=== PATIENT | female | born 1935 | race Caucasian/White ===

== ENCOUNTER 2016-10-28 18:34 | Inpatient (IN) ==
[2016-10-28] MEDS ORDERED: LACTATED RINGERS 1,000 ML IV ONE (19:13)
--- NOTE | 2016-10-28 19:13 | Emergency Department Note ---
General Adult HPI - General Chief complaint: Weakness Stated complaint: High blood sugar Time Seen by Provider: 10/28/16 19:11 Source: patient, family Mode of arrival: wheelchair Limitations: no limitations - History of Present Illness HPI Narrative: 81-year-old female patient of Dr. Tanner is coming in from the office with a history of insulin-dependent diabetes mellitus is living at home with elderly presenting with an unstageable decubitus coccygeal ulcer as well as 1 week history of altered mental status, dehydration as well as sugars in the 300 range and hyponatremia in clinic. Upon evaluation she was alert and oriented to person and place. She described buttock pain rated 7 out of 10 worsened with any type of movement. She has fecal incontinence which makes the ulcer more difficult. She endorses subjective fevers, chills as well as sweats. Remaining HPI secondary to current mental state, although patient is easily redirectable. - Related Data Home Medications Medication Instructions Recorded Confirmed Acetaminophen [Tylenol Arthritis] 650 mg PO ONCE 10/28/16 10/28/16 Clopidogrel Bisulfate [Plavix] 75 mg PO ONCE 10/28/16 10/28/16 Detrol 4 mg PO ONCE 10/28/16 10/28/16 Enalapril Maleate [Vasotec] 20 mg PO DAILY 10/28/16 10/28/16 Insulin Glargine, Human [Lantus] 25 unit SQ HS 10/28/16 10/28/16 Levothyroxine [Synthroid] 125 mcg PO DAILY 10/28/16 10/28/16 Metoprolol Tartrate [Lopressor] 25 mg PO BID 10/28/16 10/28/16 Omeprazole [PriLOSEC] 20 mg PO ONCE 10/28/16 10/28/16 Sertraline [Zoloft] 50 mg PO DAILY 10/28/16 10/28/16 Simvastatin [Zocor] 40 mg PO HS 10/28/16 10/28/16 metFORMIN [Glucophage] 500 mg PO BID 10/28/16 10/28/16 Allergies Allergy/AdvReac Type Severity Reaction Status Date / Time Tetanus Vaccines and Toxoid Allergy Unknown Unknown Verified 10/28/16 18:38 Review of Systems Limitations: ROS unobtainable due to patients medical condition Past Medical History - Past Medical History Source: nursing notes reviewed Medical history: Reports: CVA, DVT ( colon cancer, hard of hearing), diabetes, other Surgical history ED: Reports: cholecystectomy, hip replacement, other (carpal tunnel) - Social History Alcohol use: Reports: None Drug use: Reports: none Physical Exam - General Limitations: no limitations General appearance: alert, in distress, other (thin) - Head Head exam: atraumatic, normocephalic - Eye Eye exam: Present: normal appearance, PERRL, EOMI - ENT ENT exam: mucous membranes dry, TM's normal bilaterally - Neck Neck exam: Present: normal inspection, full ROM - Chest Chest inspection: Present: normal inspection, symmetric chest wall rise - Respiratory Respiratory exam: Present: normal lung sounds bilaterally. Absent: respiratory distress, wheezes - Cardiovascular Cardiovascular exam: Present: normal rhythm, tachycardia - Abdominal Exam Abdominal exam: Present: soft, distention, normal bowel sounds. Absent: tenderness, guarding, rebound - Rectal Exam Rectal exam: Present: other (unstageable decubitus coccygeal ulcer with surrounding erythema) - Extremities Exam Extremities exam: Present: normal inspection, full ROM. Absent: tenderness - Back Exam Back exam: Absent: tenderness - Neurological Exam Neurological exam: Present: alert - Expanded Neurological Exam Patient oriented to: Present: person, place. Absent: time Speech: Present: fluid speech Coma Scale Eye Opening: Spontaneous Coma Scale Motor Response: Obeys Commands Coma Scale Verbal Response: Confused Coma Scale Total: 14 - Psychiatric Psychiatric exam: Present: normal affect, normal mood, other (confused at times but redirectable) - Skin Skin exam: Present: dry Course Vital Signs Temperature 97.4 F L 10/28/16 18:35 Pulse Rate 98 H 10/28/16 18:35 Respiratory Rate 20 10/28/16 18:35 Blood Pressure 159/64 10/28/16 18:35 Pulse Oximetry (%) 97 10/28/16 18:35 Temperature 98.1 F 10/28/16 23:01 Pulse Rate 104 H 10/28/16 23:01 Respiratory Rate 16 10/28/16 23:01 Blood Pressure 174/80 10/28/16 23:01 Pulse Oximetry (%) 99 10/28/16 23:01 Medical Decision Making - [facility] Narrative Medical decision making narrative: 81 year old female presenting with altered mental status, found to have ERIC with BUN 26 and Cr 1.3, with unstageable coccygeal decubitus ulcer, as well as hyponatremia at 130, hyperglycemia with blood glucose 450, with AG 18, glucosuria and dehydration. She was given 1L LR bolus, given 10 units regular insulin. She was admitted for hypovolemic hyponatremia with ERIC, acute encephalopathy, unstageable coccygeal ulcer as well as hyperglycemia with elevated anion gap at 18. - Lab Data Result diagrams: 10/28/16 18:50 10/28/16 18:50 Lab Results 10/28/16 10/28/16 10/28/16 Range/Units 18:50 18:50 18:50 WBC 8.9 (4.5-11.0) K/mcL RBC 3.94 L (4.00-5.20) M/mcL Hgb 10.7 L (12.0-15.0) g/dL Hct 33.3 L (36.0-48.0) % MCV 84.6 (80.0-100.0) fL MCH 27.2 (26.0-34.0) pg MCHC 32.1 (31.0-36.0) g/dL RDW 15.0 H (11.5-14.5) % Plt Count 491 H (140-440) K/mcL MPV 8.4 (7.4-10.4) fL Total Counted 100 Seg Neutrophils % 84 H (38-78) % Band Neutrophils % Not Reportable Lymphocytes % 11 L (15-49) % Monocytes % (Manual) 4 (1-9) % Eosinophils % (Manual) 1 (0-7) % Platelet Estimate Increased (NORMAL) RBC Morphology Normal (NORMAL) VBG Lactic Acid 1.0 (0.5-2.2) mmol/L Sodium 130 L (133-145) mmol/L Potassium 5.0 (3.3-5.1) mmol/L Chloride 93 L (96-108) mmol/L Carbon Dioxide 19 L (22-30) mmol/L Anion Gap 18.0 H (8-16) BUN 26 H (8-23) mg/dl Creatinine 1.3 H (0.6-1.1) mg/dl GFR Calculation 39 Glucose 450 H (70-105) mg/dL Calcium 9.2 (8.6-10.4) mg/dl Total Bilirubin < 0.2 (0.0-1.0) mg/dL AST 28 (0-37) U/l ALT 23 (0-40) U/l Alkaline Phosphatase 139 H (39-117) U/L Total Protein 7.4 (5.9-8.4) gm/dL Albumin 3.3 (3.2-5.2) gm/dL Globulin 4.1 H (2.2-3.7) gm/dL Albumin/Globulin Ratio 0.8 L (1.0-2.3) Disposition Clinical Impression: Dehydration, Hyperglycemia Disposition: Xfer As Outpt/Obs ([facility]) Condition: Fair
[2016-10-28 19:36] LABS: Mean Cell Volume 84.6 fL (80.0-100.0); Mean Corpuscular HGB Conc 32.1 g/dL (31.0-36.0); Mean Corpuscular Hemoglobin 27.2 pg (26.0-34.0); Platelet Count 491 K/mcL (140-440); RBC 3.94 M/mcL (4.00-5.20)
[2016-10-28 19:57] LABS: ALT/SGPT 23 U/l (0-40); Albumin 3.3 gm/dL (3.2-5.2); Albumin/Globulin Ratio 0.8 (1.0-2.3); Alkaline Phosphatase 139 U/L (39-117); Blood Urea Nitrogen 26 mg/dl (8-23)
[2016-10-28 20:17] LABS: Eosinophils % (Manual) 1 % (0-7); Lymphocytes % 11 % (15-49); Monocytes % (Manual) 4 % (1-9); Platelet Estimate INCREASED (NORMAL); RBC Morphology NORMAL (NORMAL); Segmented Neutrophils % 84 % (38-78)
[2016-10-28] MEDS ORDERED: INSULIN REGULAR, HUMAN 1 UNIT/0.01 ML UNIT IV ONE (20:51)
--- NOTE | 2016-10-28 21:50 | Internal Med History&Physical ---
Medical - H&P: HPI Patient information: Note initiated : 10/28/16 at 9:46 pm Service Date, if different from initiated Date: [] Patient: Génesis Medina 81 y/o F admitted on for High blood sugar. Chief Complaint: [] History of present illness: Ms. Medina is a 81 year old female was brought to the emergency room this evening by her family. She has a history of type 2 diabetes depression, colorectal cancer. She apparently underwent rectal radiation therapy, which subsequently caused fecal incontinence. Over the last month or so she has developed a sacral decubitus ulcer, which probably has been getting contaminated by stool. Her family reports that over the last week she has had depressed mental status, and has not been eating and drinking well. Her blood sugars at home are running around 300. She does have chronic pain in her neck and low back, and now has pain in the coccygeal area as well. ER evaluation showed multiple electrolyte abnormalities, glucose of 450, as well as dehydration and elevated anion gap. Urinalysis was also abnormal. These abnormalities in addition to likely infected decubitus ulcer, and altered mental status, indicated she should be admitted to observe more closely and continue the workup and treatment here. Unfortunately, her family had already gone home by the time he got into her room. The patient herself is rather disoriented and forgetful. She could not really say where she was for sure, or how she got here. She does report the fecal incontinence, and that she has a sore near her rectum. She says she does not believe she's had recent fever or chills, headaches or dizziness, new eye or ear symptoms, sore throat or cough. She does not believe that she has had recent chest pain or palpitations, or shortness of breath, abdominal pain nausea or vomiting She says she has had loose bowels ever since her colon cancer treatment, as well as incontinence of stool. She only occasionally has reflux symptoms. She denies dysuria. it would appear that her history is not 100% reliable. past medical history: chronic neck pain Low back pain History of stroke History of DVT History of colon cancer, status post rectal radiation. hearing loss Type 2 diabetes T12 compression fx Past surgical history: Cholecystectomy, hip replacement, carpal tunnel repair Medications: Robaxin 750 mg 4 times a day when necessary (Bactrim DStwice a day, prescribed on October 08) metformin 500 mg twice a day Zocor 40 mg daily at bedtime Zoloft 50 mg daily Omeprazole 20 mg daily Metoprolol 25 mg twice a day Levothyroxine 125 mg daily Lantus 25 units daily at bedtime Enalapril 20 mg daily Detrol 4 mg daily Plavix 75 mg daily Tylenol arthritis 650 mgdaily Allergies:td vaccine Family history: Mother lived to be 94. Father in an accident. Social history: Patient is a former smoker. She does not use drugs or alcohol. She lives with her . Medical - H&P: Meds Home Medications Medication Instructions Recorded Confirmed Type Acetaminophen [Tylenol Arthritis] 650 mg PO ONCE 10/28/16 10/28/16 History Clopidogrel Bisulfate [Plavix] 75 mg PO ONCE 10/28/16 10/28/16 History Detrol 4 mg PO ONCE 10/28/16 10/28/16 History Enalapril Maleate [Vasotec] 20 mg PO DAILY 10/28/16 10/28/16 History Insulin Glargine, Human [Lantus] 25 unit SQ HS 10/28/16 10/28/16 History Levothyroxine [Synthroid] 125 mcg PO DAILY 10/28/16 10/28/16 History Metoprolol Tartrate [Lopressor] 25 mg PO BID 10/28/16 10/28/16 History Omeprazole [PriLOSEC] 20 mg PO ONCE 10/28/16 10/28/16 History Sertraline [Zoloft] 50 mg PO DAILY 10/28/16 10/28/16 History Simvastatin [Zocor] 40 mg PO HS 10/28/16 10/28/16 History metFORMIN [Glucophage] 500 mg PO BID 10/28/16 10/28/16 History Allergies Allergy/AdvReac Type Severity Reaction Status Date / Time Tetanus Vaccines and Toxoid Allergy Unknown Unknown Verified 10/28/16 18:38 Medical - H&P: Exam - Constitutional Vitals: Temp Pulse Resp BP Pulse Ox 97.4 F L 101 H 20 163/60 97 10/28/16 18:35 10/28/16 21:00 10/28/16 18:35 10/28/16 21:00 10/28/16 21:00 Exam: on exam, the patient isquite confused at times although at other times her answers appear appropriate. She is otherwise not in any acute distress. Head: Normocephalic, atraumatic. Eyes: PERRLA, EOMI, anicteric. Ears: TMs and canals are clear. Pharynx:Mucosa is quite dry. She does have upper and lower plates in place. Neck: Appears fairly supple, without obvious lymphadenopathy, JVD, thyromegaly, bruits. Cardiac exam: Shows regular rate and rhythm, without obvious murmurs, rubs, gallops. Lungs: Are clear to auscultation, without rales, rhonchi, wheezes. Abdomen: Is soft . There is no guarding or rebound, but she does seem to indicate there is some tenderness generally in the lower abdomen. bowel sounds are active. Extremities: Show no cyanosis, clubbing, edema. Neurologic exam:The patient is forgetful and disoriented. She is a little bit tearful at times, but otherwise cooperative and able to follow commands. Motor exam is grossly nonfocal. Skin exam: There is a large ulcer noted over the sacrum. There is smaller skin lesions noted under both breasts and her pannus, consistent with more of a candidal type infection. Medical - H&P: Reslt - Labs CBC & Chem 7: 10/28/16 18:50 10/28/16 18:50 Labs: Short CBC 10/28/16 Range/Units 18:50 WBC 8.9 (4.5-11.0) K/mcL Hgb 10.7 L (12.0-15.0) g/dL Hct 33.3 L (36.0-48.0) % Plt Count 491 H (140-440) K/mcL BMP 10/28/16 18:50 Sodium 130 L Potassium 5.0 Chloride 93 L Carbon Dioxide 19 L BUN 26 H Creatinine 1.3 H Glucose 450 H Calcium 9.2 Liver Function 10/28/16 Range/Units 18:50 Total Bilirubin < 0.2 (0.0-1.0) mg/dL AST 28 (0-37) U/l ALT 23 (0-40) U/l Alkaline Phosphatase 139 H (39-117) U/L Albumin 3.3 (3.2-5.2) gm/dL urinalysis was cloudy, with pH of 6, specific gravity 1.009, 100 mg protein 50 mg glucose, 250 leukocyte esterase, 113 white blood cells, few bacteria urine culture from October 08, 2016: grew 10,000 Nohemy albicans Medical - H&P: A/P (1) Decubitus ulcer of sacral region Current visit: Yes Status: Acute (2) Hyponatremia Current visit: Yes Status: Acute (3) DM type 2 (diabetes mellitus, type 2) Current visit: Yes Status: Acute (4) History of CVA (cerebrovascular accident) Current visit: Yes Status: Acute (5) Depression Current visit: Yes Status: Acute (6) ERIC (acute kidney injury) Current visit: Yes Status: Acute (7) Dehydration Current visit: Yes Status: Acute (8) Hyperglycemia Current visit: Yes Status: Acute - Narrative A/P Narrative: #1. Neurologic. Altered mental status, likely due to acute illness and dehydration and hyperglycemia. -we will follow her neuro checks, and see if this improves after hydration. I will also touch base with her familyin the morning, to see what her baseline is. -There is a reported past history of stroke, although she was unable to tell me if that left her with any deficits. If her mental status does not improve by tomorrow, we may check a head CT scan as well. #2. Type 2 diabetes. -patient presents with marked hyperglycemia, likely due to acute infection. we will do Accu-Cheks every 4 hours, and cover with sliding scale insulin, in addition to her Lantus. -metformin will be held, regarding her dehydration. #3.skin/infectious disease. sacral decubitus ulcer possibly infected. -Patient will be started on Zosyn and vancomycinfor empiric coverage. -Wound care consult with Dr. Alanis. -Patient's urinalysis also was suggestive of UTI. This should be covered by the empiric antibiotics, pending culture.blood cultures are also pending. #4. Renal. Patient presents with acute kidney injury, and multiple electrolyte abnormalities, likely due to dehydration and uncontrolled diabetes. We will check follow-up labs after hydration. #5. GI. -History of colorectal cancer, status post radiation, now withwhat sounds like chronic diarrhea and bowel incontinence. -it does look like she might even treated with antibiotics earlier this month, so we will check a C. difficile screen as well. history of GERD. Continue proton pump inhibitor. #6. CODE STATUS:The patient is a little unclear about this, and since her POA is not available,she will remain a full code for tonight, although it sounds like perhaps there is paperwork somewhere indicating a limited code. #7. DVT prophylaxis: She is on Plavix, but I think I'm going to add low-dose heparin as well, given that something perhaps she's been bedbound for a while. #8. Hyperlipidemia. Continue Zocor. #9. Possible history of depression. Continue Zoloft. #10. Cardiac. probable history of hypertension. Continue metoprolol, but hold the enalapril until renal function improves. -Her chart does not indicate the reason for the Plavix, although this may be related to previous history of stroke. We will try to clarify this with her family tomorrow. #11. Hypothyroidism. Continue levothyroxine. this visit took approximately 60 minutes, to review the patient's records, review her case with the ER [facility], interview and examine her, and write orders.
[2016-10-28] MEDS ORDERED: ONDANSETRON 4 MG/2 ML VIAL IV PRN (23:15)
[2016-10-28] MEDS ORDERED: VANCOMYCIN PER PHARMACY IV ONE (23:15)
[2016-10-28] MEDS ORDERED: NALOXONE HCL 0.4 MG/ML VIAL IV PRN (23:15)
[2016-10-28] MEDS ORDERED: DEXTROSE 50% 50 ML VIAL IV PRN (23:15)
[2016-10-28] MEDS ORDERED: MAGNESIUM HYDROXIDE 30 ML ORAL.SUSP PO PRN (23:15)
[2016-10-28] MEDS ORDERED: DOCUSATE SODIUM 100 MG CAPSULE PO PRN (23:15)
[2016-10-28] MEDS ORDERED: CALCIUM CARBONATE 500 MG TAB.CHEW CHEWED PRN (23:15)
[2016-10-28] MEDS: 0.45 % SODIUM CHLORIDE 1,000 ML IV SCH (23:25)
[2016-10-28] MEDS: 0.9 % SODIUM CHLORIDE 10 ML SYRINGE IV SCH (23:25)
[2016-10-28] MEDS: PIPERACILLIN SODIUM/TAZOBACTAM 3.375 GM in DEXTROSE 5% IN WATER 50 ML IV SCH (23:58)
[2016-10-28] MEDS: INSULIN LISPRO 1 UNIT/0.01 ML UNIT SQ SCH (23:58)
[2016-10-29] MEDS ORDERED: INSULIN LISPRO 1 UNIT/0.01 ML UNIT SQ ONE ×2 (00:03→03:17)
[2016-10-29] MEDS ORDERED: PIPERACILLIN SODIUM/TAZOBACTAM 3.375 GM VIAL IV ONE ×2 (00:04→05:39)
[2016-10-29] MEDS ORDERED: CLOPIDOGREL 75 MG TABLET PO SCH (00:15)
[2016-10-29] MEDS ORDERED: OMEPRAZOLE 20 MG CAPSULE PO SCH (00:15)
[2016-10-29] MEDS ORDERED: DETROL 4 MG PO SCH (00:15)
[2016-10-29] MEDS ORDERED: VANCOMYCIN 750 MG in 0.9 % SODIUM CHLORIDE 250 ML IV ONE (01:00)
[2016-10-29] MEDS ORDERED: VANCOMYCIN 1 GM VIAL ONE (01:15)
[2016-10-29] MEDS: INSULIN LISPRO 1 UNIT/0.01 ML UNIT SQ SCH ×5 (03:06→20:31)
[2016-10-29] MEDS: PIPERACILLIN SODIUM/TAZOBACTAM 3.375 GM in DEXTROSE 5% IN WATER 50 ML IV SCH (05:42)
[2016-10-29] MEDS: 0.9 % SODIUM CHLORIDE 10 ML SYRINGE IV SCH ×3 (05:43→20:32)
[2016-10-29 07:07] LABS: ALT/SGPT 21 U/l (0-40); Albumin 2.9 gm/dL (3.2-5.2); Albumin/Globulin Ratio 1.2 (1.0-2.3); Alkaline Phosphatase 113 U/L (39-117); Bilirubin,Direct < 0.2 mg/dL (0.0-0.3); Blood Urea Nitrogen 18 mg/dl (8-23); Gamma Glutamyl Transpeptidase 21 U/L (5-36); Magnesium 1.6 mg/dL (1.6-2.5); Phosphorous 2.6 mg/dL (2.7-4.5); Uric Acid 5.7 mg/dL (2.5-8.0)
[2016-10-29] MEDS: 0.45 % SODIUM CHLORIDE 1,000 ML IV SCH ×2 (07:27→10:59)
[2016-10-29] MEDS: PANTOPRAZOLE 40 MG TABLET PO SCH (07:34)
[2016-10-29] MEDS: LEVOTHYROXINE 125 MCG TABLET PO SCH (07:34)
--- NOTE | 2016-10-29 07:51 | XRay Report ---
CLINICAL INFORMATION: Ketoacidosis. Altered mental status TECHNIQUE: AP portable chest x-ray COMPARISON: None. FINDINGS: Lungs are negative. No parenchymal infiltrate or mass. Heart size and vascularity are normal. No pulmonary congestion. No pulmonary edema. Emily and mediastinum are negative. No pleural fluid. IMPRESSION: Negative AP chest x-ray Interpreted and Authenticated by: Jey Manning 10/29/16
[2016-10-29] MEDS: SERTRALINE 50 MG TABLET PO SCH (08:56)
[2016-10-29] MEDS: HEPARIN 5,000 UNIT/ML VIAL SQ SCH ×2 (08:56→20:30)
[2016-10-29] MEDS: CLOPIDOGREL 75 MG TABLET PO SCH (08:56)
[2016-10-29] MEDS: METOPROLOL TARTRATE 25 MG TABLET PO SCH ×2 (08:56→20:31)
[2016-10-29 11:04] LABS: Basophils # (Auto) 0 K/mcL (0.0-0.3); Basophils % (Auto) 0.2 % (0.0-2.0); Eosinophils # (Auto) 0.2 K/mcL (0.0-0.7); Eosinophils % (Auto) 2.5 % (0.0-7.0); Granulocytes % (Auto) 79.1 % (38.0-78.0); Lymphocytes # (Auto) 1.4 K/mcL (1.5-4.8); Lymphocytes % (Auto) 13.7 % (15.5-49.0); Mean Cell Volume 84.1 fL (80.0-100.0); Mean Corpuscular HGB Conc 31.9 g/dL (31.0-36.0); Mean Corpuscular Hemoglobin 26.8 pg (26.0-34.0); Monocytes # (Auto) 0.5 K/mcL (0.1-0.9); Monocytes % (Auto) 4.5 % (1.0-9.0); Platelet Count 455 K/mcL (140-440); RBC 3.53 M/mcL (4.00-5.20); Red Cell Distribution Width 14.7 % (11.5-14.5)
[2016-10-29] MEDS: PIPERACILLIN SODIUM/TAZOBACTAM 2.25 GM in DEXTROSE 5% IN WATER 50 ML IV SCH ×2 (12:00→19:15)
--- NOTE | 2016-10-29 12:50 | General Surgery Consult Note ---
History of Present Illness Patient information: Note initiated : 10/29/16 at 12:46 pm Service Date, if different from initiated Date: [] Patient: Génesis Medina 81 y/o F admitted on 10/28/16 for High blood sugar. Chief Complaint: [] Consult date: 10/29/16 Requesting physician: Ann Fair History of present illness: patient referred for evaluation of wound care center area with a pressure necrosis. Non-stageable sacral / coccygeal ulcer. I saw this 81-year-old female in room 108. I examined her in the presence of nursing staff and Dr. Pantoja referring physician, hospitalist. This patient is currently in the hospital for management of her medical conditions of uncontrolled diabetes with altered mental status. Along with this , patient has depression ERIC. Patient's past medical history significant for rectal cancer treated with radiation. Other past medical history consists of CVA, deep venous thrombosis, fracture of T12 vertebra, renal insufficiency with ERIC. She was noted to have an area of full-thickness necrosis over the sacrococcygeal region. Wound care consult was therefore generated. Medications and Allergies Home Medications Medication Instructions Recorded Confirmed Type Acetaminophen [Tylenol Arthritis] 650 mg PO Q4-6HP PRN 10/28/16 10/29/16 History Clopidogrel Bisulfate [Plavix] 75 mg PO DAILY 10/28/16 10/29/16 History Enalapril Maleate [Vasotec] 20 mg PO DAILY 10/28/16 10/28/16 History Insulin Glargine, Human [Lantus] 25 unit SQ HS 10/28/16 10/28/16 History Levothyroxine [Synthroid] 125 mcg PO DAILY 10/28/16 10/28/16 History Metoprolol Tartrate [Lopressor] 25 mg PO BID 10/28/16 10/28/16 History Omeprazole [PriLOSEC] 20 mg PO DAILY 10/28/16 10/29/16 History Sertraline [Zoloft] 50 mg PO DAILY 10/28/16 10/28/16 History Simvastatin [Zocor] 40 mg PO HS 10/28/16 10/28/16 History metFORMIN [Glucophage] 500 mg PO BID 10/28/16 10/28/16 History Tolterodine Tartrate [Detrol LA] 4 mg PO DAILY 10/29/16 10/29/16 History Allergies Allergy/AdvReac Type Severity Reaction Status Date / Time Tetanus Vaccines and Toxoid Allergy Unknown Unknown Verified 10/28/16 18:38 Exam Temp Pulse Resp BP Pulse Ox 97.5 F L 76 14 148/77 99 10/29/16 08:00 10/29/16 08:00 10/29/16 08:00 10/29/16 08:00 10/29/16 08:00 - General physical appearance well developed, well nourished, moderate distress - Eyes PERRL, normal ocular movement - ENT normal pinna, normal nares, normal mucosa, no congestion - Head Head exam IM: Present: atraumatic, normal inspection - Neck no masses, no bruits, trachea midline, no lymphadectomy, no venous distension - Cardiovascular Cardiovascular exam IM: Present: normal rate and rhythm - Respiratory normal expansion, normal respiratory effort, clear to auscultation - Abdomen Abdomen: Present: soft, non tender, bowel sounds - Genitourinary Present: normal external genitalia - Rectum Rectum: Present: normal sphincter tone, no hemorrhoids, no bleeding, fissures - Integumentary Present: other (non-stageable discolored and dry [place] Black skin adherent subcutaneous and surrounding skin areas. Underlying bony structure appears deformed due to previous radiation and fracture injuries) - Neurologic Present: normal coordination, other (Her neurological examination is grossly unremarkable. Detailed examination not done. There are no lateralizing signs) - Musculoskeletal Present: other (patient is currently lying in bed.There is palpable deformity of lumbar, sacral and coccygeal areas) - Psychiatric Present: other (patient is in discomfort. Psychiatric examination not done.) Results - Labs 10/29/16 10:34 10/29/16 04:55 Abnormal lab results 10/29/16 10/29/16 Range/Units 04:55 10:34 RBC 3.53 L (4.00-5.20) M/mcL Hgb 9.5 L (12.0-15.0) g/dL Hct 29.7 L (36.0-48.0) % RDW 14.7 H (11.5-14.5) % Plt Count 455 H (140-440) K/mcL Gran % 79.1 H (38.0-78.0) % Lymph % (Auto) 13.7 L (15.5-49.0) % Lymph # 1.4 L (1.5-4.8) K/mcL Carbon Dioxide 19 L (22-30) mmol/L Phosphorus 2.6 L (2.7-4.5) mg/dL Lactate Dehydrogenase 264 H (94-250) U/L Total Protein 5.4 L (5.9-8.4) gm/dL Albumin 2.9 L (3.2-5.2) gm/dL Diabetes panel 10/29/16 Range/Units 04:55 Sodium 139 (133-145) mmol/L Potassium 5.0 (3.3-5.1) mmol/L Chloride 104 (96-108) mmol/L Carbon Dioxide 19 L (22-30) mmol/L BUN 18 (8-23) mg/dl Creatinine 1.1 (0.6-1.1) mg/dl Glucose 86 (70-105) mg/dL Calcium 8.7 (8.6-10.4) mg/dl AST 26 (0-37) U/l ALT 21 (0-40) U/l Alkaline Phosphatase 113 (39-117) U/L Total Protein 5.4 L (5.9-8.4) gm/dL Albumin 2.9 L (3.2-5.2) gm/dL Triglycerides 107 (<150) mg/dl Calcium panel 10/29/16 Range/Units 04:55 Calcium 8.7 (8.6-10.4) mg/dl Phosphorus 2.6 L (2.7-4.5) mg/dL Albumin 2.9 L (3.2-5.2) gm/dL Pituitary panel 10/29/16 Range/Units 04:55 Sodium 139 (133-145) mmol/L Potassium 5.0 (3.3-5.1) mmol/L Chloride 104 (96-108) mmol/L Carbon Dioxide 19 L (22-30) mmol/L BUN 18 (8-23) mg/dl Creatinine 1.1 (0.6-1.1) mg/dl Glucose 86 (70-105) mg/dL Calcium 8.7 (8.6-10.4) mg/dl Adrenal panel 10/29/16 Range/Units 04:55 Sodium 139 (133-145) mmol/L Potassium 5.0 (3.3-5.1) mmol/L Chloride 104 (96-108) mmol/L Carbon Dioxide 19 L (22-30) mmol/L BUN 18 (8-23) mg/dl Creatinine 1.1 (0.6-1.1) mg/dl Glucose 86 (70-105) mg/dL Calcium 8.7 (8.6-10.4) mg/dl Total Bilirubin < 0.2 (0.0-1.0) mg/dL AST 26 (0-37) U/l ALT 21 (0-40) U/l Alkaline Phosphatase 113 (39-117) U/L Total Protein 5.4 L (5.9-8.4) gm/dL Albumin 2.9 L (3.2-5.2) gm/dL All other labs normal. Assessment and Plan (1) Decubitus ulcer of sacral region I will proceed with conservative management of sacral ulcer at this time. This area has to Santyl collagenase ointment to be applied locally therefore the black eschar. Color with ABD pad and diapers. these can be changed as necessary on every shift. Avoid adherent foam containing Band-Aid type of dressings, which only tap stool and make this skin problem worse. I will speak with patient's family members and try to obtain details pertaining to radiation treatment of rectal cancer. 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 This has to be explored further. Thank you for the courtesy of this consult. I will follow this patient along with you while she is still in the hospital. Status: Chronic Priority: Medium Qualifiers: Pressure ulcer stage: unstageable Qualified Code(s): L89.150 - Pressure ulcer of sacral region, unstageable
[2016-10-29] MEDS: TOLTERODINE 2 MG CAP.XL.24H PO SCH (13:34)
--- NOTE | 2016-10-29 13:48 | Internal Med Progress Note ---
Medical - PN: Subj Patient information: Note initiated : 10/29/16 at 1:47 pm Service Date, if different from initiated Date: [] Patient: Génesis Medina 81 y/o F admitted on 10/28/16 for High blood sugar. Chief Complaint: [] Interval history: 10/28/16: History of present illness: Ms. Medina is a 81 year old female was brought to the emergency room this evening by her family. She has a history of type 2 diabetes depression, colorectal cancer. She apparently underwent rectal radiation therapy, which subsequently caused fecal incontinence. Over the last month or so she has developed a sacral decubitus ulcer, which probably has been getting contaminated by stool. Her family reports that over the last week she has had depressed mental status, and has not been eating and drinking well. Her blood sugars at home are running around 300. She does have chronic pain in her neck and low back, and now has pain in the coccygeal area as well. ER evaluation showed multiple electrolyte abnormalities, glucose of 450, as well as dehydration and elevated anion gap. Urinalysis was also abnormal. These abnormalities in addition to likely infected decubitus ulcer, and altered mental status, indicated she should be admitted to observe more closely and continue the workup and treatment here. Unfortunately, her family had already gone home by the time he got into her room. The patient herself is rather disoriented and forgetful. She could not really say where she was for sure, or how she got here. She does report the fecal incontinence, and that she has a sore near her rectum. She says she does not believe she's had recent fever or chills, headaches or dizziness, new eye or ear symptoms, sore throat or cough. She does not believe that she has had recent chest pain or palpitations, or shortness of breath, abdominal pain nausea or vomiting She says she has had loose bowels ever since her colon cancer treatment, as well as incontinence of stool. She only occasionally has reflux symptoms. She denies dysuria. it would appear that her history is not 100% reliable. 10/29: this morning, the patient remains a bit confused. She is still having significant pain over her sacral ulcer area, if she has to lay on her back. I saw her also with Dr. Alanis today, and we looked at the wound. It is fairly large, but not especially deep. t is quite tender to the touch. otherwise, the patient denies fever or chills, chest pain or shortness of breath , abdominal pain nausea or vomiting. She continues to have her chronically loose stools. And she does have bowel incontinence. - Constitutional Vitals: Vital Signs Temp Pulse Resp BP Pulse Ox 97.5 F L 76 14 148/77 99 10/29/16 08:00 10/29/16 08:00 10/29/16 08:00 10/29/16 08:00 10/29/16 08:00 Period Temp Pulse Resp BP Sys/King Pulse Ox Last 24 Hr 97.5 F-98.1 F 76-104 14-16 148-176/77-80 99-100 Intake and Output 10/28/16 10/29/16 10/29/16 21:59 05:59 13:59 Intake Total 50 / 50 1300 / 1300 Output Total 1 / 2 / 2 Balance 49 / 49 1298 / 1298 Weight 117 lb 8 oz Intake & Output: Intake & Output 10/28/16 10/29/16 10/29/16 21:59 05:59 13:59 Intake Total 50 / 50 1300 / 1300 Output Total 1 / 2 / 2 Balance 49 / 49 1298 / 1298 Weight 117 lb 8 oz Intake: IV 50 / 50 1300 / 1300 Sodium Chloride 0.45% 1, 1000 / 1000 000 ml @ 125 mls/hr IV . Q8H EPI Rx#:[id number] Dextrose 5% in Water 50 50 / 50 50 / 50 ml @ 100 mls/hr IV Q6H EPI with Zosyn 3.375 gm Rx#:[id number] Sodium Chloride 0.9% 250 250 / 250 ml @ 250 mls/hr IV ONCE ONE with Vancomycin 750 mg Rx#:[id number] Oral 0 / 0 Output: # of times incontinent of 1 / 1 2 / 2 urine Other: # Bowel Movements 1 Exam: on exam, the patient remains fairly confused, and tearful at times. neck is supple without obvious lymphadenopathy or JVD. Cardiac exam shows regular rate and rhythm. Lungs are clear to auscultation. Abdomen is soft without guarding or rebound. Skin exam: Shows the large sacral ulcer. Extremities show no significant edema. Medical - PN: Obj Da - Labs CBC & Chem 7: 10/29/16 10:34 10/29/16 04:55 Labs: Abnormal Lab Results 10/29/16 10/29/16 10:34 04:55 RBC 3.53 L Hgb 9.5 L Hct 29.7 L RDW 14.7 H Plt Count 455 H Gran % 79.1 H Lymph % (Auto) 13.7 L Lymph # 1.4 L Carbon Dioxide 19 L Phosphorus 2.6 L Lactate Dehydrogenase 264 H Total Protein 5.4 L Albumin 2.9 L 10/29: blood cultures are negative so far. 10/28: urinalysis was cloudy, with pH of 6, specific gravity 1.009, 100 mg protein 50 mg glucose, 250 leukocyte esterase, 113 white blood cells, few bacteria urine culture from October 08, 2016: grew 10,000 Nohemy albicans portable chest x-ray shows no infiltrates or other acute abnormalities. Meds: Medications Acetaminophen (Tylenol) 650 mg PO Q6HP PRN PRN Reason: PAIN/FEVER > 101 Calcium Carbonate/Glycine (Tums) 1,000 mg CHEWED Q4HP PRN PRN Reason: Dyspepsia Clopidogrel Bisulfate (Plavix) 75 mg PO DAILY [facility] Last Admin: 10/29/16 08:56 Dose: 75 mg Collagenase (Santyl Top Oint) 1 dose TOPICAL DAILY [facility] Dextrose (Dextrose 50%) 0 ml IV UD PRN PRN Reason: Hypoglycemia Diagnostic Test (Pha) (Accu-Chek) 1 each FS ACHS [facility] Last Admin: 10/29/16 11:46 Dose: 1 each Docusate Sodium (Colace) 100 mg PO BID PRN PRN Reason: Constipation Heparin Sodium (Porcine) (Heparin) 5,000 unit SQ Q12 [facility] Last Admin: 10/29/16 08:56 Dose: 5,000 unit Vancomycin HCl 750 mg/ Sodium (Chloride) 250 mls @ 250 mls/hr IV DAILY [facility] Piperacillin Sod/Tazobactam (Sod 2.25 gm/ Dextrose) 50 mls @ 100 mls/hr IV Q6 [facility] Last Admin: 10/29/16 12:00 Dose: 100 mls/hr Sodium Chloride (Sodium Chloride 0.45%) 1,000 mls @ 80 mls/hr IV .[id number] [facility] Last Admin: 10/29/16 10:59 Dose: 80 mls/hr Insulin Glargine (Lantus) 25 unit SQ HS [facility] Insulin Human Lispro (Humalog) 0 unit SQ ACHS [facility] PRN Reason: Protocol Last Admin: 10/29/16 11:46 Dose: 6 unit Levothyroxine Sodium (Synthroid) 125 mcg PO ACB [facility] Last Admin: 10/29/16 07:34 Dose: 125 mcg Magnesium Hydroxide (Milk Of Magnesia) 30 ml PO DAILYP PRN PRN Reason: Constipation Metoprolol Tartrate (Lopressor) 25 mg PO BID [facility] Last Admin: 10/29/16 08:56 Dose: 25 mg Morphine Sulfate (Morphine) 1 mg IV Q4HP PRN PRN Reason: Pain Naloxone HCl (Narcan) 0.1 mg IV Q2MIN PRN PRN Reason: Opiate Reversal Ondansetron HCl (Zofran) 4 mg IV Q6HP PRN PRN Reason: Nausea And Vomiting Pantoprazole Sodium (Protonix) 40 mg PO QAMAC [facility] Last Admin: 10/29/16 07:34 Dose: 40 mg Sertraline HCl (Zoloft) 50 mg PO DAILY [facility] Last Admin: 10/29/16 08:56 Dose: 50 mg Simvastatin (Zocor) 40 mg PO HS [facility] Sodium Chloride (Saline Flush) 10 ml IV Q8 [facility] Last Admin: 10/29/16 05:43 Dose: Not Given Tolterodine Tartrate (Detrol La) 4 mg PO DAILY [facility] Last Admin: 10/29/16 13:34 Dose: 4 mg Medical - PN: A/P - Time Spent With Patient Total time spent is greater than 50% in coordination of care (as documented) at patient's floor/unit and/or counseling patient: (1) Decubitus ulcer of sacral region Status: Chronic Current Visit: Yes (2) Hyponatremia Status: Acute Current Visit: Yes (3) DM type 2 (diabetes mellitus, type 2) Status: Acute Current Visit: Yes (4) History of CVA (cerebrovascular accident) Status: Acute Current Visit: Yes (5) Depression Status: Acute Current Visit: Yes (6) ERIC (acute kidney injury) Status: Acute Current Visit: Yes (7) Dehydration Status: Acute Current Visit: Yes (8) Hyperglycemia Status: Acute Current Visit: Yes - Narrative A/P Narrative: #1. Neurologic. Altered mental status, likely due to acute illness and dehydration and hyperglycemia. -unfortunately I did miss her family this morning. she continues to seem a bit confused. -we will follow her neuro checks, and see if this improves after hydration. - There is a reported past history of stroke, although she was unable to tell me if that left her with any deficits. If her mental status does not improve , we may check a head CT scan as well. #2. Type 2 diabetes. -patient presents with marked hyperglycemia,glucoses do continue to be quite labile. likely due to acute infection. we will do Accu-Cheks every 4 hours, and cover with sliding scale insulin, in addition to her Lantus. -metformin can probably now be resumed. #3.skin/infectious disease. sacral decubitus ulcer possibly infected. -Patient will be started on Zosyn and vancomycin for empiric coverage. -Wound care consult with Dr. Alanis--he notes that if the wound is related to previous radiation treatment for her colon cancer, that it mightbe amenable to hyperbaric oxygen treatment.. -Patient's urinalysis also was suggestive of UTI. This should be covered by the empiric antibiotics, pending culture.blood cultures are also pending. #4. Renal. Patient presents with acute kidney injury, and multiple electrolyte abnormalities, likely due to dehydration and uncontrolled diabetes. We will check follow-up labs after hydration. -these are improving today. #5. GI. -History of colorectal cancer, status post radiation, now withwhat sounds like chronic diarrhea and bowel incontinence. -it does look like she might even treated with antibiotics earlier this month, so we will check a C. difficile screen as well. history of GERD. Continue proton pump inhibitor. #6. CODE STATUS:The patient is a little unclear about this, and since her POA is not available,she will remain a full code for tonight, although it sounds like perhaps there is paperwork somewhere indicating a limited code. #7. DVT prophylaxis: She is on Plavix, but I think I'm going to add low-dose heparin as well, given that something perhaps she's been bedbound for a while. #8. Hyperlipidemia. Continue Zocor. #9. Possible history of depression. Continue Zoloft. #10. Cardiac. probable history of hypertension. Continue metoprolol, but hold the enalapril until renal function improves. -Her chart does not indicate the reason for the Plavix, although this may be related to previous history of stroke. We will try to clarify this with her family . #11. Hypothyroidism. Continue levothyroxine. this visit took approximately 30 minutes today, to review patient's test results and vital signs interview and examine her, examine her wound with Dr. Alanis, and write orders. Medical - PN: Qual - Stroke Symptom Onset Unknown: No - VTE Deep Vein Thrombosis/Pulmonary Embolism Present on Admission: No
[2016-10-29] MEDS: COLLAGENASE TOP OINT TUBE 30GM TOPICAL SCH (15:15)
[2016-10-29] MEDS: VANCOMYCIN 750 MG in 0.9 % SODIUM CHLORIDE 250 ML IV SCH (17:30)
[2016-10-29] MEDS: ACETAMINOPHEN 325 MG TABLET PO PRN (19:50)
[2016-10-29] MEDS: INSULIN GLARGINE, HUMAN 1 UNIT/0.01 ML SQ SCH (20:30)
[2016-10-29] MEDS: SIMVASTATIN 40 MG TABLET PO SCH (20:31)
[2016-10-30] MEDS: 0.45 % SODIUM CHLORIDE 1,000 ML IV SCH ×4 (00:50→21:13)
[2016-10-30] MEDS: PIPERACILLIN SODIUM/TAZOBACTAM 2.25 GM in DEXTROSE 5% IN WATER 50 ML IV SCH ×4 (00:54→17:44)
[2016-10-30] MEDS: 0.9 % SODIUM CHLORIDE 10 ML SYRINGE IV SCH ×3 (05:45→21:02)
[2016-10-30 06:19] LABS: Basophils # (Auto) 0 K/mcL (0.0-0.3); Basophils % (Auto) 0.3 % (0.0-2.0); Eosinophils # (Auto) 0.2 K/mcL (0.0-0.7); Eosinophils % (Auto) 2.6 % (0.0-7.0); Granulocytes % (Auto) 72.1 % (38.0-78.0); Lymphocytes # (Auto) 1.8 K/mcL (1.5-4.8); Lymphocytes % (Auto) 19.8 % (15.5-49.0); Mean Cell Volume 85.2 fL (80.0-100.0); Mean Corpuscular HGB Conc 31.9 g/dL (31.0-36.0); Mean Corpuscular Hemoglobin 27.2 pg (26.0-34.0); Monocytes # (Auto) 0.5 K/mcL (0.1-0.9); Monocytes % (Auto) 5.2 % (1.0-9.0); Platelet Count 421 K/mcL (140-440); RBC 3.26 M/mcL (4.00-5.20); Red Cell Distribution Width 14.8 % (11.5-14.5)
[2016-10-30 08:05] LABS: ALT/SGPT 21 U/l (0-40); Albumin 2.7 gm/dL (3.2-5.2); Albumin/Globulin Ratio 0.8 (1.0-2.3); Alkaline Phosphatase 107 U/L (39-117); Bilirubin,Direct < 0.2 mg/dL (0.0-0.3); Blood Urea Nitrogen 12 mg/dl (8-23); Gamma Glutamyl Transpeptidase 26 U/L (5-36); Magnesium 1.5 mg/dL (1.6-2.5); Phosphorous 2.9 mg/dL (2.7-4.5); Uric Acid 3.7 mg/dL (2.5-8.0)
[2016-10-30] MEDS: INSULIN LISPRO 1 UNIT/0.01 ML UNIT SQ SCH ×4 (08:10→21:01)
[2016-10-30] MEDS: PANTOPRAZOLE 40 MG TABLET PO SCH (08:10)
[2016-10-30] MEDS: LEVOTHYROXINE 125 MCG TABLET PO SCH (08:10)
[2016-10-30] MEDS: HEPARIN 5,000 UNIT/ML VIAL SQ SCH ×2 (08:57→21:01)
[2016-10-30] MEDS: metFORMIN 500 MG TABLET PO SCH ×2 (08:58→17:43)
[2016-10-30] MEDS: SERTRALINE 50 MG TABLET PO SCH (08:58)
[2016-10-30] MEDS: METOPROLOL TARTRATE 25 MG TABLET PO SCH ×2 (08:58→21:01)
[2016-10-30] MEDS: CLOPIDOGREL 75 MG TABLET PO SCH (08:58)
[2016-10-30] MEDS: COLLAGENASE TOP OINT TUBE 30GM TOPICAL SCH (09:09)
[2016-10-30] MEDS: TOLTERODINE 2 MG CAP.XL.24H PO SCH (09:09)
[2016-10-30] MEDS ORDERED: MAGNESIUM SULFATE 2 GM/50 ML BAG IV ONE (09:36)
[2016-10-30] MEDS: VANCOMYCIN 750 MG in 0.9 % SODIUM CHLORIDE 250 ML IV SCH (09:57)
--- NOTE | 2016-10-30 11:36 | General Surgery Progress Note ---
Subjective Patient reports: no new complaints, other Narrative: Note initiated : 10/30/16 at 11:30 am Service Date, if different from initiated Date: [] Patient: Génesis Medina 81 y/o F admitted on 10/28/16 for High blood sugar. Chief Complaint: [] Feeling better today. OOB to chair and conversational. Objective Temp Pulse Resp BP Pulse Ox 97.5 F L 85 20 172/81 98 10/30/16 08:00 10/30/16 08:00 10/30/16 08:00 10/30/16 08:00 10/30/16 08:00 AVSS. No interval changes since last seen. - Additional Data Intake & Output - Last 24 hours: Intake & Output 10/28/16 10/29/16 10/30/16 10/31/16 05:59 05:59 05:59 05:59 Intake Total 50 / 1050 2875 / 2875 750 / 750 Output Total 455 / 455 Balance 49 / 1049 2420 / 2420 749 / 749 Weight 117 lb 8 oz 120 lb - Labs 10/30/16 04:40 10/30/16 04:40 Diabetes panel 10/30/16 Range/Units 04:40 Sodium 136 (133-145) mmol/L Potassium 4.5 (3.3-5.1) mmol/L Chloride 103 (96-108) mmol/L Carbon Dioxide 18 L (22-30) mmol/L BUN 12 (8-23) mg/dl Creatinine 1.1 (0.6-1.1) mg/dl Glucose 154 H (70-105) mg/dL Calcium 8.5 L (8.6-10.4) mg/dl AST 23 (0-37) U/l ALT 21 (0-40) U/l Alkaline Phosphatase 107 (39-117) U/L Total Protein 6.1 (5.9-8.4) gm/dL Albumin 2.7 L (3.2-5.2) gm/dL Triglycerides 154 H (<150) mg/dl Calcium panel 10/30/16 Range/Units 04:40 Calcium 8.5 L (8.6-10.4) mg/dl Phosphorus 2.9 (2.7-4.5) mg/dL Albumin 2.7 L (3.2-5.2) gm/dL Pituitary panel 10/30/16 Range/Units 04:40 Sodium 136 (133-145) mmol/L Potassium 4.5 (3.3-5.1) mmol/L Chloride 103 (96-108) mmol/L Carbon Dioxide 18 L (22-30) mmol/L BUN 12 (8-23) mg/dl Creatinine 1.1 (0.6-1.1) mg/dl Glucose 154 H (70-105) mg/dL Calcium 8.5 L (8.6-10.4) mg/dl Adrenal panel 10/30/16 Range/Units 04:40 Sodium 136 (133-145) mmol/L Potassium 4.5 (3.3-5.1) mmol/L Chloride 103 (96-108) mmol/L Carbon Dioxide 18 L (22-30) mmol/L BUN 12 (8-23) mg/dl Creatinine 1.1 (0.6-1.1) mg/dl Glucose 154 H (70-105) mg/dL Calcium 8.5 L (8.6-10.4) mg/dl Total Bilirubin < 0.2 (0.0-1.0) mg/dL AST 23 (0-37) U/l ALT 21 (0-40) U/l Alkaline Phosphatase 107 (39-117) U/L Total Protein 6.1 (5.9-8.4) gm/dL Albumin 2.7 L (3.2-5.2) gm/dL Medical - PN: A/P - Time Spent With Patient Total time spent is greater than 50% in coordination of care (as documented) at patient's floor/unit and/or counseling patient: PROGRESS REVIEWED WITH ESTEFANIA LIND caring for this patient. Spoke with patient about sacral / coccygeal ulcer . Conservative management and wound care along with off loading of area, Support cushion / air loss mattress in chair or in bed and continuous change of posture q 15 mts IF sittin on chair and q 2 hrs when in bed. DO NOT sit or lie on sacral area. Will speak with patient's and obtain medial records pertaining to Radiation Treatment of Sacral area in past ( H/O RT for rectal / anal cancer ) Continue current conservative treatment. Farther recommendations yuliya. less than 15 minutes (1) Decubitus ulcer of sacral region Status: Chronic Current Visit: Yes
--- NOTE | 2016-10-30 13:34 | Internal Med Progress Note ---
Medical - PN: Subj Patient information: Note initiated : 10/30/16 at 1:34 pm Service Date, if different from initiated Date: [] Patient: Génesis Medina 81 y/o F admitted on 10/28/16 for High blood sugar. Chief Complaint: [] Interval history: 10/28/16: History of present illness: Ms. Medina is a 81 year old female was brought to the emergency room this evening by her family. She has a history of type 2 diabetes depression, colorectal cancer. She apparently underwent rectal radiation therapy, which subsequently caused fecal incontinence. Over the last month or so she has developed a sacral decubitus ulcer, which probably has been getting contaminated by stool. Her family reports that over the last week she has had depressed mental status, and has not been eating and drinking well. Her blood sugars at home are running around 300. She does have chronic pain in her neck and low back, and now has pain in the coccygeal area as well. ER evaluation showed multiple electrolyte abnormalities, glucose of 450, as well as dehydration and elevated anion gap. Urinalysis was also abnormal. These abnormalities in addition to likely infected decubitus ulcer, and altered mental status, indicated she should be admitted to observe more closely and continue the workup and treatment here. Unfortunately, her family had already gone home by the time he got into her room. The patient herself is rather disoriented and forgetful. She could not really say where she was for sure, or how she got here. She does report the fecal incontinence, and that she has a sore near her rectum. She says she does not believe she's had recent fever or chills, headaches or dizziness, new eye or ear symptoms, sore throat or cough. She does not believe that she has had recent chest pain or palpitations, or shortness of breath, abdominal pain nausea or vomiting She says she has had loose bowels ever since her colon cancer treatment, as well as incontinence of stool. She only occasionally has reflux symptoms. She denies dysuria. it would appear that her history is not 100% reliable. 10/29: this morning, the patient remains a bit confused. She is still having significant pain over her sacral ulcer area, if she has to lay on her back. I saw her also with Dr. Alanis today, and we looked at the wound. It is fairly large, but not especially deep. t is quite tender to the touch. otherwise, the patient denies fever or chills, chest pain or shortness of breath , abdominal pain nausea or vomiting. She continues to have her chronically loose stools. And she does have bowel incontinence. 10/30: today, patient is a little more alert. She is sitting up in a chair having lunch. She says she is having less sacral area pain today, but her knees are really hurting today. She also complains of feeling cold. She says staff told her she did not have diarrhea last night, which she said would be different than usual. She tells me that she has been too weak to get out of bed or to walk around for about 2 weeks. She otherwise denies fever or chills, chest pain or shortness of breath, abdominal pain, nausea or vomiting, dysuria. Her arrived later, and we had a long discussion. He tells me that his was getting around fine, up until about 2 weeks ago. 2 weeks ago she seemed to hurt her low back while carrying groceries. She then had a CT scan which suggested a T12 fracture. He says she was then sent to a pain clinic, and underwent an MRI, which says she did not have a fracture. ever since this injury , she has been quite sedentary, and required assistance to get around. He believes she just developed the sacral ulcer sometime over the last 2 weeks. He confirms that she did have a colon cancer and he believes she received sacral area radiation at that time, after receiving chemotherapy. He feels that she is just too weak for him to handle at homeat this time. he is hoping she can get physical therapy and wound care to help her get back to her baseline. - Constitutional Vitals: Vital Signs Temp Pulse Resp BP Pulse Ox 99.6 F 85 18 164/71 96 10/30/16 12:00 10/30/16 12:00 10/30/16 12:00 10/30/16 12:00 10/30/16 12:00 Period Temp Pulse Resp BP Sys/King Pulse Ox Last 24 Hr 97.4 F-99.6 F 81-102 16-24 145-172/70-90 92-99 Intake and Output 10/29/16 10/30/16 10/30/16 21:59 05:59 13:59 Intake Total 100 / 100 1475 / 1475 750 / 750 Output Total 451 / 451 2 / 2 Balance -351 / -351 1473 / 1473 749 / 749 Weight 120 lb Intake & Output: Intake & Output 10/29/16 10/30/16 10/30/16 21:59 05:59 13:59 Intake Total 100 / 100 1475 / 1475 750 / 750 Output Total 451 / 451 2 / 2 Balance -351 / -351 1473 / 1473 749 / 749 Weight 120 lb Intake: IV 100 / 100 1050 / 1050 300 / 300 Sodium Chloride 0.45% 1, 1000 / 1000 000 ml @ 80 mls/hr IV . [id number] EPI Rx#:[id number] Dextrose 5% in Water 50 100 / 100 50 / 50 50 / 50 ml @ 100 mls/hr IV Q6 EPI with Zosyn 2.25 gm Rx#: [id number] Sodium Chloride 0.9% 250 250 / 250 ml @ 250 mls/hr IV DAILY EPI with Vancomycin 750 mg Rx#:[id number] Oral 425 / 425 450 / 450 Output: Urine Catheter Amount 450 / 450 # of times incontinent of 2 urine Other: Meal Breakfast Percent of Meal Consumed 75% Feeding Ability Independent Exam: on exam, the patient is not currently in any distress. Cardiac exam shows regular rate and rhythm. Lungs are clear to auscultation. Abdomen appears soft and nontender. Extremities show no significant edema. Neurologic exam: The patient is still quite forgetful, but does seem more alert than at admission.motor exam is grossly nonfocal. Medical - PN: Obj Da - Labs CBC & Chem 7: 10/31/16 05:00 10/31/16 05:00 Labs: Abnormal Lab Results 10/30/16 10/30/16 10/30/16 07:52 04:40 04:40 RBC 3.26 L Hgb 8.9 L Hct 27.8 L RDW 14.8 H Plt Count Gran % Lymph % (Auto) Lymph # Carbon Dioxide 18 L Glucose 154 H Calcium 8.5 L Phosphorus Magnesium 1.5 L Lactate Dehydrogenase Total Protein Albumin 2.7 L Albumin/Globulin Ratio 0.8 L Triglycerides 154 H Vancomycin Trough 15.3 H 10/29/16 10/29/16 10:34 04:55 RBC 3.53 L Hgb 9.5 L Hct 29.7 L RDW 14.7 H Plt Count 455 H Gran % 79.1 H Lymph % (Auto) 13.7 L Lymph # 1.4 L Carbon Dioxide 19 L Glucose Calcium Phosphorus 2.6 L Magnesium Lactate Dehydrogenase 264 H Total Protein 5.4 L Albumin 2.9 L Albumin/Globulin Ratio Triglycerides Vancomycin Trough 10/29: -blood cultures are negative so far. -Accu-Cheks are ranging 109-259 today. 10/28: urinalysis was cloudy, with pH of 6, specific gravity 1.009, 100 mg protein 50 mg glucose, 250 leukocyte esterase, 113 white blood cells, few bacteria urine culture from October 08, 2016: grew 10,000 Nohemy albicans portable chest x-ray shows no infiltrates or other acute abnormalities. 10/08/16: Lumbar spine films did show severe T12-L1 degenerative disc disease, mild osteopenia, and chronic wedging of t10-T12 vertebral bodies likely due to osteoporotic compression fracture. Meds: Medications Acetaminophen (Tylenol) 650 mg PO Q6HP PRN PRN Reason: PAIN/FEVER > 101 Last Admin: 10/29/16 19:50 Dose: 650 mg Calcium Carbonate/Glycine (Tums) 1,000 mg CHEWED Q4HP PRN PRN Reason: Dyspepsia Clopidogrel Bisulfate (Plavix) 75 mg PO DAILY [facility] Last Admin: 10/30/16 08:58 Dose: 75 mg Collagenase (Santyl Top Oint) 1 dose TOPICAL DAILY [facility] Last Admin: 10/30/16 09:09 Dose: Not Given Dextrose (Dextrose 50%) 0 ml IV UD PRN PRN Reason: Hypoglycemia Diagnostic Test (Pha) (Accu-Chek) 1 each FS ACHS [facility] Last Admin: 10/30/16 11:09 Dose: 1 each Docusate Sodium (Colace) 100 mg PO BID PRN PRN Reason: Constipation Heparin Sodium (Porcine) (Heparin) 5,000 unit SQ Q12 [facility] Last Admin: 10/30/16 08:57 Dose: 5,000 unit Vancomycin HCl 750 mg/ Sodium (Chloride) 250 mls @ 250 mls/hr IV DAILY [facility] Last Admin: 10/30/16 09:57 Dose: 250 mls/hr Piperacillin Sod/Tazobactam (Sod 2.25 gm/ Dextrose) 50 mls @ 100 mls/hr IV Q6 [facility] Last Admin: 10/30/16 12:02 Dose: 100 mls/hr Sodium Chloride (Sodium Chloride 0.45%) 1,000 mls @ 80 mls/hr IV .[id number] [facility] Last Admin: 10/30/16 11:40 Dose: Not Given Insulin Glargine (Lantus) 25 unit SQ [facility] Last Admin: 10/29/16 20:30 Dose: 25 unit Insulin Human Lispro (Humalog) 0 unit SQ [facility] PRN Reason: Protocol Last Admin: 10/30/16 11:40 Dose: 8 unit Levothyroxine Sodium (Synthroid) 125 mcg PO ACB [facility] Last Admin: 10/30/16 08:10 Dose: 125 mcg Magnesium Hydroxide (Milk Of Magnesia) 30 ml PO DAILYP PRN PRN Reason: Constipation Metformin HCl (Glucophage) 500 mg PO BIDCC [facility] Last Admin: 10/30/16 08:58 Dose: 500 mg Metoprolol Tartrate (Lopressor) 25 mg PO BID [facility] Last Admin: 10/30/16 08:58 Dose: 25 mg Morphine Sulfate (Morphine) 1 mg IV Q4HP PRN PRN Reason: Pain Naloxone HCl (Narcan) 0.1 mg IV Q2MIN PRN PRN Reason: Opiate Reversal Ondansetron HCl (Zofran) 4 mg IV Q6HP PRN PRN Reason: Nausea And Vomiting Pantoprazole Sodium (Protonix) 40 mg PO QAMAC [facility] Last Admin: 10/30/16 08:10 Dose: 40 mg Sertraline HCl (Zoloft) 50 mg PO DAILY [facility] Last Admin: 10/30/16 08:58 Dose: 50 mg Simvastatin (Zocor) 40 mg PO [facility] Last Admin: 10/29/16 20:31 Dose: 40 mg Sodium Chloride (Saline Flush) 10 ml IV Q8 [facility] Last Admin: 10/30/16 13:00 Dose: Not Given Tolterodine Tartrate (Detrol La) 4 mg PO DAILY [facility] Last Admin: 10/30/16 09:09 Dose: 4 mg Medical - PN: A/P - Time Spent With Patient Total time spent is greater than 50% in coordination of care (as documented) at patient's floor/unit and/or counseling patient: (1) Decubitus ulcer of sacral region Status: Chronic Current Visit: Yes (2) Hyponatremia Status: Acute Current Visit: Yes (3) DM type 2 (diabetes mellitus, type 2) Status: Acute Current Visit: Yes (4) History of CVA (cerebrovascular accident) Status: Acute Current Visit: Yes (5) Depression Status: Acute Current Visit: Yes (6) ERIC (acute kidney injury) Status: Acute Current Visit: Yes (7) Dehydration Status: Acute Current Visit: Yes (8) Hyperglycemia Status: Acute Current Visit: Yes - Narrative A/P Narrative: #1. Neurologic. Altered mental status, likely due to acute illness and dehydration and hyperglycemia. -she remains a bit confused, but I do think she is more alert today than yesterday. Infusion is likely due to medical delirium. -we will follow her neuro checks, and see if this improves after hydration. - There is a reported past history of stroke, although she was unable to tell me if that left her with any deficits. If her mental status does not improve , we may check a head CT scan as well. #2. Type 2 diabetes. -patient presents with marked hyperglycemia,glucoses do continue to be quite labile. likely due to acute infection. we will cover with sliding scale insulin, in addition to her Lantus. -metformin can probably now be resumed. #3.skin/infectious disease. sacral decubitus ulcer possibly infected. -Patient is on Zosyn and vancomycin for empiric coverage. -Wound care consult with Dr. Alanis--he notes that if the wound is related to previous radiation treatment for her colon cancer, that it might be amenable to hyperbaric oxygen treatment.. -Patient's urinalysis also was suggestive of UTI. This should be covered by the empiric antibiotics, pending culture.blood cultures are also pending.urine culture is negative so far. However the patient has been spiking low-grade temperatures for the last few days. #4. Renal. Patient presents with acute kidney injury, and multiple electrolyte abnormalities, likely due to dehydration and uncontrolled diabetes. -these are improving today. #5. GI. -History of colorectal cancer, status post radiation, now with what sounds like chronic diarrhea and bowel incontinence. -it does look like she might have been treated with antibiotics earlier this month, so we will check a C. difficile screen as well. history of GERD. Continue proton pump inhibitor. #6. CODE STATUS:The patient is a little unclear about this, and since her POA is not available,she will remain a full code for tonight, although it sounds like perhaps there is paperwork somewhere indicating a limited code. #7. DVT prophylaxis: She is on Plavix, but I think I'm going to add low-dose heparin as well, given that i think perhaps she's been bedbound for a while. #8. Hyperlipidemia. Continue Zocor. #9. Possible history of depression. Continue Zoloft. #10. Cardiac. probable history of hypertension. Continue metoprolol, but hold the enalapril until renal function improves. -Her chart does not indicate the reason for the Plavix, although this may be related to previous history of stroke. We will try to clarify this with her family . #11. Hypothyroidism. Continue levothyroxine. #12 status: This patient presents with multiple competing diagnoses and abnormalities. Her management has been quite complex, from the time of her arrival. we have simultaneously been managing hyponatremia with acute encephalopathy, unstageable sacral wound with necrosis in the setting of previous radiation for colorectal cancer,dehydration,chronic diarrhea and fecal incontinence due to previous cancer treatment, severe weakness requiring 2 person assist. I believe that she qualifies for inpatient management, from the time of admission. this visit took approximately 30 minutes today, to review patient's test results and vital signs ,interview and examine her, and have an extended discussion with her , and write orders. Medical - PN: Qual - Stroke Symptom Onset Unknown: No - VTE Deep Vein Thrombosis/Pulmonary Embolism Present on Admission: No
[2016-10-30] MEDS: INSULIN GLARGINE, HUMAN 1 UNIT/0.01 ML SQ SCH (21:01)
[2016-10-30] MEDS: SIMVASTATIN 40 MG TABLET PO SCH (21:01)
[2016-10-31] MEDS: PIPERACILLIN SODIUM/TAZOBACTAM 2.25 GM in DEXTROSE 5% IN WATER 50 ML IV SCH ×5 (00:10→23:38)
[2016-10-31] MEDS: 0.45 % SODIUM CHLORIDE 1,000 ML IV SCH ×3 (01:43→16:16)
[2016-10-31] MEDS: 0.9 % SODIUM CHLORIDE 10 ML SYRINGE IV SCH ×3 (06:03→22:10)
[2016-10-31 07:17] LABS: Basophils # (Auto) 0 K/mcL (0.0-0.3); Basophils % (Auto) 0.4 % (0.0-2.0); Eosinophils # (Auto) 0.2 K/mcL (0.0-0.7); Eosinophils % (Auto) 2.3 % (0.0-7.0); Granulocytes % (Auto) 70.2 % (38.0-78.0); Lymphocytes % (Auto) 22.1 % (15.5-49.0); Mean Cell Volume 85.3 fL (80.0-100.0); Mean Corpuscular HGB Conc 31.8 g/dL (31.0-36.0); Mean Corpuscular Hemoglobin 27.1 pg (26.0-34.0); Monocytes # (Auto) 0.4 K/mcL (0.1-0.9); Platelet Count 410 K/mcL (140-440); RBC 3.23 M/mcL (4.00-5.20); Red Cell Distribution Width 14.9 % (11.5-14.5)
[2016-10-31 07:59] LABS: ALT/SGPT 24 U/l (0-40); Albumin 2.7 gm/dL (3.2-5.2); Albumin/Globulin Ratio 1.1 (1.0-2.3); Alkaline Phosphatase 146 U/L (39-117); Bilirubin,Direct < 0.2 mg/dL (0.0-0.3); Blood Urea Nitrogen 10 mg/dl (8-23); Gamma Glutamyl Transpeptidase 48 U/L (5-36); Phosphorous 2.6 mg/dL (2.7-4.5); Uric Acid 3.3 mg/dL (2.5-8.0)
[2016-10-31] MEDS: LEVOTHYROXINE 125 MCG TABLET PO SCH (08:04)
[2016-10-31] MEDS: PANTOPRAZOLE 40 MG TABLET PO SCH (08:04)
--- NOTE | 2016-10-31 08:13 | General Surgery Progress Note ---
Subjective Narrative: Note initiated : 10/31/16 at 8:10 am Service Date, if different from initiated Date: [] Patient: Génesis Medina 81 y/o F admitted on 10/28/16 for High blood sugar. Chief Complaint: []I saw this patient on rounds this morning along with Dorene wound care inpatient RN. Patient's sacral necrotic area is responding well to Santyl ointment. Patient' s said that she had RT for cancer of rectum in past . Will check notes from PCP Dr. Winters. Will recommend HBOT for radiation related skin and sub cutaneous soft tissue necrosis . Objective Temp Pulse Resp BP Pulse Ox 98.0 F 84 20 168/68 94 10/31/16 04:00 10/31/16 04:00 10/31/16 04:00 10/31/16 04:00 10/31/16 04:00 AVSS. No changes in ANOOP. L/E. Dark black adherent responding and demarcating well with Santyl treatment. - Additional Data Intake & Output - Last 24 hours: Intake & Output 10/29/16 10/30/16 10/31/16 11/01/16 05:59 05:59 05:59 05:59 Intake Total 50 / 1050 2875 / 2875 3240 / 3240 Output Total 455 / 455 1005 / 1005 Balance 49 / 1049 2420 / 2420 2235 / 2235 Weight 117 lb 8 oz 120 lb 120 lb - Labs 10/31/16 05:00 10/31/16 05:00 Diabetes panel 10/31/16 Range/Units 05:00 Sodium 137 (133-145) mmol/L Potassium 4.6 (3.3-5.1) mmol/L Chloride 104 (96-108) mmol/L Carbon Dioxide 18 L (22-30) mmol/L BUN 10 (8-23) mg/dl Creatinine 1.1 (0.6-1.1) mg/dl Glucose 66 L (70-105) mg/dL Calcium 8.3 L (8.6-10.4) mg/dl AST 22 (0-37) U/l ALT 24 (0-40) U/l Alkaline Phosphatase 146 H (39-117) U/L Total Protein 5.2 L (5.9-8.4) gm/dL Albumin 2.7 L (3.2-5.2) gm/dL Triglycerides 152 H (<150) mg/dl Calcium panel 10/31/16 Range/Units 05:00 Calcium 8.3 L (8.6-10.4) mg/dl Phosphorus 2.6 L (2.7-4.5) mg/dL Albumin 2.7 L (3.2-5.2) gm/dL Pituitary panel 10/31/16 Range/Units 05:00 Sodium 137 (133-145) mmol/L Potassium 4.6 (3.3-5.1) mmol/L Chloride 104 (96-108) mmol/L Carbon Dioxide 18 L (22-30) mmol/L BUN 10 (8-23) mg/dl Creatinine 1.1 (0.6-1.1) mg/dl Glucose 66 L (70-105) mg/dL Calcium 8.3 L (8.6-10.4) mg/dl Adrenal panel 10/31/16 Range/Units 05:00 Sodium 137 (133-145) mmol/L Potassium 4.6 (3.3-5.1) mmol/L Chloride 104 (96-108) mmol/L Carbon Dioxide 18 L (22-30) mmol/L BUN 10 (8-23) mg/dl Creatinine 1.1 (0.6-1.1) mg/dl Glucose 66 L (70-105) mg/dL Calcium 8.3 L (8.6-10.4) mg/dl Total Bilirubin < 0.2 (0.0-1.0) mg/dL AST 22 (0-37) U/l ALT 24 (0-40) U/l Alkaline Phosphatase 146 H (39-117) U/L Total Protein 5.2 L (5.9-8.4) gm/dL Albumin 2.7 L (3.2-5.2) gm/dL Medical - PN: A/P - Time Spent With Patient Total time spent is greater than 50% in coordination of care (as documented) at patient's floor/unit and/or counseling patient: Pressure ulcer and soft tissue necrosis of sacral and coccygeal area. Responding to collagenase treatment. PLAN; Start HBOT for radiation related soft tissue wilmar skin necrosis of sacral and coccygeal region. See orders. Await office notes from Dr. Tanner's office. 15 - 24 minutes (1) Decubitus ulcer of sacral region Status: Chronic Current Visit: Yes
[2016-10-31] MEDS: INSULIN LISPRO 1 UNIT/0.01 ML UNIT SQ SCH ×4 (08:14→20:46)
[2016-10-31] MEDS: COLLAGENASE TOP OINT TUBE 30GM TOPICAL SCH (08:15)
[2016-10-31] MEDS: metFORMIN 500 MG TABLET PO SCH ×2 (08:59→17:12)
[2016-10-31] MEDS: CLOPIDOGREL 75 MG TABLET PO SCH (08:59)
[2016-10-31] MEDS: METOPROLOL TARTRATE 25 MG TABLET PO SCH ×2 (08:59→20:28)
[2016-10-31] MEDS: SERTRALINE 50 MG TABLET PO SCH (08:59)
[2016-10-31] MEDS: TOLTERODINE 2 MG CAP.XL.24H PO SCH (09:00)
[2016-10-31] MEDS: HEPARIN 5,000 UNIT/ML VIAL SQ SCH ×2 (09:00→20:33)
--- NOTE | 2016-10-31 09:27 | General Surgery Progress Note ---
Subjective Patient reports: other (To start HBOT today.) Narrative: Note initiated : 10/31/16 at 9:24 am Service Date, if different from initiated Date: [] Patient: Génesis Medina 81 y/o F admitted on 10/28/16 for High blood sugar. Chief Complaint: [] Objective Temp Pulse Resp BP Pulse Ox 98.3 F 92 H 20 162/71 95 10/31/16 08:00 10/31/16 08:00 10/31/16 08:00 10/31/16 08:00 10/31/16 08:43 AVSS. No changes in examination. Patient seen this morning on rounds. - Additional Data Intake & Output - Last 24 hours: Intake & Output 10/29/16 10/30/16 10/31/16 11/01/16 05:59 05:59 05:59 05:59 Intake Total 50 / 1050 2875 / 2875 3240 / 3240 120 / 120 Output Total 455 / 455 1005 / 1005 Balance 49 / 1049 2420 / 2420 2235 / 2235 120 / 120 Weight 117 lb 8 oz 120 lb 120 lb - Labs 10/31/16 05:00 10/31/16 05:00 Diabetes panel 10/31/16 Range/Units 05:00 Sodium 137 (133-145) mmol/L Potassium 4.6 (3.3-5.1) mmol/L Chloride 104 (96-108) mmol/L Carbon Dioxide 18 L (22-30) mmol/L BUN 10 (8-23) mg/dl Creatinine 1.1 (0.6-1.1) mg/dl Glucose 66 L (70-105) mg/dL Calcium 8.3 L (8.6-10.4) mg/dl AST 22 (0-37) U/l ALT 24 (0-40) U/l Alkaline Phosphatase 146 H (39-117) U/L Total Protein 5.2 L (5.9-8.4) gm/dL Albumin 2.7 L (3.2-5.2) gm/dL Triglycerides 152 H (<150) mg/dl Calcium panel 10/31/16 Range/Units 05:00 Calcium 8.3 L (8.6-10.4) mg/dl Phosphorus 2.6 L (2.7-4.5) mg/dL Albumin 2.7 L (3.2-5.2) gm/dL Pituitary panel 10/31/16 Range/Units 05:00 Sodium 137 (133-145) mmol/L Potassium 4.6 (3.3-5.1) mmol/L Chloride 104 (96-108) mmol/L Carbon Dioxide 18 L (22-30) mmol/L BUN 10 (8-23) mg/dl Creatinine 1.1 (0.6-1.1) mg/dl Glucose 66 L (70-105) mg/dL Calcium 8.3 L (8.6-10.4) mg/dl Adrenal panel 10/31/16 Range/Units 05:00 Sodium 137 (133-145) mmol/L Potassium 4.6 (3.3-5.1) mmol/L Chloride 104 (96-108) mmol/L Carbon Dioxide 18 L (22-30) mmol/L BUN 10 (8-23) mg/dl Creatinine 1.1 (0.6-1.1) mg/dl Glucose 66 L (70-105) mg/dL Calcium 8.3 L (8.6-10.4) mg/dl Total Bilirubin < 0.2 (0.0-1.0) mg/dL AST 22 (0-37) U/l ALT 24 (0-40) U/l Alkaline Phosphatase 146 H (39-117) U/L Total Protein 5.2 L (5.9-8.4) gm/dL Albumin 2.7 L (3.2-5.2) gm/dL Medical - PN: A/P - Time Spent With Patient Total time spent is greater than 50% in coordination of care (as documented) at patient's floor/unit and/or counseling patient: For HBOT for Radiation related soft tissue necrosis sacral and coccygeal region. 40 treatments. 2.5 WISAM for 90 minutes with air breaks per protocol. M - F. Treatments can be continued after discharge as out patient. less than 15 minutes (1) Decubitus ulcer of sacral region Status: Chronic Current Visit: Yes
[2016-10-31] MEDS: VANCOMYCIN 750 MG in 0.9 % SODIUM CHLORIDE 250 ML IV SCH (10:29)
--- NOTE | 2016-10-31 14:45 | Internal Med Progress Note ---
Medical - PN: Subj Patient information: Note initiated : 10/31/16 at 2:45 pm Service Date, if different from initiated Date: [] Patient: Génesis Medina 81 y/o F admitted on 10/28/16 for High Blood Sugar/ Dehydration, Infected Ulcer. Chief Complaint: [] Interval history: 10/28/16: History of present illness: Ms. Medina is a 81 year old female was brought to the emergency room this evening by her family. She has a history of type 2 diabetes depression, colorectal cancer. She apparently underwent rectal radiation therapy, which subsequently caused fecal incontinence. Over the last month or so she has developed a sacral decubitus ulcer, which probably has been getting contaminated by stool. Her family reports that over the last week she has had depressed mental status, and has not been eating and drinking well. Her blood sugars at home are running around 300. She does have chronic pain in her neck and low back, and now has pain in the coccygeal area as well. ER evaluation showed multiple electrolyte abnormalities, glucose of 450, as well as dehydration and elevated anion gap. Urinalysis was also abnormal. These abnormalities in addition to likely infected decubitus ulcer, and altered mental status, indicated she should be admitted to observe more closely and continue the workup and treatment here. Unfortunately, her family had already gone home by the time he got into her room. The patient herself is rather disoriented and forgetful. She could not really say where she was for sure, or how she got here. She does report the fecal incontinence, and that she has a sore near her rectum. She says she does not believe she's had recent fever or chills, headaches or dizziness, new eye or ear symptoms, sore throat or cough. She does not believe that she has had recent chest pain or palpitations, or shortness of breath, abdominal pain nausea or vomiting She says she has had loose bowels ever since her colon cancer treatment, as well as incontinence of stool. She only occasionally has reflux symptoms. She denies dysuria. it would appear that her history is not 100% reliable. 10/29: this morning, the patient remains a bit confused. She is still having significant pain over her sacral ulcer area, if she has to lay on her back. I saw her also with Dr. Alanis today, and we looked at the wound. It is fairly large, but not especially deep. t is quite tender to the touch. otherwise, the patient denies fever or chills, chest pain or shortness of breath , abdominal pain nausea or vomiting. She continues to have her chronically loose stools. And she does have bowel incontinence. 10/30: today, patient is a little more alert. She is sitting up in a chair having lunch. She says she is having less sacral area pain today, but her knees are really hurting today. She also complains of feeling cold. She says staff told her she did not have diarrhea last night, which she said would be different than usual. She tells me that she has been too weak to get out of bed or to walk around for about 2 weeks. She otherwise denies fever or chills, chest pain or shortness of breath, abdominal pain, nausea or vomiting, dysuria. Her arrived later, and we had a long discussion. He tells me that his was getting around fine, up until about 2 weeks ago. 2 weeks ago she seemed to hurt her low back while carrying groceries. She then had a CT scan which suggested a T12 fracture. He says she was then sent to a pain clinic, and underwent an MRI, which says she did not have a fracture. ever since this injury , she has been quite sedentary, and required assistance to get around. He believes she just developed the sacral ulcer sometime over the last 2 weeks. He confirms that she did have a colon cancer and he believes she received sacral area radiation at that time, after receiving chemotherapy. He feels that she is just too weak for him to handle at homeat this time. he is hoping she can get physical therapy and wound care to help her get back to her baseline. 10/31: today, the patient notes that she is still having pain in her low back area, at the site of the sacral wound. She says she still feels like her legs are weak, and that she cannot bear weight. Her daughter and her are in the room with her this morning. They both report that he suddenly has 3 or so weeks ago, she was very functional, and performed all of her own activities of daily living, including grocery shopping. At some point she hurt her back, and she has had rapid decline since then. They remind me that she was seen at the pain clinic, and an MRI was ordered of her spine. MRI is consistent with a right T12 pedicle bone marrow edema, consistent with active microtrabecular stress reaction/stress fracture. No other compression fractures are noted. There is multilevel disc desiccation and spondylosis. otherwise,he denies subjective fever or chills, chest pain or shortness of breath, abdominal pain, nausea or vomiting. She is really unsure about whether she's had more loose stools or not, and denies dysuria. Additional past medical history: Records were obtained: The patient was treated for a T3N1 adenocarcinoma of the rectum,with preoperative chemoradiation therapy. In March and April 2000. - Constitutional Vitals: Vital Signs Temp Pulse Resp BP Pulse Ox 98.3 F 85 20 164/70 95 10/31/16 11:35 10/31/16 11:35 10/31/16 11:35 10/31/16 11:35 10/31/16 11:35 Period Temp Pulse Resp BP Sys/King Pulse Ox Last 24 Hr 98.0 F-98.5 F 83-98 18-20 149-185/65-72 94-97 Intake and Output 10/31/16 10/31/16 10/31/16 05:59 13:59 21:59 Intake Total 200 / 200 820 / 820 Output Total 602 / 602 Balance -402 / -402 820 / 820 Intake & Output: Intake & Output 10/31/16 10/31/16 10/31/16 05:59 13:59 21:59 Intake Total 200 / 200 820 / 820 Output Total 602 / 602 Balance -402 / -402 820 / 820 Intake: IV 50 / 50 100 / 100 Dextrose 5% in Water 50 50 / 50 100 / 100 ml @ 100 mls/hr IV Q6 EPI with Zosyn 2.25 gm Rx#: [id number] Oral 150 / 150 720 / 720 Output: Void Amount 600 / 600 # of times incontinent of 2 / 2 urine Other: Meal Breakfast Percent of Meal Consumed 95 Feeding Ability Assist with Tray Set Up Exam: on exam, she appears a little more alert today than yesterday.she is sitting up in a chair. Neck: Shows no obvious JVD or lymphadenopathy. Cardiac exam shows regular rate and rhythm. Lungs are clear to auscultation. Abdomen is soft without obvious tenderness. Neck sinus extremity show no significant edema. Review of PT notes shows that she is definitely has poor strength and mobilityand remains a high fall risk. Medical - PN: Obj Da - Labs CBC & Chem 7: 10/31/16 05:00 10/31/16 05:00 Labs: Abnormal Lab Results 10/31/16 10/31/16 10/31/16 07:40 05:00 05:00 RBC 3.23 L Hgb 8.8 L Hct 27.5 L RDW 14.9 H Plt Count Gran % Lymph % (Auto) Lymph # Carbon Dioxide 18 L Glucose 66 L Calcium 8.3 L Phosphorus 2.6 L Magnesium GGT 48 H Alkaline Phosphatase 146 H Lactate Dehydrogenase Total Protein 5.2 L Albumin 2.7 L Albumin/Globulin Ratio Triglycerides 152 H Vancomycin Trough 15.7 H 10/30/16 10/30/16 10/30/16 07:52 04:40 04:40 RBC 3.26 L Hgb 8.9 L Hct 27.8 L RDW 14.8 H Plt Count Gran % Lymph % (Auto) Lymph # Carbon Dioxide 18 L Glucose 154 H Calcium 8.5 L Phosphorus Magnesium 1.5 L GGT Alkaline Phosphatase Lactate Dehydrogenase Total Protein Albumin 2.7 L Albumin/Globulin Ratio 0.8 L Triglycerides 154 H Vancomycin Trough 15.3 H 10/29/16 10/29/16 10:34 04:55 RBC 3.53 L Hgb 9.5 L Hct 29.7 L RDW 14.7 H Plt Count 455 H Gran % 79.1 H Lymph % (Auto) 13.7 L Lymph # 1.4 L Carbon Dioxide 19 L Glucose Calcium Phosphorus 2.6 L Magnesium GGT Alkaline Phosphatase Lactate Dehydrogenase 264 H Total Protein 5.4 L Albumin 2.9 L Albumin/Globulin Ratio Triglycerides Vancomycin Trough 10/31: MRI from October 27, 2016: Shows bone marrow edema of the right T12 pedicle consistent with active micro-trabecularstress reaction/stress fracture. There is also chronic anterior wedge compression deformity of T12 grade 1 retrolisthesis of T12 on L1, multilevel disc degeneration 10/29: -blood cultures are negative so far. -Accu-Cheks are ranging 109-259 today. 10/28: urinalysis was cloudy, with pH of 6, specific gravity 1.009, 100 mg protein 50 mg glucose, 250 leukocyte esterase, 113 white blood cells, few bacteria urine culture from October 08, 2016: grew 10,000 Nohemy albicans portable chest x-ray shows no infiltrates or other acute abnormalities. 10/08/16: Lumbar spine films did show severe T12-L1 degenerative disc disease, mild osteopenia, and chronic wedging of t10-T12 vertebral bodies likely due to osteoporotic compression fracture. Meds: Medications Acetaminophen (Tylenol) 650 mg PO Q6HP PRN PRN Reason: PAIN/FEVER > 101 Last Admin: 10/29/16 19:50 Dose: 650 mg Calcium Carbonate/Glycine (Tums) 1,000 mg CHEWED Q4HP PRN PRN Reason: Dyspepsia Clopidogrel Bisulfate (Plavix) 75 mg PO DAILY [facility] Last Admin: 10/31/16 08:59 Dose: 75 mg Collagenase (Santyl Top Oint) 1 dose TOPICAL DAILY [facility] Last Admin: 10/31/16 08:15 Dose: 1 dose Dextrose (Dextrose 50%) 0 ml IV UD PRN PRN Reason: Hypoglycemia Diagnostic Test (Pha) (Accu-Chek) 1 each FS ACHS [facility] Last Admin: 10/31/16 11:40 Dose: 1 each Docusate Sodium (Colace) 100 mg PO BID PRN PRN Reason: Constipation Heparin Sodium (Porcine) (Heparin) 5,000 unit SQ Q12 [facility] Last Admin: 10/31/16 09:00 Dose: 5,000 unit Vancomycin HCl 750 mg/ Sodium (Chloride) 250 mls @ 250 mls/hr IV DAILY [facility] Last Admin: 10/31/16 10:29 Dose: 250 mls/hr Piperacillin Sod/Tazobactam (Sod 2.25 gm/ Dextrose) 50 mls @ 100 mls/hr IV Q6 [facility] Last Infusion: 10/31/16 12:30 Dose: Infused Sodium Chloride (Sodium Chloride 0.45%) 1,000 mls @ 80 mls/hr IV .[id number] [facility] Last Admin: 10/31/16 12:39 Dose: Not Given Insulin Glargine (Lantus) 25 unit SQ HS [facility] Last Admin: 10/30/16 21:01 Dose: 25 unit Insulin Human Lispro (Humalog) [address] [facility] PRN Reason: Protocol Last Admin: 10/31/16 11:41 Dose: Not Given Levothyroxine Sodium (Synthroid) 125 mcg PO ACB [facility] Last Admin: 10/31/16 08:04 Dose: 125 mcg Magnesium Hydroxide (Milk Of Magnesia) 30 ml PO DAILYP PRN PRN Reason: Constipation Metformin HCl (Glucophage) 500 mg PO BIDCC [facility] Last Admin: 10/31/16 08:59 Dose: 500 mg Metoprolol Tartrate (Lopressor) 25 mg PO BID [facility] Last Admin: 10/31/16 08:59 Dose: 25 mg Morphine Sulfate (Morphine) 1 mg IV Q4HP PRN PRN Reason: Pain Naloxone HCl (Narcan) 0.1 mg IV Q2MIN PRN PRN Reason: Opiate Reversal Ondansetron HCl (Zofran) 4 mg IV Q6HP PRN PRN Reason: Nausea And Vomiting Pantoprazole Sodium (Protonix) 40 mg PO QAMAC [facility] Last Admin: 10/31/16 08:04 Dose: 40 mg Sertraline HCl (Zoloft) 50 mg PO DAILY [facility] Last Admin: 10/31/16 08:59 Dose: 50 mg Simvastatin (Zocor) 40 mg PO HS [facility] Last Admin: 10/30/16 21:01 Dose: 40 mg Sodium Chloride (Saline Flush) 10 ml IV Q8 [facility] Last Admin: 10/31/16 13:30 Dose: 10 ml Tolterodine Tartrate (Detrol La) 4 mg PO DAILY [facility] Last Admin: 10/31/16 09:00 Dose: 4 mg Medical - PN: A/P - Time Spent With Patient Total time spent is greater than 50% in coordination of care (as documented) at patient's floor/unit and/or counseling patient: (1) Decubitus ulcer of sacral region Status: Chronic Current Visit: Yes (2) Hyponatremia Status: Acute Current Visit: Yes (3) DM type 2 (diabetes mellitus, type 2) Status: Acute Current Visit: Yes (4) History of CVA (cerebrovascular accident) Status: Acute Current Visit: Yes (5) Depression Status: Acute Current Visit: Yes (6) ERIC (acute kidney injury) Status: Acute Current Visit: Yes (7) Dehydration Status: Acute Current Visit: Yes (8) Hyperglycemia Status: Acute Current Visit: Yes - Narrative A/P Narrative: #1. Neurologic. Altered mental status, likely due to acute illness and dehydration and hyperglycemia. -she remains a bit confused, but I do think she is more alert today than yesterday. Infusion is likely due to medical delirium. -There is a reported past history of stroke, although she was unable to tell me if that left her with any deficits. If her mental status does not improve , we may check a head CT scan as well. #2. Type 2 diabetes. -patient presents with marked hyperglycemia,glucoses do continue to be quite labile. likely due to acute infection. we will cover with sliding scale insulin, in addition to her Lantus. -metformin was now be resumed. however, if her diarrhea persists, we might need to consider that this could be a cause. #3.skin/infectious disease. sacral decubitus ulcer possibly infected. -Patient is on Zosyn and vancomycin for empiric coverage. -Wound care consult with Dr. Alanis--he notes that if the wound is related to previous radiation treatment for her colon cancer, and he is therefore initiated hyperbaric treatment, to try to get this quickly healed. -Patient's urinalysis also was suggestive of UTI. This is covered by the empiric antibiotics, pending culture.blood cultures are also pending.urine culture is negative so far. However the patient has been spiking low-grade temperatures for the last few days. #4. Renal. Patient presents with acute kidney injury, and multiple electrolyte abnormalities, likely due to dehydration and uncontrolled diabetes. -these are improving today. #5. GI. -History of colorectal cancer, status post radiation, now with what sounds like chronic diarrhea and bowel incontinence. -it does look like she might have been treated with antibiotics earlier this month, so we will check a C. difficile screen as well. history of GERD. Continue proton pump inhibitor. #6. CODE STATUS:The patient is a little unclear about this, and since her POA is not available,she will remain a full code for tonight, although it sounds like perhaps there is paperwork somewhere indicating a limited code. #7. DVT prophylaxis: She is on Plavix, but I think I'm going to add low-dose heparin as well, given that i think perhaps she's been bedbound for a while. #8. Hyperlipidemia. Continue Zocor. #9. Possible history of depression. Continue Zoloft. #10. Cardiac. probable history of hypertension. Continue metoprolol, but hold the enalapril until renal function improves. -Her chart does not indicate the reason for the Plavix, although this may be related to previous history of stroke. We will try to clarify this with her family . #11. Hypothyroidism. Continue levothyroxine. #12. Persistent low back pain. MRI appears to show some acute edema of a pedicle, which may indicate a micro-stress fracture. No acute vertebral stress fractures were found. I suspect we will need to continue aggressive pain management, and physical therapy, to get her mobile again. Her goal is to get back to her baseline, where she could perform all ADLs independently. #13 status: This patient presents with multiple competing diagnoses and abnormalities. Her management has been quite complex, from the time of her arrival. we have simultaneously been managing hyponatremia with acute encephalopathy, unstageable sacral wound with necrosis in the setting of previous radiation for colorectal cancer,dehydration,chronic diarrhea and fecal incontinence due to previous cancer treatment, severe weakness requiring 2 person assist. I believe that she qualifies for inpatient management, from the time of admission. this visit took approximately 40 minutes today, to review patient's test results and vital signs ,interview and examine her, and have an extended discussion with her and daughter,and also staff, and write orders, as well as reviewing old records obtained today.. Medical - PN: Qual - Stroke Symptom Onset Unknown: No - VTE Deep Vein Thrombosis/Pulmonary Embolism Present on Admission: No
--- NOTE | 2016-10-31 17:07 | General Surgery Progress Note ---
Subjective Patient reports: other (Patient had FIRST HBOT. Claustrophobia anxiety. Earache after treatment. ) Narrative: Note initiated : 10/31/16 at 5:04 pm Service Date, if different from initiated Date: [] Patient: Gnéesis Medina 81 y/o F admitted on 10/28/16 for High Blood Sugar/ Dehydration, Infected Ulcer. Chief Complaint: [] Objective Temp Pulse Resp BP Pulse Ox 98.3 F 85 20 164/70 95 10/31/16 11:35 10/31/16 11:35 10/31/16 11:35 10/31/16 11:35 10/31/16 11:35 AVSS. ANOOP No acute changes. EAMS both ear canals. Patent with soft wax. NO evidence of mastoid tenderness. TMS intact. - Additional Data Intake & Output - Last 24 hours: Intake & Output 10/29/16 10/30/16 10/31/16 11/01/16 05:59 05:59 05:59 05:59 Intake Total 50 / 1050 2875 / 2875 3490 / 3490 1820 / 1820 Output Total 455 / 455 1005 / 1005 Balance 49 / 1049 2420 / 2420 2485 / 2485 1820 / 1820 Weight 117 lb 8 oz 120 lb 120 lb 120 lb - Labs 10/31/16 05:00 10/31/16 05:00 Diabetes panel 10/31/16 Range/Units 05:00 Sodium 137 (133-145) mmol/L Potassium 4.6 (3.3-5.1) mmol/L Chloride 104 (96-108) mmol/L Carbon Dioxide 18 L (22-30) mmol/L BUN 10 (8-23) mg/dl Creatinine 1.1 (0.6-1.1) mg/dl Glucose 66 L (70-105) mg/dL Calcium 8.3 L (8.6-10.4) mg/dl AST 22 (0-37) U/l ALT 24 (0-40) U/l Alkaline Phosphatase 146 H (39-117) U/L Total Protein 5.2 L (5.9-8.4) gm/dL Albumin 2.7 L (3.2-5.2) gm/dL Triglycerides 152 H (<150) mg/dl Calcium panel 10/31/16 Range/Units 05:00 Calcium 8.3 L (8.6-10.4) mg/dl Phosphorus 2.6 L (2.7-4.5) mg/dL Albumin 2.7 L (3.2-5.2) gm/dL Pituitary panel 10/31/16 Range/Units 05:00 Sodium 137 (133-145) mmol/L Potassium 4.6 (3.3-5.1) mmol/L Chloride 104 (96-108) mmol/L Carbon Dioxide 18 L (22-30) mmol/L BUN 10 (8-23) mg/dl Creatinine 1.1 (0.6-1.1) mg/dl Glucose 66 L (70-105) mg/dL Calcium 8.3 L (8.6-10.4) mg/dl Adrenal panel 10/31/16 Range/Units 05:00 Sodium 137 (133-145) mmol/L Potassium 4.6 (3.3-5.1) mmol/L Chloride 104 (96-108) mmol/L Carbon Dioxide 18 L (22-30) mmol/L BUN 10 (8-23) mg/dl Creatinine 1.1 (0.6-1.1) mg/dl Glucose 66 L (70-105) mg/dL Calcium 8.3 L (8.6-10.4) mg/dl Total Bilirubin < 0.2 (0.0-1.0) mg/dL AST 22 (0-37) U/l ALT 24 (0-40) U/l Alkaline Phosphatase 146 H (39-117) U/L Total Protein 5.2 L (5.9-8.4) gm/dL Albumin 2.7 L (3.2-5.2) gm/dL Medical - PN: A/P - Time Spent With Patient Total time spent is greater than 50% in coordination of care (as documented) at patient's floor/unit and/or counseling patient: Anxiety / Claustrophobia While in HBO chamber. PLAN: Ativan 0.5 me 1/2 hr before treatment. WAXOL or DEBROX ear drops both ears tonight and tomorrow morning Clean ears or syringe ears tomorrow morning before treatment. SPOKE with patient and her family at bed side at length . Answered all their questions. 15 - 24 minutes (1) Decubitus ulcer of sacral region Status: Chronic Current Visit: Yes
[2016-10-31] MEDS: SIMVASTATIN 40 MG TABLET PO SCH (20:28)
[2016-10-31] MEDS: INSULIN GLARGINE, HUMAN 1 UNIT/0.01 ML SQ SCH (20:32)
[2016-10-31] MEDS: CARBAMIDE PEROXIDE OTIC SOL 15ML AU SCH (20:34)
[2016-11-01] MEDS: ACETAMINOPHEN 325 MG TABLET PO PRN ×2 (02:02→23:13)
[2016-11-01] MEDS: PIPERACILLIN SODIUM/TAZOBACTAM 2.25 GM in DEXTROSE 5% IN WATER 50 ML IV SCH ×3 (05:39→17:29)
[2016-11-01] MEDS: 0.9 % SODIUM CHLORIDE 10 ML SYRINGE IV SCH ×3 (05:40→22:05)
[2016-11-01] MEDS: LEVOTHYROXINE 125 MCG TABLET PO SCH (06:58)
[2016-11-01] MEDS: CARBAMIDE PEROXIDE OTIC SOL 15ML AU SCH (06:58)
[2016-11-01] MEDS: 0.45 % SODIUM CHLORIDE 1,000 ML IV SCH ×2 (06:58→13:43)
[2016-11-01] MEDS: PANTOPRAZOLE 40 MG TABLET PO SCH (06:58)
[2016-11-01] MEDS: INSULIN LISPRO 1 UNIT/0.01 ML UNIT SQ SCH ×4 (07:03→21:45)
[2016-11-01] MEDS: metFORMIN 500 MG TABLET PO SCH ×2 (09:24→17:29)
[2016-11-01] MEDS: SERTRALINE 50 MG TABLET PO SCH (09:24)
[2016-11-01] MEDS: METOPROLOL TARTRATE 25 MG TABLET PO SCH ×2 (09:24→21:50)
[2016-11-01] MEDS: HEPARIN 5,000 UNIT/ML VIAL SQ SCH ×2 (09:24→21:52)
[2016-11-01] MEDS: TOLTERODINE 2 MG CAP.XL.24H PO SCH (09:24)
[2016-11-01] MEDS: VANCOMYCIN 750 MG in 0.9 % SODIUM CHLORIDE 250 ML IV SCH (09:25)
[2016-11-01] MEDS: CLOPIDOGREL 75 MG TABLET PO SCH (09:25)
[2016-11-01] MEDS ORDERED: CARBAMIDE PEROXIDE OTIC SOL 15ML AU ONE (09:33)
[2016-11-01] MEDS ORDERED: LORazepam 0.5 MG TABLET PO PRN (10:00)
[2016-11-01] MEDS: COLLAGENASE TOP OINT TUBE 30GM TOPICAL SCH (10:25)
--- NOTE | 2016-11-01 17:04 | Internal Med Progress Note ---
Medical - PN: Subj Patient information: Note initiated : 11/01/16 at 5:01 pm Service Date, if different from initiated Date: [] Patient: Génesis Medina 81 y/o F admitted on 10/28/16 for High Blood Sugar/ Dehydration, Infected Ulcer. Chief Complaint: [] Interval history: 10/28/16: History of present illness: Ms. Medina is a 81 year old female was brought to the emergency room this evening by her family. She has a history of type 2 diabetes depression, colorectal cancer. She apparently underwent rectal radiation therapy, which subsequently caused fecal incontinence. Over the last month or so she has developed a sacral decubitus ulcer, which probably has been getting contaminated by stool. Her family reports that over the last week she has had depressed mental status, and has not been eating and drinking well. Her blood sugars at home are running around 300. She does have chronic pain in her neck and low back, and now has pain in the coccygeal area as well. ER evaluation showed multiple electrolyte abnormalities, glucose of 450, as well as dehydration and elevated anion gap. Urinalysis was also abnormal. These abnormalities in addition to likely infected decubitus ulcer, and altered mental status, indicated she should be admitted to observe more closely and continue the workup and treatment here. Unfortunately, her family had already gone home by the time he got into her room. The patient herself is rather disoriented and forgetful. She could not really say where she was for sure, or how she got here. She does report the fecal incontinence, and that she has a sore near her rectum. She says she does not believe she's had recent fever or chills, headaches or dizziness, new eye or ear symptoms, sore throat or cough. She does not believe that she has had recent chest pain or palpitations, or shortness of breath, abdominal pain nausea or vomiting She says she has had loose bowels ever since her colon cancer treatment, as well as incontinence of stool. She only occasionally has reflux symptoms. She denies dysuria. it would appear that her history is not 100% reliable. 10/29: this morning, the patient remains a bit confused. She is still having significant pain over her sacral ulcer area, if she has to lay on her back. I saw her also with Dr. Alanis today, and we looked at the wound. It is fairly large, but not especially deep. t is quite tender to the touch. otherwise, the patient denies fever or chills, chest pain or shortness of breath , abdominal pain nausea or vomiting. She continues to have her chronically loose stools. And she does have bowel incontinence. 10/30: today, patient is a little more alert. She is sitting up in a chair having lunch. She says she is having less sacral area pain today, but her knees are really hurting today. She also complains of feeling cold. She says staff told her she did not have diarrhea last night, which she said would be different than usual. She tells me that she has been too weak to get out of bed or to walk around for about 2 weeks. She otherwise denies fever or chills, chest pain or shortness of breath, abdominal pain, nausea or vomiting, dysuria. Her arrived later, and we had a long discussion. He tells me that his was getting around fine, up until about 2 weeks ago. 2 weeks ago she seemed to hurt her low back while carrying groceries. She then had a CT scan which suggested a T12 fracture. He says she was then sent to a pain clinic, and underwent an MRI, which says she did not have a fracture. ever since this injury , she has been quite sedentary, and required assistance to get around. He believes she just developed the sacral ulcer sometime over the last 2 weeks. He confirms that she did have a colon cancer and he believes she received sacral area radiation at that time, after receiving chemotherapy. He feels that she is just too weak for him to handle at homeat this time. he is hoping she can get physical therapy and wound care to help her get back to her baseline. 10/31: today, the patient notes that she is still having pain in her low back area, at the site of the sacral wound. She says she still feels like her legs are weak, and that she cannot bear weight. Her daughter and her are in the room with her this morning. They both report that he suddenly has 3 or so weeks ago, she was very functional, and performed all of her own activities of daily living, including grocery shopping. At some point she hurt her back, and she has had rapid decline since then. They remind me that she was seen at the pain clinic, and an MRI was ordered of her spine. MRI is consistent with a right T12 pedicle bone marrow edema, consistent with active microtrabecular stress reaction/stress fracture. No other compression fractures are noted. There is multilevel disc desiccation and spondylosis. otherwise,he denies subjective fever or chills, chest pain or shortness of breath, abdominal pain, nausea or vomiting. She is really unsure about whether she's had more loose stools or not, and denies dysuria. 11/01- patient seen in room. No overnight events. No concerns per staff. Improved lower back pain. ongoing wound care as per Dr. Alanis. stable labs and hemodynamics. on Zosyn/vancomycin. improved confusion and more alert. Improving delirium. - Constitutional Vitals: Vital Signs Temp Pulse Resp BP Pulse Ox 97.5 F L 84 21 163/78 95 11/01/16 16:20 11/01/16 16:20 11/01/16 16:20 11/01/16 16:20 11/01/16 16:20 Period Temp Pulse Resp BP Sys/King Pulse Ox Last 24 Hr 96.2 F-98.8 F 76-97 20-21 161-180/70-80 95-97 Intake and Output 11/01/16 11/01/16 11/01/16 05:59 13:59 21:59 Intake Total 1600 / 1600 450 / 450 350 / 350 Output Total 3 / 3 2 / 2 Balance 1597 / 1597 448 / 448 350 / 350 Intake & Output: Intake & Output 11/01/16 11/01/16 11/01/16 05:59 13:59 21:59 Intake Total 1600 / 1600 450 / 450 350 / 350 Output Total 3 / 3 2 / 2 Balance 1597 / 1597 448 / 448 350 / 350 Intake: IV 1050 / 1050 50 / 50 Sodium Chloride 0.45% 1, 1000 / 1000 000 ml @ 80 mls/hr IV . [id number] EPI Rx#:[id number] Dextrose 5% in Water 50 50 / 50 50 / 50 ml @ 100 mls/hr IV Q6 EPI with Zosyn 2.25 gm Rx#: [id number] Oral 550 / 550 400 / 400 350 / 350 Output: # of times incontinent of 3 / 3 2 / 2 urine Other: Meal Lunch Percent of Meal Consumed 100% # Bowel Movements 1 General appearance: cooperative, no acute distress Exam: alert And responsive onlabored breathing Nondistended abdomen No agitation and anxiety Medical - PN: Obj Da - Labs CBC & Chem 7: 10/31/16 05:00 10/31/16 05:00 Labs: Abnormal Lab Results 10/31/16 10/31/16 10/31/16 07:40 05:00 05:00 RBC 3.23 L Hgb 8.8 L Hct 27.5 L RDW 14.9 H Carbon Dioxide 18 L Glucose 66 L Calcium 8.3 L Phosphorus 2.6 L Magnesium GGT 48 H Alkaline Phosphatase 146 H Total Protein 5.2 L Albumin 2.7 L Albumin/Globulin Ratio Triglycerides 152 H Vancomycin Trough 15.7 H 10/30/16 10/30/16 10/30/16 07:52 04:40 04:40 RBC 3.26 L Hgb 8.9 L Hct 27.8 L RDW 14.8 H Carbon Dioxide 18 L Glucose 154 H Calcium 8.5 L Phosphorus Magnesium 1.5 L GGT Alkaline Phosphatase Total Protein Albumin 2.7 L Albumin/Globulin Ratio 0.8 L Triglycerides 154 H Vancomycin Trough 15.3 H Meds: Medications Acetaminophen (Tylenol) 650 mg PO Q6HP PRN PRN Reason: PAIN/FEVER > 101 Last Admin: 11/01/16 02:02 Dose: 650 mg Calcium Carbonate/Glycine (Tums) 1,000 mg CHEWED Q4HP PRN PRN Reason: Dyspepsia Clopidogrel Bisulfate (Plavix) 75 mg PO DAILY [facility] Last Admin: 11/01/16 09:25 Dose: 75 mg Collagenase (Santyl Top Oint) 1 dose TOPICAL DAILY [facility] Last Admin: 11/01/16 10:25 Dose: 1 dose Dextrose (Dextrose 50%) 0 ml IV UD PRN PRN Reason: Hypoglycemia Diagnostic Test (Pha) (Accu-Chek) 1 each FS ACHS [facility] Last Admin: 11/01/16 11:14 Dose: 1 each Docusate Sodium (Colace) 100 mg PO BID PRN PRN Reason: Constipation Heparin Sodium (Porcine) (Heparin) 5,000 unit SQ Q12 [facility] Last Admin: 11/01/16 09:24 Dose: 5,000 unit Vancomycin HCl 750 mg/ Sodium (Chloride) 250 mls @ 250 mls/hr IV DAILY [facility] Last Admin: 11/01/16 09:25 Dose: 250 mls/hr Piperacillin Sod/Tazobactam (Sod 2.25 gm/ Dextrose) 50 mls @ 100 mls/hr IV Q6 [facility] Last Admin: 11/01/16 11:15 Dose: 100 mls/hr Sodium Chloride (Sodium Chloride 0.45%) 1,000 mls @ 80 mls/hr IV .[id number] [facility] Last Admin: 11/01/16 13:43 Dose: Not Given Insulin Glargine (Lantus) 25 unit SQ HS [facility] Last Admin: 10/31/16 20:32 Dose: 25 unit Insulin Human Lispro (Humalog) 0 unit SQ ACHS [facility] PRN Reason: Protocol Last Admin: 11/01/16 12:14 Dose: Not Given Levothyroxine Sodium (Synthroid) 125 mcg PO ACB [facility] Last Admin: 11/01/16 06:58 Dose: 125 mcg Lorazepam (Ativan) 0.5 mg PO DAILYP PRN PRN Reason: Anxiety Last Admin: 11/01/16 12:27 Dose: 0.5 mg Magnesium Hydroxide (Milk Of Magnesia) 30 ml PO DAILYP PRN PRN Reason: Constipation Metformin HCl (Glucophage) 500 mg PO BIDCC [facility] Last Admin: 11/01/16 09:24 Dose: 500 mg Metoprolol Tartrate (Lopressor) 25 mg PO BID [facility] Last Admin: 11/01/16 09:24 Dose: 25 mg Morphine Sulfate (Morphine) 1 mg IV Q4HP PRN PRN Reason: Pain Naloxone HCl (Narcan) 0.1 mg IV Q2MIN PRN PRN Reason: Opiate Reversal Ondansetron HCl (Zofran) 4 mg IV Q6HP PRN PRN Reason: Nausea And Vomiting Pantoprazole Sodium (Protonix) 40 mg PO QAMAC [facility] Last Admin: 11/01/16 06:58 Dose: 40 mg Sertraline HCl (Zoloft) 50 mg PO DAILY [facility] Last Admin: 11/01/16 09:24 Dose: 50 mg Simvastatin (Zocor) 40 mg PO HS [facility] Last Admin: 10/31/16 20:28 Dose: 40 mg Sodium Chloride (Saline Flush) 10 ml IV Q8 [facility] Last Admin: 11/01/16 13:43 Dose: Not Given Tolterodine Tartrate (Detrol La) 4 mg PO DAILY [facility] Last Admin: 11/01/16 09:24 Dose: 4 mg Medical - PN: A/P - Time Spent With Patient Total time spent is greater than 50% in coordination of care (as documented) at patient's floor/unit and/or counseling patient: 25 - 35 minutes (1) Decubitus ulcer of sacral region Status: Chronic Assessment and plan: * Infected sacral Decubitus ulcer-continue Zosyn and vancomycin. Management per wound care * Hospital-acquired delirium-. Clinically improving. Avoid benzodiazepines/ opioids * Type II DM-basal prandial insulin/metformin * Hypothyroidism on thyroxine * Hypertension on metoprolol * History of CVA-on statin/Plavix * Anxiety disorder on SSRI plan * Continue antibiotic coverage * sacral decubitus ulcer management per wound care * pre-existing medical condition management as above * Possible discharge in 24-48 hours Current Visit: Yes Medical - PN: Qual - Stroke Symptom Onset Unknown: No - VTE Deep Vein Thrombosis/Pulmonary Embolism Present on Admission: No
--- NOTE | 2016-11-01 18:56 | General Surgery Progress Note ---
Subjective Patient reports: other (Cerumen impaction cleared fromright ear. Left ear canal has some residual soft wax. Will treat with Debrox drops tonite and tomorrow AM.) Narrative: Note initiated : 11/01/16 at 6:53 pm Service Date, if different from initiated Date: [] Patient: Génesis Medina 81 y/o F admitted on 10/28/16 for High Blood Sugar/ Dehydration, Infected Ulcer. Chief Complaint: [] Objective Temp Pulse Resp BP Pulse Ox 97.5 F L 84 21 163/78 95 11/01/16 16:20 11/01/16 16:20 11/01/16 16:20 11/01/16 16:20 11/01/16 16:20 AVSS. Lucid and alert today. Less anxious. Tolerated HBOT at 2 WISAM uneventfully. Ears examined post treatment. - Additional Data Intake & Output - Last 24 hours: Intake & Output 10/30/16 10/31/16 11/01/16 11/02/16 05:59 05:59 05:59 05:59 Intake Total 2875 / 2875 3490 / 3490 4400 / 4400 1330 / 1330 Output Total 455 / 455 1005 / 1005 4 / 4 152 / 152 Balance 2420 / 2420 2485 / 2485 4396 / 4396 1178 / 1178 Weight 120 lb 120 lb 120 lb 8 oz - Labs 10/31/16 05:00 10/31/16 05:00 Medical - PN: A/P - Time Spent With Patient Total time spent is greater than 50% in coordination of care (as documented) at patient's floor/unit and/or counseling patient: Cerumen Left ear canal. Tolerated 2 nd HBOT uneventfully. Plan: Debrox ear drops left ear tonight and tomorrow morning. To continue with HBOT as planned. Will check sacral wound tomorrow. 15 - 24 minutes (1) Decubitus ulcer of sacral region Status: Chronic Current Visit: Yes
[2016-11-01] MEDS: SIMVASTATIN 40 MG TABLET PO SCH (21:50)
[2016-11-01] MEDS: INSULIN GLARGINE, HUMAN 1 UNIT/0.01 ML SQ SCH (21:51)
[2016-11-02] MEDS: 0.45 % SODIUM CHLORIDE 1,000 ML IV SCH ×3 (00:21→22:18)
[2016-11-02] MEDS: PIPERACILLIN SODIUM/TAZOBACTAM 2.25 GM in DEXTROSE 5% IN WATER 50 ML IV SCH ×4 (00:25→17:01)
[2016-11-02] MEDS: 0.9 % SODIUM CHLORIDE 10 ML SYRINGE IV SCH ×3 (05:58→22:00)
[2016-11-02] MEDS: INSULIN LISPRO 1 UNIT/0.01 ML UNIT SQ SCH ×4 (06:57→21:00)
[2016-11-02] MEDS: PANTOPRAZOLE 40 MG TABLET PO SCH (06:58)
[2016-11-02] MEDS: LEVOTHYROXINE 125 MCG TABLET PO SCH (06:58)
[2016-11-02] MEDS ORDERED: CARBAMIDE PEROXIDE OTIC SOL 15ML AU ONE (08:09)
[2016-11-02] MEDS: SERTRALINE 50 MG TABLET PO SCH (08:15)
[2016-11-02] MEDS: METOPROLOL TARTRATE 25 MG TABLET PO SCH ×2 (08:15→20:40)
[2016-11-02] MEDS: metFORMIN 500 MG TABLET PO SCH ×2 (08:15→17:01)
[2016-11-02] MEDS: CLOPIDOGREL 75 MG TABLET PO SCH (08:15)
[2016-11-02] MEDS: TOLTERODINE 2 MG CAP.XL.24H PO SCH (08:16)
[2016-11-02] MEDS: HEPARIN 5,000 UNIT/ML VIAL SQ SCH ×2 (08:56→20:45)
[2016-11-02 10:01] LABS: Basophils # (Auto) 0 K/mcL (0.0-0.3); Basophils % (Auto) 0 % (0.0-2.0); Eosinophils # (Auto) 0.3 K/mcL (0.0-0.7); Eosinophils % (Auto) 3.3 % (0.0-7.0); Granulocytes % (Auto) 69.5 % (38.0-78.0); Lymphocytes # (Auto) 1.8 K/mcL (1.5-4.8); Lymphocytes % (Auto) 23.3 % (15.5-49.0); Mean Cell Volume 84.7 fL (80.0-100.0); Mean Corpuscular Hemoglobin 27.1 pg (26.0-34.0); Monocytes # (Auto) 0.3 K/mcL (0.1-0.9); Monocytes % (Auto) 3.9 % (1.0-9.0); Platelet Count 413 K/mcL (140-440); RBC 3.25 M/mcL (4.00-5.20); Red Cell Distribution Width 14.4 % (11.5-14.5)
[2016-11-02] MEDS: VANCOMYCIN 750 MG in 0.9 % SODIUM CHLORIDE 250 ML IV SCH (10:04)
[2016-11-02] MEDS: COLLAGENASE TOP OINT TUBE 30GM TOPICAL SCH (10:04)
[2016-11-02 10:31] LABS: ALT/SGPT 27 U/l (0-40); Albumin 2.7 gm/dL (3.2-5.2); Albumin/Globulin Ratio 0.8 (1.0-2.3); Alkaline Phosphatase 144 U/L (39-117); Bilirubin,Direct < 0.2 mg/dL (0.0-0.3); Blood Urea Nitrogen 17 mg/dl (8-23); Gamma Glutamyl Transpeptidase 49 U/L (5-36); Magnesium 1.6 mg/dL (1.6-2.5); Phosphorous 2.4 mg/dL (2.7-4.5); Uric Acid 2.8 mg/dL (2.5-8.0)
--- NOTE | 2016-11-02 11:06 | Internal Med Progress Note ---
Medical - PN: Subj Patient information: Note initiated : 11/02/16 at 11:03 am Service Date, if different from initiated Date: [] Patient: Génesis Medina 81 y/o F admitted on 10/28/16 for High Blood Sugar/ Dehydration, Infected Ulcer. Chief Complaint: [] Interval history: Ms. Medina is a 81 year old female was brought to the emergency room this evening by her family. She has a history of type 2 diabetes depression, colorectal cancer. She apparently underwent rectal radiation therapy, which subsequently caused fecal incontinence. Over the last month or so she has developed a sacral decubitus ulcer, which probably has been getting contaminated by stool. Her family reports that over the last week she has had depressed mental status, and has not been eating and drinking well. Her blood sugars at home are running around 300. She does have chronic pain in her neck and low back, and now has pain in the coccygeal area as well. ER evaluation showed multiple electrolyte abnormalities, glucose of 450, as well as dehydration and elevated anion gap. Urinalysis was also abnormal. These abnormalities in addition to likely infected decubitus ulcer, and altered mental status, indicated she should be admitted to observe more closely and continue the workup and treatment here. Unfortunately, her family had already gone home by the time he got into her room. The patient herself is rather disoriented and forgetful. She could not really say where she was for sure, or how she got here. She does report the fecal incontinence, and that she has a sore near her rectum. She says she does not believe she's had recent fever or chills, headaches or dizziness, new eye or ear symptoms, sore throat or cough. She does not believe that she has had recent chest pain or palpitations, or shortness of breath, abdominal pain nausea or vomiting She says she has had loose bowels ever since her colon cancer treatment, as well as incontinence of stool. She only occasionally has reflux symptoms. She denies dysuria. it would appear that her history is not 100% reliable. 10/29: this morning, the patient remains a bit confused. She is still having significant pain over her sacral ulcer area, if she has to lay on her back. I saw her also with Dr. Alanis today, and we looked at the wound. It is fairly large, but not especially deep. t is quite tender to the touch. otherwise, the patient denies fever or chills, chest pain or shortness of breath , abdominal pain nausea or vomiting. She continues to have her chronically loose stools. And she does have bowel incontinence. 10/30: today, patient is a little more alert. She is sitting up in a chair having lunch. She says she is having less sacral area pain today, but her knees are really hurting today. She also complains of feeling cold. She says staff told her she did not have diarrhea last night, which she said would be different than usual. She tells me that she has been too weak to get out of bed or to walk around for about 2 weeks. She otherwise denies fever or chills, chest pain or shortness of breath, abdominal pain, nausea or vomiting, dysuria. Her arrived later, and we had a long discussion. He tells me that his was getting around fine, up until about 2 weeks ago. 2 weeks ago she seemed to hurt her low back while carrying groceries. She then had a CT scan which suggested a T12 fracture. He says she was then sent to a pain clinic, and underwent an MRI, which says she did not have a fracture. ever since this injury , she has been quite sedentary, and required assistance to get around. He believes she just developed the sacral ulcer sometime over the last 2 weeks. He confirms that she did have a colon cancer and he believes she received sacral area radiation at that time, after receiving chemotherapy. He feels that she is just too weak for him to handle at homeat this time. he is hoping she can get physical therapy and wound care to help her get back to her baseline. 10/31: today, the patient notes that she is still having pain in her low back area, at the site of the sacral wound. She says she still feels like her legs are weak, and that she cannot bear weight. Her daughter and her are in the room with her this morning. They both report that he suddenly has 3 or so weeks ago, she was very functional, and performed all of her own activities of daily living, including grocery shopping. At some point she hurt her back, and she has had rapid decline since then. They remind me that she was seen at the pain clinic, and an MRI was ordered of her spine. MRI is consistent with a right T12 pedicle bone marrow edema, consistent with active microtrabecular stress reaction/stress fracture. No other compression fractures are noted. There is multilevel disc desiccation and spondylosis. otherwise,he denies subjective fever or chills, chest pain or shortness of breath, abdominal pain, nausea or vomiting. She is really unsure about whether she's had more loose stools or not, and denies dysuria. 11/01- patient seen in room. No overnight events. No concerns per staff. Improved lower back pain. ongoing wound care as per Dr. Alanis. stable labs and hemodynamics. on Zosyn/vancomycin. improved confusion and more alert. Improving delirium. 11/02- patient alert and lucid. Ongoing physical therapy. Tolerating diet. Minimal wheezing. No fever chills nausea vomiting. ongoing wound care/ hyperbaric oxygen treatments managed by Dr. Alanis. Continue antibiotic coverage. patient may be transitioned to swing bed status in the next 24-48 hours depending on clinical improvement for continued hyperbaric oxygen treatments. - Constitutional Vitals: Vital Signs Temp Pulse Resp BP Pulse Ox 98.7 F 81 22 187/83 96 11/02/16 07:33 11/02/16 07:33 11/02/16 07:33 11/02/16 07:33 11/02/16 07:33 Period Temp Pulse Resp BP Sys/King Pulse Ox Last 24 Hr 97.5 F-98.8 F 76-92 20-22 157-187/68-83 95-96 Intake and Output 11/01/16 11/02/16 11/02/16 21:59 05:59 13:59 Intake Total 1880 / 1880 640 / 640 Output Total 150 / 150 Balance 1730 / 1730 639 / 639 Weight 120 lb 8 oz Intake & Output: Intake & Output 11/01/16 11/02/16 11/02/16 21:59 05:59 13:59 Intake Total 1880 / 1880 640 / 640 Output Total 150 / 150 Balance 1730 / 1730 639 / 639 Weight 120 lb 8 oz Intake: IV 1050 / 1050 50 / 50 Sodium Chloride 0.45% 1, 1000 / 1000 000 ml @ 80 mls/hr IV . [id number] EPI Rx#:[id number] Dextrose 5% in Water 50 50 / 50 50 / 50 ml @ 100 mls/hr IV Q6 [facility] with Zosyn 2.25 gm Rx#: [id number] Oral 830 / 830 590 / 590 Output: # of times incontinent of 1 / 1 urine Urine/Stool Mix 150 / 150 Other: Meal Dinner Percent of Meal Consumed 100% Feeding Ability Independent # Bowel Movements 1 General appearance: cooperative, no acute distress Exam: alert and nondistressed Minimal wheezing Nonlabored breathing Nondistended abdomen Medical - PN: Obj Da - Labs CBC & Chem 7: 11/02/16 09:00 11/02/16 09:00 Labs: Abnormal Lab Results 11/02/16 11/02/16 10/31/16 09:00 09:00 07:40 RBC 3.25 L Hgb 8.8 L Hct 27.5 L RDW Carbon Dioxide Glucose Calcium Phosphorus 2.4 L GGT 49 H Alkaline Phosphatase 144 H Total Protein Albumin 2.7 L Albumin/Globulin Ratio 0.8 L Triglycerides 154 H Vancomycin Trough 15.7 H 10/31/16 10/31/16 05:00 05:00 RBC 3.23 L Hgb 8.8 L Hct 27.5 L RDW 14.9 H Carbon Dioxide 18 L Glucose 66 L Calcium 8.3 L Phosphorus 2.6 L GGT 48 H Alkaline Phosphatase 146 H Total Protein 5.2 L Albumin 2.7 L Albumin/Globulin Ratio Triglycerides 152 H Vancomycin Trough Meds: Medications Acetaminophen (Tylenol) 650 mg PO Q6HP PRN PRN Reason: PAIN/FEVER > 101 Last Admin: 11/01/16 23:13 Dose: 650 mg Calcium Carbonate/Glycine (Tums) 1,000 mg CHEWED Q4HP PRN PRN Reason: Dyspepsia Carbamide Peroxide (Debrox) 10 gtt AU BID [facility] Stop: 11/04/16 23:59 Clopidogrel Bisulfate (Plavix) 75 mg PO DAILY [facility] Last Admin: 11/02/16 08:15 Dose: 75 mg Collagenase (Santyl Top Oint) 1 dose TOPICAL DAILY [facility] Last Admin: 11/02/16 10:04 Dose: 1 dose Dextrose (Dextrose 50%) 0 ml IV UD PRN PRN Reason: Hypoglycemia Diagnostic Test (Pha) (Accu-Chek) 1 each FS ACHS [facility] Last Admin: 11/02/16 06:57 Dose: 1 each Docusate Sodium (Colace) 100 mg PO BID PRN PRN Reason: Constipation Heparin Sodium (Porcine) (Heparin) 5,000 unit SQ Q12 [facility] Last Admin: 11/02/16 08:56 Dose: 5,000 unit Vancomycin HCl 750 mg/ Sodium (Chloride) 250 mls @ 250 mls/hr IV DAILY [facility] Last Admin: 11/02/16 10:04 Dose: 250 mls/hr Piperacillin Sod/Tazobactam (Sod 2.25 gm/ Dextrose) 50 mls @ 100 mls/hr IV Q6 [facility] Last Admin: 11/02/16 05:58 Dose: 100 mls/hr Sodium Chloride (Sodium Chloride 0.45%) 1,000 mls @ 80 mls/hr IV .[id number] [facility] Last Admin: 11/02/16 00:21 Dose: 80 mls/hr Insulin Glargine (Lantus) 25 unit SQ HS [facility] Last Admin: 11/01/16 21:51 Dose: 25 unit Insulin Human Lispro (Humalog) 0 unit SQ ACHS [facility] PRN Reason: Protocol Last Admin: 11/02/16 06:57 Dose: Not Given Levothyroxine Sodium (Synthroid) 125 mcg PO ACB [facility] Last Admin: 11/02/16 06:58 Dose: 125 mcg Lorazepam (Ativan) 0.5 mg PO DAILYP PRN PRN Reason: Anxiety Last Admin: 11/01/16 12:27 Dose: 0.5 mg Magnesium Hydroxide (Milk Of Magnesia) 30 ml PO DAILYP PRN PRN Reason: Constipation [facility] Last Admin: 11/02/16 08:15 Dose: 500 mg Metoprolol Tartrate (Lopressor) 25 mg PO BID [facility] Last Admin: 11/02/16 08:15 Dose: 25 mg Morphine Sulfate (Morphine) 1 mg IV Q4HP PRN PRN Reason: Pain Naloxone HCl (Narcan) 0.1 mg IV Q2MIN PRN PRN Reason: Opiate Reversal Ondansetron HCl (Zofran) 4 mg IV Q6HP PRN PRN Reason: Nausea And Vomiting Pantoprazole Sodium (Protonix) 40 mg PO QAMAC [facility] Last Admin: 11/02/16 06:58 Dose: 40 mg Sertraline HCl (Zoloft) 50 mg PO DAILY [facility] Last Admin: 11/02/16 08:15 Dose: 50 mg Simvastatin (Zocor) 40 mg PO HS [facility] Last Admin: 11/01/16 21:50 Dose: 40 mg Sodium Chloride (Saline Flush) 10 ml IV Q8 [facility] Last Admin: 11/02/16 05:58 Dose: Not Given Tolterodine Tartrate (Detrol La) 4 mg PO DAILY [facility] Last Admin: 11/02/16 08:16 Dose: 4 mg Medical - PN: A/P - Time Spent With Patient Total time spent is greater than 50% in coordination of care (as documented) at patient's floor/unit and/or counseling patient: 15 - 24 minutes (1) Decubitus ulcer of sacral region Status: Chronic Assessment and plan: * Infected sacral Decubitus ulcer with ongoing fecal contamination from incontinence- continue aggressive perineal hygiene along with Zosyn and vancomycin. HBO per wound care * Hospital-acquired delirium-. clinically resolved * acute kidney injury resolved-creatinine at 1 * Type II DM-basal prandial insulin/metformin * Hypothyroidism on thyroxine * Hypertension on metoprolol, inadequate control with systolics around 150, start ARB * History of CVA-on statin/Plavix * Anxiety disorder on SSRI plan * continue aggressive wound care per Dr. Alanis/hyperbaric oxygen treatment * Antibiotic coverage to de-escalate based on cultures * optimize blood pressure management. Restart home dose ARB * pre-existing medical condition management as above * Possible discharge to swing bed status in 24 hours Current Visit: Yes Medical - PN: Qual - Stroke Symptom Onset Unknown: No - VTE Deep Vein Thrombosis/Pulmonary Embolism Present on Admission: No
--- NOTE | 2016-11-02 11:22 | XRay Report ---
CLINICAL INFORMATION: Dyspnea TECHNIQUE: Upright AP chest x-ray COMPARISON: 10/29/2016 FINDINGS: Lungs are negative. No parenchymal infiltrate or mass. Heart size and vascularity are unremarkable. No pulmonary congestion. No pulmonary edema. Emily and mediastinum are negative. No pleural fluid. IMPRESSION: Negative AP chest x-ray. No interval change since 10/29/2016 Interpreted and Authenticated by: Jey Manning 11/02/16
[2016-11-02] MEDS ORDERED: LORazepam 1 MG TABLET PO PRN (12:12)
[2016-11-02] MEDS: LORazepam 0.5 MG TABLET PO PRN (13:19)
--- NOTE | 2016-11-02 13:38 | General Surgery Progress Note ---
Subjective Patient reports: other (patient in HBO chamber. C/O feeling COLD. Bl sugars 72 mg %) Narrative: Note initiated : 11/02/16 at 1:36 pm Service Date, if different from initiated Date: [] Patient: Génesis Medina 81 y/o F admitted on 10/28/16 for High Blood Sugar/ Dehydration, Infected Ulcer. Chief Complaint: [] Objective Temp Pulse Resp BP Pulse Ox 98.7 F 78 22 175/81 96 11/02/16 12:00 11/02/16 12:00 11/02/16 12:00 11/02/16 12:00 11/02/16 12:00 AVSS. No changes in ANOOP. No tremors, No diaphoresis, ORTEZ , AAOx3 Sacral wound was examined this morning. Adherent eschar is demarcating well. - Additional Data Intake & Output - Last 24 hours: Intake & Output 10/31/16 11/01/16 11/02/16 11/03/16 05:59 05:59 05:59 05:59 Intake Total 3490 / 3490 4400 / 4400 3270 / 3270 50 / 50 Output Total 1005 / 1005 4 / 4 153 / 153 Balance 2485 / 2485 4396 / 4396 3117 / 3117 50 / 50 Weight 120 lb 120 lb 8 oz 120 lb 8 oz - Labs 11/02/16 09:00 11/02/16 09:00 Diabetes panel 11/02/16 Range/Units 09:00 Sodium 138 (133-145) mmol/L Potassium 4.3 (3.3-5.1) mmol/L Chloride 101 (96-108) mmol/L Carbon Dioxide 24 (22-30) mmol/L BUN 17 (8-23) mg/dl Creatinine 1.0 (0.6-1.1) mg/dl Glucose 71 (70-105) mg/dL Calcium 8.9 (8.6-10.4) mg/dl AST 23 (0-37) U/l ALT 27 (0-40) U/l Alkaline Phosphatase 144 H (39-117) U/L Total Protein 6.2 (5.9-8.4) gm/dL Albumin 2.7 L (3.2-5.2) gm/dL Triglycerides 154 H (<150) mg/dl Calcium panel 11/02/16 Range/Units 09:00 Calcium 8.9 (8.6-10.4) mg/dl Phosphorus 2.4 L (2.7-4.5) mg/dL Albumin 2.7 L (3.2-5.2) gm/dL Pituitary panel 11/02/16 Range/Units 09:00 Sodium 138 (133-145) mmol/L Potassium 4.3 (3.3-5.1) mmol/L Chloride 101 (96-108) mmol/L Carbon Dioxide 24 (22-30) mmol/L BUN 17 (8-23) mg/dl Creatinine 1.0 (0.6-1.1) mg/dl Glucose 71 (70-105) mg/dL Calcium 8.9 (8.6-10.4) mg/dl Adrenal panel 11/02/16 Range/Units 09:00 Sodium 138 (133-145) mmol/L Potassium 4.3 (3.3-5.1) mmol/L Chloride 101 (96-108) mmol/L Carbon Dioxide 24 (22-30) mmol/L BUN 17 (8-23) mg/dl Creatinine 1.0 (0.6-1.1) mg/dl Glucose 71 (70-105) mg/dL Calcium 8.9 (8.6-10.4) mg/dl Total Bilirubin < 0.2 (0.0-1.0) mg/dL AST 23 (0-37) U/l ALT 27 (0-40) U/l Alkaline Phosphatase 144 H (39-117) U/L Total Protein 6.2 (5.9-8.4) gm/dL Albumin 2.7 L (3.2-5.2) gm/dL Medical - PN: A/P - Time Spent With Patient Total time spent is greater than 50% in coordination of care (as documented) at patient's floor/unit and/or counseling patient: 15 - 24 minutes (1) Decubitus ulcer of sacral region Status: Chronic Current Visit: Yes (2) Hypoglycemia associated with diabetes Status: Acute Current Visit: Yes (3) Cerumen debris on tympanic membrane of left ear Status: Acute Assessment and plan: Left ear canal was treated with Debrox ear drops, followed by successful cleansing and syringing of ear canal this morning. Well tolerated. Current Visit: Yes - Narrative A/P Narrative: Patient examined in HBO room. Blood sugar 72 mg %. But patient is calm and comfortable. feels cold. ORTEZ. Plan 1 can PO Ensure along with D50 1 Amp IV. Later check Blood surgar and decide about HBOT.
[2016-11-02] MEDS ORDERED: DEXTROSE 50% 50 ML VIAL IV ONE (13:44)
[2016-11-02] MEDS: SIMVASTATIN 40 MG TABLET PO SCH (20:40)
[2016-11-02] MEDS: CARBAMIDE PEROXIDE OTIC SOL 15ML AU SCH (20:41)
[2016-11-03] MEDS: PIPERACILLIN SODIUM/TAZOBACTAM 2.25 GM in DEXTROSE 5% IN WATER 50 ML IV SCH ×5 (00:20→23:44)
[2016-11-03] MEDS: ACETAMINOPHEN 325 MG TABLET PO PRN ×2 (00:23→08:52)
[2016-11-03] MEDS: 0.9 % SODIUM CHLORIDE 10 ML SYRINGE IV SCH ×4 (06:00→23:47)
[2016-11-03] MEDS: LEVOTHYROXINE 125 MCG TABLET PO SCH (07:20)
[2016-11-03] MEDS: PANTOPRAZOLE 40 MG TABLET PO SCH (07:20)
[2016-11-03] MEDS: INSULIN LISPRO 1 UNIT/0.01 ML UNIT SQ SCH ×4 (07:22→22:53)
[2016-11-03] MEDS: 0.45 % SODIUM CHLORIDE 1,000 ML IV SCH (08:51)
[2016-11-03] MEDS: SERTRALINE 50 MG TABLET PO SCH (08:52)
[2016-11-03] MEDS: METOPROLOL TARTRATE 25 MG TABLET PO SCH ×2 (08:53→22:48)
[2016-11-03] MEDS: VANCOMYCIN 750 MG in 0.9 % SODIUM CHLORIDE 250 ML IV SCH ×2 (08:53→10:52)
[2016-11-03] MEDS: HEPARIN 5,000 UNIT/ML VIAL SQ SCH ×2 (08:53→22:49)
[2016-11-03] MEDS: CARBAMIDE PEROXIDE OTIC SOL 15ML AU SCH ×2 (08:53→22:47)
[2016-11-03] MEDS: COLLAGENASE TOP OINT TUBE 30GM TOPICAL SCH (08:53)
[2016-11-03] MEDS: CLOPIDOGREL 75 MG TABLET PO SCH (08:53)
[2016-11-03] MEDS: LISINOPRIL 20 MG TABLET PO SCH (08:53)
[2016-11-03] MEDS: metFORMIN 500 MG TABLET PO SCH ×2 (08:53→17:26)
[2016-11-03] MEDS: TOLTERODINE 2 MG CAP.XL.24H PO SCH (08:53)
--- NOTE | 2016-11-03 10:09 | Internal Med Progress Note ---
Medical - PN: Subj Patient information: Note initiated : 11/03/16 at 10:05 am Service Date, if different from initiated Date: [] Patient: Génesis Medina 81 y/o F admitted on 10/28/16 for High Blood Sugar/ Dehydration, Infected Ulcer. Chief Complaint: [] Interval history: Ms. Medina is a 81 year old female was brought to the emergency room this evening by her family. She has a history of type 2 diabetes depression, colorectal cancer. She apparently underwent rectal radiation therapy, which subsequently caused fecal incontinence. Over the last month or so she has developed a sacral decubitus ulcer, which probably has been getting contaminated by stool. Her family reports that over the last week she has had depressed mental status, and has not been eating and drinking well. Her blood sugars at home are running around 300. She does have chronic pain in her neck and low back, and now has pain in the coccygeal area as well. ER evaluation showed multiple electrolyte abnormalities, glucose of 450, as well as dehydration and elevated anion gap. Urinalysis was also abnormal. These abnormalities in addition to likely infected decubitus ulcer, and altered mental status, indicated she should be admitted to observe more closely and continue the workup and treatment here. Unfortunately, her family had already gone home by the time he got into her room. The patient herself is rather disoriented and forgetful. She could not really say where she was for sure, or how she got here. She does report the fecal incontinence, and that she has a sore near her rectum. She says she does not believe she's had recent fever or chills, headaches or dizziness, new eye or ear symptoms, sore throat or cough. She does not believe that she has had recent chest pain or palpitations, or shortness of breath, abdominal pain nausea or vomiting She says she has had loose bowels ever since her colon cancer treatment, as well as incontinence of stool. She only occasionally has reflux symptoms. She denies dysuria. it would appear that her history is not 100% reliable. 10/29: this morning, the patient remains a bit confused. She is still having significant pain over her sacral ulcer area, if she has to lay on her back. I saw her also with Dr. Alanis today, and we looked at the wound. It is fairly large, but not especially deep. t is quite tender to the touch. otherwise, the patient denies fever or chills, chest pain or shortness of breath , abdominal pain nausea or vomiting. She continues to have her chronically loose stools. And she does have bowel incontinence. 10/30: today, patient is a little more alert. She is sitting up in a chair having lunch. She says she is having less sacral area pain today, but her knees are really hurting today. She also complains of feeling cold. She says staff told her she did not have diarrhea last night, which she said would be different than usual. She tells me that she has been too weak to get out of bed or to walk around for about 2 weeks. She otherwise denies fever or chills, chest pain or shortness of breath, abdominal pain, nausea or vomiting, dysuria. Her arrived later, and we had a long discussion. He tells me that his was getting around fine, up until about 2 weeks ago. 2 weeks ago she seemed to hurt her low back while carrying groceries. She then had a CT scan which suggested a T12 fracture. He says she was then sent to a pain clinic, and underwent an MRI, which says she did not have a fracture. ever since this injury , she has been quite sedentary, and required assistance to get around. He believes she just developed the sacral ulcer sometime over the last 2 weeks. He confirms that she did have a colon cancer and he believes she received sacral area radiation at that time, after receiving chemotherapy. He feels that she is just too weak for him to handle at homeat this time. he is hoping she can get physical therapy and wound care to help her get back to her baseline. 10/31: today, the patient notes that she is still having pain in her low back area, at the site of the sacral wound. She says she still feels like her legs are weak, and that she cannot bear weight. Her daughter and her are in the room with her this morning. They both report that he suddenly has 3 or so weeks ago, she was very functional, and performed all of her own activities of daily living, including grocery shopping. At some point she hurt her back, and she has had rapid decline since then. They remind me that she was seen at the pain clinic, and an MRI was ordered of her spine. MRI is consistent with a right T12 pedicle bone marrow edema, consistent with active microtrabecular stress reaction/stress fracture. No other compression fractures are noted. There is multilevel disc desiccation and spondylosis. otherwise,he denies subjective fever or chills, chest pain or shortness of breath, abdominal pain, nausea or vomiting. She is really unsure about whether she's had more loose stools or not, and denies dysuria. 11/01- patient seen in room. No overnight events. No concerns per staff. Improved lower back pain. ongoing wound care as per Dr. Alanis. stable labs and hemodynamics. on Zosyn/vancomycin. improved confusion and more alert. Improving delirium. 11/02- patient alert and lucid. Ongoing physical therapy. Tolerating diet. Minimal wheezing. No fever chills nausea vomiting. ongoing wound care/ hyperbaric oxygen treatments managed by Dr. Alanis. Continue antibiotic coverage. patient may be transitioned to swing bed status in the next 24-48 hours depending on clinical improvement for continued hyperbaric oxygen treatments. 11/03- patient undergoing hyperbaric oxygen treatment/wound care. No overnight fever chills. had a restful night. No concerns per staff - Constitutional Vitals: Vital Signs Temp Pulse Resp BP Pulse Ox 98.5 F 81 16 178/85 95 11/03/16 07:10 11/03/16 07:10 11/03/16 07:10 11/03/16 07:10 11/03/16 07:31 Period Temp Pulse Resp BP Sys/King Pulse Ox Last 24 Hr 97.8 F-98.7 F 78-95 16-22 175-190/81-91 95-98 Intake and Output 11/02/16 11/03/16 11/03/16 21:59 05:59 13:59 Intake Total 710 / 710 700 / 700 Output Total Balance 707 / 707 698 / 698 - Weight 120 lb Intake & Output: Intake & Output 11/02/16 11/03/16 11/03/16 21:59 05:59 13:59 Intake Total 710 / 710 700 / 700 Output Total Balance 707 / 707 698 / 698 -1 / -1 Weight 120 lb Intake: IV 50 / 50 50 / 50 Dextrose 5% in Water 50 50 / 50 50 / 50 ml @ 100 mls/hr IV Q6 [facility] with Zosyn 2.25 gm Rx#: [id number] Oral 660 / 660 650 / 650 Output: # of times incontinent of 3 / 3 2 / 2 urine Other: Meal Dinner Percent of Meal Consumed 25% Feeding Ability Independent # Bowel Movements 1 General appearance: cooperative, no acute distress Exam: subjective decubiti no lymphedema No anxiety Medical - PN: Obj Da - Labs CBC & Chem 7: 11/02/16 09:00 11/02/16 09:00 Labs: Abnormal Lab Results 11/02/16 11/02/16 09:00 09:00 RBC 3.25 L Hgb 8.8 L Hct 27.5 L Phosphorus 2.4 L GGT 49 H Alkaline Phosphatase 144 H Albumin 2.7 L Albumin/Globulin Ratio 0.8 L Triglycerides 154 H Meds: Medications Acetaminophen (Tylenol) 650 mg PO Q6HP PRN PRN Reason: PAIN/FEVER > 101 Last Admin: 11/03/16 08:52 Dose: 650 mg Calcium Carbonate/Glycine (Tums) 1,000 mg CHEWED Q4HP PRN PRN Reason: Dyspepsia Carbamide Peroxide (Debrox) 10 gtt AU BID [facility] Stop: 11/04/16 23:59 Last Admin: 11/03/16 08:53 Dose: 10 gtt Clopidogrel Bisulfate (Plavix) 75 mg PO DAILY [facility] Last Admin: 11/03/16 08:53 Dose: 75 mg Collagenase (Santyl Top Oint) 1 dose TOPICAL DAILY [facility] Last Admin: 11/03/16 08:53 Dose: 1 dose Dextrose (Dextrose 50%) 0 ml IV UD PRN PRN Reason: Hypoglycemia Diagnostic Test (Pha) (Accu-Chek) 1 each FS ACHS [facility] Last Admin: 11/03/16 07:19 Dose: 1 each Docusate Sodium (Colace) 100 mg PO BID PRN PRN Reason: Constipation Heparin Sodium (Porcine) (Heparin) 5,000 unit SQ Q12 [facility] Last Admin: 11/03/16 08:53 Dose: 5,000 unit Vancomycin HCl 750 mg/ Sodium (Chloride) 250 mls @ 250 mls/hr IV DAILY [facility] Last Infusion: 11/02/16 11:04 Dose: Infused Piperacillin Sod/Tazobactam (Sod 2.25 gm/ Dextrose) 50 mls @ 100 mls/hr IV Q6 [facility] Last Admin: 11/03/16 05:59 Dose: 100 mls/hr Sodium Chloride (Sodium Chloride 0.45%) 1,000 mls @ 80 mls/hr IV .[id number] [facility] Last Admin: 11/03/16 08:51 Dose: Not Given Insulin Human Lispro (Humalog) 0 unit SQ ACHS [facility] PRN Reason: Protocol Last Admin: 11/03/16 07:22 Dose: Not Given Levothyroxine Sodium (Synthroid) 125 mcg PO ACB [facility] Last Admin: 11/03/16 07:20 Dose: 125 mcg Lisinopril (Zestril) 20 mg PO DAILY [facility] Last Admin: 11/03/16 08:53 Dose: 20 mg Lorazepam (Ativan) 1 mg PO DAILYP PRN PRN Reason: Anxiety Last Admin: 11/02/16 13:19 Dose: 1 mg Magnesium Hydroxide (Milk Of Magnesia) 30 ml PO DAILYP PRN PRN Reason: Constipation Metformin HCl (Glucophage) 500 mg PO BIDCC [facility] Last Admin: 11/03/16 08:53 Dose: 500 mg Metoprolol Tartrate (Lopressor) 25 mg PO BID [facility] Last Admin: 11/03/16 08:53 Dose: 25 mg Morphine Sulfate (Morphine) 1 mg IV Q4HP PRN PRN Reason: Pain Naloxone HCl (Narcan) 0.1 mg IV Q2MIN PRN PRN Reason: Opiate Reversal Ondansetron HCl (Zofran) 4 mg IV Q6HP PRN PRN Reason: Nausea And Vomiting Pantoprazole Sodium (Protonix) 40 mg PO QAMAC [facility] Last Admin: 11/03/16 07:20 Dose: 40 mg Sertraline HCl (Zoloft) 50 mg PO DAILY [facility] Last Admin: 11/03/16 08:52 Dose: 50 mg Simvastatin (Zocor) 40 mg PO HS [facility] Last Admin: 11/02/16 20:40 Dose: 40 mg Sodium Chloride (Saline Flush) 10 ml IV Q8 [facility] Last Admin: 11/03/16 06:00 Dose: Not Given Tolterodine Tartrate (Detrol La) 4 mg PO DAILY [facility] Last Admin: 11/03/16 08:53 Dose: 4 mg Medical - PN: A/P - Time Spent With Patient Total time spent is greater than 50% in coordination of care (as documented) at patient's floor/unit and/or counseling patient: 15 - 24 minutes (1) Decubitus ulcer of sacral region Status: Chronic Assessment and plan: * Infected sacral Decubitus ulcer- Clinically improved with ongoing wound care/ hyperbaric oxygen treatment and management per wound care physician * Hospital-acquired delirium-resolved * acute kidney injury resolved- renal function stable * Type II DM-basal prandial insulin/metformin * Hypothyroidism on thyroxine * Hypertension on metoprolol/ARB. uptitrate dose to effect. * History of CVA-on statin/Plavix * Anxiety disorder on SSRI plan * increase metoprolol to 50 twice a day * continue wound care per Dr. Alanis/HBO * Antibiotic coverage * pre-existing medical condition management as above * swing bed discharge once improved systolics and cultures available Current Visit: Yes Medical - PN: Qual - Stroke Symptom Onset Unknown: No - VTE Deep Vein Thrombosis/Pulmonary Embolism Present on Admission: No
[2016-11-03] MEDS: LORazepam 0.5 MG TABLET PO PRN (13:10)
[2016-11-03] MEDS ORDERED: IPRATROPIUM/ALBUTEROL 3 ML AMPUL.NEB NEB PRN (14:14)
[2016-11-03] MEDS ORDERED: FUROSEMIDE 20 MG/2 ML VIAL IV ONE (14:16)
[2016-11-03] MEDS: HYDROcodone/APAP 5/325MG TABLET PO PRN ×2 (17:26→23:50)
[2016-11-03] MEDS: SIMVASTATIN 40 MG TABLET PO SCH (22:49)
[2016-11-04] MEDS: PIPERACILLIN SODIUM/TAZOBACTAM 2.25 GM in DEXTROSE 5% IN WATER 50 ML IV SCH ×4 (05:28→23:54)
[2016-11-04] MEDS: 0.9 % SODIUM CHLORIDE 10 ML SYRINGE IV SCH ×3 (05:28→22:00)
[2016-11-04] MEDS: INSULIN LISPRO 1 UNIT/0.01 ML UNIT SQ SCH ×4 (07:04→21:59)
[2016-11-04] MEDS: PANTOPRAZOLE 40 MG TABLET PO SCH (07:04)
[2016-11-04] MEDS: HYDROcodone/APAP 5/325MG TABLET PO PRN ×3 (07:04→22:04)
[2016-11-04] MEDS: LEVOTHYROXINE 125 MCG TABLET PO SCH (07:04)
[2016-11-04] MEDS: TOLTERODINE 2 MG CAP.XL.24H PO SCH (08:24)
[2016-11-04] MEDS: COLLAGENASE TOP OINT TUBE 30GM TOPICAL SCH (08:24)
[2016-11-04] MEDS: LISINOPRIL 20 MG TABLET PO SCH (08:25)
[2016-11-04] MEDS: CLOPIDOGREL 75 MG TABLET PO SCH (08:25)
[2016-11-04] MEDS: CARBAMIDE PEROXIDE OTIC SOL 15ML AU SCH (08:25)
[2016-11-04] MEDS: metFORMIN 500 MG TABLET PO SCH ×2 (08:26→17:13)
[2016-11-04] MEDS: METOPROLOL TARTRATE 25 MG TABLET PO SCH ×2 (08:26→21:58)
[2016-11-04] MEDS: SERTRALINE 50 MG TABLET PO SCH (08:26)
[2016-11-04] MEDS: HEPARIN 5,000 UNIT/ML VIAL SQ SCH ×2 (08:26→21:59)
[2016-11-04] MEDS ORDERED: FUROSEMIDE 20 MG/2 ML VIAL IV SCH (09:00)
--- NOTE | 2016-11-04 09:51 | Cat Scan Report ---
CLINICAL INFORMATION: Code stroke COMPARISON: None. TECHNIQUE: Axial noncontrast-enhanced images through the brain. FINDINGS: No acute intracranial hemorrhage. No subdural hematoma. No subarachnoid hemorrhage. No epidural hematoma. No acute intra-axial hematoma. There is cerebral atrophy with prominent superficial subarachnoid spaces and mild ventricular enlargement. There is an old lacunar in the left thalamus. There is white matter abnormality with a more focal area of low density in the right land radiata. No localized mass effect. No acute abnormality. Brainstem and cerebellum are negative. No extra-axial, intracranial abnormality. Basilar cisterns are normal. No calvarial lesion. Skull base is negative. Dr. Monteiro was called with these results, 11/04/2016, [id number] IMPRESSION: 1. No acute intracranial hemorrhage. 2. Cerebral atrophy 3. Old left thalamic lacunar. White matter abnormality consistent with small vessel ischemic change. More focal low-density abnormality in the right centrum semiovale Interpreted and Authenticated by: Jey Manning 11/04/16
[2016-11-04] MEDS ORDERED: VANCOMYCIN 500 MG in 0.9 % SODIUM CHLORIDE 100 ML IV SCH (10:00)
[2016-11-04] MEDS ORDERED: SIMVASTATIN 40 MG TABLET PO ONE (10:16)
--- NOTE | 2016-11-04 10:29 | Internal Med Progress Note ---
Medical - PN: Subj Patient information: Note initiated : 11/04/16 at 10:25 am Service Date, if different from initiated Date: [] Patient: Génesis Medina 81 y/o F admitted on 10/28/16 for High Blood Sugar/ Dehydration, Infected Ulcer. Chief Complaint: [] Interval history: Ms. Medina is a 81 year old female was brought to the emergency room this evening by her family. She has a history of type 2 diabetes depression, colorectal cancer. She apparently underwent rectal radiation therapy, which subsequently caused fecal incontinence. Over the last month or so she has developed a sacral decubitus ulcer, which probably has been getting contaminated by stool. Her family reports that over the last week she has had depressed mental status, and has not been eating and drinking well. Her blood sugars at home are running around 300. She does have chronic pain in her neck and low back, and now has pain in the coccygeal area as well. ER evaluation showed multiple electrolyte abnormalities, glucose of 450, as well as dehydration and elevated anion gap. Urinalysis was also abnormal. These abnormalities in addition to likely infected decubitus ulcer, and altered mental status, indicated she should be admitted to observe more closely and continue the workup and treatment here. Unfortunately, her family had already gone home by the time he got into her room. The patient herself is rather disoriented and forgetful. She could not really say where she was for sure, or how she got here. She does report the fecal incontinence, and that she has a sore near her rectum. She says she does not believe she's had recent fever or chills, headaches or dizziness, new eye or ear symptoms, sore throat or cough. She does not believe that she has had recent chest pain or palpitations, or shortness of breath, abdominal pain nausea or vomiting She says she has had loose bowels ever since her colon cancer treatment, as well as incontinence of stool. She only occasionally has reflux symptoms. She denies dysuria. it would appear that her history is not 100% reliable. 10/29: this morning, the patient remains a bit confused. She is still having significant pain over her sacral ulcer area, if she has to lay on her back. I saw her also with Dr. Alanis today, and we looked at the wound. It is fairly large, but not especially deep. t is quite tender to the touch. otherwise, the patient denies fever or chills, chest pain or shortness of breath , abdominal pain nausea or vomiting. She continues to have her chronically loose stools. And she does have bowel incontinence. 10/30: today, patient is a little more alert. She is sitting up in a chair having lunch. She says she is having less sacral area pain today, but her knees are really hurting today. She also complains of feeling cold. She says staff told her she did not have diarrhea last night, which she said would be different than usual. She tells me that she has been too weak to get out of bed or to walk around for about 2 weeks. She otherwise denies fever or chills, chest pain or shortness of breath, abdominal pain, nausea or vomiting, dysuria. Her arrived later, and we had a long discussion. He tells me that his was getting around fine, up until about 2 weeks ago. 2 weeks ago she seemed to hurt her low back while carrying groceries. She then had a CT scan which suggested a T12 fracture. He says she was then sent to a pain clinic, and underwent an MRI, which says she did not have a fracture. ever since this injury , she has been quite sedentary, and required assistance to get around. He believes she just developed the sacral ulcer sometime over the last 2 weeks. He confirms that she did have a colon cancer and he believes she received sacral area radiation at that time, after receiving chemotherapy. He feels that she is just too weak for him to handle at homeat this time. he is hoping she can get physical therapy and wound care to help her get back to her baseline. 10/31: today, the patient notes that she is still having pain in her low back area, at the site of the sacral wound. She says she still feels like her legs are weak, and that she cannot bear weight. Her daughter and her are in the room with her this morning. They both report that he suddenly has 3 or so weeks ago, she was very functional, and performed all of her own activities of daily living, including grocery shopping. At some point she hurt her back, and she has had rapid decline since then. They remind me that she was seen at the pain clinic, and an MRI was ordered of her spine. MRI is consistent with a right T12 pedicle bone marrow edema, consistent with active microtrabecular stress reaction/stress fracture. No other compression fractures are noted. There is multilevel disc desiccation and spondylosis. otherwise,he denies subjective fever or chills, chest pain or shortness of breath, abdominal pain, nausea or vomiting. She is really unsure about whether she's had more loose stools or not, and denies dysuria. 11/01- patient seen in room. No overnight events. No concerns per staff. Improved lower back pain. ongoing wound care as per Dr. Alanis. stable labs and hemodynamics. on Zosyn/vancomycin. improved confusion and more alert. Improving delirium. 11/02- patient alert and lucid. Ongoing physical therapy. Tolerating diet. Minimal wheezing. No fever chills nausea vomiting. ongoing wound care/ hyperbaric oxygen treatments managed by Dr. Alanis. Continue antibiotic coverage. patient may be transitioned to swing bed status in the next 24-48 hours depending on clinical improvement for continued hyperbaric oxygen treatments. 11/03- patient undergoing hyperbaric oxygen treatment/wound care. No overnight fever chills. had a restful night. No concerns per staff 11/04- patient was found with difficulty word finding and rt facial droop this morning. unclear time of onset. As per family patient has had intermittent similar spells in the past. consulted stroke neurologist Dr. Hawthorne at [facility]. Recommended high-dose statin continuing Plavix along with MRI/MR angiogram brain neck. Patient is beyond the window for TPA in light of symptoms onset likely during sleep and no clear time and the patient was last seen normal. transfer to telemetry. Await neuroimaging. Load high- dose statin. hold hyperbaric treatments for now. Echocardiogram for CVA workup - Constitutional Vitals: Vital Signs Temp Pulse Resp BP Pulse Ox 97.9 F 74 16 149/63 96 11/04/16 09:47 11/04/16 10:24 11/04/16 09:47 11/04/16 10:24 11/04/16 10:24 Period Temp Pulse Resp BP Sys/King Pulse Ox Last 24 Hr 97.7 F-98.8 F 68-97 16-22 126-178/63-91 93-98 Intake and Output 11/03/16 11/04/16 11/04/16 21:59 05:59 13:59 Intake Total 850 / 850 360 / 360 Output Total 201 / 201 Balance 848 / 848 359 / 359 - / -201 Weight 124 lb Intake & Output: Intake & Output 11/03/16 11/04/16 11/04/16 21:59 05:59 13:59 Intake Total 850 / 850 360 / 360 Output Total 201 / 201 Balance 848 / 848 359 / 359 - / -201 Weight 124 lb Intake: IV 50 / 50 50 / 50 Dextrose 5% in Water 50 50 / 50 50 / 50 ml @ 100 mls/hr IV Q6 EPI with Zosyn 2.25 gm Rx#: [id number] Oral 800 / 800 310 / 310 Output: Void Amount 200 / 200 # of times incontinent of urine Other: Percent of Meal Consumed 50% Feeding Ability Assist with Tray Set Up Exam: difficulty word finding NIH stroke scale 5 No diplopia minimal right-sided facial droop Nonlabored breathing Medical - PN: Obj Da - Labs CBC & Chem 7: 11/02/16 09:00 11/02/16 09:00 Labs: Abnormal Lab Results 11/04/16 11/02/16 11/02/16 08:10 09:00 09:00 RBC 3.25 L Hgb 8.8 L Hct 27.5 L Phosphorus 2.4 L GGT 49 H Alkaline Phosphatase 144 H Albumin 2.7 L Albumin/Globulin Ratio 0.8 L Triglycerides 154 H Vancomycin Trough 18.5 H Meds: Medications Acetaminophen (Tylenol) 650 mg PO Q6HP PRN PRN Reason: PAIN/FEVER > 101 Last Admin: 11/03/16 08:52 Dose: 650 mg Acetaminophen/Hydrocodone Bitart ([place] 5/325mg) 1 tab PO Q6HP PRN PRN Reason: Pain Last Admin: 11/04/16 07:04 Dose: 1 tab Albuterol/Ipratropium (Duoneb) 3 ml NEB Q4HP PRN PRN Reason: Shortness Of Breath Last Admin: 11/03/16 14:44 Dose: 3 ml Calcium Carbonate/Glycine (Tums) 1,000 mg CHEWED Q4HP PRN PRN Reason: Dyspepsia Carbamide Peroxide (Debrox) 10 gtt AU BID [facility] Stop: 11/04/16 23:59 Last Admin: 11/04/16 08:25 Dose: 10 gtt Clopidogrel Bisulfate (Plavix) 75 mg PO DAILY [facility] Last Admin: 11/04/16 08:25 Dose: 75 mg Collagenase (Santyl Top Oint) 1 dose TOPICAL DAILY [facility] Last Admin: 11/04/16 08:24 Dose: 1 dose Dextrose (Dextrose 50%) 0 ml IV UD PRN PRN Reason: Hypoglycemia Diagnostic Test (Pha) (Accu-Chek) 1 each FS ACHS [facility] Last Admin: 11/04/16 07:04 Dose: 1 each Docusate Sodium (Colace) 100 mg PO BID PRN PRN Reason: Constipation Furosemide (Lasix) 20 mg IV DAILY [facility] Last Admin: 11/04/16 08:26 Dose: 20 mg Heparin Sodium (Porcine) (Heparin) 5,000 unit SQ Q12 [facility] Last Admin: 11/04/16 08:26 Dose: 5,000 unit Piperacillin Sod/Tazobactam (Sod 2.25 gm/ Dextrose) 50 mls @ 100 mls/hr IV Q6 [facility] Last Admin: 11/04/16 05:28 Dose: 100 mls/hr Vancomycin HCl 500 mg/ Sodium (Chloride) 100 mls @ 100 mls/hr IV DAILY [facility] Last Admin: 11/04/16 10:19 Dose: 100 mls/hr Insulin Human Lispro (Humalog) 0 unit SQ ACHS [facility] PRN Reason: Protocol Last Admin: 11/04/16 07:04 Dose: Not Given Levothyroxine Sodium (Synthroid) 125 mcg PO ACB [facility] Last Admin: 11/04/16 07:04 Dose: 125 mcg Lisinopril (Zestril) 20 mg PO DAILY [facility] Last Admin: 11/04/16 08:25 Dose: 20 mg Lorazepam (Ativan) 1 mg PO DAILYP PRN PRN Reason: Anxiety Last Admin: 11/03/16 13:10 Dose: 1 mg Magnesium Hydroxide (Milk Of Magnesia) 30 ml PO DAILYP PRN PRN Reason: Constipation Metformin HCl (Glucophage) 500 mg PO BIDCC [facility] Last Admin: 11/04/16 08:26 Dose: 500 mg Metoprolol Tartrate (Lopressor) 50 mg PO BID [facility] Last Admin: 11/04/16 08:26 Dose: 50 mg Morphine Sulfate (Morphine) 1 mg IV Q4HP PRN PRN Reason: Pain Naloxone HCl (Narcan) 0.1 mg IV Q2MIN PRN PRN Reason: Opiate Reversal Ondansetron HCl (Zofran) 4 mg IV Q6HP PRN PRN Reason: Nausea And Vomiting Pantoprazole Sodium (Protonix) 40 mg PO QAMAC [facility] Last Admin: 11/04/16 07:04 Dose: 40 mg Sertraline HCl (Zoloft) 50 mg PO DAILY [facility] Last Admin: 11/04/16 08:26 Dose: 50 mg Simvastatin (Zocor) 40 mg PO HS [facility] Last Admin: 11/03/16 22:49 Dose: 40 mg Simvastatin (Zocor) 40 mg PO ONCE ONE Stop: 11/04/16 10:17 Sodium Chloride (Saline Flush) 10 ml IV Q8 [facility] Last Admin: 11/04/16 05:28 Dose: 10 ml Tolterodine Tartrate (Detrol La) 4 mg PO DAILY [facility] Last Admin: 11/04/16 08:24 Dose: 4 mg Medical - PN: A/P - Time Spent With Patient Total time spent is greater than 50% in coordination of care (as documented) at patient's floor/unit and/or counseling patient: Greater than 35 minutes (over 45 minutes spent on discussion with neurologist, care coordination, stroke workup) (1) Decubitus ulcer of sacral region Status: Chronic Assessment and plan: * acute mental status change/right facial droop difficulty word finding- CT head old thalamic CVA. Stroke workup including MRI brain/MRA angiogram head and neck and echocardiogram pending. Stroke neurology Dr. Hawthorne consulted and recommended high-dose statin and continuation of Plavix along with poststroke rehabilitation. Patient not a candidate for TPA in light of unclear time of onset. * Infected sacral Decubitus ulcer- Managed by wound care/ HBO treatment per * Hospital-acquired delirium-resolved * acute kidney injury resolved- renal function stable * Type II DM-basal prandial insulin/metformin * Hypothyroidism on thyroxine * Hypertension on metoprolol/ARB. uptitrate dose to effect. * History of CVA-on statin/Plavix * Anxiety disorder on SSRI plan * stroke workup(mRI/MRA/echo) * high-dose statin/Plavix * continue beta santos * transfer to telemetry * continue wound care per Dr. Alanis * Antibiotic coverage for infected sacral decubitus * pre-existing medical condition management as above Current Visit: Yes Medical - PN: Qual - Stroke Symptom Onset Unknown: No - VTE Deep Vein Thrombosis/Pulmonary Embolism Present on Admission: No
[2016-11-04 10:32] LABS: Basophils # (Auto) 0 K/mcL (0.0-0.3); Basophils % (Auto) 0.6 % (0.0-2.0); Eosinophils # (Auto) 0.3 K/mcL (0.0-0.7); Eosinophils % (Auto) 3.3 % (0.0-7.0); Granulocytes % (Auto) 72.1 % (38.0-78.0); Lymphocytes # (Auto) 1.5 K/mcL (1.5-4.8); Lymphocytes % (Auto) 18.3 % (15.5-49.0); Mean Cell Volume 83.9 fL (80.0-100.0); Mean Corpuscular Hemoglobin 26.9 pg (26.0-34.0); Monocytes # (Auto) 0.5 K/mcL (0.1-0.9); Monocytes % (Auto) 5.7 % (1.0-9.0); Platelet Count 372 K/mcL (140-440); RBC 3.27 M/mcL (4.00-5.20); Red Cell Distribution Width 14.7 % (11.5-14.5)
[2016-11-04] MEDS ORDERED: LORazepam 0.5 MG TABLET PO ONE (10:34)
[2016-11-04] MEDS: VANCOMYCIN 750 MG in 0.9 % SODIUM CHLORIDE 250 ML IV SCH (10:45)
[2016-11-04 10:56] LABS: Blood Urea Nitrogen 20 mg/dl (8-23)
[2016-11-04] MEDS ORDERED: LORazepam 0.5 MG TABLET PO PRN (11:06)
[2016-11-04] MEDS ORDERED: IPRATROPIUM/ALBUTEROL 3 ML AMPUL.NEB NEB PRN (11:06)
[2016-11-04] MEDS ORDERED: MAGNESIUM HYDROXIDE 30 ML ORAL.SUSP PO PRN (11:06)
[2016-11-04] MEDS ORDERED: ACETAMINOPHEN 325 MG TABLET PO PRN (11:06)
[2016-11-04] MEDS ORDERED: CALCIUM CARBONATE 500 MG TAB.CHEW CHEWED PRN (11:06)
[2016-11-04] MEDS ORDERED: DEXTROSE 50% 50 ML VIAL IV PRN (11:06)
[2016-11-04] MEDS ORDERED: NALOXONE HCL 0.4 MG/ML VIAL IV PRN (11:06)
[2016-11-04] MEDS ORDERED: DOCUSATE SODIUM 100 MG CAPSULE PO PRN (11:06)
[2016-11-04] MEDS ORDERED: ONDANSETRON 4 MG/2 ML VIAL IV PRN (11:06)
--- NOTE | 2016-11-04 15:50 | Magnetic Resonance Report ---
CLINICAL INFORMATION: Facial drooping TECHNIQUE: 2-D [id number] postcontrast images of the cervical great vessels. 10 mL gadolinium injected COMPARISON: Previous brain CT scan dated 11/04/2016 FINDINGS: Aortic arch is negative. No focal stenosis or aneurysm. Origin of the left subclavian artery is normal. The left vertebral artery is a small caliber vessel as compared with the right vertebral artery. The proximal left vertebral artery is not visualized consistent with significant origin stenosis. Intracranial segment of the left vertebral artery is very poorly visualized. This is probably patent but stenoses are suspected. Left common carotid artery is negative. No stenosis. Proximal left internal carotid artery is normal. No stenosis or herniation. Cervical left internal carotid artery is normal. Innonimate artery is normal. No stenosis. There is mild narrowing at the origin of the right common carotid artery. No hemodynamically significant stenosis. Right common carotid artery is otherwise negative. Origin of the right internal carotid artery is normal. Cervical portion of the right internal carotid arteries normal. No stenosis. Right subclavian artery is normal. Origin of the right vertebral artery is normal. Right vertebral artery is a large caliber vessel. No stenosis. IMPRESSION: 1. 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 Left vertebral artery to small caliber vessel. 2. Otherwise negative examination. No other focal hemodynamically significant stenoses. Internal carotid arteries are negative bilaterally. Interpreted and Authenticated by: Jey Manning 11/04/16
--- NOTE | 2016-11-04 15:53 | General Surgery Progress Note ---
Subjective Patient reports: other (I saw this patient in the morning and subsequently during the day. I discussed the new changes in developments with Dr. Oneil hospitalist physic) Narrative: Note initiated : 11/04/16 at 3:50 pm Service Date, if different from initiated Date: [] Patient: Génesis Medina 81 y/o F admitted on 10/28/16 for High Blood Sugar/ Dehydration, Infected Ulcer. Chief Complaint: [] Objective Temp Pulse Resp BP Pulse Ox 97.9 F 76 14 163/89 95 11/04/16 11:02 11/04/16 11:02 11/04/16 11:02 11/04/16 11:02 11/04/16 11:02 Afebrile. Vital signs are stable. New changes and clinical findings were noted during medical evaluation , suspicious of a CVA. Appropriate medications and workup is ordered and underway. From the wound care point of view, will continue with topical treatment of sacral wound. HBO treatment or today will be canceled. - Additional Data Intake & Output - Last 24 hours: Intake & Output 11/02/16 11/03/16 11/04/16 11/05/16 05:59 05:59 05:59 05:59 Intake Total 3270 / 3270 2760 / 2760 1310 / 1310 Output Total 153 / 153 5 / 5 131 / 131 452 / 452 Balance 3117 / 3117 2755 / 2755 1179 / 1179 -452 / -452 Weight 120 lb 8 oz 120 lb 124 lb 124 lb - Labs 11/04/16 09:50 11/04/16 09:50 Diabetes panel 11/04/16 Range/Units 09:50 Sodium 136 (133-145) mmol/L Potassium 4.3 (3.3-5.1) mmol/L Chloride 94 L (96-108) mmol/L Carbon Dioxide 26 (22-30) mmol/L BUN 20 (8-23) mg/dl Creatinine 1.3 H (0.6-1.1) mg/dl Glucose 200 H (70-105) mg/dL Calcium 9.0 (8.6-10.4) mg/dl Calcium panel 11/04/16 Range/Units 09:50 Calcium 9.0 (8.6-10.4) mg/dl Pituitary panel 11/04/16 Range/Units 09:50 Sodium 136 (133-145) mmol/L Potassium 4.3 (3.3-5.1) mmol/L Chloride 94 L (96-108) mmol/L Carbon Dioxide 26 (22-30) mmol/L BUN 20 (8-23) mg/dl Creatinine 1.3 H (0.6-1.1) mg/dl Glucose 200 H (70-105) mg/dL Calcium 9.0 (8.6-10.4) mg/dl Adrenal panel 11/04/16 Range/Units 09:50 Sodium 136 (133-145) mmol/L Potassium 4.3 (3.3-5.1) mmol/L Chloride 94 L (96-108) mmol/L Carbon Dioxide 26 (22-30) mmol/L BUN 20 (8-23) mg/dl Creatinine 1.3 H (0.6-1.1) mg/dl Glucose 200 H (70-105) mg/dL Calcium 9.0 (8.6-10.4) mg/dl Medical - PN: A/P - Time Spent With Patient Total time spent is greater than 50% in coordination of care (as documented) at patient's floor/unit and/or counseling patient: patient was seen this morning again later on during the day. new onset evolving changes and clinical examination were CVA. Investigations and workup is underway . local wound care to continue. HBO treatment on hold. 15 - 24 minutes (1) Decubitus ulcer of sacral region Status: Chronic Current Visit: Yes (2) Hypoglycemia associated with diabetes Status: Acute Current Visit: Yes (3) Cerumen debris on tympanic membrane of left ear Status: Acute Assessment and plan: Left ear canal was treated with Debrox ear drops, followed by successful cleansing and syringing of ear canal this morning. Well tolerated. Current Visit: Yes
--- NOTE | 2016-11-04 15:56 | Magnetic Resonance Report ---
CLINICAL INFORMATION: Facial droop TECHNIQUE: Sagittal, axial, coronal images through the brain. Scanning was performed both before and after 10 mL of gadolinium. COMPARISON: Brain CT scan dated 11/04/2016 FINDINGS: Examination is somewhat suboptimal secondary to patient motion. No restricted diffusion. No acute infarction. No susceptibility. No acute or chronic hemorrhagic abnormality. There is mild white matter abnormality in both hemispheres. Distribution is most subcortical and periventricular. Findings are nonspecific but most consistent with small vessel ischemic change. No localized mass effect. No midline shift. No intra-axial enhancement. There is an old left thalamic lacune. This is demonstrated on previous CT scan. Brainstem and cerebellum are negative for acute disease. There is white matter abnormality within the vero. This is also consistent with small vessel ischemic change. Normal flow void within vessels at the base of the brain. No extra-axial enhancement. No pathologic leptomeningeal or dural enhancement. There is extensive signal abnormality throughout both mastoid sinuses consistent with bilateral mastoiditis. Frontal, ethmoid, maxillary, sphenoid sinuses are negative. IMPRESSION: 1. White matter abnormality. Findings are consistent with small vessel ischemic change as above. No acute intra-axial abnormality 2. Bilateral mastoiditis Interpreted and Authenticated by: Jey Manning 11/04/16
--- NOTE | 2016-11-04 15:59 | Magnetic Resonance Report ---
CLINICAL INFORMATION: Facial droop TECHNIQUE: 3-D [id number] images of the [place] COMPARISON: None. FINDINGS: Intracranial left vertebral artery is a very small caliber vessel and may not be patent throughout its length. There is no definite patency demonstrated at the vertebrobasilar junction. Intracranial right vertebral artery is normal. There may be a short segment stenosis at the vertebrobasilar junction. This is not optimally visualized. Unfortunately the source images are severely degraded by motion artifact. A definite greater than 50% diameter stenosis is not identified. Petrous, cavernous, supraclinoid segments of the left internal carotid artery. Normal. There is focal narrowing of the right internal carotid artery at the junction of the petrous and cavernous segments. This appears to be hemodynamically significant. Right internal carotid artery is otherwise negative. M1 segments of the middle cerebral arteries and a one segments of the anterior cerebral arteries are grossly normal. IMPRESSION: 1. Suboptimal evaluation due to patient motion 2. Probable 50% stenosis of the right internal carotid artery at the junction of the petrous and cavernous segments. 3. Possible focal stenosis at the right vertebral artery-basilar artery junction Interpreted and Authenticated by: Jey Manning 11/04/16
[2016-11-04] MEDS ORDERED: CARBAMIDE PEROXIDE OTIC SOL 15ML AU SCH (21:00)
[2016-11-04] MEDS ORDERED: SIMVASTATIN 40 MG TABLET PO SCH (21:00)
[2016-11-05] MEDS: PIPERACILLIN SODIUM/TAZOBACTAM 2.25 GM in DEXTROSE 5% IN WATER 50 ML IV SCH ×3 (05:49→17:12)
[2016-11-05] MEDS: 0.9 % SODIUM CHLORIDE 10 ML SYRINGE IV SCH ×3 (05:49→20:55)
[2016-11-05] MEDS ORDERED: LEVOTHYROXINE 125 MCG TABLET PO SCH (07:30)
[2016-11-05] MEDS ORDERED: PANTOPRAZOLE 40 MG TABLET PO SCH (07:30)
[2016-11-05] MEDS ORDERED: CLOPIDOGREL 75 MG TABLET PO SCH (09:00)
[2016-11-05] MEDS ORDERED: COLLAGENASE TOP OINT TUBE 30GM TOPICAL SCH (09:00)
[2016-11-05] MEDS ORDERED: SERTRALINE 50 MG TABLET PO SCH (09:00)
[2016-11-05] MEDS ORDERED: FUROSEMIDE 20 MG/2 ML VIAL IV SCH (09:00)
[2016-11-05] MEDS ORDERED: VANCOMYCIN 500 MG in 0.9 % SODIUM CHLORIDE 100 ML IV SCH (09:00)
[2016-11-05] MEDS ORDERED: TOLTERODINE 2 MG CAP.XL.24H PO SCH (09:00)
[2016-11-05] MEDS ORDERED: LISINOPRIL 20 MG TABLET PO SCH (09:00)
[2016-11-05] MEDS: metFORMIN 500 MG TABLET PO SCH (09:48)
[2016-11-05] MEDS: HYDROcodone/APAP 5/325MG TABLET PO PRN ×2 (09:49→20:52)
[2016-11-05] MEDS: METOPROLOL TARTRATE 25 MG TABLET PO SCH ×2 (09:49→20:53)
[2016-11-05] MEDS: HEPARIN 5,000 UNIT/ML VIAL SQ SCH ×2 (09:50→20:54)
[2016-11-05] MEDS: INSULIN LISPRO 1 UNIT/0.01 ML UNIT SQ SCH ×4 (10:08→20:56)
--- NOTE | 2016-11-05 11:31 | General Surgery Progress Note ---
Subjective Narrative: Note initiated : 11/05/16 at 11:28 am Service Date, if different from initiated Date: [] Patient: Génesis Medina 81 y/o F admitted on 10/28/16 for High Blood Sugar/ Dehydration, Infected Ulcer. Chief Complaint: []I saw this lady along with the nursing staff today. There are no interval developments. I have reviewed the CT MRI studies done yesterday. There are old changes from past but no evidence of any acute bleeding, space occupying lesion or midline shift. She does have 50 % stenosis of the left vertebral artery. Old lacunar infarcts are noted in the thalamus and surrounding areas. Objective Temp Pulse Resp BP Pulse Ox 98.9 F 91 H 16 162/90 94 11/05/16 08:00 11/05/16 08:00 11/05/16 08:00 11/05/16 08:00 11/05/16 08:00 No fever. Vital signs are stable. There are no acute changes in her clinical examination. sacral eschar is stable and gradually demarcating with collagenase treatment.. - Additional Data Intake & Output - Last 24 hours: Intake & Output 11/03/16 11/04/16 11/05/16 11/06/16 05:59 05:59 05:59 05:59 Intake Total 2760 / 2760 1310 / 1310 790 / 790 150 / 150 Output Total 5 / 5 131 / 131 457 / 457 1 / Balance 2755 / 2755 1179 / 1179 333 / 333 149 / 149 Weight 120 lb 124 lb 124 lb 5 oz - Labs 11/04/16 09:50 11/04/16 09:50 Medical - PN: A/P - Time Spent With Patient Total time spent is greater than 50% in coordination of care (as documented) at patient's floor/unit and/or counseling patient: No acute changes or interval developments the wound care point of view. HBO treatment was kept on hold yesterda No HBO treatment will be given over the weekend. Will reassess again on Monday November 07, 2016 15 - 24 minutes (1) Decubitus ulcer of sacral region Status: Chronic Current Visit: Yes (2) Hypoglycemia associated with diabetes Status: Acute Current Visit: Yes (3) Cerumen debris on tympanic membrane of left ear Status: Acute Assessment and plan: Left ear canal was treated with Debrox ear drops, followed by successful cleansing and syringing of ear canal this morning. Well tolerated. Current Visit: Yes
[2016-11-05] MEDS ORDERED: VANCOMYCIN PER PHARMACY IV SCH ×2 (11:45→15:30)
--- NOTE | 2016-11-05 12:53 | Echocardiogram Report ---
ECHOCARDIOGRAM: 2-D and M-mode echocardiography with cardiac Doppler and color flow imaging were performed with a [employer]. INDICATION: CVA. Overall and size of the RA, RV, LV, and aortic root appeared normal as did LV wall thickness and systolic performance. Estimated ejection fraction of 65 percent. LA size appeared high normal. The aortic valve appeared trileaflet and normal. There was no evidence for aortic stenosis or aortic regurgitation by Doppler interrogation. The mitral and tricuspid valves appear unremarkable. Doppler interrogation of LV inflow disclosed normal early diastolic deceleration time and equal \\"E\\" and \\"A\\" wave amplitude. Mitral regurgitation, probably mild (1+), was demonstrated. Pulmonary venous interrogation disclosed normal \\"S\\" wave dominant. The pulmonic valve was not visualized. Pulmonary artery acceleration time appeared normal. There was no evidence for pulmonic stenosis or pulmonic regurgitation. Tricuspid regurgitation, probably moderate (2+), was demonstrated. No intracardiac shunting was appreciated. There was no evidence for pericardial effusion. The IVC was of normal diameter and showed normal respiratory variation. Hepatic venous interrogation disclosed normal \\"S\\" wave dominance. Calculated estimate of PA systolic pressure is mildly elevated at 40 mmHg. Sinus rhythm, rate 78, was present. CONCLUSION: Mitral regurgitation, probably mild (1+). Mild pulmonary hypertension, probably normal at age 81. (See accompanying M-mode and Doppler reports for quantitation.) ECHOCARDIOGRAPHY M-MODE CALCULATIONS: HT: 63 inches WT: 124 BSA: 1.58 m2 NORMALS AORTA: AORTIC ROOT 3.0 2.0-3.7 cm LEFT ATRIUM 3.0 1.9-4.0 cm MITRAL VALVE: EXCURSION 1.7 1.9-2.7 cm EPSS 0.5 <0.5 cm LT VENTRICLE: LVID (ED) 4.5 3.5-5.7 cm LVID (ES) 3.0 SEPTAL THICKNESS 0.9 0.6-1.1 cm SEPTAL EXCURSION 0.3 0.3-0.8 cm LVPW THICKNESS 1.0 0.6-1.1 cm LVPW EXCURSION 0.9 0.9-1.4 cm MINOR AXIS FS 33 25%-40% RT VENTRICLE: RVID (ED) -- 0.9-2.6 cm(up to 3cm if LLD) QUALITATIVE DOPPLER FLOW STUDIES MITRAL VALVE MR, probably mild, (1+) AORTIC VALVE -- TRICUSPID VALVE TR, probably moderate (2+) PULMONIC VALVE -- QUANTITATIVE DOPPLER FLOW STUDIES SAMPLE SITES VELOCITIES PEAK PRESSURE VALVE AREA and/or VALVE WINDOW (PEAK,M/SEC) DROP (GRADIENT) PRESSURE HALF-TIME MV (Diastole) 1.0(E) 1.0 (A) -- -- MV (Systole) 3.5 -- -- AO (Diastole) -- -- -- AO (Systole) 1.4 -- -- TV (Systole) 3.0 -- -- PV (Systole) 0.7 -- -- PV (Diastole) -- LWG:shayy Job ID: [id number] Doc ID: [id number] Marc Adams MD
[2016-11-05] MEDS ORDERED: DEXTROSE 50% 50 ML VIAL IV PRN (15:30)
[2016-11-05] MEDS ORDERED: MAGNESIUM HYDROXIDE 30 ML ORAL.SUSP PO PRN (15:30)
[2016-11-05] MEDS ORDERED: NALOXONE HCL 0.4 MG/ML VIAL IV PRN (15:30)
[2016-11-05] MEDS ORDERED: ONDANSETRON 4 MG/2 ML VIAL IV PRN (15:30)
[2016-11-05] MEDS ORDERED: CALCIUM CARBONATE 500 MG TAB.CHEW CHEWED PRN (15:30)
[2016-11-05] MEDS ORDERED: DOCUSATE SODIUM 100 MG CAPSULE PO PRN (15:30)
[2016-11-05] MEDS ORDERED: LORazepam 0.5 MG TABLET PO PRN (15:30)
[2016-11-05] MEDS ORDERED: IPRATROPIUM/ALBUTEROL 3 ML AMPUL.NEB NEB PRN (15:30)
[2016-11-05] MEDS ORDERED: ACETAMINOPHEN 325 MG TABLET PO PRN (15:30)
[2016-11-05] MEDS ORDERED: metFORMIN 500 MG TABLET PO SCH (17:30)
--- NOTE | 2016-11-05 18:47 | Internal Med Progress Note ---
Medical - PN: Subj Patient information: Note initiated : 11/05/16 at 6:45 pm Service Date, if different from initiated Date: [] Patient: Génesis Medina 81 y/o F admitted on 10/28/16 for High Blood Sugar/ Dehydration, Infected Ulcer. Chief Complaint: [] Interval history: patient seen examined, no acute overnight events. The patient was stable overnight, there was some concern for CVA overnight, however the MRI brain was neg, echo neg, the patient does have left vertebral artery stenosis, which can be worked up as outpatient. She is back to her baseline mental status as per the nursing staff. Briefly the pt is here for treatment of celliutitis adn infected sacral decub ulcer. On HBO treatment as per wound clinic. Pertinent ROS: Denies headache, dizziness Denies chest pain, palpitations Denies cough or shortness of breath Denies abdominal pain, nausea or vomiting. - Constitutional Vitals: Vital Signs Temp Pulse Resp BP Pulse Ox 98.5 F 91 H 20 149/66 94 11/05/16 16:00 11/05/16 08:00 11/05/16 16:00 11/05/16 16:00 11/05/16 16:00 Period Temp Pulse Resp BP Sys/King Pulse Ox Last 24 Hr 97.7 F-99.5 F 75-91 16-20 149-178/43-90 92-96 Intake and Output 11/05/16 11/05/16 11/05/16 05:59 13:59 21:59 Intake Total 150 / 150 680 / 680 240 / 240 Output Total 3 / 3 2 / 2 Balance 147 / 147 678 / 678 239 / 239 Intake & Output: Intake & Output 11/05/16 11/05/16 11/05/16 05:59 13:59 21:59 Intake Total 150 / 150 680 / 680 240 / 240 Output Total 3 / 3 2 / 2 Balance 147 / 147 678 / 678 239 / 239 Intake: IV 50 / 50 200 / 200 Dextrose 5% in Water 50 50 / 50 100 / 100 ml @ 100 mls/hr IV Q6 EPI with Zosyn 2.25 gm Rx#: [id number] Sodium Chloride 0.9% 100 100 / 100 ml @ 100 mls/hr IV DAILY EPI with Vancomycin 500 mg Rx#:[id number] Oral 100 / 100 480 / 480 240 / 240 Output: # of times incontinent of 3 / 3 2 / 2 1 / urine Other: Meal Breakfast Dinner Percent of Meal Consumed 25% 50% Feeding Ability Assist with Tray Set Up Exam: Constitutional; Afebrile, cooperative, alert, not in distress. Eyes- No icterus, Pupils equal, reactive, No periorbital swelling Ears- Ext ear normal, hearing normal to conversation. Neck- Midline trachea, supple Respiratory system: Air Entry equal on both sides, No crackles or wheezing, no rhonchi. CVS- Rate rhythm regular, S1,S2 heard, no gallop, no rub. 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 Medical - PN: Obj Da - Labs CBC & Chem 7: 11/04/16 09:50 11/04/16 09:50 Labs: Abnormal Lab Results 11/04/16 11/04/16 11/04/16 09:50 09:50 09:50 RBC 3.27 L Hgb 8.8 L Hct 27.4 L RDW 14.7 H PT 15.4 H INR 1.2 H APTT 55 H Chloride 94 L Creatinine 1.3 H Glucose 200 H Vancomycin Trough 11/04/16 08:10 RBC Hgb Hct RDW PT INR APTT Chloride Creatinine Glucose Vancomycin Trough 18.5 H Meds: Medications Acetaminophen (Tylenol) 650 mg PO Q6HP PRN PRN Reason: PAIN/FEVER > 101 Acetaminophen/Hydrocodone Bitart ([place] 5/325mg) 1 tab PO Q6HP PRN PRN Reason: Pain Albuterol/Ipratropium (Duoneb) 3 ml NEB Q4HP PRN PRN Reason: Shortness Of Breath Calcium Carbonate/Glycine (Tums) 1,000 mg CHEWED Q4HP PRN PRN Reason: Dyspepsia Clopidogrel Bisulfate (Plavix) 75 mg PO DAILY EPI Collagenase (Santyl Top Oint) 1 dose TOPICAL DAILY [facility] Dextrose (Dextrose 50%) 0 ml IV UD PRN PRN Reason: Hypoglycemia Diagnostic Test (Pha) (Accu-Chek) 1 each FS ACHS EPI Last Admin: 11/05/16 16:08 Dose: 1 each Docusate Sodium (Colace) 100 mg PO BIDP PRN PRN Reason: Constipation Furosemide (Lasix) 20 mg IV DAILY [facility] Heparin Sodium (Porcine) (Heparin) 5,000 unit SQ Q12 [facility] Piperacillin Sod/Tazobactam (Sod 2.25 gm/ Dextrose) 50 mls @ 100 mls/hr IV Q6 [facility] Last Admin: 11/05/16 17:12 Dose: 100 mls/hr Vancomycin HCl 500 mg/ Sodium (Chloride) 100 mls @ 100 mls/hr IV DAILY [facility] Insulin Glargine (Lantus) 10 unit SQ HS [facility] Insulin Human Lispro (Humalog) 0 unit SQ ACHS EPI PRN Reason: Protocol Last Admin: 11/05/16 16:07 Dose: 8 unit Levothyroxine Sodium (Synthroid) 125 mcg PO ACB [facility] Lisinopril (Zestril) 20 mg PO DAILY [facility] Lorazepam (Ativan) 1 mg PO DAILYP PRN PRN Reason: Anxiety Magnesium Hydroxide (Milk Of Magnesia) 30 ml PO DAILYP PRN PRN Reason: Constipation Metoprolol Tartrate (Lopressor) 50 mg PO BID [facility] Morphine Sulfate (Morphine) 1 mg IV Q4HP PRN PRN Reason: Pain Naloxone HCl (Narcan) 0.1 mg IV Q2MIN PRN PRN Reason: Opiate Reversal Ondansetron HCl (Zofran) 4 mg IV Q6HP PRN PRN Reason: Nausea And Vomiting Pantoprazole Sodium (Protonix) 40 mg PO QAMAC [facility] Sertraline HCl (Zoloft) 50 mg PO DAILY [facility] Simvastatin (Zocor) 40 mg PO HS [facility] Sodium Chloride (Saline Flush) 10 ml IV Q8 [facility] Tolterodine Tartrate (Detrol La) 4 mg PO DAILY [facility] Vancomycin HCl (Vancomycin Per Pharmacy) 1 order IV UD [facility] Medical - PN: A/P - Time Spent With Patient Total time spent is greater than 50% in coordination of care (as documented) at patient's floor/unit and/or counseling patient: (1) Infected decubitus ulcer Status: Acute Current Visit: Yes (2) ERIC (acute kidney injury) Status: Acute Current Visit: Yes (3) DM type 2 (diabetes mellitus, type 2) Status: Acute Current Visit: Yes (4) History of CVA (cerebrovascular accident) Status: Acute Current Visit: Yes (5) Hyperglycemia Status: Acute Current Visit: Yes (6) Decubitus ulcer of sacral region Status: Chronic Current Visit: Yes - Narrative A/P Narrative: The patient decub ulcer is being managed by Wound care clinic, on vanco and zosyn On HBO treatment, DM stable, glucose, d/c metformin while inpatient, start on lantus, montior CVA: Noted some slurring of speech yesterday, but workup neg, except left vertebral artery stenosis, can be managed as outpatient. Patient on plavix and statin. ITs likely that her symptoms were just recrudescence of her old cva HTN bp stable DVT hep sq Diet carb consitent diet Ok to transfer to med surg status. Medical - PN: Qual - Stroke Symptom Onset Unknown: No - VTE Deep Vein Thrombosis/Pulmonary Embolism Present on Admission: No
[2016-11-05] MEDS: SIMVASTATIN 40 MG TABLET PO SCH (20:54)
[2016-11-05] MEDS ORDERED: INSULIN GLARGINE, HUMAN 1 UNIT/0.01 ML SQ ONE (20:55)
[2016-11-05] MEDS ORDERED: INSULIN GLARGINE, HUMAN 1 UNIT/0.01 ML SQ SCH (21:00)
[2016-11-06] MEDS: PIPERACILLIN SODIUM/TAZOBACTAM 2.25 GM in DEXTROSE 5% IN WATER 50 ML IV SCH ×4 (05:59→17:42)
[2016-11-06] MEDS: 0.9 % SODIUM CHLORIDE 10 ML SYRINGE IV SCH ×3 (06:00→22:10)
[2016-11-06 06:40] LABS: Basophils # (Auto) 0 K/mcL (0.0-0.3); Basophils % (Auto) 0.6 % (0.0-2.0); Eosinophils # (Auto) 0.2 K/mcL (0.0-0.7); Eosinophils % (Auto) 2.7 % (0.0-7.0); Granulocytes % (Auto) 65.2 % (38.0-78.0); Lymphocytes # (Auto) 1.7 K/mcL (1.5-4.8); Mean Cell Volume 82.4 fL (80.0-100.0); Mean Corpuscular HGB Conc 32.6 g/dL (31.0-36.0); Mean Corpuscular Hemoglobin 26.8 pg (26.0-34.0); Monocytes # (Auto) 0.4 K/mcL (0.1-0.9); Monocytes % (Auto) 6.5 % (1.0-9.0); Platelet Count 356 K/mcL (140-440); Red Cell Distribution Width 13.6 % (11.5-14.5)
[2016-11-06 07:06] LABS: ALT/SGPT 15 U/l (0-40); Albumin 2.6 gm/dL (3.2-5.2); Albumin/Globulin Ratio 0.8 (1.0-2.3); Alkaline Phosphatase 106 U/L (39-117); Bilirubin,Direct < 0.2 mg/dL (0.0-0.3); Blood Urea Nitrogen 26 mg/dl (8-23); Gamma Glutamyl Transpeptidase 30 U/L (5-36); Magnesium 1.4 mg/dL (1.6-2.5); Phosphorous 2.6 mg/dL (2.7-4.5); Uric Acid 3.6 mg/dL (2.5-8.0)
[2016-11-06] MEDS: LEVOTHYROXINE 125 MCG TABLET PO SCH (07:20)
[2016-11-06] MEDS: PANTOPRAZOLE 40 MG TABLET PO SCH (07:20)
[2016-11-06] MEDS: INSULIN LISPRO 1 UNIT/0.01 ML UNIT SQ SCH ×4 (07:26→21:16)
[2016-11-06] MEDS: COLLAGENASE TOP OINT TUBE 30GM TOPICAL SCH (08:45)
[2016-11-06] MEDS: CLOPIDOGREL 75 MG TABLET PO SCH (08:45)
[2016-11-06] MEDS: LISINOPRIL 20 MG TABLET PO SCH (08:45)
[2016-11-06] MEDS: HEPARIN 5,000 UNIT/ML VIAL SQ SCH ×2 (08:46→21:01)
[2016-11-06] MEDS: HYDROcodone/APAP 5/325MG TABLET PO PRN ×3 (08:46→22:08)
[2016-11-06] MEDS: FUROSEMIDE 20 MG/2 ML VIAL IV SCH (08:46)
[2016-11-06] MEDS: SERTRALINE 50 MG TABLET PO SCH (08:46)
[2016-11-06] MEDS: METOPROLOL TARTRATE 25 MG TABLET PO SCH ×2 (08:46→21:01)
[2016-11-06] MEDS: TOLTERODINE 2 MG CAP.XL.24H PO SCH (08:53)
[2016-11-06] MEDS ORDERED: MAGNESIUM SULFATE 2 GM/50 ML BAG IV ONE (10:15)
[2016-11-06] MEDS: 0.9 % SODIUM CHLORIDE 1,000 ML IV SCH (10:42)
[2016-11-06] MEDS: VANCOMYCIN 500 MG in 0.9 % SODIUM CHLORIDE 100 ML IV SCH (10:43)
--- NOTE | 2016-11-06 12:53 | General Surgery Progress Note ---
Subjective Patient reports: no new complaints, feels better, pain is less, tolerating a regular diet, bowel movement, other (OOB and sitting on chair over a cushion. Talkative. Appropriate conversation.) Narrative: Note initiated : 11/06/16 at 12:51 pm Service Date, if different from initiated Date: [] Patient: Génesis Medina 81 y/o F admitted on 10/28/16 for High Blood Sugar/ Dehydration, Infected Ulcer. Chief Complaint: [] Objective Temp Pulse Resp BP Pulse Ox 98.1 F 77 18 154/72 93 11/06/16 07:57 11/06/16 07:57 11/06/16 07:57 11/06/16 07:57 11/06/16 07:57 AVSS. No changes in ANOOP. NO evidence of CVA. Recent w/u Negative for any acute events. Will check sacral wound with nursing staff tomorrow. - Additional Data Intake & Output - Last 24 hours: Intake & Output 11/04/16 11/05/16 11/06/16 11/07/16 05:59 05:59 05:59 05:59 Intake Total 1310 / 1310 790 / 790 1370 / 1370 Output Total 131 / 131 457 / 457 6 / 6 2 / 2 Balance 1179 / 1179 333 / 333 1364 / 1364 -2 / -2 Weight 124 lb 124 lb 5 oz 123 lb 11.2 oz - Labs 11/06/16 03:33 11/06/16 03:33 Diabetes panel 11/06/16 Range/Units 03:33 Sodium 136 (133-145) mmol/L Potassium 3.8 (3.3-5.1) mmol/L Chloride 96 (96-108) mmol/L Carbon Dioxide 27 (22-30) mmol/L BUN 26 H (8-23) mg/dl Creatinine 1.2 H (0.6-1.1) mg/dl Glucose 171 H (70-105) mg/dL Calcium 8.7 (8.6-10.4) mg/dl AST 13 (0-37) U/l ALT 15 (0-40) U/l Alkaline Phosphatase 106 (39-117) U/L Total Protein 6.0 (5.9-8.4) gm/dL Albumin 2.6 L (3.2-5.2) gm/dL Triglycerides 180 H (<150) mg/dl Calcium panel 11/06/16 Range/Units 03:33 Calcium 8.7 (8.6-10.4) mg/dl Phosphorus 2.6 L (2.7-4.5) mg/dL Albumin 2.6 L (3.2-5.2) gm/dL Pituitary panel 11/06/16 Range/Units 03:33 Sodium 136 (133-145) mmol/L Potassium 3.8 (3.3-5.1) mmol/L Chloride 96 (96-108) mmol/L Carbon Dioxide 27 (22-30) mmol/L BUN 26 H (8-23) mg/dl Creatinine 1.2 H (0.6-1.1) mg/dl Glucose 171 H (70-105) mg/dL Calcium 8.7 (8.6-10.4) mg/dl Adrenal panel 11/06/16 Range/Units 03:33 Sodium 136 (133-145) mmol/L Potassium 3.8 (3.3-5.1) mmol/L Chloride 96 (96-108) mmol/L Carbon Dioxide 27 (22-30) mmol/L BUN 26 H (8-23) mg/dl Creatinine 1.2 H (0.6-1.1) mg/dl Glucose 171 H (70-105) mg/dL Calcium 8.7 (8.6-10.4) mg/dl Total Bilirubin < 0.2 (0.0-1.0) mg/dL AST 13 (0-37) U/l ALT 15 (0-40) U/l Alkaline Phosphatase 106 (39-117) U/L Total Protein 6.0 (5.9-8.4) gm/dL Albumin 2.6 L (3.2-5.2) gm/dL Medical - PN: A/P - Time Spent With Patient Total time spent is greater than 50% in coordination of care (as documented) at patient's floor/unit and/or counseling patient: HD Stable. On Santyl / Collagenase treatment for sacral ulcer and soft tissue radiation necrosis. If doing well restart HBOT tomorrow. less than 15 minutes (1) Decubitus ulcer of sacral region Status: Chronic Current Visit: Yes (2) Hypoglycemia associated with diabetes Status: Acute Current Visit: Yes (3) Cerumen debris on tympanic membrane of left ear Status: Acute Assessment and plan: Left ear canal was treated with Debrox ear drops, followed by successful cleansing and syringing of ear canal this morning. Well tolerated. Current Visit: Yes
--- NOTE | 2016-11-06 17:53 | Internal Med Progress Note ---
Medical - PN: Subj Patient information: Note initiated : 11/06/16 at 5:51 pm Service Date, if different from initiated Date: [] Patient: Génesis Medina 81 y/o F admitted on 10/28/16 for High Blood Sugar/ Dehydration, Infected Ulcer. Chief Complaint: [] Interval history: The patient seen examined this AM, doing well, no acute complaints no acute overnight events physical strength improving, She is here for infected decub ulcer, which is being managed as per Dr Casanova , HBOT and IV Antibiotics. No e/o CVA on workup. Pertinent ROS: Denies headache, dizziness Denies chest pain, palpitations Denies cough or shortness of breath Denies abdominal pain, nausea or vomiting. - Constitutional Vitals: Vital Signs Temp Pulse Resp BP Pulse Ox 97.7 F 77 20 147/85 95 11/06/16 12:00 11/06/16 07:57 11/06/16 12:00 11/06/16 12:00 11/06/16 12:00 Period Temp Pulse Resp BP Sys/King Pulse Ox Last 24 Hr 97.5 F-98.1 F 76-83 16-20 147-173/58-85 93-97 Intake and Output 11/06/16 11/06/16 11/06/16 05:59 13:59 21:59 Intake Total 400 / 400 100 / 100 300 / 300 Output Total 2 / 2 2 / 2 4 / 4 Balance 398 / 398 98 / 98 296 / 296 Intake & Output: Intake & Output 11/06/16 11/06/16 11/06/16 05:59 13:59 21:59 Intake Total 400 / 400 100 / 100 300 / 300 Output Total 2 / 2 2 / 2 4 / 4 Balance 398 / 398 98 / 98 296 / 296 Intake: IV 50 / 50 100 / 100 Dextrose 5% in Water 50 50 / 50 100 / 100 ml @ 100 mls/hr IV Q6 EPI with Zosyn 2.25 gm Rx#: [id number] Oral 350 / 350 300 / 300 Output: # of times incontinent of 2 / 2 2 / 2 4 / 4 urine Other: Meal Lunch Percent of Meal Consumed 75% Exam: Constitutional; Afebrile, cooperative, alert, not in distress. Eyes- No icterus, Pupils equal, reactive, No periorbital swelling Ears- Ext ear normal, hearing normal to conversation. Neck- Midline trachea, supple Respiratory system: Air Entry equal on both sides, No crackles or wheezing, no rhonchi. CVS- Rate rhythm regular, S1,S2 heard, no gallop, no rub. 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 Medical - PN: Obj Da - Labs CBC & Chem 7: 11/06/16 03:33 11/06/16 03:33 Labs: Abnormal Lab Results 11/06/16 11/06/16 11/04/16 03:33 03:33 09:50 RBC 3.20 L Hgb 8.6 L Hct 26.3 L RDW PT INR APTT Chloride 94 L BUN 26 H Creatinine 1.2 H 1.3 H Glucose 171 H 200 H Phosphorus 2.6 L Magnesium 1.4 L Albumin 2.6 L Albumin/Globulin Ratio 0.8 L Triglycerides 180 H Vancomycin Trough 11/04/16 11/04/16 11/04/16 09:50 09:50 08:10 RBC 3.27 L Hgb 8.8 L Hct 27.4 L RDW 14.7 H PT 15.4 H INR 1.2 H APTT 55 H Chloride BUN Creatinine Glucose Phosphorus Magnesium Albumin Albumin/Globulin Ratio Triglycerides Vancomycin Trough 18.5 H Meds: Medications Acetaminophen (Tylenol) 650 mg PO Q6HP PRN PRN Reason: PAIN/FEVER > 101 Last Admin: 11/05/16 23:35 Dose: 650 mg Acetaminophen/Hydrocodone Bitart ([place] 5/325mg) 1 tab PO Q6HP PRN PRN Reason: Pain Last Admin: 11/06/16 15:57 Dose: 1 tab Albuterol/Ipratropium (Duoneb) 3 ml NEB Q4HP PRN PRN Reason: Shortness Of Breath Calcium Carbonate/Glycine (Tums) 1,000 mg CHEWED Q4HP PRN PRN Reason: Dyspepsia Clopidogrel Bisulfate (Plavix) 75 mg PO DAILY EPI Last Admin: 11/06/16 08:45 Dose: 75 mg Collagenase (Santyl Top Oint) 1 dose TOPICAL DAILY EPI Last Admin: 11/06/16 08:45 Dose: 1 appful Dextrose (Dextrose 50%) 0 ml IV UD PRN PRN Reason: Hypoglycemia Diagnostic Test (Pha) (Accu-Chek) 1 each FS ACHS [facility] Last Admin: 11/06/16 17:33 Dose: 1 each Docusate Sodium (Colace) 100 mg PO BIDP PRN PRN Reason: Constipation Furosemide (Lasix) 20 mg IV DAILY [facility] Last Admin: 11/06/16 08:46 Dose: 20 mg Heparin Sodium (Porcine) (Heparin) 5,000 unit SQ Q12 [facility] Last Admin: 11/06/16 08:46 Dose: 5,000 unit Piperacillin Sod/Tazobactam (Sod 2.25 gm/ Dextrose) 50 mls @ 100 mls/hr IV Q6 [facility] Last Admin: 11/06/16 17:42 Dose: 100 mls/hr Vancomycin HCl 500 mg/ Sodium (Chloride) 100 mls @ 100 mls/hr IV DAILY [facility] Last Admin: 11/06/16 10:43 Dose: 100 mls/hr Sodium Chloride (Sodium Chloride 0.9%) 1,000 mls @ 75 mls/hr IV .[id number] [facility] Last Admin: 11/06/16 10:42 Dose: 75 mls/hr Insulin Glargine (Lantus) 10 unit SQ HS [facility] Last Admin: 11/05/16 21:19 Dose: Not Given Insulin Human Lispro (Humalog) 0 unit SQ [facility] PRN Reason: Protocol Last Admin: 11/06/16 17:42 Dose: 4 unit Levothyroxine Sodium (Synthroid) 125 mcg PO ACB [facility] Last Admin: 11/06/16 07:20 Dose: 125 mcg Lisinopril (Zestril) 20 mg PO DAILY [facility] Last Admin: 11/06/16 08:45 Dose: 20 mg Lorazepam (Ativan) 1 mg PO DAILYP PRN PRN Reason: Anxiety Magnesium Hydroxide (Milk Of Magnesia) 30 ml PO DAILYP PRN PRN Reason: Constipation Metoprolol Tartrate (Lopressor) 50 mg PO BID [facility] Last Admin: 11/06/16 08:46 Dose: 50 mg Morphine Sulfate (Morphine) 1 mg IV Q4HP PRN PRN Reason: Pain Naloxone HCl (Narcan) 0.1 mg IV Q2MIN PRN PRN Reason: Opiate Reversal Ondansetron HCl (Zofran) 4 mg IV Q6HP PRN PRN Reason: Nausea And Vomiting Pantoprazole Sodium (Protonix) 40 mg PO QAMAC [facility] Last Admin: 11/06/16 07:20 Dose: 40 mg Sertraline HCl (Zoloft) 50 mg PO DAILY [facility] Last Admin: 11/06/16 08:46 Dose: 50 mg Simvastatin (Zocor) 40 mg PO HS [facility] Last Admin: 11/05/16 20:54 Dose: 40 mg Sodium Chloride (Saline Flush) 10 ml IV Q8 [facility] Last Admin: 11/06/16 13:57 Dose: Not Given Tolterodine Tartrate (Detrol La) 4 mg PO DAILY [facility] Last Admin: 11/06/16 08:53 Dose: 4 mg Vancomycin HCl (Vancomycin Per Pharmacy) 1 order IV UD [facility] Medical - PN: A/P - Time Spent With Patient Total time spent is greater than 50% in coordination of care (as documented) at patient's floor/unit and/or counseling patient: (1) Infected decubitus ulcer Status: Acute Current Visit: Yes (2) ERIC (acute kidney injury) Status: Acute Current Visit: Yes (3) DM type 2 (diabetes mellitus, type 2) Status: Acute Current Visit: Yes (4) History of CVA (cerebrovascular accident) Status: Acute Current Visit: Yes (5) Hyperglycemia Status: Acute Current Visit: Yes (6) Decubitus ulcer of sacral region Status: Chronic Current Visit: Yes - Narrative A/P Narrative: Decub ulcer- On IV vancomycin and Zosyn, HBOT as per Wound care DM glucose somewhat high, increase the dose of lantus CVA, no concerns at this time, back to baseline. Low Mg noted, Hypomagnesemia, IV mag suphate 2 gms today, Creat 1.2 stable , baselien around 1.0-1.1 anemia stable, slow decline, no GIB reported, monitor. DVT hep sq Diet carb controlled. Dispo as per wound care. Medical - PN: Qual - Stroke Symptom Onset Unknown: No - VTE Deep Vein Thrombosis/Pulmonary Embolism Present on Admission: No
[2016-11-06] MEDS: INSULIN GLARGINE, HUMAN 1 UNIT/0.01 ML SQ SCH (18:39)
[2016-11-06] MEDS ORDERED: INSULIN GLARGINE, HUMAN 1 UNIT/0.01 ML SQ ONE (18:50)
[2016-11-06] MEDS: SIMVASTATIN 40 MG TABLET PO SCH (21:01)
[2016-11-07] MEDS: PIPERACILLIN SODIUM/TAZOBACTAM 2.25 GM in DEXTROSE 5% IN WATER 50 ML IV SCH ×4 (00:15→18:04)
[2016-11-07] MEDS: INSULIN GLARGINE, HUMAN 1 UNIT/0.01 ML SQ SCH (00:41)
[2016-11-07] MEDS: 0.9 % SODIUM CHLORIDE 1,000 ML IV SCH ×3 (03:29→22:17)
[2016-11-07] MEDS: HYDROcodone/APAP 5/325MG TABLET PO PRN (04:32)
[2016-11-07] MEDS: 0.9 % SODIUM CHLORIDE 10 ML SYRINGE IV SCH ×2 (05:31→18:07)
[2016-11-07 05:55] LABS: Basophils # (Auto) 0.1 K/mcL (0.0-0.3); Basophils % (Auto) 0.9 % (0.0-2.0); Eosinophils # (Auto) 0.2 K/mcL (0.0-0.7); Eosinophils % (Auto) 2.7 % (0.0-7.0); Granulocytes % (Auto) 67.7 % (38.0-78.0); Lymphocytes # (Auto) 1.5 K/mcL (1.5-4.8); Lymphocytes % (Auto) 22.7 % (15.5-49.0); Mean Cell Volume 81.8 fL (80.0-100.0); Mean Corpuscular HGB Conc 32.7 g/dL (31.0-36.0); Mean Corpuscular Hemoglobin 26.7 pg (26.0-34.0); Monocytes # (Auto) 0.4 K/mcL (0.1-0.9); Platelet Count 375 K/mcL (140-440); RBC 3.05 M/mcL (4.00-5.20); Red Cell Distribution Width 13.8 % (11.5-14.5)
[2016-11-07 06:34] LABS: ALT/SGPT 12 U/l (0-40); Albumin 2.5 gm/dL (3.2-5.2); Albumin/Globulin Ratio 0.8 (1.0-2.3); Alkaline Phosphatase 102 U/L (39-117); Bilirubin,Direct < 0.2 mg/dL (0.0-0.3); Blood Urea Nitrogen 28 mg/dl (8-23); Gamma Glutamyl Transpeptidase 27 U/L (5-36); Phosphorous 3.1 mg/dL (2.7-4.5); Uric Acid 3.1 mg/dL (2.5-8.0)
[2016-11-07] MEDS: INSULIN LISPRO 1 UNIT/0.01 ML UNIT SQ SCH ×3 (09:49→18:05)
[2016-11-07] MEDS: LISINOPRIL 20 MG TABLET PO SCH (09:50)
[2016-11-07] MEDS: PANTOPRAZOLE 40 MG TABLET PO SCH (09:50)
[2016-11-07] MEDS: METOPROLOL TARTRATE 25 MG TABLET PO SCH (09:50)
[2016-11-07] MEDS: SERTRALINE 50 MG TABLET PO SCH (09:50)
[2016-11-07] MEDS: CLOPIDOGREL 75 MG TABLET PO SCH (09:50)
[2016-11-07] MEDS: LEVOTHYROXINE 125 MCG TABLET PO SCH (09:50)
[2016-11-07] MEDS: FUROSEMIDE 20 MG/2 ML VIAL IV SCH (09:51)
[2016-11-07] MEDS: HEPARIN 5,000 UNIT/ML VIAL SQ SCH (09:51)
[2016-11-07] MEDS: TOLTERODINE 2 MG CAP.XL.24H PO SCH (10:17)
[2016-11-07] MEDS: VANCOMYCIN 500 MG in 0.9 % SODIUM CHLORIDE 100 ML IV SCH (10:17)
[2016-11-07] MEDS: COLLAGENASE TOP OINT TUBE 30GM TOPICAL SCH (15:35)
--- NOTE | 2016-11-07 17:30 | Discharge Summary ---
Medical - DS: Prov Patient information: Note initiated : 11/07/16 at 5:25 pm Service Date, if different from initiated Date: [] Patient: Génesis Medina 81 y/o F admitted on 10/28/16 for High Blood Sugar/ Dehydration, Infected Ulcer. Chief Complaint: [] Date of admission: 10/28/16 22:31 Discharge date: 11/07/16 Primary care physician: [f_Reg Prim Care Provider] Admitting clinician: Ann Fair Discharging clinician: Renetta Babcock Medical - DS: Meds - Discharge Medications Active and Home Medications: Home Medications Clopidogrel Bisulfate [Plavix] 75 mg PO DAILY 10/28/16 [History Confirmed Last Taken Unknown] Enalapril Maleate [Vasotec] 20 mg PO DAILY 10/28/16 [History Confirmed 10/28/16 Last Taken Unknown] Insulin Glargine, Human [Lantus] 25 unit SQ HS 10/28/16 [History Confirmed 10/28 Last Taken Unknown] Levothyroxine [Synthroid] 125 mcg PO DAILY 10/28/16 [History Confirmed 10/28/16 Last Taken Unknown] Metoprolol Tartrate [Lopressor] 25 mg PO BID 10/28/16 [History Confirmed Last Taken Unknown] Omeprazole [PriLOSEC] 20 mg PO DAILY 10/28/16 [History Confirmed 10/29/16 Last Taken Unknown] Sertraline [Zoloft] 50 mg PO DAILY 10/28/16 [History Confirmed 10/28/16 Last Taken Unknown] Simvastatin [Zocor] 40 mg PO HS 10/28/16 [History Confirmed 10/28/16 Last Taken Unknown] metFORMIN [Glucophage] 500 mg PO BID 10/28/16 [History Confirmed 10/28/16 Last Taken Unknown] Tolterodine Tartrate [Detrol LA] 4 mg PO DAILY 10/29/16 [History Confirmed 10/29 Last Taken Unknown] HYDROcodone/APAP 5/325MG [[place] 5/325Mg] 1 tab PO Q6 PRN 11/03/16 [History Confirmed 11/03/16 Last Taken Unknown] Active Medications Acetaminophen (Tylenol) 650 mg PO Q6HP PRN PRN Reason: PAIN/FEVER > 101 Last Admin: 11/05/16 23:35 Dose: 650 mg Acetaminophen/Hydrocodone Bitart ([place] 5/325mg) 1 tab PO Q6HP PRN PRN Reason: Pain Last Admin: 11/07/16 04:32 Dose: 1 tab Albuterol/Ipratropium (Duoneb) 3 ml NEB Q4HP PRN PRN Reason: Shortness Of Breath Calcium Carbonate/Glycine (Tums) 1,000 mg CHEWED Q4HP PRN PRN Reason: Dyspepsia Clopidogrel Bisulfate (Plavix) 75 mg PO DAILY [facility] Last Admin: 11/07/16 09:50 Dose: 75 mg Collagenase (Santyl Top Oint) 1 dose TOPICAL DAILY [facility] Last Admin: 11/07/16 15:35 Dose: 1 appful Dextrose (Dextrose 50%) 0 ml IV UD PRN PRN Reason: Hypoglycemia Diagnostic Test (Pha) (Accu-Chek) 1 each FS ACHS [facility] Last Admin: 11/07/16 11:40 Dose: 1 each Docusate Sodium (Colace) 100 mg PO BIDP PRN PRN Reason: Constipation Furosemide (Lasix) 20 mg IV DAILY [facility] Last Admin: 11/07/16 09:51 Dose: 20 mg Heparin Sodium (Porcine) (Heparin) 5,000 unit SQ Q12 [facility] Last Admin: 11/07/16 09:51 Dose: 5,000 unit Piperacillin Sod/Tazobactam (Sod 2.25 gm/ Dextrose) 50 mls @ 100 mls/hr IV Q6 [facility] Last Admin: 11/07/16 15:34 Dose: 100 mls/hr Vancomycin HCl 500 mg/ Sodium (Chloride) 100 mls @ 100 mls/hr IV DAILY [facility] Last Admin: 11/07/16 10:17 Dose: 100 mls/hr Sodium Chloride (Sodium Chloride 0.9%) 1,000 mls @ 75 mls/hr IV .[id number] [facility] Last Admin: 11/07/16 15:34 Dose: Not Given Insulin Glargine (Lantus) 15 unit SQ HS [facility] Last Admin: 11/07/16 00:41 Dose: Not Given Insulin Human Lispro (Humalog) 0 unit SQ ACHS EPI PRN Reason: Protocol Last Admin: 11/07/16 14:50 Dose: Not Given Levothyroxine Sodium (Synthroid) 125 mcg PO ACB [facility] Last Admin: 11/07/16 09:50 Dose: 125 mcg Lisinopril (Zestril) 20 mg PO DAILY [facility] Last Admin: 11/07/16 09:50 Dose: 20 mg Lorazepam (Ativan) 1 mg PO DAILYP PRN PRN Reason: Anxiety Last Admin: 11/07/16 13:08 Dose: 1 mg Magnesium Hydroxide (Milk Of Magnesia) 30 ml PO DAILYP PRN PRN Reason: Constipation Metoprolol Tartrate (Lopressor) 50 mg PO BID [facility] Last Admin: 11/07/16 09:50 Dose: 50 mg Morphine Sulfate (Morphine) 1 mg IV Q4HP PRN PRN Reason: Pain Naloxone HCl (Narcan) 0.1 mg IV Q2MIN PRN PRN Reason: Opiate Reversal Ondansetron HCl (Zofran) 4 mg IV Q6HP PRN PRN Reason: Nausea And Vomiting Pantoprazole Sodium (Protonix) 40 mg PO QAMAC [facility] Last Admin: 11/07/16 09:50 Dose: 40 mg Sertraline HCl (Zoloft) 50 mg PO DAILY [facility] Last Admin: 11/07/16 09:50 Dose: 50 mg Simvastatin (Zocor) 40 mg PO HS [facility] Last Admin: 11/06/16 21:01 Dose: 40 mg Sodium Chloride (Saline Flush) 10 ml IV Q8 [facility] Last Admin: 11/07/16 05:31 Dose: Not Given Tolterodine Tartrate (Detrol La) 4 mg PO DAILY [facility] Last Admin: 11/07/16 10:17 Dose: 4 mg Vancomycin HCl (Vancomycin Per Pharmacy) 1 order IV UD [facility] Medical - DS: Hosp Hospital course: Mr. Medina is a 81 year old female, who presented to the hospital with increasing confusion, worsening Dm, infected sacral decub, The patient has h/o colon cancer, s/p radiation treatment, which resulted in the sacral decub ulcer, the patient was incontinent to stools and urine which resulted in the infection of the ulcer. The patient was admitted to the hospital for management of infected decub ulcer. Wound care consulted, patient treated with broad spectrum IV antibiotics, the patient responded to the treatment well, microbiology is negative, the patient also underwent HBOT treatments for the decub ulcers. The patient had significant improvement in her decub ulcers. The patient still needs ongoing treatment with HBOT and additional 2 days of IV antibiotics unless Wound care wants longer duration. The patient given her needs for HBOT treatments will be discharged to swing bed status at [facility]. The patient during the hospital stay had one episode of AMS/ slurring of speech , ? CVA, workup was neg for stroke, the patient likely had recrudescence of her previous CVA, the workup however revealed that she has left vertebral artery stenosis, and she will need to follow up with her PCP and possibly Dr Cerna ( Interventional radiology) if ok by PCP for further management The rest of the patients condition remained stable, no changes in her home medications were done. She has anemia, with a slowly dropping hct, on discharge her hb was 8.2, will reassess and consider transfusion if drops further. Discharge diagnosis: infected scaral decub ulcer. - Time Spent with Patient Total time spent providing and/or coordinating discharge services: Greater than 30 minutes Medical - DS: Exam - Constitutional Vitals: Vital Signs Temp Pulse Pulse Resp BP BP Pulse Ox 11/07/16 15:54 97.7 F 85 18 151/85 93 11/07/16 15:18 91 11/07/16 08:00 97.7 F 88 20 155/54 94 11/07/16 07:17 91 11/07/16 03:35 97.6 F 79 16 167/84 91 11/06/16 22:37 98.2 F 90 18 165/76 92 11/06/16 20:00 98.5 F 89 20 147/76 92 Intake and Output 11/07/16 11/07/16 11/07/16 05:59 13:59 21:59 Intake Total 1350 / 1350 250 / 250 360 / 360 Output Total 2 / 2 2 / 2 Balance 1348 / 1348 248 / 248 360 / 360 Intake: IV 1050 / 1050 50 / 50 Sodium Chloride 0.9% 1, 1000 / 1000 000 ml @ 75 mls/hr IV . [id number] EPI Rx#:[id number] Dextrose 5% in Water 50 50 / 50 50 / 50 ml @ 100 mls/hr IV Q6 EPI with Zosyn 2.25 gm Rx#: [id number] Oral 300 / 300 200 / 200 360 / 360 Output: # of times incontinent of 2 / 2 2 / 2 urine Additional comments: Constitutional; Afebrile, cooperative, alert, not in distress. Eyes- No icterus, No periorbital swelling Ears- Ext ear normal, hearing normal to conversation. Neck- Midline trachea, supple Respiratory system: Air Entry equal on both sides, No crackles or wheezing, no rhonchi. CVS- Rate rhythm regular, S1,S2 heard, no gallop, no rub. 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 Medical - DS: Data Labs on day of discharge: Labs from last 24 hours 11/07/16 11/07/16 04:20 04:20 WBC 6.8 RBC 3.05 L Hgb 8.2 L Hct 25.0 L MCV 81.8 MCH 26.7 MCHC 32.7 RDW 13.8 Plt Count 375 MPV 9.0 Gran % 67.7 Lymph % (Auto) 22.7 [place] % (Auto) 6.0 Eos % (Auto) 2.7 Baso % (Auto) 0.9 Gran # 4.6 Lymph # 1.5 [place] # 0.4 Eos # 0.2 Baso # 0.1 Sodium 134 Potassium 3.9 Chloride 96 Carbon Dioxide 27 Anion Gap 11.0 BUN 28 H Creatinine 1.2 H GFR Calculation 43 Glucose 150 H Uric Acid 3.1 Calcium 8.7 Phosphorus 3.1 Magnesium 2.0 Total Bilirubin < 0.2 Direct Bilirubin < 0.2 GGT 27 AST 10 ALT 12 Alkaline Phosphatase 102 Lactate Dehydrogenase 124 Total Protein 5.8 L Albumin 2.5 L Globulin 3.3 Albumin/Globulin Ratio 0.8 L Triglycerides 152 H Medical - DS: A/P - Patient/Caregiver Discharge Instructions Activity: as per physical therapy, increase activity as tolerated Diet: Cardiac, Consistent Carbohydrate Additional Instructions: Follow up with PCP in 7 -14 days Follow up with wound care as outpatient as per wound care Need to consider workup for left vertebral artery stenosis, discuss this with your pcp. You need additional 2 days of IV abx, more if requested by wound care - Problem Maintenance (1) Infected decubitus ulcer Status: Acute (2) ERIC (acute kidney injury) Status: Acute (3) DM type 2 (diabetes mellitus, type 2) Status: Acute (4) History of CVA (cerebrovascular accident) Status: Acute (5) Hyperglycemia Status: Acute (6) Decubitus ulcer of sacral region Status: Chronic Qualifiers: Pressure ulcer stage: unstageable Qualified Code(s): L89.150 - Pressure ulcer of sacral region, unstageable - Follow up Plan Follow up with: Nedra Tanner ARNP [Primary Care Provider] - Disposition: [facility] Swing Bed Prognosis: Fair Rehab Potential: Fair I certify that the patient requires SNF services: Yes Overall status at discharge: patient is progressing back to baseline Medical - DS: Qual - VTE Deep Vein Thrombosis/Pulmonary Embolism Present on Admission: No
--- NOTE | 2016-11-07 17:45 | General Surgery Progress Note ---
Subjective Patient reports: other (Patient seen this morning and reassessed again this afternoon. Tolerated HBOT) Narrative: Note initiated : 11/07/16 at 5:43 pm Service Date, if different from initiated Date: [] Patient: Génesis Medina 81 y/o F admitted on 10/28/16 for High Blood Sugar/ Dehydration, Infected Ulcer. Chief Complaint: [] Objective Temp Pulse Resp BP Pulse Ox 97.7 F 85 18 151/85 93 11/07/16 15:54 11/07/16 15:54 11/07/16 15:54 11/07/16 15:54 11/07/16 15:54 AVSS. NO changes in ANOOP. Sacral wound shows LICHENIFICATION OF SKIN. Demarcating and responding to Collagenase treatment and HBOT. - Additional Data Intake & Output - Last 24 hours: Intake & Output 11/05/16 11/06/16 11/07/16 11/08/16 05:59 05:59 05:59 05:59 Intake Total 790 / 790 1370 / 1370 2300 / 2300 610 / 610 Output Total 457 / 457 6 / 6 9 / 9 2 / 2 Balance 333 / 333 1364 / 1364 2291 / 2291 608 / 608 Weight 124 lb 5 oz 123 lb 11.2 oz 124 lb - Labs 11/07/16 04:20 11/07/16 04:20 Diabetes panel 11/07/16 Range/Units 04:20 Sodium 134 (133-145) mmol/L Potassium 3.9 (3.3-5.1) mmol/L Chloride 96 (96-108) mmol/L Carbon Dioxide 27 (22-30) mmol/L BUN 28 H (8-23) mg/dl Creatinine 1.2 H (0.6-1.1) mg/dl Glucose 150 H (70-105) mg/dL Calcium 8.7 (8.6-10.4) mg/dl AST 10 (0-37) U/l ALT 12 (0-40) U/l Alkaline Phosphatase 102 (39-117) U/L Total Protein 5.8 L (5.9-8.4) gm/dL Albumin 2.5 L (3.2-5.2) gm/dL Triglycerides 152 H (<150) mg/dl Calcium panel 11/07/16 Range/Units 04:20 Calcium 8.7 (8.6-10.4) mg/dl Phosphorus 3.1 (2.7-4.5) mg/dL Albumin 2.5 L (3.2-5.2) gm/dL Pituitary panel 11/07/16 Range/Units 04:20 Sodium 134 (133-145) mmol/L Potassium 3.9 (3.3-5.1) mmol/L Chloride 96 (96-108) mmol/L Carbon Dioxide 27 (22-30) mmol/L BUN 28 H (8-23) mg/dl Creatinine 1.2 H (0.6-1.1) mg/dl Glucose 150 H (70-105) mg/dL Calcium 8.7 (8.6-10.4) mg/dl Adrenal panel 11/07/16 Range/Units 04:20 Sodium 134 (133-145) mmol/L Potassium 3.9 (3.3-5.1) mmol/L Chloride 96 (96-108) mmol/L Carbon Dioxide 27 (22-30) mmol/L BUN 28 H (8-23) mg/dl Creatinine 1.2 H (0.6-1.1) mg/dl Glucose 150 H (70-105) mg/dL Calcium 8.7 (8.6-10.4) mg/dl Total Bilirubin < 0.2 (0.0-1.0) mg/dL AST 10 (0-37) U/l ALT 12 (0-40) U/l Alkaline Phosphatase 102 (39-117) U/L Total Protein 5.8 L (5.9-8.4) gm/dL Albumin 2.5 L (3.2-5.2) gm/dL Medical - PN: A/P - Time Spent With Patient Total time spent is greater than 50% in coordination of care (as documented) at patient's floor/unit and/or counseling patient: Patient is progressing well from wound care and HBOT point. Continue treatment.. 15 - 24 minutes (1) Decubitus ulcer of sacral region Status: Chronic Current Visit: Yes (2) Hypoglycemia associated with diabetes Status: Acute Current Visit: Yes (3) Cerumen debris on tympanic membrane of left ear Status: Acute Assessment and plan: Left ear canal was treated with Debrox ear drops, followed by successful cleansing and syringing of ear canal this morning. Well tolerated. Current Visit: Yes
== END 2016-11-07 18:30 | disposition other institution (70) | DRG 593 ==
LOC: MEDSUR 18:34 → ED 18:34 → OBSVTOIN 22:31 → MEDSUR 22:35 → ICU 11-04 12:45 → MEDSUR 11-06 15:30
PROVIDERS: ADMIT Internal Medicine; ATTEND Internal Medicine

== ENCOUNTER 2016-11-07 15:38 | Inpatient (IN) ==
[2016-11-07] MEDS ORDERED: DEXTROSE 50% 50 ML VIAL IV PRN (17:47)
[2016-11-07] MEDS ORDERED: VANCOMYCIN PER PHARMACY IV SCH (17:47)
--- NOTE | 2016-11-07 17:54 | Internal Med History&Physical ---
Medical - H&P: [facility] Patient information: Note initiated : 11/07/16 at 5:49 pm Service Date, if different from initiated Date: [] Patient: Génesis Medina 81 y/o F admitted on 11/07/16 for high blood sugar/ dehydration, infected ulcer. Chief Complaint: [] History of present illness: Ms. Medina is a 81 year old female admitted to the swing bed [facility] for management and treatment of her infected sacral decub ulcer, wound care and HBOT treatment The patient had presented to the hospital for AMS, Infected dub ulcer and uncontrolled DM on oct 26, was treated with IV abx, debridement, HBOT treatment and responded well to treatment. She still needs ongoing IV antibiotics adn HBOT treatment as per wound care and is therefore here in the hospital. She also has anemia of chr disease which will be followed up, and blood transfusion given if needed. The patient was seen examined, today, no acute complaints, has chr back and neck pains, which are chr issue. She notes to being weak and tired and is eager to participate in therapy. - Constitutional Constitutional: Present: fatigue. Absent: fever(s) - EENT Eyes: Absent: blurry vision, change in vision Nose, mouth and throat: Absent: abnormal hearing - Cardiovascular Cardiovascular: Absent: chest pain, chest pain at rest, syncope - Respiratory Respiratory: Absent: cough, dyspnea - Gastrointestinal Gastrointestinal: Absent: abdominal pain, nausea, vomiting - Musculoskeletal Musculoskeletal: Present: back pain - Neurological Neurological: Absent: dizziness, focal weakness, vertigo - Psychiatric Psychiatric: Absent: confusion - Endocrine Endocrine: Absent: polydipsia, polyphagia, polyuria - Hematologic/Lymphatic Hematologic/Lymphatic: Absent: easy bleeding, easy bruising - Allergic/Immunologic Allergic/Immunologic: Absent: uticaria, wheezing Medical - H&P: [facility] Medical history: Medical History ERIC (acute kidney injury) (Acute) Cerumen debris on tympanic membrane of left ear (Acute) DM type 2 (diabetes mellitus, type 2) (Acute) Dehydration (Acute) Depression (Acute) History of CVA (cerebrovascular accident) (Acute) Hyperglycemia (Acute) Hypoglycemia associated with diabetes (Acute) Hyponatremia (Acute) Infected decubitus ulcer (Acute) Decubitus ulcer of sacral region (Chronic) Compression fracture of T12 vertebra (Acute) Osteoporosis (Acute) UTI (urinary tract infection) (Acute) Family history: reviewed and not pertinent Social history: ex smoker lives with no etoh, no drug abuse. Medical - H&P: Meds Home Medications Medication Instructions Recorded Confirmed Type Clopidogrel Bisulfate [Plavix] 75 mg PO DAILY 10/28/16 10/29/16 History Enalapril Maleate [Vasotec] 20 mg PO DAILY 10/28/16 10/28/16 History Insulin Glargine, Human [Lantus] 25 unit SQ HS 10/28/16 10/28/16 History Levothyroxine [Synthroid] 125 mcg PO DAILY 10/28/16 10/28/16 History Metoprolol Tartrate [Lopressor] 25 mg PO BID 10/28/16 10/28/16 History Omeprazole [Prilosec] 20 mg PO DAILY 10/28/16 10/29/16 History Sertraline [Zoloft] 50 mg PO DAILY 10/28/16 10/28/16 History Simvastatin [Zocor] 40 mg PO HS 10/28/16 10/28/16 History metFORMIN [Glucophage] 500 mg PO BID 10/28/16 10/28/16 History Tolterodine Tartrate [Detrol LA] 4 mg PO DAILY 10/29/16 10/29/16 History HYDROcodone/APAP 5/325MG [[place] 1 tab PO Q6 PRN 11/03/16 11/03/16 History 5/325Mg] Allergies Allergy/AdvReac Type Severity Reaction Status Date / Time Tetanus Vaccines and Toxoid Allergy Unknown Unknown Verified 10/28/16 18:38 Medical - H&P: Exam - Constitutional Exam: Constitutional; Afebrile, cooperative, alert, not in distress. Eyes- No icterus, Pupils equal, reactive, No periorbital swelling Ears- Ext ear normal, hearing normal to conversation. Neck- Midline trachea, supple Respiratory system: Air Entry equal on both sides, No crackles or wheezing, no rhonchi. CVS- Rate rhythm regular, S1,S2 heard, no gallop, no rub. 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 Medical - H&P: A/P (1) DM type 2 (diabetes mellitus, type 2) Current visit: No Status: Acute (2) History of CVA (cerebrovascular accident) Current visit: No Status: Acute (3) Infected decubitus ulcer Current visit: No Status: Acute (4) Anemia Current visit: Yes Status: Acute - Narrative A/P Narrative: The patient will continue with HBOT treatment and IV vanco and zosyn for now, another 2 more days of antibiotics. Will reviewe need for abx with wound care DM- Resume home meds, hold off on metformin while inpatient, CVA- on plavix contiue same, outpatient workup for left vertebral artery stenosis Anemia- monitor, transfuse if h/h,05/25 DVT hep sq Diet carb controlled, OT/ PT./ST consult
[2016-11-07] MEDS: PIPERACILLIN SODIUM/TAZOBACTAM 2.25 GM in DEXTROSE 5% IN WATER 50 ML IV SCH ×2 (18:30→23:31)
[2016-11-07] MEDS: HEPARIN 5,000 UNIT/ML VIAL SQ SCH (22:01)
[2016-11-07] MEDS: INSULIN LISPRO 1 UNIT/0.01 ML UNIT SQ SCH (22:49)
[2016-11-08] MEDS ORDERED: HYDROcodone/APAP 5/325MG TABLET PO ONE (00:30)
[2016-11-08] MEDS: PIPERACILLIN SODIUM/TAZOBACTAM 2.25 GM in DEXTROSE 5% IN WATER 50 ML IV SCH ×5 (05:53→23:51)
[2016-11-08 07:29] LABS: Basophils # (Auto) 0 K/mcL (0.0-0.3); Basophils % (Auto) 0.2 % (0.0-2.0); Eosinophils # (Auto) 0.2 K/mcL (0.0-0.7); Eosinophils % (Auto) 2.6 % (0.0-7.0); Lymphocytes % (Auto) 28.2 % (15.5-49.0); Mean Cell Volume 84.4 fL (80.0-100.0); Mean Corpuscular HGB Conc 31.8 g/dL (31.0-36.0); Mean Corpuscular Hemoglobin 26.8 pg (26.0-34.0); Monocytes # (Auto) 0.4 K/mcL (0.1-0.9); Platelet Count 382 K/mcL (140-440); RBC 3.11 M/mcL (4.00-5.20); Red Cell Distribution Width 15.2 % (11.5-14.5)
[2016-11-08 08:22] LABS: ALT/SGPT 11 U/l (0-40); Albumin 2.6 gm/dL (3.2-5.2); Alkaline Phosphatase 104 U/L (39-117); Bilirubin,Direct < 0.2 mg/dL (0.0-0.3); Blood Urea Nitrogen 29 mg/dl (8-23); Gamma Glutamyl Transpeptidase 26 U/L (5-36); Magnesium 1.8 mg/dL (1.6-2.5); Phosphorous 3.4 mg/dL (2.7-4.5); Uric Acid 3.1 mg/dL (2.5-8.0)
[2016-11-08] MEDS: INSULIN LISPRO 1 UNIT/0.01 ML UNIT SQ SCH ×4 (10:12→21:30)
[2016-11-08] MEDS: HEPARIN 5,000 UNIT/ML VIAL SQ SCH ×2 (10:12→21:24)
[2016-11-08] MEDS: VANCOMYCIN 500 MG in 0.9 % SODIUM CHLORIDE 100 ML IV SCH (10:22)
[2016-11-08] MEDS: metFORMIN 500 MG TABLET PO SCH (17:27)
--- NOTE | 2016-11-08 19:07 | General Surgery Progress Note ---
Subjective Narrative: Note initiated : 11/08/16 at 7:05 pm Service Date, if different from initiated Date: [] Patient: Génesis Medina 81 y/o F admitted on 11/07/16 for High Blood Sugar/ Dehydration, Infected Ulcer. Chief Complaint: [] Patient now transferred to Swing Bed Status. 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 Her ear canals were cleansed of cerumen impaction. HBOT is ongoing and additionally willstart her on MIST treatment to allow demarcation of sacral eschar. Objective Temp Pulse Resp BP Pulse Ox 98.1 F 79 14 147/71 94 11/08/16 07:57 11/08/16 07:57 11/08/16 07:57 11/08/16 07:57 11/08/16 07:57 AVSS. No changes in ANOOP. - Additional Data Intake & Output - Last 24 hours: Intake & Output 11/06/16 11/07/16 11/08/16 11/09/16 05:59 05:59 05:59 05:59 Intake Total 100 / 100 596 / 596 Output Total 2 / 2 Balance 100 / 100 594 / 594 Weight 121 lb 8 oz 121 lb 8 oz - Labs 11/08/16 05:15 11/08/16 05:15 Diabetes panel 11/08/16 Range/Units 05:15 Sodium 138 (133-145) mmol/L Potassium 4.4 (3.3-5.1) mmol/L Chloride 99 (96-108) mmol/L Carbon Dioxide 27 (22-30) mmol/L BUN 29 H (8-23) mg/dl Creatinine 1.0 (0.6-1.1) mg/dl Glucose 178 H (70-105) mg/dL Calcium 8.6 (8.6-10.4) mg/dl AST 9 (0-37) U/l ALT 11 (0-40) U/l Alkaline Phosphatase 104 (39-117) U/L Total Protein 5.1 L (5.9-8.4) gm/dL Albumin 2.6 L (3.2-5.2) gm/dL Triglycerides 157 H (<150) mg/dl Calcium panel 11/08/16 Range/Units 05:15 Calcium 8.6 (8.6-10.4) mg/dl Phosphorus 3.4 (2.7-4.5) mg/dL Albumin 2.6 L (3.2-5.2) gm/dL Pituitary panel 11/08/16 Range/Units 05:15 Sodium 138 (133-145) mmol/L Potassium 4.4 (3.3-5.1) mmol/L Chloride 99 (96-108) mmol/L Carbon Dioxide 27 (22-30) mmol/L BUN 29 H (8-23) mg/dl Creatinine 1.0 (0.6-1.1) mg/dl Glucose 178 H (70-105) mg/dL Calcium 8.6 (8.6-10.4) mg/dl Adrenal panel 11/08/16 Range/Units 05:15 Sodium 138 (133-145) mmol/L Potassium 4.4 (3.3-5.1) mmol/L Chloride 99 (96-108) mmol/L Carbon Dioxide 27 (22-30) mmol/L BUN 29 H (8-23) mg/dl Creatinine 1.0 (0.6-1.1) mg/dl Glucose 178 H (70-105) mg/dL Calcium 8.6 (8.6-10.4) mg/dl Total Bilirubin < 0.2 (0.0-1.0) mg/dL AST 9 (0-37) U/l ALT 11 (0-40) U/l Alkaline Phosphatase 104 (39-117) U/L Total Protein 5.1 L (5.9-8.4) gm/dL Albumin 2.6 L (3.2-5.2) gm/dL Medical - PN: A/P - Time Spent With Patient Total time spent is greater than 50% in coordination of care (as documented) at patient's floor/unit and/or counseling patient: 15 - 24 minutes (I saw the patient on floor and later in wound clinic during HBOT. This was well toelrated.)
[2016-11-08] MEDS: SIMVASTATIN 40 MG TABLET PO SCH (21:22)
[2016-11-08] MEDS: METOPROLOL TARTRATE 25 MG TABLET PO SCH (21:22)
[2016-11-08] MEDS: INSULIN GLARGINE, HUMAN 1 UNIT/0.01 ML SQ SCH (21:25)
[2016-11-08] MEDS: HYDROcodone/APAP 5/325MG TABLET PO PRN (22:55)
[2016-11-09] MEDS: PIPERACILLIN SODIUM/TAZOBACTAM 2.25 GM in DEXTROSE 5% IN WATER 50 ML IV SCH ×4 (05:45→23:37)
[2016-11-09] MEDS: LEVOTHYROXINE 125 MCG TABLET PO SCH (07:30)
[2016-11-09] MEDS: metFORMIN 500 MG TABLET PO SCH ×2 (07:30→17:18)
[2016-11-09] MEDS: PANTOPRAZOLE 40 MG TABLET PO SCH (07:31)
[2016-11-09] MEDS: LISINOPRIL 20 MG TABLET PO SCH (08:28)
[2016-11-09] MEDS: HEPARIN 5,000 UNIT/ML VIAL SQ SCH ×2 (08:28→20:59)
[2016-11-09] MEDS: METOPROLOL TARTRATE 25 MG TABLET PO SCH ×2 (08:28→20:57)
[2016-11-09] MEDS: CLOPIDOGREL 75 MG TABLET PO SCH (08:28)
[2016-11-09] MEDS: SERTRALINE 50 MG TABLET PO SCH (08:28)
[2016-11-09] MEDS: TOLTERODINE 2 MG CAP.XL.24H PO SCH (08:29)
[2016-11-09] MEDS: INSULIN LISPRO 1 UNIT/0.01 ML UNIT SQ SCH ×5 (08:29→21:19)
[2016-11-09] MEDS: HYDROcodone/APAP 5/325MG TABLET PO PRN ×2 (08:29→17:20)
[2016-11-09] MEDS: VANCOMYCIN 500 MG in 0.9 % SODIUM CHLORIDE 100 ML IV SCH (08:30)
--- NOTE | 2016-11-09 12:12 | Internal Med Progress Note ---
Medical - PN: Subj Patient information: Note initiated : 11/09/16 at 12:12 pm Service Date, if different from initiated Date: [] Patient: Génesis Medina 81 y/o F admitted on 11/07/16 for High Blood Sugar/ Dehydration, Infected Ulcer. Chief Complaint: [] Interval history: Ms. Medina is a 81 year old female was brought to the emergency room this evening by her family. She has a history of type 2 diabetes depression, colorectal cancer. She apparently underwent rectal radiation therapy, which subsequently caused fecal incontinence. Over the last month or so she has developed a sacral decubitus ulcer, which probably has been getting contaminated by stool. Her family reports that over the last week she has had depressed mental status, and has not been eating and drinking well. Her blood sugars at home are running around 300. She does have chronic pain in her neck and low back, and now has pain in the coccygeal area as well. ER evaluation showed multiple electrolyte abnormalities, glucose of 450, as well as dehydration and elevated anion gap. Urinalysis was also abnormal. These abnormalities in addition to likely infected decubitus ulcer, and altered mental status, indicated she should be admitted to observe more closely and continue the workup and treatment here. Unfortunately, her family had already gone home by the time he got into her room. The patient herself is rather disoriented and forgetful. She could not really say where she was for sure, or how she got here. She does report the fecal incontinence, and that she has a sore near her rectum. She says she does not believe she's had recent fever or chills, headaches or dizziness, new eye or ear symptoms, sore throat or cough. She does not believe that she has had recent chest pain or palpitations, or shortness of breath, abdominal pain nausea or vomiting She says she has had loose bowels ever since her colon cancer treatment, as well as incontinence of stool. She only occasionally has reflux symptoms. She denies dysuria. it would appear that her history is not 100% reliable. 10/29: this morning, the patient remains a bit confused. She is still having significant pain over her sacral ulcer area, if she has to lay on her back. I saw her also with Dr. Alanis today, and we looked at the wound. It is fairly large, but not especially deep. t is quite tender to the touch. otherwise, the patient denies fever or chills, chest pain or shortness of breath , abdominal pain nausea or vomiting. She continues to have her chronically loose stools. And she does have bowel incontinence. 10/30: today, patient is a little more alert. She is sitting up in a chair having lunch. She says she is having less sacral area pain today, but her knees are really hurting today. She also complains of feeling cold. She says staff told her she did not have diarrhea last night, which she said would be different than usual. She tells me that she has been too weak to get out of bed or to walk around for about 2 weeks. She otherwise denies fever or chills, chest pain or shortness of breath, abdominal pain, nausea or vomiting, dysuria. Her arrived later, and we had a long discussion. He tells me that his was getting around fine, up until about 2 weeks ago. 2 weeks ago she seemed to hurt her low back while carrying groceries. She then had a CT scan which suggested a T12 fracture. He says she was then sent to a pain clinic, and underwent an MRI, which says she did not have a fracture. ever since this injury , she has been quite sedentary, and required assistance to get around. He believes she just developed the sacral ulcer sometime over the last 2 weeks. He confirms that she did have a colon cancer and he believes she received sacral area radiation at that time, after receiving chemotherapy. He feels that she is just too weak for him to handle at homeat this time. he is hoping she can get physical therapy and wound care to help her get back to her baseline. 10/31: today, the patient notes that she is still having pain in her low back area, at the site of the sacral wound. She says she still feels like her legs are weak, and that she cannot bear weight. Her daughter and her are in the room with her this morning. They both report that he suddenly has 3 or so weeks ago, she was very functional, and performed all of her own activities of daily living, including grocery shopping. At some point she hurt her back, and she has had rapid decline since then. They remind me that she was seen at the pain clinic, and an MRI was ordered of her spine. MRI is consistent with a right T12 pedicle bone marrow edema, consistent with active microtrabecular stress reaction/stress fracture. No other compression fractures are noted. There is multilevel disc desiccation and spondylosis. otherwise,he denies subjective fever or chills, chest pain or shortness of breath, abdominal pain, nausea or vomiting. She is really unsure about whether she's had more loose stools or not, and denies dysuria. 11/01- patient seen in room. No overnight events. No concerns per staff. Improved lower back pain. ongoing wound care as per Dr. Alanis. stable labs and hemodynamics. on Zosyn/vancomycin. improved confusion and more alert. Improving delirium. 11/02- patient alert and lucid. Ongoing physical therapy. Tolerating diet. Minimal wheezing. No fever chills nausea vomiting. ongoing wound care/ hyperbaric oxygen treatments managed by Dr. Alanis. Continue antibiotic coverage. patient may be transitioned to swing bed status in the next 24-48 hours depending on clinical improvement for continued hyperbaric oxygen treatments. 11/03- patient undergoing hyperbaric oxygen treatment/wound care. No overnight fever chills. had a restful night. No concerns per staff 11/04- patient was found with difficulty word finding and rt facial droop this morning. unclear time of onset. As per family patient has had intermittent similar spells in the past. consulted stroke neurologist Dr. Hawthorne at [facility]. Recommended high-dose statin continuing Plavix along with MRI/MR angiogram brain neck. Patient is beyond the window for TPA in light of symptoms onset likely during sleep and no clear time and the patient was last seen normal. transfer to telemetry. Await neuroimaging. Load high- dose statin. hold hyperbaric treatments for now. Echocardiogram for CVA workup 11/05-11/08- patient undergoing hyperbaric oxygen treatment as per wound care recommendations. On swing bed status 11/09- patient doing well. No overnight events. continue antibiotics/hyperbaric oxygen treatments. DC antibiotics in a.m. - Constitutional Vitals: Vital Signs Temp Pulse Resp BP Pulse Ox 98.3 F 81 20 154/72 94 11/09/16 07:53 11/09/16 07:53 11/09/16 07:53 11/09/16 07:53 11/09/16 07:53 Period Temp Pulse Resp BP Sys/King Pulse Ox Last 24 Hr 97.7 F-98.3 F 81-98 20-20 154-168/72-74 92-95 Intake and Output 11/08/16 11/09/16 11/09/16 21:59 05:59 13:59 Intake Total 1266 / 1266 400 / 400 650 / 650 Output Total 2 / 2 Balance 1264 / 1264 396 / 396 649 / 649 Weight 120 lb 8 oz Intake & Output: Intake & Output 11/08/16 11/09/16 11/09/16 21:59 05:59 13:59 Intake Total 1266 / 1266 400 / 400 650 / 650 Output Total 2 / 2 Balance 1264 / 1264 396 / 396 649 / 649 Weight 120 lb 8 oz Intake: IV 50 / 50 50 / 50 150 / 150 Dextrose 5% in Water 50 50 / 50 50 / 50 50 / 50 ml @ 100 mls/hr IV Q6H EPI with Zosyn 2.25 gm Rx #:[id number] Sodium Chloride 0.9% 100 100 / 100 ml @ 100 mls/hr IV Q24H EPI with Vancomycin 500 mg Rx#:[id number] Oral 1216 / 1216 350 / 350 500 / 500 Output: # of times incontinent of 2 / 2 urine Other: Meal Dinner Breakfast Percent of Meal Consumed 75% 100% Feeding Ability Independent Medical - PN: Obj Da - Labs CBC & Chem 7: 11/08/16 05:15 11/08/16 05:15 Labs: Abnormal Lab Results 11/08/16 11/08/16 05:15 05:15 RBC 3.11 L Hgb 8.3 L Hct 26.2 L RDW 15.2 H BUN 29 H Glucose 178 H Total Protein 5.1 L Albumin 2.6 L Triglycerides 157 H Meds: Medications Acetaminophen/Hydrocodone Bitart ([place] 5/325mg) 1 tab PO Q6HP PRN PRN Reason: Pain Last Admin: 11/09/16 08:29 Dose: 1 tab Clopidogrel Bisulfate (Plavix) 75 mg PO DAILY EPI Last Admin: 11/09/16 08:28 Dose: 75 mg Dextrose (Dextrose 50%) 0 ml IV UD PRN PRN Reason: Hypoglycemia Diagnostic Test (Pha) (Accu-Chek) 1 each FS ACHS [facility] Last Admin: 11/09/16 11:52 Dose: 1 each Heparin Sodium (Porcine) (Heparin) 5,000 unit SQ Q12 [facility] Last Admin: 11/09/16 08:28 Dose: 5,000 unit Piperacillin Sod/Tazobactam (Sod 2.25 gm/ Dextrose) 50 mls @ 100 mls/hr IV Q6H [facility] Last Admin: 11/09/16 11:52 Dose: 100 mls/hr Vancomycin HCl 500 mg/ Sodium (Chloride) 100 mls @ 100 mls/hr IV Q24H [facility] Last Infusion: 11/09/16 09:37 Dose: Infused Insulin Glargine (Lantus) 15 unit SQ [facility] Last Admin: 11/08/16 21:25 Dose: 15 unit Insulin Human Lispro (Humalog) 0 unit SQ [facility] PRN Reason: Protocol Last Admin: 11/09/16 11:52 Dose: 4 unit Levothyroxine [facility] ([facility]throid) [facility] Last Admin: 11/09/16 07:30 Dose: 125 mcg Lisinopril (Zestril) 20 mg PO DAILY [facility] Last Admin: 11/09/16 08:28 Dose: 20 mg Lorazepam (Ativan) 1 mg PO DAILYP PRN PRN Reason: ANXIETY/SEDATION Metformin HCl (Glucophage) 500 mg PO BIDCC [facility] Last Admin: 11/09/16 07:30 Dose: 500 mg Metoprolol Tartrate (Lopressor) 25 mg PO BID [facility] Last Admin: 11/09/16 08:28 Dose: 25 mg Pantoprazole Sodium (Protonix) 40 mg PO QAMAC [facility] Last Admin: 11/09/16 07:31 Dose: 40 mg Sertraline HCl (Zoloft) 50 mg PO DAILY [facility] Last Admin: 11/09/16 08:28 Dose: 50 mg Simvastatin (Zocor) 40 mg PO [facility] Last Admin: 11/08/16 21:22 Dose: 40 mg Tolterodine Tartrate (Detrol La) 4 mg PO DAILY [facility] Last Admin: 11/09/16 08:29 Dose: 4 mg Vancomycin HCl (Vancomycin Per Pharmacy) 1 order IV UD [facility] Medical - PN: A/P - Time Spent With Patient Total time spent is greater than 50% in coordination of care (as documented) at patient's floor/unit and/or counseling patient: 15 - 24 minutes (1) Infected decubitus ulcer Status: Acute Assessment and plan: * Infected sacral Decubitus ulcer- Managed by wound care/ HBO treatment per . patient on swing bed status continuing yperbaric oxygen and antibiotics * Hospital-acquired delirium-resolved * acute kidney injury resolved * Type II DM-basal prandial insulin/metformin * Hypothyroidism on thyroxine * Hypertension on metoprolol/GENE * History of CVA-on statin/Plavix * Anxiety disorder on SSRI plan * wound care per Dr. Alanis * high-dose statin/Plavix * continue beta santos * DC antibiotics a.m. * pre-existing medical condition management as above Current Visit: No Medical - PN: Qual - VTE Deep Vein Thrombosis/Pulmonary Embolism Present on Admission: No
[2016-11-09] MEDS: LORazepam 1 MG TABLET PO PRN (13:01)
[2016-11-09] MEDS: SIMVASTATIN 40 MG TABLET PO SCH (20:57)
[2016-11-09] MEDS: INSULIN GLARGINE, HUMAN 1 UNIT/0.01 ML SQ SCH (21:01)
[2016-11-10] MEDS: HYDROcodone/APAP 5/325MG TABLET PO PRN ×3 (03:22→21:26)
[2016-11-10] MEDS: PIPERACILLIN SODIUM/TAZOBACTAM 2.25 GM in DEXTROSE 5% IN WATER 50 ML IV SCH (05:31)
[2016-11-10] MEDS: PANTOPRAZOLE 40 MG TABLET PO SCH (08:24)
[2016-11-10] MEDS: metFORMIN 500 MG TABLET PO SCH ×2 (08:24→17:27)
[2016-11-10] MEDS: CLOPIDOGREL 75 MG TABLET PO SCH (08:24)
[2016-11-10] MEDS: TOLTERODINE 2 MG CAP.XL.24H PO SCH (08:24)
[2016-11-10] MEDS: METOPROLOL TARTRATE 25 MG TABLET PO SCH ×2 (08:24→21:25)
[2016-11-10] MEDS: LEVOTHYROXINE 125 MCG TABLET PO SCH (08:24)
[2016-11-10] MEDS: SERTRALINE 50 MG TABLET PO SCH (08:24)
[2016-11-10] MEDS: LISINOPRIL 20 MG TABLET PO SCH (08:24)
[2016-11-10] MEDS: HEPARIN 5,000 UNIT/ML VIAL SQ SCH ×2 (08:25→21:25)
[2016-11-10] MEDS: INSULIN LISPRO 1 UNIT/0.01 ML UNIT SQ SCH ×4 (08:25→21:27)
[2016-11-10] MEDS: VANCOMYCIN 500 MG in 0.9 % SODIUM CHLORIDE 100 ML IV SCH (08:26)
[2016-11-10] MEDS: COLLAGENASE TOP OINT TUBE 30GM TOPICAL SCH (10:41)
[2016-11-10] MEDS: LOPERAMIDE 2 MG CAPSULE PO PRN (12:06)
[2016-11-10] MEDS: LORazepam 1 MG TABLET PO PRN (13:04)
--- NOTE | 2016-11-10 19:36 | General Surgery Progress Note ---
Subjective Patient reports: other (I saw the patient on the floor and later again during HBO treatmet.) Narrative: Note initiated : 11/10/16 at 7:33 pm Service Date, if different from initiated Date: [] Patient: Génesis Medina 81 y/o F admitted on 11/07/16 for High Blood Sugar/ Dehydration, Infected Ulcer. Chief Complaint: [] Objective Temp Pulse Resp BP Pulse Ox 97.6 F 82 18 132/64 94 11/10/16 06:29 11/10/16 07:51 11/10/16 07:51 11/10/16 06:29 11/10/16 07:40 no fever. Vital signs are stable. Clinical examination is unchanged Right foot surgical incision site is still well approximated. very minimal superficial skin necrosis is noted at the tip of the flap anteriorly; demarcating satisfactorily. Granulation is noted at this site. Patient has a history of coronary artery disease with a low ejection fraction. he has a pacemaker and defibrillator. He tolerates HBO treatment uneventfully - Additional Data Intake & Output - Last 24 hours: Intake & Output 11/08/16 11/09/16 11/10/16 11/11/16 05:59 05:59 05:59 05:59 Intake Total 100 / 100 1866 / 1866 1320 / 1320 1160 / 1160 Output Total 201 / 201 Balance 100 / 100 1859 / 1859 1313 / 1313 959 / 959 Weight 121 lb 8 oz 120 lb 8 oz 120 lb 8 oz - Labs 11/08/16 05:15 11/08/16 05:15 Medical - PN: A/P - Time Spent With Patient Total time spent is greater than 50% in coordination of care (as documented) at patient's floor/unit and/or counseling patient: less than 15 minutes (patient is progressing well will continue with hyperbaric oxygen therapy. Continue swing bed status and present treatment. Discussed with the hospitalist physician Dr. Oneil)
--- NOTE | 2016-11-10 19:40 | General Surgery Progress Note ---
Subjective Patient reports: other (patient is making satisfactory progress and tolerating hyperbaric oxygen treatments.) Narrative: Note initiated : 11/10/16 at 7:37 pm Service Date, if different from initiated Date: [] Patient: Génesis Medina 81 y/o F admitted on 11/07/16 for High Blood Sugar/ Dehydration, Infected Ulcer. Chief Complaint: [] Objective Temp Pulse Resp BP Pulse Ox 97.6 F 82 18 132/64 94 11/10/16 06:29 11/10/16 07:51 11/10/16 07:51 11/10/16 06:29 11/10/16 07:40 afebrile. Vital signs are stable. Sacral pressure ulcer site wound is demarcating satisfactorily. It is responding to HBO and MIST treatments - Additional Data Intake & Output - Last 24 hours: Intake & Output 11/08/16 11/09/16 11/10/16 11/11/16 05:59 05:59 05:59 05:59 Intake Total 100 / 100 1866 / 1866 1320 / 1320 1160 / 1160 Output Total 201 / 201 Balance 100 / 100 1859 / 1859 1313 / 1313 959 / 959 Weight 121 lb 8 oz 120 lb 8 oz 120 lb 8 oz - Labs 11/08/16 05:15 11/08/16 05:15 Medical - PN: A/P - Time Spent With Patient Total time spent is greater than 50% in coordination of care (as documented) at patient's floor/unit and/or counseling patient: less than 15 minutes (continue present treatment. I agree with swing bed status for the patient.)
[2016-11-10] MEDS: SIMVASTATIN 40 MG TABLET PO SCH (21:25)
[2016-11-10] MEDS: INSULIN GLARGINE, HUMAN 1 UNIT/0.01 ML SQ SCH (21:28)
[2016-11-11] MEDS: LEVOTHYROXINE 125 MCG TABLET PO SCH (07:30)
[2016-11-11] MEDS: PANTOPRAZOLE 40 MG TABLET PO SCH (07:30)
[2016-11-11] MEDS: HEPARIN 5,000 UNIT/ML VIAL SQ SCH ×2 (08:33→22:40)
[2016-11-11] MEDS: INSULIN LISPRO 1 UNIT/0.01 ML UNIT SQ SCH ×4 (08:33→22:43)
[2016-11-11] MEDS: HYDROcodone/APAP 5/325MG TABLET PO PRN ×2 (08:34→19:00)
[2016-11-11] MEDS: METOPROLOL TARTRATE 25 MG TABLET PO SCH ×2 (08:34→23:02)
[2016-11-11] MEDS: SERTRALINE 50 MG TABLET PO SCH (08:34)
[2016-11-11] MEDS: CLOPIDOGREL 75 MG TABLET PO SCH (08:34)
[2016-11-11] MEDS: LISINOPRIL 20 MG TABLET PO SCH (08:34)
[2016-11-11] MEDS: metFORMIN 500 MG TABLET PO SCH ×2 (08:34→19:01)
[2016-11-11] MEDS: TOLTERODINE 2 MG CAP.XL.24H PO SCH (09:05)
[2016-11-11] MEDS: COLLAGENASE TOP OINT TUBE 30GM TOPICAL SCH (10:30)
[2016-11-11] MEDS: LOPERAMIDE 2 MG CAPSULE PO PRN ×2 (12:56→19:00)
[2016-11-11] MEDS: LORazepam 1 MG TABLET PO PRN (12:56)
[2016-11-11] MEDS: 0.9 % SODIUM CHLORIDE 10 ML SYRINGE IV SCH ×2 (18:48→23:11)
[2016-11-11] MEDS: INSULIN GLARGINE, HUMAN 1 UNIT/0.01 ML SQ SCH (22:45)
[2016-11-11] MEDS: SIMVASTATIN 40 MG TABLET PO SCH (22:46)
[2016-11-12] MEDS: HYDROcodone/APAP 5/325MG TABLET PO PRN ×3 (02:27→17:53)
[2016-11-12] MEDS: 0.9 % SODIUM CHLORIDE 10 ML SYRINGE IV SCH ×3 (05:23→21:53)
[2016-11-12] MEDS: metFORMIN 500 MG TABLET PO SCH ×2 (08:34→17:44)
[2016-11-12] MEDS: LEVOTHYROXINE 125 MCG TABLET PO SCH (08:34)
[2016-11-12] MEDS: INSULIN LISPRO 1 UNIT/0.01 ML UNIT SQ SCH ×4 (09:05→21:50)
[2016-11-12] MEDS: LISINOPRIL 20 MG TABLET PO SCH (09:11)
[2016-11-12] MEDS: SERTRALINE 50 MG TABLET PO SCH (09:11)
[2016-11-12] MEDS: METOPROLOL TARTRATE 25 MG TABLET PO SCH ×2 (09:11→21:45)
[2016-11-12] MEDS: HEPARIN 5,000 UNIT/ML VIAL SQ SCH (09:11)
[2016-11-12] MEDS: CLOPIDOGREL 75 MG TABLET PO SCH (09:11)
[2016-11-12] MEDS: TOLTERODINE 2 MG CAP.XL.24H PO SCH (10:30)
[2016-11-12] MEDS: PANTOPRAZOLE 40 MG TABLET PO SCH (10:34)
[2016-11-12] MEDS: COLLAGENASE TOP OINT TUBE 30GM TOPICAL SCH (11:05)
[2016-11-12] MEDS: SIMVASTATIN 40 MG TABLET PO SCH (21:45)
[2016-11-12] MEDS: INSULIN GLARGINE, HUMAN 1 UNIT/0.01 ML SQ SCH (21:46)
[2016-11-13] MEDS: HYDROcodone/APAP 5/325MG TABLET PO PRN ×3 (04:43→21:17)
[2016-11-13] MEDS: metFORMIN 500 MG TABLET PO SCH ×2 (07:47→18:10)
[2016-11-13] MEDS: LEVOTHYROXINE 125 MCG TABLET PO SCH (07:47)
[2016-11-13] MEDS: PANTOPRAZOLE 40 MG TABLET PO SCH (07:47)
[2016-11-13] MEDS: 0.9 % SODIUM CHLORIDE 10 ML SYRINGE IV SCH ×3 (07:48→20:10)
[2016-11-13] MEDS: CLOPIDOGREL 75 MG TABLET PO SCH (08:29)
[2016-11-13] MEDS: SERTRALINE 50 MG TABLET PO SCH (08:30)
[2016-11-13] MEDS: METOPROLOL TARTRATE 25 MG TABLET PO SCH ×2 (08:30→20:06)
[2016-11-13] MEDS: LISINOPRIL 20 MG TABLET PO SCH (08:30)
[2016-11-13] MEDS: COLLAGENASE TOP OINT TUBE 30GM TOPICAL SCH (08:33)
[2016-11-13] MEDS: INSULIN LISPRO 1 UNIT/0.01 ML UNIT SQ SCH ×4 (08:39→20:15)
[2016-11-13] MEDS: TOLTERODINE 2 MG CAP.XL.24H PO SCH (09:30)
[2016-11-13] MEDS: LOPERAMIDE 2 MG CAPSULE PO PRN (15:05)
[2016-11-13] MEDS ORDERED: ONDANSETRON ODT 4 MG TABLET SL PRN (15:56)
--- NOTE | 2016-11-13 16:39 | General Surgery Progress Note ---
Subjective Patient reports: other (patient seen with Kina CANNON sitting on chair. Foam Cushion.) Narrative: Note initiated : 11/13/16 at 4:36 pm Service Date, if different from initiated Date: [] Patient: Génesis Medina 81 y/o F admitted on 11/07/16 for High Blood Sugar/ Dehydration, Infected Ulcer. Chief Complaint: [] Objective Temp Pulse Resp BP Pulse Ox 98.0 F 93 H 20 147/78 91 11/13/16 16:14 11/13/16 16:14 11/13/16 16:14 11/13/16 16:14 11/13/16 16:14 AVSS. ANOOP No acute changes. LE: Decreased tenderness and demarcating eschar with granulating edges. Wound is robby and eschar and demarcating well in response to MIST treatment and HBOT - Additional Data Intake & Output - Last 24 hours: Intake & Output 11/11/16 11/12/16 11/13/16 11/14/16 05:59 05:59 05:59 05:59 Intake Total 1870 / 1870 540 / 540 980 / 980 120 / 120 Output Total 204 / 204 203 / 203 6 / 6 Balance 1666 / 1666 337 / 337 974 / 974 120 / 120 Weight 128 lb 130 lb 126 lb 8 oz 126 lb 8 oz - Labs 11/08/16 05:15 11/08/16 05:15 Medical - PN: A/P - Time Spent With Patient Total time spent is greater than 50% in coordination of care (as documented) at patient's floor/unit and/or counseling patient: less than 15 minutes (Continue current treatment.)
[2016-11-13] MEDS: SIMVASTATIN 40 MG TABLET PO SCH (20:06)
[2016-11-13] MEDS: INSULIN GLARGINE, HUMAN 1 UNIT/0.01 ML SQ SCH (20:07)
[2016-11-14] MEDS: INSULIN LISPRO 1 UNIT/0.01 ML UNIT SQ SCH ×4 (07:42→21:58)
[2016-11-14] MEDS: LEVOTHYROXINE 125 MCG TABLET PO SCH (08:07)
[2016-11-14] MEDS: PANTOPRAZOLE 40 MG TABLET PO SCH (08:08)
[2016-11-14] MEDS: metFORMIN 500 MG TABLET PO SCH ×2 (08:08→17:24)
[2016-11-14] MEDS: 0.9 % SODIUM CHLORIDE 10 ML SYRINGE IV SCH ×3 (08:47→21:54)
[2016-11-14] MEDS: LISINOPRIL 20 MG TABLET PO SCH (09:25)
[2016-11-14] MEDS: CLOPIDOGREL 75 MG TABLET PO SCH (09:25)
[2016-11-14] MEDS: METOPROLOL TARTRATE 25 MG TABLET PO SCH ×2 (09:26→21:51)
[2016-11-14] MEDS: HYDROcodone/APAP 5/325MG TABLET PO PRN ×2 (09:26→13:17)
[2016-11-14] MEDS: SERTRALINE 50 MG TABLET PO SCH (09:26)
[2016-11-14] MEDS: LOPERAMIDE 2 MG CAPSULE PO PRN (09:26)
[2016-11-14] MEDS: COLLAGENASE TOP OINT TUBE 30GM TOPICAL SCH (09:32)
[2016-11-14] MEDS: TOLTERODINE 2 MG CAP.XL.24H PO SCH (09:33)
[2016-11-14] MEDS: SIMVASTATIN 40 MG TABLET PO SCH (21:51)
[2016-11-14] MEDS: INSULIN GLARGINE, HUMAN 1 UNIT/0.01 ML SQ SCH (21:52)
[2016-11-15] MEDS: HYDROcodone/APAP 5/325MG TABLET PO PRN ×3 (03:05→23:52)
[2016-11-15] MEDS: LEVOTHYROXINE 125 MCG TABLET PO SCH (07:19)
[2016-11-15] MEDS: PANTOPRAZOLE 40 MG TABLET PO SCH (07:19)
[2016-11-15] MEDS: 0.9 % SODIUM CHLORIDE 10 ML SYRINGE IV SCH ×3 (07:21→20:49)
[2016-11-15] MEDS: INSULIN LISPRO 1 UNIT/0.01 ML UNIT SQ SCH ×4 (07:21→20:54)
[2016-11-15] MEDS: TOLTERODINE 2 MG CAP.XL.24H PO SCH (08:27)
[2016-11-15] MEDS: COLLAGENASE TOP OINT TUBE 30GM TOPICAL SCH (08:27)
[2016-11-15] MEDS: METOPROLOL TARTRATE 25 MG TABLET PO SCH ×2 (08:28→20:46)
[2016-11-15] MEDS: LISINOPRIL 20 MG TABLET PO SCH (08:28)
[2016-11-15] MEDS: CLOPIDOGREL 75 MG TABLET PO SCH (08:28)
[2016-11-15] MEDS: SERTRALINE 50 MG TABLET PO SCH (08:28)
[2016-11-15] MEDS: metFORMIN 500 MG TABLET PO SCH ×2 (08:28→16:47)
--- NOTE | 2016-11-15 09:50 | Internal Med Progress Note ---
Medical - PN: Subj Patient information: Note initiated : 11/15/16 at 9:47 am Service Date, if different from initiated Date: [] Patient: Génesis Medina 81 y/o F admitted on 11/07/16 for High Blood Sugar/ Dehydration, Infected Ulcer. Chief Complaint: [] Interval history: Ms. Medina is a 81 year old female was brought to the emergency room this evening by her family. She has a history of type 2 diabetes depression, colorectal cancer. She apparently underwent rectal radiation therapy, which subsequently caused fecal incontinence. Over the last month or so she has developed a sacral decubitus ulcer, which probably has been getting contaminated by stool. Her family reports that over the last week she has had depressed mental status, and has not been eating and drinking well. Her blood sugars at home are running around 300. She does have chronic pain in her neck and low back, and now has pain in the coccygeal area as well. ER evaluation showed multiple electrolyte abnormalities, glucose of 450, as well as dehydration and elevated anion gap. Urinalysis was also abnormal. These abnormalities in addition to likely infected decubitus ulcer, and altered mental status, indicated she should be admitted to observe more closely and continue the workup and treatment here. Unfortunately, her family had already gone home by the time he got into her room. The patient herself is rather disoriented and forgetful. She could not really say where she was for sure, or how she got here. She does report the fecal incontinence, and that she has a sore near her rectum. She says she does not believe she's had recent fever or chills, headaches or dizziness, new eye or ear symptoms, sore throat or cough. She does not believe that she has had recent chest pain or palpitations, or shortness of breath, abdominal pain nausea or vomiting She says she has had loose bowels ever since her colon cancer treatment, as well as incontinence of stool. She only occasionally has reflux symptoms. She denies dysuria. it would appear that her history is not 100% reliable. 10/29: this morning, the patient remains a bit confused. She is still having significant pain over her sacral ulcer area, if she has to lay on her back. I saw her also with Dr. Alanis today, and we looked at the wound. It is fairly large, but not especially deep. t is quite tender to the touch. otherwise, the patient denies fever or chills, chest pain or shortness of breath , abdominal pain nausea or vomiting. She continues to have her chronically loose stools. And she does have bowel incontinence. 10/30: today, patient is a little more alert. She is sitting up in a chair having lunch. She says she is having less sacral area pain today, but her knees are really hurting today. She also complains of feeling cold. She says staff told her she did not have diarrhea last night, which she said would be different than usual. She tells me that she has been too weak to get out of bed or to walk around for about 2 weeks. She otherwise denies fever or chills, chest pain or shortness of breath, abdominal pain, nausea or vomiting, dysuria. Her arrived later, and we had a long discussion. He tells me that his was getting around fine, up until about 2 weeks ago. 2 weeks ago she seemed to hurt her low back while carrying groceries. She then had a CT scan which suggested a T12 fracture. He says she was then sent to a pain clinic, and underwent an MRI, which says she did not have a fracture. ever since this injury , she has been quite sedentary, and required assistance to get around. He believes she just developed the sacral ulcer sometime over the last 2 weeks. He confirms that she did have a colon cancer and he believes she received sacral area radiation at that time, after receiving chemotherapy. He feels that she is just too weak for him to handle at homeat this time. he is hoping she can get physical therapy and wound care to help her get back to her baseline. 10/31: today, the patient notes that she is still having pain in her low back area, at the site of the sacral wound. She says she still feels like her legs are weak, and that she cannot bear weight. Her daughter and her are in the room with her this morning. They both report that he suddenly has 3 or so weeks ago, she was very functional, and performed all of her own activities of daily living, including grocery shopping. At some point she hurt her back, and she has had rapid decline since then. They remind me that she was seen at the pain clinic, and an MRI was ordered of her spine. MRI is consistent with a right T12 pedicle bone marrow edema, consistent with active microtrabecular stress reaction/stress fracture. No other compression fractures are noted. There is multilevel disc desiccation and spondylosis. otherwise,he denies subjective fever or chills, chest pain or shortness of breath, abdominal pain, nausea or vomiting. She is really unsure about whether she's had more loose stools or not, and denies dysuria. 11/01- patient seen in room. No overnight events. No concerns per staff. Improved lower back pain. ongoing wound care as per Dr. Alanis. stable labs and hemodynamics. on Zosyn/vancomycin. improved confusion and more alert. Improving delirium. 11/02- patient alert and lucid. Ongoing physical therapy. Tolerating diet. Minimal wheezing. No fever chills nausea vomiting. ongoing wound care/ hyperbaric oxygen treatments managed by Dr. Alanis. Continue antibiotic coverage. patient may be transitioned to swing bed status in the next 24-48 hours depending on clinical improvement for continued hyperbaric oxygen treatments. 11/03- patient undergoing hyperbaric oxygen treatment/wound care. No overnight fever chills. had a restful night. No concerns per staff 11/04- patient was found with difficulty word finding and rt facial droop this morning. unclear time of onset. As per family patient has had intermittent similar spells in the past. consulted stroke neurologist Dr. Hawthorne at [facility]. Recommended high-dose statin continuing Plavix along with MRI/MR angiogram brain neck. Patient is beyond the window for TPA in light of symptoms onset likely during sleep and no clear time and the patient was last seen normal. transfer to telemetry. Await neuroimaging. Load high- dose statin. hold hyperbaric treatments for now. Echocardiogram for CVA workup 11/05-11/08- patient undergoing hyperbaric oxygen treatment as per wound care recommendations. On swing bed status 11/09- patient doing well. No overnight events. continue antibiotics/hyperbaric oxygen treatments. DC antibiotics in a.m. 11/15- patient in swing bed ongoing wound care and hyperbaric oxygen treatments as per Dr. Alanis. off antibiotics. no significant events over the last 6 days. No concerns per staff. Patient denies fever chills chest pain shortness of breath. She does endorse to ack of appetite however would want an Thai muffin for breakfast. no family at bedside. - Constitutional Vitals: Vital Signs Temp Pulse Resp BP Pulse Ox 98.1 F 92 H 20 151/74 96 11/15/16 08:00 11/15/16 08:00 11/15/16 08:00 11/15/16 08:00 11/15/16 08:00 Period Temp Pulse Resp BP Sys/King Pulse Ox Last 24 Hr 97.8 F-98.8 F 86-92 18-22 94-151/56-74 91-96 Intake and Output 11/14/16 11/15/16 11/15/16 21:59 05:59 13:59 Intake Total 600 / 600 590 / 590 Output Total 2 / 2 3 / 3 Balance 598 / 598 587 / 587 Weight 125 lb 8 oz Intake & Output: Intake & Output 11/14/16 11/15/16 11/15/16 21:59 05:59 13:59 Intake Total 600 / 600 590 / 590 Output Total 2 / 2 3 / 3 Balance 598 / 598 587 / 587 Weight 125 lb 8 oz Intake: Oral 600 / 600 590 / 590 Output: # of times incontinent of 2 / 2 3 / 3 urine Other: Meal Dinner Percent of Meal Consumed 75% Feeding Ability Independent General appearance: cooperative, no acute distress Exam: alert oriented nonlabored breathing No lymphedema No anxiety Medical - PN: Obj Da - Labs CBC & Chem 7: 11/08/16 05:15 11/08/16 05:15 Meds: Medications Acetaminophen/Hydrocodone Bitart ([place] 5/325mg) 1 tab PO Q6HP PRN PRN Reason: Pain Last Admin: 11/15/16 03:05 Dose: 1 tab Clopidogrel Bisulfate (Plavix) 75 mg PO DAILY EPI Last Admin: 11/15/16 08:28 Dose: 75 mg Collagenase (Santyl Top Oint) 1 dose TOPICAL DAILY [facility] Last Admin: 11/15/16 08:27 Dose: 1 dose Dextrose (Dextrose 50%) 0 ml IV UD PRN PRN Reason: Hypoglycemia Diagnostic Test (Pha) (Accu-Chek) 1 each FS ACHS [facility] Last Admin: 11/15/16 07:19 Dose: 1 each Insulin Glargine (Lantus) 15 unit SQ [facility] Last Admin: 11/14/16 21:52 Dose: 15 unit Insulin Human Lispro (Humalog) 0 unit SQ ACHS [facility] PRN Reason: Protocol Last Admin: 11/15/16 07:21 Dose: Not Given Levothyroxine Sodium (Synthroid) 125 mcg PO QAMAC [facility] Last Admin: 11/15/16 07:19 Dose: 125 mcg Lisinopril (Zestril) 20 mg PO DAILY [facility] Last Admin: 11/15/16 08:28 Dose: 20 mg Loperamide HCl (Imodium) 2 mg PO PRN PRN PRN Reason: Diarrhea Last Admin: 11/14/16 09:26 Dose: 2 mg Lorazepam (Ativan) 1 mg PO DAILYP PRN PRN Reason: ANXIETY/SEDATION Last Admin: 11/11/16 12:56 Dose: 1 mg Metformin HCl (Glucophage) 500 mg PO BIDCC [facility] Last Admin: 11/15/16 08:28 Dose: 500 mg Metoprolol Tartrate (Lopressor) 25 mg PO BID [facility] Last Admin: 11/15/16 08:28 Dose: 25 mg Ondansetron HCl (Zofran Odt) 4 mg SL Q4-6HP PRN PRN Reason: Nausea And Vomiting Last Admin: 11/13/16 16:08 Dose: 4 mg Pantoprazole S[facility] ([facility]ix) [facility] Last Admin: 11/15/16 07:19 Dose: 40 mg Sertraline HCl (Zoloft) 50 mg PO DAILY [facility] Last Admin: 11/15/16 08:28 Dose: 50 mg Simvastatin (Zocor) 40 mg PO [facility] Last Admin: 11/14/16 21:51 Dose: 40 mg Sodium Chloride (Saline Flush) 10 ml IV Q8 [facility] Last Admin: 11/15/16 07:21 Dose: 10 ml Tolterodine Tartrate (Detrol La) 4 mg PO DAILY [facility] Last Admin: 11/15/16 08:27 Dose: 4 mg Medical - PN: A/P - Time Spent With Patient Total time spent is greater than 50% in coordination of care (as documented) at patient's floor/unit and/or counseling patient: 15 - 24 minutes (1) Infected decubitus ulcer Status: Acute Assessment and plan: * Infected sacral Decubitus ulcer- Continue management per Dr. Alanis on HBO/ wound care. Off antibiotics. on swing bed * Hospital-acquired delirium- clinically resolved * acute kidney injury resolved * Type II DM-basal prandial insulin/metformin. blood sugars at goal * Hypothyroidism on thyroxine * Hypertension on metoprolol/GENE * History of CVA-on statin/Plavix * Anxiety disorder on SSRI plan * continue wound care per Dr. Alanis * continue high-dose statin/Plavix * pre-existing medical condition management as above * discharge planning as per wound care recommendations Current Visit: No Medical - PN: Qual - VTE Deep Vein Thrombosis/Pulmonary Embolism Present on Admission: No
[2016-11-15] MEDS: SIMVASTATIN 40 MG TABLET PO SCH (20:46)
[2016-11-15] MEDS: INSULIN GLARGINE, HUMAN 1 UNIT/0.01 ML SQ SCH (20:48)
[2016-11-16] MEDS: 0.9 % SODIUM CHLORIDE 10 ML SYRINGE IV SCH ×3 (07:05→21:21)
[2016-11-16] MEDS: PANTOPRAZOLE 40 MG TABLET PO SCH (07:05)
[2016-11-16] MEDS: LEVOTHYROXINE 125 MCG TABLET PO SCH (07:05)
[2016-11-16] MEDS: INSULIN LISPRO 1 UNIT/0.01 ML UNIT SQ SCH ×4 (07:09→21:22)
[2016-11-16] MEDS: METOPROLOL TARTRATE 25 MG TABLET PO SCH ×2 (08:11→21:12)
[2016-11-16] MEDS: TOLTERODINE 2 MG CAP.XL.24H PO SCH (08:11)
[2016-11-16] MEDS: CLOPIDOGREL 75 MG TABLET PO SCH (08:11)
[2016-11-16] MEDS: SERTRALINE 50 MG TABLET PO SCH (08:11)
[2016-11-16] MEDS: LISINOPRIL 20 MG TABLET PO SCH (08:11)
[2016-11-16] MEDS: HYDROcodone/APAP 5/325MG TABLET PO PRN ×2 (08:11→12:37)
[2016-11-16] MEDS: metFORMIN 500 MG TABLET PO SCH ×2 (08:11→17:46)
[2016-11-16] MEDS: LORazepam 1 MG TABLET PO PRN (15:16)
[2016-11-16] MEDS: COLLAGENASE TOP OINT TUBE 30GM TOPICAL SCH (16:00)
[2016-11-16] MEDS: SIMVASTATIN 40 MG TABLET PO SCH (21:12)
[2016-11-16] MEDS: INSULIN GLARGINE, HUMAN 1 UNIT/0.01 ML SQ SCH (21:15)
[2016-11-17] MEDS: HYDROcodone/APAP 5/325MG TABLET PO PRN ×4 (00:44→19:40)
[2016-11-17] MEDS: 0.9 % SODIUM CHLORIDE 10 ML SYRINGE IV SCH ×3 (06:07→20:42)
[2016-11-17] MEDS: LEVOTHYROXINE 125 MCG TABLET PO SCH (07:46)
[2016-11-17] MEDS: PANTOPRAZOLE 40 MG TABLET PO SCH (07:46)
[2016-11-17] MEDS: INSULIN LISPRO 1 UNIT/0.01 ML UNIT SQ SCH ×4 (07:53→20:36)
[2016-11-17] MEDS: metFORMIN 500 MG TABLET PO SCH ×2 (08:20→17:08)
[2016-11-17] MEDS: TOLTERODINE 2 MG CAP.XL.24H PO SCH (09:11)
[2016-11-17] MEDS: CLOPIDOGREL 75 MG TABLET PO SCH (09:12)
[2016-11-17] MEDS: METOPROLOL TARTRATE 25 MG TABLET PO SCH ×2 (09:12→20:37)
[2016-11-17] MEDS: LISINOPRIL 20 MG TABLET PO SCH (09:12)
[2016-11-17] MEDS: SERTRALINE 50 MG TABLET PO SCH (09:12)
[2016-11-17] MEDS: COLLAGENASE TOP OINT TUBE 30GM TOPICAL SCH (12:03)
[2016-11-17] MEDS: INSULIN GLARGINE, HUMAN 1 UNIT/0.01 ML SQ SCH (20:36)
[2016-11-17] MEDS: SIMVASTATIN 40 MG TABLET PO SCH (20:37)
[2016-11-18] MEDS: HYDROcodone/APAP 5/325MG TABLET PO PRN ×3 (05:31→19:32)
[2016-11-18] MEDS: 0.9 % SODIUM CHLORIDE 10 ML SYRINGE IV SCH ×3 (05:33→21:41)
[2016-11-18] MEDS: INSULIN LISPRO 1 UNIT/0.01 ML UNIT SQ SCH ×4 (08:24→21:40)
[2016-11-18] MEDS: PANTOPRAZOLE 40 MG TABLET PO SCH (08:27)
[2016-11-18] MEDS: LEVOTHYROXINE 125 MCG TABLET PO SCH (08:28)
[2016-11-18] MEDS: metFORMIN 500 MG TABLET PO SCH ×2 (09:55→18:16)
[2016-11-18] MEDS: LISINOPRIL 20 MG TABLET PO SCH (09:57)
[2016-11-18] MEDS: CLOPIDOGREL 75 MG TABLET PO SCH (09:57)
[2016-11-18] MEDS: METOPROLOL TARTRATE 25 MG TABLET PO SCH ×2 (09:58→21:40)
[2016-11-18] MEDS: SERTRALINE 50 MG TABLET PO SCH (09:58)
[2016-11-18] MEDS: TOLTERODINE 2 MG CAP.XL.24H PO SCH (10:01)
[2016-11-18] MEDS: LORazepam 1 MG TABLET PO PRN (12:41)
[2016-11-18] MEDS: COLLAGENASE TOP OINT TUBE 30GM TOPICAL SCH (19:33)
[2016-11-18] MEDS: INSULIN GLARGINE, HUMAN 1 UNIT/0.01 ML SQ SCH (21:39)
[2016-11-18] MEDS: SIMVASTATIN 40 MG TABLET PO SCH (21:40)
[2016-11-19] MEDS: HYDROcodone/APAP 5/325MG TABLET PO PRN ×2 (05:14→08:02)
[2016-11-19] MEDS: 0.9 % SODIUM CHLORIDE 10 ML SYRINGE IV SCH (05:16)
[2016-11-19] MEDS: TOLTERODINE 2 MG CAP.XL.24H PO SCH (08:00)
[2016-11-19] MEDS: SERTRALINE 50 MG TABLET PO SCH (08:01)
[2016-11-19] MEDS: CLOPIDOGREL 75 MG TABLET PO SCH (08:01)
[2016-11-19] MEDS: LEVOTHYROXINE 125 MCG TABLET PO SCH (08:01)
[2016-11-19] MEDS: PANTOPRAZOLE 40 MG TABLET PO SCH (08:01)
[2016-11-19] MEDS: metFORMIN 500 MG TABLET PO SCH (08:01)
[2016-11-19] MEDS: METOPROLOL TARTRATE 25 MG TABLET PO SCH (08:01)
[2016-11-19] MEDS: LISINOPRIL 20 MG TABLET PO SCH (08:01)
[2016-11-19] MEDS: INSULIN LISPRO 1 UNIT/0.01 ML UNIT SQ SCH (08:02)
--- NOTE | 2016-11-19 08:27 | Discharge Summary ---
Medical - DS: Prov Patient information: Note initiated : 11/19/16 at 8:25 am Service Date, if different from initiated Date: [] Patient: Génesis Medina 81 y/o F admitted on 11/07/16 for High Blood Sugar/ Dehydration, Infected Ulcer. Chief Complaint: [] Date of admission: 11/07/16 15:40 Discharge date: 11/19/16 Primary care physician: [f_Reg Prim Care Provider] Admitting clinician: Renetta Babcock Consults: 11/07/16 17:48 Consult to Physician [CONS] Routine Comment: Consulting Provider: Sj Alanis Reason For Exam: Physician to Consult 11/16/16 15:05 Consult to Physician [CONS] Routine Comment: Consulting Provider: [facility] Reason For Exam: Physician to Consult Discharging clinician: Renetta Babcock Medical - DS: Meds - Discharge Medications Prescriptions: HYDROcodone/APAP 5/325MG [[place] 5/325Mg] 1 tab PO Q6 PRN #30 tablet PRN Reason: Pain metFORMIN [Glucophage] 1,000 mg PO BID #120 tablet Active and Home Medications: Home Medications Clopidogrel Bisulfate [Plavix] 75 mg PO DAILY 10/28/16 [History Confirmed Last Taken 11/07/16] Enalapril Maleate [Vasotec] 20 mg PO DAILY 10/28/16 [History Confirmed 11/08/16 Last Taken 11/07/16] Insulin Glargine, Human [Lantus] 25 unit SQ HS 10/28/16 [History Confirmed 11/08 Last Taken Unknown] Levothyroxine [Synthroid] 125 mcg PO DAILY 10/28/16 [History Confirmed 11/08/16 Last Taken 11/07/16] Metoprolol Tartrate [Lopressor] 25 mg PO BID 10/28/16 [History Confirmed Last Taken 11/07/16] Omeprazole [Prilosec] 20 mg PO DAILY 10/28/16 [History Confirmed 11/08/16 Last Taken Unknown] Sertraline [Zoloft] 50 mg PO DAILY 10/28/16 [History Confirmed 11/08/16 Last Taken 11/07/16] Simvastatin [Zocor] 40 mg PO HS 10/28/16 [History Confirmed 11/08/16 Last Taken 11/07/16] metFORMIN [Glucophage] 500 mg PO BID 10/28/16 [History Confirmed 11/08/16 Last Taken 11/07/16] Tolterodine Tartrate [Detrol LA] 4 mg PO DAILY 10/29/16 [History Confirmed 11/08 Last Taken 11/07/16] HYDROcodone/APAP 5/325MG [[place] 5/325Mg] 1 tab PO Q6 PRN 11/03/16 [History Confirmed 11/08/16 Last Taken Unknown] Medical - DS: Hosp Hospital course: Mr. Medina is a 81 year old female who initiall presented to the facility on for Infected sacral decub ulcer, Uncontrolled diabetes as well as altered mental status. The patient was treated with IV antibiotics, wound care, as well as HBOT treatments, she was initially managed as in patient uptill 11/07/16, and then she was changed to swing status, once she was more stable and needed only wound care and antibiotics. The patient SAcral decub ulcer is s/p IV antibiotics , H BOT and is improving well, she will continue with daily dressing changes as per Wound care instructions. She will follow up with them for fu rther management. DM- Gluicose is better now, that the infection is getting better, she still has variable glucose c ontrol, can be titrated as outpatient by her primary provider. I have increased her dose of metformin from 500mg bid to 1000mg bid at discharge. 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 This will need further eval by Interventional radiology to see if the vessel can be stented, she is already on s tatin and plavix. 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 Anxiety- patient is on sertraline for anxiety disorder, only uses ativan during her hbot treatments. Otherwise this is her chronic home medication and she has not had behavioral issue while she has been here. OVerall the patient wound is improving, but she still needs ongoing wound care, with daily dressing changes, Ongoing PT and OT She will be discharged to the SNF facility for further management. Discharge diagnosis: Infected sacral decub ulcer. - Time Spent with Patient Total time spent providing and/or coordinating discharge services: Greater than 30 minutes Medical - DS: Exam - Constitutional Vitals: Vital Signs Temp Pulse Resp BP BP Pulse Ox 11/19/16 08:09 98.0 F 79 18 130/59 95 11/19/16 08:02 94 11/18/16 23:36 98.4 F 85 16 135/56 93 11/18/16 19:42 16 94 11/18/16 19:01 98.3 F 96 H 18 132/65 94 11/18/16 12:25 97.8 F 88 16 169/54 95 Intake and Output 11/18/16 11/19/16 11/19/16 21:59 05:59 13:59 Intake Total 1190 / 1190 300 / 300 Output Total 2 / 2 3 / 3 Balance 1188 / 1188 297 / 297 Intake: Oral 1190 / 1190 300 / 300 Output: Void Amount / # of times incontinent of 3 / 3 urine Other: Meal Dinner Percent of Meal Consumed 50% Feeding Ability Assist with Tray Set Up Weight 115 lb 5 oz Additional comments: Constitutional; Afebrile, cooperative, alert, not in distress. Eyes- No icterus, No periorbital swelling Ears- Ext ear normal, hearing normal to conversation. Neck- Midline trachea, supple Respiratory system: Air Entry equal on both sides, No crackles or wheezing, no rhonchi. CVS- Rate rhythm regular, S1,S2 heard, no gallop, no rub. Abdomen- Soft nontender abdomen, no organomegaly, no tenderness, no guarding or rigidity, [employer]- AOOx3, moving all extremities, no gross focal deficit noted. Medical - DS: A/P - Patient/Caregiver Discharge Instructions Activity: ambulate only with your walker, as per physical therapy, increase activity as tolerated Diet: Consistent Carbohydrate Additional Instructions: Diet- Carb consistent, regular consistency, thin liquids, chin tuck small straws PT at discharge OT at discharge Dressing order- Mist therapy , then apply santyl (collagenase) to the wound base and c over with ABD pad, Dressing change to be done daily. Follow up with PCP in 7 days FOllow up with wound care clinic in 7 days. Other Amb Orders: OT Discharge Order Location: Determined By Patient Physical Therapy at Discharge - [facility] Location: Determined By Patient - Problem Maintenance (1) DM type 2 (diabetes mellitus, type 2) Status: Acute (2) History of CVA (cerebrovascular accident) Status: Acute (3) Infected decubitus ulcer Status: Acute (4) Anemia Status: Acute - Follow up Plan Follow up with: Nedra Tanner ARNP [Primary Care Provider] - Sj Alanis MD [Physician] - Disposition: Xfer SNF Prognosis: Fair Rehab Potential: Fair I certify that the patient requires SNF services: Yes Overall status at discharge: patient is progressing back to baseline Medical - DS: Qual - VTE Deep Vein Thrombosis/Pulmonary Embolism Present on Admission: No
== END 2016-11-19 09:00 | DRG 593 ==
LOC: MEDSUR 15:40
PROVIDERS: ADMIT Internal Medicine; ATTEND Internal Medicine

== ENCOUNTER 2017-03-30 14:50 | Inpatient (IN) ==
[2017-03-30] MEDS ORDERED: 0.9 % SODIUM CHLORIDE 1,000 ML IV ONE ×2 (15:22→16:49)
--- NOTE | 2017-03-30 15:22 | Emergency Department Note ---
General Adult HPI - General Chief complaint: Dizziness Stated complaint: post hysterectomy pain/dizziness Time Seen by Provider: 03/30/17 15:15 Source: patient, family Mode of arrival: wheelchair Limitations: no limitations - History of Present Illness HPI Narrative: This patient had a hysterectomy in [place] 8 days ago for ovarian mass. 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 Today she has been a little dizzy and slightly out of it mentally. She has taken some hydrocodone but mainly Tylenol recently. She has had no cough no bladder symptoms. - Related Data Home Medications Medication Instructions Recorded Confirmed Clopidogrel Bisulfate [Plavix] 75 mg PO DAILY 10/28/16 03/30/17 Insulin Glargine, Human [Lantus] 25 unit SQ HS 10/28/16 03/30/17 Levothyroxine [Synthroid] 125 mcg PO DAILY 10/28/16 03/30/17 Metoprolol Tartrate [Lopressor] 25 mg PO BID 10/28/16 03/30/17 Omeprazole [Prilosec] 20 mg PO DAILY 10/28/16 03/30/17 Simvastatin [Zocor] 40 mg PO HS 10/28/16 03/30/17 Tolterodine Tartrate [Detrol LA] 4 mg PO DAILY 10/29/16 03/30/17 Enalapril Maleate [Vasotec] 20 mg PO BID 03/30/17 03/30/17 LORazepam [Ativan] 0.5 mg PO HSP PRN 03/30/17 03/30/17 Previous Rx's Medication Instructions Recorded Collagenase Top Oint [Santyl Top 1 dose TOPICAL DAILY tube 11/19/16 Oint] HYDROcodone/APAP 5/325MG [[place] 1 tab PO Q6 PRN #30 tablet 11/19/16 5/325Mg] metFORMIN [Glucophage] 1,000 mg PO BID #120 tablet 11/19/16 Allergies Allergy/AdvReac Type Severity Reaction Status Date / Time Tetanus Vaccines and Toxoid Allergy Unknown Unknown Verified 10/28/16 18:38 Review of Systems Constitutional: Denies: fever Eyes: Denies: eye pain ENT ED: Denies: ear pain, throat pain Cardiovascular: Denies: chest pain Respiratory: Denies: cough, dyspnea Gastrointestinal: Reports: abdominal pain, nausea, diarrhea. Denies: vomiting Genitourinary: Denies: urgency, dysuria, frequency Musculoskeletal: Denies: back pain Integumentary: Denies: rash Past Medical History - Past Medical History [facility] Narrative: Medical History (Last Updated 02/16/17 @ 14:10 by NoteSick MS) Compression fracture of T12 vertebra (Acute) Osteoporosis (Acute) UTI (urinary tract infection) (Acute) Dehydration (Acute) Hyperglycemia (Acute) Decubitus ulcer of sacral region (Chronic) Hyponatremia (Acute) DM type 2 (diabetes mellitus, type 2) (Acute) History of CVA (cerebrovascular accident) (Acute) Depression (Acute) ERIC (acute kidney injury) (Acute) Hypoglycemia associated with diabetes (Acute) Cerumen debris on tympanic membrane of left ear (Acute) Infected decubitus ulcer (Acute) Anemia (Acute) Medication withdrawal (Acute) Medical history: Reports: CVA, DVT ( colon cancer, hard of hearing), diabetes, other Surgical history ED: Reports: cholecystectomy, hip replacement, other (carpal tunnel) - Social History Alcohol use: Reports: None Drug use: Reports: none Physical Exam - General Limitations: no limitations General appearance: alert, in no apparent distress - Head Head exam: atraumatic, normocephalic - Eye Eye exam: Present: normal appearance - ENT ENT exam: normal exam - Neck Neck exam: Present: normal inspection - Chest Chest inspection: Present: normal inspection - Respiratory Respiratory exam: Present: normal lung sounds bilaterally - Cardiovascular Cardiovascular exam: Present: regular rate, normal rhythm, normal heart sounds - Abdominal Exam Abdominal exam: Present: soft, tenderness. Absent: distention, guarding, rebound, rigidity Abdominal tenderness: Present: diffuse, mild - Neurological Exam Neurological exam: Present: alert - Psychiatric Psychiatric exam: Present: normal affect, normal mood - Skin Skin exam: Present: warm, dry, intact, normal color Course Vital Signs Temperature 97.3 F 03/30/17 14:52 Pulse Rate 71 03/30/17 14:52 Respiratory Rate 18 03/30/17 14:52 Blood Pressure 157/67 03/30/17 14:52 Pulse Oximetry (%) 96 03/30/17 14:52 Temperature 97.6 F 03/31/17 04:00 Pulse Rate 82 03/31/17 04:00 Respiratory Rate 16 03/31/17 04:00 Blood Pressure 160/72 03/31/17 04:00 Pulse Oximetry (%) 99 03/31/17 04:00 Medical Decision Making - MDM Narrative Medical decision making narrative: This patient has hyponatremia and will be admitted to the telemetry floor by Dr. Pnatoja. - Lab Data Lab results reviewed: Yes I reviewed the patient's lab results. Result diagrams: 03/31/17 04:00 03/31/17 04:00 Lab Results 03/30/17 03/30/17 03/30/17 Range/Units 15:22 15:22 15:22 WBC 12.1 H (4.5-11.0) K/mcL RBC 3.88 L (4.00-5.20) M/mcL Hgb 10.1 L (12.0-15.0) g/dL Hct 30.8 L (36.0-48.0) % MCV 79.2 L (80.0-100.0) fL MCH 26.0 (26.0-34.0) pg MCHC 32.8 (31.0-36.0) g/dL RDW 16.4 H (11.5-14.5) % Plt Count 394 (140-440) K/mcL MPV 9.5 (7.4-10.4) fL Gran % 75.3 (38.0-78.0) % Lymph % (Auto) 15.2 L (15.5-49.0) % [place] % (Auto) 4.5 (1.0-12.0) % Eos % (Auto) 4.9 (0.0-7.0) % Baso % (Auto) 0.1 (0.0-2.0) % Gran # 9.1 H (1.8-8.0) K/mcL Lymph # (Auto) 1.8 (1.5-4.8) K/mcL [place] # (Auto) 0.5 (0.1-0.9) K/mcL Eos # (Auto) 0.6 (0.0-0.7) K/mcL Baso # (Auto) 0 (0.0-0.3) K/mcL Sodium 118 L* (133-145) mmol/L Potassium 4.6 (3.3-5.1) mmol/L Chloride 77 L (96-108) mmol/L Carbon Dioxide 25 (22-30) mmol/L Anion Gap 16.0 (8-16) BUN 30 H (8-23) mg/dl Creatinine 0.9 (0.6-1.1) mg/dl GFR Calculation 60 Glucose 237 H (70-105) mg/dL Hemoglobin A1c 7.8 H (4.0-6.0) % HGB Estim Average Glucose 177 mg/dL Calcium 9.1 (8.6-10.4) mg/dl Total Bilirubin < 0.2 (0.0-1.0) mg/dL AST 19 (0-37) U/l ALT 14 (0-40) U/l Alkaline Phosphatase 105 (39-117) U/L Total Protein 7.0 (5.9-8.4) gm/dL Albumin 3.7 (3.2-5.2) gm/dL Globulin 3.3 (2.2-3.7) gm/dL Albumin/Globulin Ratio 1.1 (1.0-2.3) Urine Color Urine Appearance Urine pH (5.0-9.0) Ur Specific [place] (1.000-1.035) Urine Protein (NEG) mg/dL Urine Glucose (UA) (NEG) mg/dL Urine Ketones (NEG) mg/dL Urine Occult Blood (<0.03) mg/dL Urine Nitrate (NEG) Urine Bilirubin (NEG) mg/dL Urine Urobilinogen (NEG) mg/dL Ur Leukocyte Esterase (NEG) /uL Urine RBC (0-1) /hpf Urine WBC (0-4) /hpf Ur Squamous Epith Cells (0-4) /hpf Ur Transition Epith Cell (0-2) /hpf Urine Bacteria (0) /hpf Ur Culture Indicated? 03/30/17 Range/Units 15:43 WBC (4.5-11.0) K/mcL RBC (4.00-5.20) M/mcL Hgb (12.0-15.0) g/dL Hct (36.0-48.0) % MCV (80.0-100.0) fL MCH (26.0-34.0) pg MCHC (31.0-36.0) g/dL RDW (11.5-14.5) % Plt Count (140-440) K/mcL MPV (7.4-10.4) fL Gran % (38.0-78.0) % Lymph % (Auto) (15.5-49.0) % [place] % (Auto) (1.0-12.0) % Eos % (Auto) (0.0-7.0) % Baso % (Auto) (0.0-2.0) % Gran # (1.8-8.0) K/mcL Lymph # (Auto) (1.5-4.8) K/mcL [place] # (Auto) (0.1-0.9) K/mcL Eos # (Auto) (0.0-0.7) K/mcL Baso # (Auto) (0.0-0.3) K/mcL Sodium (133-145) mmol/L Potassium (3.3-5.1) mmol/L Chloride (96-108) mmol/L Carbon Dioxide (22-30) mmol/L Anion Gap (8-16) BUN (8-23) mg/dl Creatinine (0.6-1.1) mg/dl GFR Calculation Glucose (70-105) mg/dL Hemoglobin A1c (4.0-6.0) % HGB Estim Average Glucose mg/dL Calcium (8.6-10.4) mg/dl Total Bilirubin (0.0-1.0) mg/dL AST (0-37) U/l ALT (0-40) U/l Alkaline Phosphatase (39-117) U/L Total Protein (5.9-8.4) gm/dL Albumin (3.2-5.2) gm/dL Globulin (2.2-3.7) gm/dL Albumin/Globulin Ratio (1.0-2.3) Urine Color Straw Urine Appearance Clear Urine pH 6.0 (5.0-9.0) Ur Specific [place] 1.005 (1.000-1.035) Urine Protein 30 A (NEG) mg/dL Urine Glucose (UA) Negative (NEG) mg/dL Urine Ketones Neg (NEG) mg/dL Urine Occult Blood >=1.0 A (<0.03) mg/dL Urine Nitrate Neg (NEG) Urine Bilirubin Neg (NEG) mg/dL Urine Urobilinogen Neg (NEG) mg/dL Ur Leukocyte Esterase 25 A (NEG) /uL Urine RBC 9 H (0-1) /hpf Urine WBC 9 H (0-4) /hpf Ur Squamous Epith Cells 3 (0-4) /hpf Ur Transition Epith Cell 1 (0-2) /hpf Urine Bacteria 0 (0) /hpf Ur Culture Indicated? Yes Disposition Clinical Impression: Hyponatremia Disposition: Xfer As Inpt ([facility]) Condition: Good
[2017-03-30 15:51] LABS: Basophils # (Auto) 0 K/mcL (0.0-0.3); Basophils % (Auto) 0.1 % (0.0-2.0); Eosinophils # (Auto) 0.6 K/mcL (0.0-0.7); Eosinophils % (Auto) 4.9 % (0.0-7.0); Granulocytes % (Auto) 75.3 % (38.0-78.0); Lymphocytes # (Auto) 1.8 K/mcL (1.5-4.8); Lymphocytes % (Auto) 15.2 % (15.5-49.0); Mean Cell Volume 79.2 fL (80.0-100.0); Mean Corpuscular HGB Conc 32.8 g/dL (31.0-36.0); Monocytes # (Auto) 0.5 K/mcL (0.1-0.9); Monocytes % (Auto) 4.5 % (1.0-12.0); Platelet Count 394 K/mcL (140-440); RBC 3.88 M/mcL (4.00-5.20); Red Cell Distribution Width 16.4 % (11.5-14.5)
--- NOTE | 2017-03-30 15:53 | XRay Report ---
CLINICAL INFORMATION: Postoperative weakness COMPARISON: 11/02/2016 FINDINGS: The heart is mildly enlarged, but unchanged. Increased density in the right paratracheal region is stable and likely represents a tortuous brachycephalic artery commonly seen in the elderly. No significant mediastinal abnormality. Lungs are clear. No effusions. IMPRESSION: No acute disease - stable Interpreted and Authenticated by: Jey Gottlieb 03/30/17
[2017-03-30 16:19] LABS: Appearance,Urine CLEAR; Bacteria,Urine 0 /hpf (0); Bilirubin,Urine NEG (NEG); Color,Urine STRAW; Glucose,Urine (UA) NEGATIVE (NEG); Leukocyte Esterase,Urine 25 /uL (NEG); Nitrate,Urine NEG (NEG); Protein,Urine 30 mg/dL (NEG); Specific Gravity,Urine 1.005 (1.000-1.035); Urine Blood >=1.0 mg/dL (<0.03); Urine RBC 9 /hpf (0-1); Urine Squamous Epithelial Cell 3 /hpf (0-4); Urine Transitional Epi Cells 1 /hpf (0-2); Urine WBC 9 /hpf (0-4); Urobilinogen,Urine NEG (NEG)
[2017-03-30 16:21] LABS: ALT/SGPT 14 U/l (0-40); Albumin 3.7 gm/dL (3.2-5.2); Albumin/Globulin Ratio 1.1 (1.0-2.3); Alkaline Phosphatase 105 U/L (39-117); Blood Urea Nitrogen 30 mg/dl (8-23)
--- NOTE | 2017-03-30 18:45 | Internal Med History&Physical ---
Medical - H&P: HPI Patient information: Note initiated : 03/30/17 at 6:40 pm Patient: Génesis Medina 82 y/o F admitted on for post hysterectomy pain/ dizziness. History of present illness: Ms. Medina is a 82 year old female who was diagnosed recently with an adnexal mass. She underwent a complete hysterectomy in [place] less than 2 weeks ago. She says she just got home a few days ago. Today her family insisted that she come to the ER, because she has become more confused, and has been acting erratically. The patient complains that her brain will not work. She says she has been feeling dizzy and off balance. They told her at the hospital that she was dehydrated, so she has been drinking lots of water. In the emergency room she was found to have a very low sodium of 118. Her sodium was normal at 138 in November when she was last here. I do not yet have records from [place]. Otherwise, she denies fever or chills, headaches, new eye or ear symptoms, sore throat or cough. She denies swollen glands, chest pain or palpitations, shortness of breath or wheezing, abdominal pain, nausea or vomiting, diarrhea or constipation, dysuria. She does have some chronic incontinence of both bowel and bladder, since treatment for previous rectal cancer. past medical history: chronic neck pain Low back pain History of DVT History of colon cancer, status post rectal radiation. 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 hearing loss Type 2 diabetes ERIC (acute kidney injury) (Acute) Cerumen debris on tympanic membrane of left ear (Acute) Depression (Acute) History of CVA (cerebrovascular accident) (Acute) Hypoglycemia associated with diabetes (Acute) Hyponatremia (Acute) Infected decubitus ulcer (Acute) Decubitus ulcer of sacral region (Chronic) Compression fracture of T12 vertebra (Acute) Osteoporosis (Acute) UTI (urinary tract infection) (Acute) Past surgical history: Cholecystectomy, hip replacement, carpal tunnel repair Current medications: Ativan 0.5 mg nightly as needed Metformin 1000 mg p.o. twice daily Detrol LA 4 mg daily Zocor 40 mg nightly Omeprazole 20 mg daily Metoprolol 25 mg p.o. twice daily Levothyroxine 125 mcg daily Lantus 25 units nightly [place] 5/325 one every 6 hours as needed Enalapril 20 mg p.o. twice daily Collagenase ointment topically 1 dose topically daily Plavix 75 mg p.o. daily She believes her doctor also recently added a diuretic. Allergies:td vaccine Family history: Mother lived to be 94. Father in an accident. Does not have any siblings. She cannot recall any significant family illnesses. Social history: Patient is a former smoker. She quit smoking more than 20 years ago. She does not use drugs or alcohol. She lives with her . Medical - H&P: Meds Home Medications Medication Instructions Recorded Confirmed Type Clopidogrel Bisulfate [Plavix] 75 mg PO DAILY 10/28/16 03/30/17 History Insulin Glargine, Human [Lantus] 25 unit SQ HS 10/28/16 03/30/17 History Levothyroxine [Synthroid] 125 mcg PO DAILY 10/28/16 03/30/17 History Metoprolol Tartrate [Lopressor] 25 mg PO BID 10/28/16 03/30/17 History Omeprazole [Prilosec] 20 mg PO DAILY 10/28/16 03/30/17 History Simvastatin [Zocor] 40 mg PO HS 10/28/16 03/30/17 History Tolterodine Tartrate [Detrol LA] 4 mg PO DAILY 10/29/16 03/30/17 History Collagenase Top Oint [Santyl Top 1 dose TOPICAL DAILY tube 11/19/16 03/30/17 Rx Oint] HYDROcodone/APAP 5/325MG [[place] 1 tab PO Q6 PRN #30 tablet 11/19/16 03/30/17 Rx 5/325Mg] metFORMIN [Glucophage] 1,000 mg PO BID #120 tablet 11/19/16 03/30/17 Rx Enalapril Maleate [Vasotec] 20 mg PO BID 03/30/17 03/30/17 History LORazepam [Ativan] 0.5 mg PO HSP PRN 03/30/17 03/30/17 History Allergies Allergy/AdvReac Type Severity Reaction Status Date / Time Tetanus Vaccines and Toxoid Allergy Unknown Unknown Verified 10/28/16 18:38 Medical - H&P: Exam - Constitutional Vitals: Temp Pulse Resp BP Pulse Ox 97.3 F 82 18 150/65 98 03/30/17 18:36 03/30/17 18:36 03/30/17 18:36 03/30/17 18:36 03/30/17 18:36 On exam, she is a well-developed well-nourished elderly female in no acute distress. She is a little bit distressed about feeling fuzzy headed, but actually answers most questions appropriately. Head: Normocephalic, atraumatic. Eyes: PERRLA, EOMI, anicteric. Ears: She has bilateral hearing aids. There is some cerumen in the left canal, but both TMs appear clear. Pharynx: Is clear. She has full upper and lower plates. Posterior pharynx looks fine. Neck is supple, without lymphadenopathy, JVD, bruits, thyromegaly. Cardiac exam: Shows regular rate and rhythm, without obvious murmurs, rubs, gallops. Lungs: There are a few crackles at the left base, otherwise lungs are clear, without rhonchi or wheezing. Abdomen: She has several areas of bruising over her lower abdomen, and some healed small incisions. Lower abdomen is still a bit tender from her surgery. Bowel sounds are active. There is no guarding or rebound. Extremities: Show no cyanosis, clubbing, edema. Neurologic exam: The patient is just a bit lethargic, and speech is a little bit slurred. However she has good recall, and answers most questions appropriately. Cranial nerves II through XII are grossly intact. Cerebellar and motor exams are grossly intact, and symmetric. No tremor is noted. Medical - H&P: Reslt - Labs CBC & Chem 7: 03/30/17 15:22 03/30/17 15:22 Labs: Short CBC 03/30/17 Range/Units 15:22 WBC 12.1 H (4.5-11.0) K/mcL Hgb 10.1 L (12.0-15.0) g/dL Hct 30.8 L (36.0-48.0) % Plt Count 394 (140-440) K/mcL BMP 03/30/17 15:22 Sodium 118 L* Potassium 4.6 Chloride 77 L Carbon Dioxide 25 BUN 30 H Creatinine 0.9 Glucose 237 H Calcium 9.1 Liver Function 03/30/17 Range/Units 15:22 Total Bilirubin < 0.2 (0.0-1.0) mg/dL AST 19 (0-37) U/l ALT 14 (0-40) U/l Alkaline Phosphatase 105 (39-117) U/L Albumin 3.7 (3.2-5.2) gm/dL Urine 03/30/17 Range/Units 15:43 Urine Color Straw Urine Appearance Clear Urine pH 6.0 (5.0-9.0) Ur Specific [place] 1.005 (1.000-1.035) Urine Protein 30 A (NEG) mg/dL Urine Glucose (UA) Negative (NEG) mg/dL March 30: Differential on the CBC shows 9100 granulocytes. RDW is elevated at 16 Urinalysis shows 30 mg of protein, 25 leukocyte esterase , 9 red blood cells, 9 white blood cells Chest x-ray shows no acute disease. There is mild cardiomegaly. There is a density in the right paratracheal region that is likely a tortuous artery. February 24, 2017: Abdominal CT: Shows a 9 cm complex mass of the left adnexa. Medical - H&P: A/P (1) Altered mental state Current visit: Yes Status: Acute (2) Hyperglycemia Current visit: No Status: Acute (3) DM type 2 (diabetes mellitus, type 2) Current visit: No Status: Chronic (4) Depression Current visit: No Status: Chronic (5) Hyponatremia Current visit: Yes Status: Acute - Narrative A/P Narrative: #1. Neurologic. Patient presents with altered mental status, and is not very far out from a recent hysterectomy. She is also been dizzy. ER evaluation shows significant hyponatremia. There is a reported history of her drinking lots of water lately. -Admit for observation, as she is at increased risk for seizures. -Try to obtain recent labs from the hospital in [place], to assess how acute the hyponatremia is. -For now, treat with IV normal saline. Monitor. -SSRIs can also contribute to hyponatremia. She also believes she was recently started on a diuretic, which may be playing a role. -Past history of stroke/TIA. Continue Plavix, Zocor, Enalapril. #2. Endocrine. Hyponatremia. This may be due to a combination of drinking excess free water, as well as pseudohyponatremia due to hyperglycemia. 3. Type 2 diabetes. She may be a bit dehydrated, so we will hold metformin for today. -IV fluids. Accu-Cheks and insulin sliding scale. -Resume metformin soon. Continue Zocor, Plavix. Continue Lantus. 4. Code status: DNR. 5. PATROL DEPUTY SHERIFF. Patient is status post hysterectomy for a low-grade tumor. It is not clear if further treatment is planned. 6. DVT prophylaxis: Continue Plavix. Add SCDs. 7. Anemia. 8. Psychiatric. History of depression and anxiety. -Continue sertraline. Continue as needed Ativan.. 10. . History of incontinence. Continue Detrol. 11. GI. Continue Prilosec for GERD 12. Hypertension. Continue Lopressor, Enalapril, Plavix. 13. Hypothyroidism. Continue levothyroxine. 14. History of osteoporosis. History of compression fracture. Continue calcium plus vitamin D. Continue pain meds as needed. #15. History of sacral decubitus ulcer earlier this year. This visit took approximately 55 minutes, to review the patient's records, review the case with the ER MD, interview and examine her, and write orders.
[2017-03-30] MEDS: NACL 0.9% W/KCL 20MEQ 1,000 ML IV SCH (19:00)
[2017-03-30] MEDS ORDERED: DEXTROSE 50% 50 ML VIAL IV PRN (19:02)
[2017-03-30] MEDS ORDERED: NALOXONE HCL 0.4 MG/ML VIAL IV PRN (19:02)
[2017-03-30] MEDS ORDERED: DOCUSATE SODIUM 100 MG CAPSULE PO PRN (19:02)
[2017-03-30] MEDS ORDERED: ACETAMINOPHEN 325 MG TABLET PO PRN (19:02)
[2017-03-30] MEDS ORDERED: MAGNESIUM HYDROXIDE 30 ML ORAL.SUSP PO PRN (19:02)
[2017-03-30] MEDS ORDERED: LORazepam 0.5 MG TABLET PO PRN (19:02)
[2017-03-30] MEDS ORDERED: ONDANSETRON 4 MG/2 ML VIAL IV PRN (19:02)
[2017-03-30] MEDS ORDERED: POTASSIUM CHLORIDE 20 MEQ/10 ML VIAL IV ONE (19:37)
[2017-03-30 20:08] LABS: Hemoglobin A1C 7.8 % HGB (4.0-6.0)
[2017-03-30] MEDS ORDERED: INSULIN GLARGINE, HUMAN 1 UNIT/0.01 ML SQ SCH (21:00)
[2017-03-30] MEDS ORDERED: SIMVASTATIN 40 MG TABLET PO SCH (21:00)
[2017-03-30] MEDS: HYDROcodone/APAP 5/325MG TABLET PO PRN (21:36)
[2017-03-30] MEDS: LISINOPRIL 20 MG TABLET PO SCH (21:37)
[2017-03-30] MEDS: INSULIN LISPRO 1 UNIT/0.01 ML UNIT SQ SCH (21:37)
[2017-03-30] MEDS: METOPROLOL TARTRATE 25 MG TABLET PO SCH (21:37)
[2017-03-31] MEDS: HYDROcodone/APAP 5/325MG TABLET PO PRN ×3 (01:04→19:54)
[2017-03-31] MEDS: NACL 0.9% W/KCL 20MEQ 1,000 ML IV SCH ×3 (03:52→16:08)
[2017-03-31 05:40] LABS: Basophils # (Auto) 0 K/mcL (0.0-0.3); Basophils % (Auto) 0.6 % (0.0-2.0); Eosinophils # (Auto) 0.5 K/mcL (0.0-0.7); Eosinophils % (Auto) 6.3 % (0.0-7.0); Granulocytes % (Auto) 67.6 % (38.0-78.0); Lymphocytes # (Auto) 1.8 K/mcL (1.5-4.8); Lymphocytes % (Auto) 20.3 % (15.5-49.0); Mean Cell Volume 79.9 fL (80.0-100.0); Mean Corpuscular HGB Conc 33.2 g/dL (31.0-36.0); Mean Corpuscular Hemoglobin 26.6 pg (26.0-34.0); Monocytes # (Auto) 0.4 K/mcL (0.1-0.9); Monocytes % (Auto) 5.2 % (1.0-12.0); Platelet Count 357 K/mcL (140-440); RBC 3.57 M/mcL (4.00-5.20); Red Cell Distribution Width 16.4 % (11.5-14.5)
[2017-03-31 06:33] LABS: ALT/SGPT 10 U/l (0-40); Albumin 3.1 gm/dL (3.2-5.2); Albumin/Globulin Ratio 1.2 (1.0-2.3); Alkaline Phosphatase 78 U/L (39-117); Bilirubin,Direct < 0.2 mg/dL (0.0-0.3); Blood Urea Nitrogen 21 mg/dl (8-23); Gamma Glutamyl Transpeptidase 8 U/L (5-36); Magnesium 1.4 mg/dL (1.6-2.5); Uric Acid 5.4 mg/dL (2.5-8.0)
[2017-03-31] MEDS: INSULIN LISPRO 1 UNIT/0.01 ML UNIT SQ SCH ×4 (07:07→21:27)
[2017-03-31] MEDS ORDERED: MAGNESIUM SULFATE 2 GM/50 ML BAG IV ONE (07:14)
[2017-03-31] MEDS ORDERED: LEVOTHYROXINE 125 MCG TABLET PO SCH (07:30)
[2017-03-31] MEDS ORDERED: PANTOPRAZOLE 40 MG TABLET PO SCH (07:30)
[2017-03-31] MEDS ORDERED: CLOPIDOGREL 75 MG TABLET PO SCH (09:00)
[2017-03-31] MEDS ORDERED: TOLTERODINE 2 MG CAP.XL.24H PO SCH (09:00)
[2017-03-31] MEDS ORDERED: COLLAGENASE TOP OINT TUBE 30GM TOPICAL SCH (09:00)
[2017-03-31] MEDS: METOPROLOL TARTRATE 25 MG TABLET PO SCH ×2 (09:16→19:54)
[2017-03-31] MEDS: LISINOPRIL 20 MG TABLET PO SCH ×2 (09:16→19:53)
[2017-03-31] MEDS: metFORMIN 500 MG TABLET PO SCH ×3 (09:16→17:22)
--- NOTE | 2017-03-31 11:24 | Internal Med Progress Note ---
Medical - PN: Subj Patient information: Note initiated : 03/31/17 at 11:24 am Patient: Génesis Medina 82 y/o F admitted on 03/30/17 for post hysterectomy pain/ dizziness. Interval history: March 30, 2017: History of present illness: Ms. Medina is a 82 year old female who was diagnosed recently with an adnexal mass. She underwent a complete hysterectomy in [place] less than 2 weeks ago. She says she just got home a few days ago. Today her family insisted that she come to the ER, because she has become more confused, and has been acting erratically. The patient complains that her brain will not work. She says she has been feeling dizzy and off balance. They told her at the hospital that she was dehydrated, so she has been drinking lots of water. In the emergency room she was found to have a very low sodium of 118. Her sodium was normal at 138 in November when she was last here. I do not yet have records from [place]. Otherwise, she denies fever or chills, headaches, new eye or ear symptoms, sore throat or cough. She denies swollen glands, chest pain or palpitations, shortness of breath or wheezing, abdominal pain, nausea or vomiting, diarrhea or constipation, dysuria. She does have some chronic incontinence of both bowel and bladder, since treatment for previous rectal cancer. March 31: Today, the patient says she is feeling definitely better than yesterday. She still is not 100%. Her and I note that her speech still seems a little bit slurred. She is still little wobbly on her feet, but was up with a 4 wheeled walker and 1 person assist in her room today. -Sodium is back to normal today. - Constitutional Vitals: Vital Signs Temp Pulse Resp BP Pulse Ox 97.4 F 74 18 181/68 98 03/31/17 08:00 03/31/17 10:36 03/31/17 08:15 03/31/17 08:00 03/31/17 08:15 Period Temp Pulse Resp BP Sys/King Pulse Ox Last 24 Hr 97.2 F-97.6 F 74-82 16-20 150-185/65-74 98-100 Intake and Output 03/30/17 03/31/17 03/31/17 21:59 05:59 13:59 Intake Total 1480 / 1480 1740 / 1740 Output Total 500 / 505 502 / 502 Balance -500 / 1495 978 / 978 1740 / 1740 Weight 114 lb 9.6 oz Intake & Output: Intake & Output 03/30/17 03/31/17 03/31/17 21:59 05:59 13:59 Intake Total 1480 / 1480 1740 / 1740 Output Total 500 / 505 502 / 502 Balance -500 / 1495 978 / 978 1740 / 1740 Weight 114 lb 9.6 oz Intake: IV 1000 / 1000 1000 / 1000 NaCl 0.9% W/KCl 20Meq 1000 / 1000 1000 / 1000 1000ML 1,000 ml @ 150 mls /hr IV .Q6H40M [facility] Rx#: [id number] Oral 480 / 480 740 / 740 Output: Void Amount 500 / 500 500 / 500 # of times incontinent of 2 / 2 urine Other: Meal Breakfast Percent of Meal Consumed 100% Feeding Ability Assist with Tray Set Up # Bowel Movements 1 On exam, she is sitting up in a chair eating breakfast. She does seem more alert today. Neck is supple without obvious lymphadenopathy or JVD. Cardiac exam shows regular rate and rhythm. Lungs continue to show a few crackles at the bases, but are otherwise clear. Abdomen is soft. Extremities show no edema. Neurologic exam: The patient is alert and oriented, calm and cooperative. Speech still seems a little bit off. Exam is otherwise grossly nonfocal. Medical - PN: Obj Da - Labs CBC & Chem 7: 03/31/17 04:00 03/31/17 04:00 Labs: Abnormal Lab Results 03/31/17 03/31/17 04:00 04:00 RBC 3.57 L Hgb 9.5 L Hct 28.5 L MCV 79.9 L RDW 16.4 H Carbon Dioxide 21 L Glucose 115 H Calcium 8.4 L Magnesium 1.4 L Total Protein 5.6 L Albumin 3.1 L Triglycerides 158 H March 31: Phosphorus is low at 1.4 Albumin is low at 3.1 March 30: Lactic acid normal at 1.6 Differential on the CBC shows 9100 granulocytes. RDW is elevated at 16 Urinalysis shows 30 mg of protein, 25 leukocyte esterase , 9 red blood cells, 9 white blood cells Chest x-ray shows no acute disease. There is mild cardiomegaly. There is a density in the right paratracheal region that is likely a tortuous artery. March 22: We did receive records from [facility]. Sodium on March 22 was 126, sodium on March 23 was 130 February 24, 2017: Abdominal CT: Shows a 9 cm complex mass of the left adnexa. Meds: Medications Acetaminophen (Tylenol) 650 mg PO Q6HP PRN PRN Reason: PAIN/FEVER > 101 Hydrocodone Bitart/Acetaminophen ([place] 5/325mg) 1 tab PO Q4HP PRN PRN Reason: Pain Last Admin: 03/31/17 01:04 Dose: 1 tab Clopidogrel Bisulfate (Plavix) 75 mg PO DAILY EPI Last Admin: 03/31/17 09:16 Dose: 75 mg Collagenase (Santyl Top Oint) 1 dose TOPICAL DAILY [facility] Last Admin: 03/31/17 09:16 Dose: Not Given Dextrose (Dextrose 50%) 0 ml IV UD PRN PRN Reason: Hypoglycemia Diagnostic Test (Pha) (Accu-Chek) 1 each FS ACHS [facility] Last Admin: 03/31/17 07:07 Dose: 1 each Docusate Sodium (Colace) 100 mg PO BID PRN PRN Reason: Constipation Potassium Chloride/Sodium Chloride (Nacl 0.9% W/Kcl 20meq 1000ml) 1,000 mls @ 150 mls/hr IV .Q6H40M [facility] Last Admin: 03/31/17 09:23 Dose: 150 mls/hr Insulin Glargine (Lantus) 25 unit SQ HS [facility] Last Admin: 03/30/17 21:37 Dose: 25 unit Insulin Human Lispro (Humalog) 0 unit SQ ACHS EPI PRN Reason: Protocol Last Admin: 03/31/17 07:07 Dose: Not Given Levothyroxine Sodium (Synthroid) 125 mcg PO QAMAC [facility] Last Admin: 03/31/17 07:05 Dose: 125 mcg Lisinopril (Zestril) 20 mg PO BID [facility] Last Admin: 03/31/17 09:16 Dose: 20 mg Lorazepam (Ativan) 0.5 mg PO HSP PRN PRN Reason: Sleep Last Admin: 03/30/17 21:37 Dose: 0.5 mg Magnesium Hydroxide (Milk Of Magnesia) 30 ml PO DAILYP PRN PRN Reason: Constipation Metformin HCl (Glucophage) 1,000 mg PO BIDCC [facility] Last Admin: 03/31/17 09:16 Dose: 1,000 mg Metoprolol Tartrate (Lopressor) 25 mg PO BID [facility] Last Admin: 03/31/17 09:16 Dose: 25 mg Naloxone HCl (Narcan) 0.1 mg IV Q2MIN PRN PRN Reason: Opiate Reversal Ondansetron HCl (Zofran) 4 mg IV Q4HP PRN PRN Reason: Nausea And Vomiting Pantoprazole Sodium (Protonix) 40 mg PO QAMAC [facility] Last Admin: 03/31/17 07:42 Dose: 40 mg Simvastatin (Zocor) 40 mg PO HS [facility] Last Admin: 03/30/17 21:36 Dose: 40 mg Tolterodine Tartrate (Detrol La) 4 mg PO DAILY [facility] Last Admin: 03/31/17 09:15 Dose: 4 mg Medical - PN: A/P - Time Spent With Patient Total time spent is greater than 50% in coordination of care (as documented) at patient's floor/unit and/or counseling patient: (1) Altered mental state Status: Acute Current Visit: Yes (2) Hyperglycemia Status: Acute Current Visit: No (3) DM type 2 (diabetes mellitus, type 2) Status: Chronic Current Visit: No (4) Depression Status: Chronic Current Visit: No (5) Hyponatremia Status: Acute Current Visit: Yes - Narrative A/P Narrative: A/P Narrative: #1. Neurologic. Patient presents with altered mental status, and is not very far out from a recent hysterectomy. She is also been dizzy. ER evaluation shows significant hyponatremia. There is a reported history of her drinking lots of water lately. -Patient has done fairly well overnight. Sodium is back to normal this morning. Mental status does not seem quite back to baseline, and I am not sure how safe she is on her feet. We will watch her for another day, and get physical therapy evaluation. -SSRIs can also contribute to hyponatremia. She also believes she was recently started on a diuretic, which may be playing a role. -Past history of stroke/TIA. Continue Plavix, Zocor, Enalapril. #2. Endocrine. Hyponatremia. This may be due to a combination of drinking excess free water, as well as pseudohyponatremia due to hyperglycemia. 3. Type 2 diabetes. Glucoses are running 127 11/02/1950. Metformin has been on hold. We can probably resume that now. Accu-Cheks and insulin sliding scale. Continue Zocor, Plavix. Continue Lantus. 4. Code status: DNR. 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 It is not clear if further treatment is planned. 6. DVT prophylaxis: Continue Plavix. Add SCDs. 7. Anemia. Chronic. It looks to be near baseline today. 8. Psychiatric. History of depression and anxiety. -Continue sertraline. Continue as needed Ativan.. 10. . History of incontinence. Continue Detrol. 11. GI. Continue Prilosec for GERD 12. Hypertension. Continue Lopressor, Enalapril, Plavix. This is running rather high. I am reluctant to add back a diuretic, so we will try her on low-dose Norvasc. 13. Hypothyroidism. Continue levothyroxine. 14. History of osteoporosis. History of compression fracture. Continue calcium plus vitamin D. Continue pain meds as needed. #15. History of sacral decubitus ulcer earlier this year. Approximately 30 minutes was spent today, reviewing test results, interviewing and examining her, reviewing plan of care with the patient as well as her , as well as her staff, and writing orders. Medical - PN: Qual - VTE Deep Vein Thrombosis/Pulmonary Embolism Present on Admission: No
--- NOTE | 2017-03-31 11:38 | XRay Report ---
CLINICAL INFORMATION: Elevated white blood cell count COMPARISON: 03/30/2017 FINDINGS:The heart size, mediastinum and pulmonary vessels are unremarkable. The lungs are clear. There are no effusions. The bones and soft tissues are within normal limits. IMPRESSION: Normal chest. Interpreted and Authenticated by: Jey Gottlieb 03/31/17
[2017-03-31] MEDS ORDERED: DOCUSATE SODIUM 100 MG CAPSULE PO PRN (17:20)
[2017-03-31] MEDS ORDERED: MAGNESIUM HYDROXIDE 30 ML ORAL.SUSP PO PRN (17:20)
[2017-03-31] MEDS ORDERED: ACETAMINOPHEN 325 MG TABLET PO PRN (17:20)
[2017-03-31] MEDS ORDERED: NALOXONE HCL 0.4 MG/ML VIAL IV PRN (17:20)
[2017-03-31] MEDS: LORazepam 0.5 MG TABLET PO PRN (19:06)
[2017-03-31] MEDS ORDERED: SIMVASTATIN 40 MG TABLET PO SCH (21:00)
[2017-03-31] MEDS: INSULIN GLARGINE, HUMAN 1 UNIT/0.01 ML SQ SCH (21:27)
[2017-03-31] MEDS: amLODIPine 5 MG TABLET PO SCH (22:11)
[2017-04-01 06:33] LABS: Basophils # (Auto) 0 K/mcL (0.0-0.3); Basophils % (Auto) 0.4 % (0.0-2.0); Eosinophils # (Auto) 0.7 K/mcL (0.0-0.7); Eosinophils % (Auto) 6.3 % (0.0-7.0); Granulocytes % (Auto) 68.6 % (38.0-78.0); Lymphocytes # (Auto) 2.2 K/mcL (1.5-4.8); Lymphocytes % (Auto) 20.2 % (15.5-49.0); Mean Cell Volume 79.8 fL (80.0-100.0); Mean Corpuscular HGB Conc 33.3 g/dL (31.0-36.0); Mean Corpuscular Hemoglobin 26.6 pg (26.0-34.0); Monocytes # (Auto) 0.5 K/mcL (0.1-0.9); Monocytes % (Auto) 4.5 % (1.0-12.0); Platelet Count 376 K/mcL (140-440); RBC 3.38 M/mcL (4.00-5.20); Red Cell Distribution Width 16.7 % (11.5-14.5)
[2017-04-01] MEDS: HYDROcodone/APAP 5/325MG TABLET PO PRN ×2 (07:20→15:17)
[2017-04-01] MEDS: PANTOPRAZOLE 40 MG TABLET PO SCH (07:20)
[2017-04-01] MEDS: LEVOTHYROXINE 125 MCG TABLET PO SCH (07:21)
[2017-04-01] MEDS: INSULIN LISPRO 1 UNIT/0.01 ML UNIT SQ SCH ×4 (07:27→20:51)
[2017-04-01 07:55] LABS: ALT/SGPT 9 U/l (0-40); Albumin 2.8 gm/dL (3.2-5.2); Alkaline Phosphatase 86 U/L (39-117); Bilirubin,Direct < 0.2 mg/dL (0.0-0.3); Blood Urea Nitrogen 19 mg/dl (8-23); Gamma Glutamyl Transpeptidase 8 U/L (5-36); Magnesium 1.7 mg/dL (1.6-2.5); Uric Acid 4.7 mg/dL (2.5-8.0)
[2017-04-01] MEDS: metFORMIN 500 MG TABLET PO SCH ×2 (08:09→17:39)
[2017-04-01] MEDS: CLOPIDOGREL 75 MG TABLET PO SCH (09:26)
[2017-04-01] MEDS: METOPROLOL TARTRATE 25 MG TABLET PO SCH ×2 (09:26→20:38)
[2017-04-01] MEDS: TOLTERODINE 2 MG CAP.XL.24H PO SCH (09:26)
[2017-04-01] MEDS: LISINOPRIL 20 MG TABLET PO SCH ×2 (09:26→20:39)
[2017-04-01] MEDS: amLODIPine 5 MG TABLET PO SCH ×2 (12:14→20:38)
[2017-04-01] MEDS: COLLAGENASE TOP OINT TUBE 30GM TOPICAL SCH (12:16)
[2017-04-01] MEDS: ONDANSETRON 4 MG/2 ML VIAL IV PRN ×2 (12:29→17:38)
--- NOTE | 2017-04-01 15:26 | Internal Med Progress Note ---
Medical - PN: Subj Patient information: Note initiated : 04/01/17 at 3:26 pm Patient: Génesis Medina 82 y/o F admitted on 03/30/17 for Post Hysterectomy Pain , Dizziness/Hyponatremia. Interval history: March 30, 2017: History of present illness: Ms. Medina is a 82 year old female who was diagnosed recently with an adnexal mass. She underwent a complete hysterectomy in [place] less than 2 weeks ago. She says she just got home a few days ago. Today her family insisted that she come to the ER, because she has become more confused, and has been acting erratically. The patient complains that her brain will not work. She says she has been feeling dizzy and off balance. They told her at the hospital that she was dehydrated, so she has been drinking lots of water. In the emergency room she was found to have a very low sodium of 118. Her sodium was normal at 138 in November when she was last here. I do not yet have records from [place]. Otherwise, she denies fever or chills, headaches, new eye or ear symptoms, sore throat or cough. She denies swollen glands, chest pain or palpitations, shortness of breath or wheezing, abdominal pain, nausea or vomiting, diarrhea or constipation, dysuria. She does have some chronic incontinence of both bowel and bladder, since treatment for previous rectal cancer. March 31: Today, the patient says she is feeling definitely better than yesterday. She still is not 100%. Her and I note that her speech still seems a little bit slurred. She is still little wobbly on her feet, but was up with a 4 wheeled walker and 1 person assist in her room today. -Sodium is back to normal today. April 01: Today, physical therapy walks the patient in the [place], with a walker, for the first time. The patient says she is stronger than yesterday, but normally can walk at home without a walker. She still feels a little unsteady on her feet. When I entered her room later, she notes she has been having a fair amount of nausea. She does not think she is having increased abdominal pain, but says depending on how they position her in bed, her abdominal soreness from her surgery seems to flare a bit. She otherwise denies fever chills, headaches or dizziness, chest pain or palpitations or shortness of breath. -Blood pressures have been running a little high today. The patient believes her primary care physician had recently added a diuretic, but she did not know the name. - Constitutional Vitals: Vital Signs Temp Pulse Resp BP Pulse Ox 98.0 F 86 16 181/75 98 04/01/17 11:11 04/01/17 04:00 04/01/17 11:11 04/01/17 11:11 04/01/17 11:11 Period Temp Pulse Resp BP Sys/King Pulse Ox Last 24 Hr 97.5 F-98.8 F 72-89 16-20 152-181/59-100 96-100 Intake and Output 04/01/17 04/01/17 04/01/17 05:59 13:59 21:59 Intake Total 1920 / 1920 650 / 650 Output Total 376 / 376 2 / 2 Balance 1544 / 1544 648 / 648 Intake & Output: Intake & Output 04/01/17 04/01/17 04/01/17 05:59 13:59 21:59 Intake Total 1920 / 1920 650 / 650 Output Total 376 / 376 2 / 2 Balance 1544 / 1544 648 / 648 Intake: IV 1050 / 1050 Oral 870 / 870 650 / 650 Output: Void Amount 375 / 375 # of times incontinent of 1 / 1 2 / 2 urine Other: Meal Lunch Percent of Meal Consumed 50% Feeding Ability Independent # Voids 1 Blood pressure 145/72, and earlier today 181/75. On exam, she is lying in bed. She grimaces when discussing her nausea. Neck is supple without obvious lymphadenopathy or JVD. Cardiac exam shows regular rate and rhythm. Lungs continue to show a few crackles at the bases, but are otherwise clear. Abdomen is soft. She still has some bruising on her lower abdomen both from surgery and heparin shots. She has some vague tenderness, without guarding or rebound. Extremities show no edema. Neurologic exam: The patient is alert and oriented, calm and cooperative. Speech still seems a little bit off. Exam is otherwise grossly nonfocal. She was rather unsteady on her feet, while walking with physical therapy. She is clearly not back at her baseline yet. Medical - PN: Obj Da - Labs CBC & Chem 7: 04/01/17 04:00 04/01/17 04:00 Labs: Abnormal Lab Results 04/01/17 04/01/17 03/31/17 04:00 04:00 04:00 RBC 3.38 L Hgb 9.0 L Hct 27.0 L MCV 79.8 L RDW 16.7 H Potassium 5.6 H Carbon Dioxide 20 L 21 L Glucose 126 H 115 H Calcium 8.0 L 8.4 L Phosphorus 1.8 L Magnesium 1.4 L Total Protein 5.7 L 5.6 L Albumin 2.8 L 3.1 L Triglycerides 288 H 158 H 03/31/17 04:00 RBC 3.57 L Hgb 9.5 L Hct 28.5 L MCV 79.9 L RDW 16.4 H Potassium Carbon Dioxide Glucose Calcium Phosphorus Magnesium Total Protein Albumin Triglycerides March 31: Phosphorus is low at 1.4 Albumin is low at 3.1 Magnesium is low at 1.4 CBC: White blood cell count is normal at 8600. March 30: Lactic acid normal at 1.6 CBC: White blood cell count 12,000 hemoglobin 10, hematocrit 30 ;differential on the CBC shows 9100 granulocytes. RDW is elevated at 16 Chemistry panel: Sodium low at 118, chloride 77, BUN 30, creatinine 0.9, glucose 237, hemoglobin A1c 7.8% Urinalysis shows 30 mg of protein, 25 leukocyte esterase , 9 red blood cells, 9 white blood cells Chest x-ray shows no acute disease. There is mild cardiomegaly. There is a density in the right paratracheal region that is likely a tortuous artery. March 22: We did receive records from [facility]. Sodium on March 22 was 126, sodium on March 23 was 130 February 24, 2017: Abdominal CT: Shows a 9 cm complex mass of the left adnexa. Meds: Medications Acetaminophen (Tylenol) 650 mg PO Q6HP PRN PRN Reason: PAIN/FEVER > 101 Hydrocodone Bitart/Acetaminophen ([place] 5/325mg) 1 tab PO Q4HP PRN PRN Reason: Pain Last Admin: 04/01/17 15:17 Dose: 1 tab Amlodipine Besylate (Norvasc) 2.5 mg PO BID [facility] Last Admin: 04/01/17 12:14 Dose: 2.5 mg Clopidogrel Bisulfate (Plavix) 75 mg PO DAILY [facility] Last Admin: 04/01/17 09:26 Dose: 75 mg Collagenase (Santyl Top Oint) 1 dose TOPICAL DAILY [facility] Last Admin: 04/01/17 12:16 Dose: Not Given Dextrose (Dextrose 50%) 0 ml IV UD PRN PRN Reason: Hypoglycemia Diagnostic Test (Pha) (Accu-Chek) 1 each FS [facility] Last Admin: 04/01/17 12:16 Dose: 1 each Docusate Sodium (Colace) 100 mg PO BID PRN PRN Reason: Constipation Insulin Glargine (Lantus) 25 unit SQ [facility] Last Admin: 03/31/17 21:27 Dose: 25 unit Insulin Human Lispro (Humalog) 0 unit SQ [facility] PRN Reason: Protocol Last Admin: 04/01/17 12:16 Dose: 3 unit Levothyroxine S[facility] ([facility]throid) [facility] Last Admin: 04/01/17 07:21 Dose: 125 mcg Lisinopril (Zestril) 20 mg PO BID [facility] Last Admin: 04/01/17 09:26 Dose: 20 mg Lorazepam (Ativan) 0.5 mg PO HSP PRN PRN Reason: Sleep Last Admin: 03/31/17 19:06 Dose: 0.5 mg Magnesium Hydroxide (Milk Of Magnesia) 30 ml PO DAILYP PRN PRN Reason: Constipation Metformin [facility] (Glucophage) [facility] Last Admin: 04/01/17 08:09 Dose: 1,000 mg Metoprolol Tartrate (Lopressor) 25 mg PO BID [facility] Last Admin: 04/01/17 09:26 Dose: 25 mg Naloxone HCl (Narcan) 0.1 mg IV Q2MIN PRN PRN Reason: Opiate Reversal Ondansetron HCl (Zofran) 4 mg IV Q4HP PRN PRN Reason: Nausea And Vomiting Last Admin: 04/01/17 12:29 Dose: 4 mg Pantoprazole Sodium (Protonix) 40 mg PO QAMAC [facility] Last Admin: 04/01/17 07:20 Dose: 40 mg Simvastatin (Zocor) 20 mg PO [facility] Tolterodine Tartrate (Detrol La) 4 mg PO DAILY [facility] Last Admin: 04/01/17 09:26 Dose: 4 mg Medical - PN: A/P - Time Spent With Patient Total time spent is greater than 50% in coordination of care (as documented) at patient's floor/unit and/or counseling patient: (1) Altered mental state Status: Acute Current Visit: Yes (2) Hyperglycemia Status: Acute Current Visit: No (3) DM type 2 (diabetes mellitus, type 2) Status: Chronic Current Visit: No (4) Depression Status: Chronic Current Visit: No (5) Hyponatremia Status: Acute Current Visit: Yes - Narrative A/P Narrative: A/P Narrative: #1. Neurologic. Patient presents with altered mental status, and is not very far out from a recent hysterectomy. She is also been dizzy. ER evaluation shows significant hyponatremia. There is a reported history of her drinking lots of water lately. -She remained stable overnight. Today she was up and walking with physical therapy, but clearly quite weak and unsteady. She is not yet safe to return home, and is certainly not back at her baseline. Continue physical therapy. -SSRIs can also contribute to hyponatremia. She also believes she was recently started on a diuretic, which may be playing a role. -Past history of stroke/TIA. Continue Plavix, Zocor, Enalapril. #2. Endocrine. Hyponatremia. This may be due to a combination of drinking excess free water, as well as pseudohyponatremia due to hyperglycemia. Resolved. 3. Type 2 diabetes. Glucoses are running 133-232 Metformin has been resumed. Accu-Cheks and insulin sliding scale. Continue Zocor, Plavix. Continue Lantus. 4. Code status: DNR. 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 It is not clear if further treatment is planned. 6. DVT prophylaxis: Continue Plavix. Add SCDs. 7. Anemia. Chronic. It looks to be near baseline today. 8. Psychiatric. History of depression and anxiety. -Continue sertraline. Continue as needed Ativan.. 10. . History of incontinence. Continue Detrol. 11. GI. Continue Prilosec for GERD 12. Hypertension. Continue Lopressor, Enalapril, Plavix. Blood pressure was running quite high, so Norvasc was added, and little of a diuretic. Blood pressure is somewhat improved today, continue this trial. 13. Hypothyroidism. Continue levothyroxine. 14. History of osteoporosis. History of compression fracture. Continue calcium plus vitamin D. Continue pain meds as needed. #15. History of sacral decubitus ulcer earlier this year. #16. Renal. Potassium is high today, for uncertain reasons. Recheck in the morning. Approximately 30 minutes was spent today, reviewing test results, interviewing and examining her, reviewing plan of care with the patient as well as with physical therapy, as well as staff, and writing orders. Medical - PN: Qual - VTE Deep Vein Thrombosis/Pulmonary Embolism Present on Admission: No
[2017-04-01] MEDS: LORazepam 0.5 MG TABLET PO PRN (20:04)
[2017-04-01] MEDS: SIMVASTATIN 20 MG TABLET PO SCH (20:38)
[2017-04-01] MEDS: INSULIN GLARGINE, HUMAN 1 UNIT/0.01 ML SQ SCH (20:51)
[2017-04-02] MEDS: ONDANSETRON 4 MG/2 ML VIAL IV PRN ×3 (01:26→17:59)
[2017-04-02 05:34] LABS: Basophils # (Auto) 0 K/mcL (0.0-0.3); Basophils % (Auto) 0.4 % (0.0-2.0); Eosinophils # (Auto) 0.9 K/mcL (0.0-0.7); Eosinophils % (Auto) 7.8 % (0.0-7.0); Granulocytes % (Auto) 67.4 % (38.0-78.0); Lymphocytes # (Auto) 2.3 K/mcL (1.5-4.8); Lymphocytes % (Auto) 20.7 % (15.5-49.0); Mean Cell Volume 80.7 fL (80.0-100.0); Mean Corpuscular HGB Conc 32.9 g/dL (31.0-36.0); Mean Corpuscular Hemoglobin 26.6 pg (26.0-34.0); Monocytes # (Auto) 0.4 K/mcL (0.1-0.9); Monocytes % (Auto) 3.7 % (1.0-12.0); Platelet Count 388 K/mcL (140-440); Red Cell Distribution Width 16.5 % (11.5-14.5)
[2017-04-02 05:54] LABS: ALT/SGPT 10 U/l (0-40); Albumin 3.2 gm/dL (3.2-5.2); Albumin/Globulin Ratio 1.1 (1.0-2.3); Alkaline Phosphatase 86 U/L (39-117); Bilirubin,Direct < 0.2 mg/dL (0.0-0.3); Blood Urea Nitrogen 23 mg/dl (8-23); Gamma Glutamyl Transpeptidase 8 U/L (5-36); Magnesium 1.5 mg/dL (1.6-2.5); Uric Acid 4.9 mg/dL (2.5-8.0)
[2017-04-02] MEDS: INSULIN LISPRO 1 UNIT/0.01 ML UNIT SQ SCH ×5 (07:35→20:55)
[2017-04-02] MEDS: metFORMIN 500 MG TABLET PO SCH ×2 (07:35→16:42)
[2017-04-02] MEDS: PANTOPRAZOLE 40 MG TABLET PO SCH (07:36)
[2017-04-02] MEDS: LEVOTHYROXINE 125 MCG TABLET PO SCH (07:36)
[2017-04-02] MEDS ORDERED: HYDROCHLOROTHIAZIDE 12.5 MG CAPSULE PO SCH (09:00)
[2017-04-02] MEDS: TOLTERODINE 2 MG CAP.XL.24H PO SCH (11:11)
[2017-04-02] MEDS: LISINOPRIL 20 MG TABLET PO SCH ×2 (11:12→20:53)
[2017-04-02] MEDS: CLOPIDOGREL 75 MG TABLET PO SCH (11:12)
[2017-04-02] MEDS: amLODIPine 5 MG TABLET PO SCH ×2 (11:12→20:53)
[2017-04-02] MEDS: METOPROLOL TARTRATE 25 MG TABLET PO SCH ×2 (11:12→20:53)
[2017-04-02] MEDS: COLLAGENASE TOP OINT TUBE 30GM TOPICAL SCH (11:18)
[2017-04-02] MEDS ORDERED: MAGNESIUM OXIDE 400 MG TABLET PO SCH (12:00)
[2017-04-02] MEDS ORDERED: PROMETHAZINE 25 MG/ML VIAL IV PRN (18:37)
--- NOTE | 2017-04-02 18:44 | Internal Med Progress Note ---
Medical - PN: Subj Patient information: Note initiated : 04/02/17 at 6:38 pm Service Date, if different from initiated Date: [] Patient: Génesis Medina 82 y/o F admitted on 03/30/17 for Post Hysterectomy Pain , Dizziness/Hyponatremia. Chief Complaint: [] Interval history: March 30, 2017: History of present illness: Ms. Medina is a 82 year old female who was diagnosed recently with an adnexal mass. She underwent a complete hysterectomy in [place] less than 2 weeks ago. She says she just got home a few days ago. Today her family insisted that she come to the ER, because she has become more confused, and has been acting erratically. The patient complains that her brain will not work. She says she has been feeling dizzy and off balance. They told her at the hospital that she was dehydrated, so she has been drinking lots of water. In the emergency room she was found to have a very low sodium of 118. Her sodium was normal at 138 in November when she was last here. I do not yet have records from [place]. Otherwise, she denies fever or chills, headaches, new eye or ear symptoms, sore throat or cough. She denies swollen glands, chest pain or palpitations, shortness of breath or wheezing, abdominal pain, nausea or vomiting, diarrhea or constipation, dysuria. She does have some chronic incontinence of both bowel and bladder, since treatment for previous rectal cancer. March 31: Today, the patient says she is feeling definitely better than yesterday. She still is not 100%. Her and I note that her speech still seems a little bit slurred. She is still little wobbly on her feet, but was up with a 4 wheeled walker and 1 person assist in her room today. -Sodium is back to normal today. April 01: Today, physical therapy walks the patient in the [place], with a walker, for the first time. The patient says she is stronger than yesterday, but normally can walk at home without a walker. She still feels a little unsteady on her feet. When I entered her room later, she notes she has been having a fair amount of nausea. She does not think she is having increased abdominal pain, but says depending on how they position her in bed, her abdominal soreness from her surgery seems to flare a bit. She otherwise denies fever chills, headaches or dizziness, chest pain or palpitations or shortness of breath. -Blood pressures have been running a little high today. The patient believes her primary care physician had recently added a diuretic, but she did not know the name. April 02: Patient seen examined, seen later today after change of shifts by myself , as the patient was supposedly sleeping in the AM when Dr Pantoja was rounding. The patient notes of nausea no vomiting which is her main complaints, otherwise has some abdominal pain at the incision site. She feels she is back to her baseline. labs reviwed noted low MG, she is on mg supplements. her sodium is normal mild bump in wbc, cxr is neg, will monitor. still very weak Pertinent ROS: Denies headache, dizziness Denies chest pain, palpitations Denies cough or shortness of breath denies vomiting, presnt nausea and abdominal pain. - Constitutional Vitals: Vital Signs Temp Pulse Resp BP Pulse Ox 98.7 F 65 16 149/75 98 04/02/17 15:52 04/02/17 15:52 04/02/17 15:52 04/02/17 15:52 04/02/17 15:52 Period Temp Pulse Resp BP Sys/King Pulse Ox Last 24 Hr 97.0 F-98.7 F 65-88 16-20 148-173/72-85 97-99 Intake and Output 04/02/17 04/02/17 04/02/17 05:59 13:59 21:59 Intake Total 900 / 900 360 / 360 440 / 440 Output Total Balance 899 / 899 360 / 360 440 / 440 Intake & Output: Intake & Output 04/02/17 04/02/17 04/02/17 05:59 13:59 21:59 Intake Total 900 / 900 360 / 360 440 / 440 Output Total Balance 899 / 899 360 / 360 440 / 440 Intake: Oral 900 / 900 360 / 360 440 / 440 Output: # of times incontinent of urine Other: Meal cake & pear crisp Breakfast Dinner Percent of Meal Consumed 100% 100% 50% Feeding Ability Independent # Voids 1 1 # Bowel Movements 1 # of times incontinent of 1 Bowels Exam: Constitutional; Afebrile, cooperative, alert, not in distress. Eyes- No icterus, , No periorbital swelling Ears- Ext ear normal, hearing normal to conversation. Neck- Midline trachea, supple Respiratory system: Air Entry equal on both sides, No crackles or wheezing, no rhonchi. CVS- Rate rhythm regular, S1,S2 heard, no gallop, no rub. Abdomen- lower abdominal tenderness, no organomegaly, no tenderness, no guarding or rigidity, MANAGER PORTABLE- AOOx2, moving all extremities, no gross focal deficit noted. Medical - PN: Obj Da - Labs CBC & Chem 7: 04/02/17 04:40 04/02/17 04:40 Labs: Abnormal Lab Results 04/02/17 04/02/17 04/01/17 04:40 04:40 04:00 WBC 11.2 H RBC 3.50 L Hgb 9.3 L Hct 28.2 L MCV RDW 16.5 H Eos % (Auto) 7.8 H Eos # (Auto) 0.9 H Potassium 5.6 H Carbon Dioxide 21 L 20 L Glucose 157 H 126 H Calcium 8.0 L Phosphorus 2.4 L 1.8 L Magnesium 1.5 L Total Protein 5.7 L Albumin 2.8 L Triglycerides 196 H 288 H 04/01/17 03/31/17 03/31/17 04:00 04:00 04:00 WBC RBC 3.38 L 3.57 L Hgb 9.0 L 9.5 L Hct 27.0 L 28.5 L MCV 79.8 L 79.9 L RDW 16.7 H 16.4 H Eos % (Auto) Eos # (Auto) Potassium Carbon Dioxide 21 L Glucose 115 H Calcium 8.4 L Phosphorus Magnesium 1.4 L Total Protein 5.6 L Albumin 3.1 L Triglycerides 158 H Meds: Medications Acetaminophen (Tylenol) 650 mg PO Q6HP PRN PRN Reason: PAIN/FEVER > 101 Hydrocodone Bitart/Acetaminophen ([place] 5/325mg) 1 tab PO Q4HP PRN PRN Reason: Pain Last Admin: 04/01/17 15:17 Dose: 1 tab Amlodipine Besylate (Norvasc) 2.5 mg PO BID [facility] Last Admin: 04/02/17 11:12 Dose: 2.5 mg Clopidogrel Bisulfate (Plavix) 75 mg PO DAILY EPI Last Admin: 04/02/17 11:12 Dose: 75 mg Collagenase (Santyl Top Oint) 1 dose TOPICAL DAILY [facility] Last Admin: 04/02/17 11:18 Dose: Not Given Dextrose (Dextrose 50%) 0 ml IV UD PRN PRN Reason: Hypoglycemia Diagnostic Test (Pha) (Accu-Chek) 1 each FS ACHS [facility] Last Admin: 04/02/17 16:34 Dose: 1 each Docusate Sodium (Colace) 100 mg PO BID PRN PRN Reason: Constipation Hydrochlorothiazide (Oretic) 12.5 mg PO DAILY [facility] Last Admin: 04/02/17 11:11 Dose: 12.5 mg Insulin Glargine (Lantus) 25 unit SQ [facility] Last Admin: 04/01/17 20:51 Dose: 25 unit Insulin Human Lispro (Humalog) 0 unit SQ [facility] PRN Reason: Protocol Last Admin: 04/02/17 17:21 Dose: 2 unit [facility]othyroxine [facility]th[facility]) [facility] Last Admin: 04/02/17 07:36 Dose: 125 mcg Lisinopril (Zestril) 20 mg PO BID [facility] Last Admin: 04/02/17 11:12 Dose: 20 mg Lorazepam (Ativan) 0.5 mg PO HSP PRN PRN Reason: Sleep Last Admin: 04/01/17 20:04 Dose: 0.5 mg Magnesium Hydroxide (Milk Of Magnesia) 30 ml PO DAILYP PRN PRN Reason: Constipation Magnesium Oxide (Magnesium Oxide) 400 mg PO DAILY [facility] Last Admin: 04/02/17 11:12 Dose: 400 mg Metformin HCl (Glucophage) 1,000 mg PO BIDCC [facility] Last Admin: 04/02/17 16:42 Dose: 1,000 mg Metoprolol Tartrate (Lopressor) 25 mg PO BID [facility] Last Admin: 04/02/17 11:12 Dose: 25 mg Naloxone HCl (Narcan) 0.1 mg IV Q2MIN PRN PRN Reason: Opiate Reversal Pantoprazole Sodium (Protonix) 40 mg PO QAMAC [facility] Last Admin: 04/02/17 07:36 Dose: 40 mg Promethazine HCl (Phenergan) 12.5 mg IV Q4-6HP PRN PRN Reason: Nausea And Vomiting Simvastatin (Zocor) 20 mg PO [facility] Last Admin: 04/01/17 20:38 Dose: 20 mg Tolterodine Tartrate (Detrol La) 4 mg PO DAILY EPI Last Admin: 04/02/17 11:11 Dose: 4 mg Medical - PN: A/P - Time Spent With Patient Total time spent is greater than 50% in coordination of care (as documented) at patient's floor/unit and/or counseling patient: - Narrative A/P Narrative: A/P Narrative: Altered Mental status due to hyponatremia, Resolved now. Na stable. Nausea: Post Op, patient passing BM, IV phenergan for now, monitr DM- Glucose on the higher end, incresae dose of lantus from 25 to 30, continue sliding scale insulin TIA: on plavix and statin, HTN on GENE, continue same, Anxiety and Depression: stable continue sertaline and ativan prn, Hypomagnesemia, replace, IV, recheck in AM, continue oral supplement DVT hep sq, Dispo: Home with PT vs SNF with PT if remains stable. DNR Medical - PN: Qual - VTE Deep Vein Thrombosis/Pulmonary Embolism Present on Admission: No
[2017-04-02] MEDS ORDERED: MAGNESIUM SULFATE 2 GM/50 ML BAG IV ONE (18:54)
[2017-04-02] MEDS: SIMVASTATIN 20 MG TABLET PO SCH (20:53)
[2017-04-02] MEDS ORDERED: INSULIN GLARGINE, HUMAN 1 UNIT/0.01 ML SQ SCH (21:00)
[2017-04-02] MEDS ORDERED: HEPARIN 5,000 UNIT/ML VIAL SQ SCH (21:00)
[2017-04-03] MEDS: LORazepam 0.5 MG TABLET PO PRN ×2 (00:19→18:29)
[2017-04-03] MEDS: DEXTROSE 50% 50 ML VIAL IV PRN ×2 (01:53→01:54)
[2017-04-03 02:46] LABS: Basophils # (Auto) 0.1 K/mcL (0.0-0.3); Basophils % (Auto) 0.4 % (0.0-2.0); Eosinophils # (Auto) 1.2 K/mcL (0.0-0.7); Eosinophils % (Auto) 7.8 % (0.0-7.0); Granulocytes % (Auto) 60.7 % (38.0-78.0); Lymphocytes # (Auto) 4.1 K/mcL (1.5-4.8); Lymphocytes % (Auto) 27.5 % (15.5-49.0); Mean Cell Volume 80.3 fL (80.0-100.0); Mean Corpuscular HGB Conc 32.6 g/dL (31.0-36.0); Mean Corpuscular Hemoglobin 26.1 pg (26.0-34.0); Monocytes # (Auto) 0.5 K/mcL (0.1-0.9); Monocytes % (Auto) 3.6 % (1.0-12.0); Platelet Count 467 K/mcL (140-440); RBC 4.03 M/mcL (4.00-5.20); Red Cell Distribution Width 16.9 % (11.5-14.5)
[2017-04-03 03:02] LABS: Blood Urea Nitrogen 26 mg/dl (8-23)
[2017-04-03] MEDS ORDERED: ACETAMINOPHEN 325 MG TABLET PO PRN (03:28)
[2017-04-03] MEDS ORDERED: PROMETHAZINE 25 MG/ML VIAL IV PRN (03:28)
[2017-04-03] MEDS ORDERED: MAGNESIUM HYDROXIDE 30 ML ORAL.SUSP PO PRN (03:28)
[2017-04-03] MEDS ORDERED: DEXTROSE 50% 50 ML VIAL IV PRN (03:28)
[2017-04-03] MEDS ORDERED: NALOXONE HCL 0.4 MG/ML VIAL IV PRN (03:28)
[2017-04-03] MEDS ORDERED: DOCUSATE SODIUM 100 MG CAPSULE PO PRN (03:28)
[2017-04-03] MEDS ORDERED: IOPAMIDOL 100 ML BOTTLE IV ONE ×2 (03:30→10:48)
[2017-04-03] MEDS ORDERED: HYDROcodone/APAP 5/325MG TABLET PO ONE (03:45)
--- NOTE | 2017-04-03 04:20 | Event Note ---
Pt was found to be aphasic at 1.35 AM, Last normal at 11.40 with vitals, The nurse saw the patient around 12.15 to 12.20 when he noted mild confusion. When at 1.35 pt was apasic, Code STroke activated, pt had labs, ekg and CT done CT head neg, NIH score high at 27, pt was aphasic, but was improving, strength overall was 3/ 5 in all 4 limbs, no gross sensory deficit noted. Tele stroke activated, deemed not a tpa candidate due to use of heparin at 2100 evening. CTA performed of neck and head, noted hemodynamically significant stenosis in rocio ICA, no occulsion Dr Wallace therefore noted the patient is not a candidate for tpa. Labs show risking wbc, CXR chest ordered, UA ordered. Pt was able to speak again after some time. Glucose was 63 on presentation and 2 amp glucose given, after which glucose was around 225 Patient had similar episode during last hospitalization in 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 Its possible that this was a CVA, vs TIA, or a seizure like episode Will get echo and monitor on tele to complete the workup. Pt is on plavix and statin, will allow the bp to remain high for now, Pt ICA stenosis will have to be dealt with as outpatient with vascular/ neurology.
[2017-04-03 05:38] LABS: Appearance,Urine CLEAR; Bacteria,Urine FEW /hpf (0); Bilirubin,Urine NEG (NEG); Color,Urine COLORLESS; Glucose,Urine (UA) NEGATIVE (NEG); Leukocyte Esterase,Urine 25 /uL (NEG); Nitrate,Urine NEG (NEG); Protein,Urine 30 mg/dL (NEG); Specific Gravity,Urine 1.008 (1.000-1.035); Urine Blood NEG mg/dL (<0.03); Urine RBC < 1 /hpf (0-1); Urine Squamous Epithelial Cell 0 /hpf (0-4); Urine WBC 11 /hpf (0-4); Urobilinogen,Urine NEG (NEG)
--- NOTE | 2017-04-03 05:59 | XRay Report ---
CLINICAL INFORMATION: Code stroke TECHNIQUE: AP semiupright portable chest x-ray COMPARISON: 03/31/2017, 03/30/2017 FINDINGS: Lungs are negative. No parenchymal infiltrate or mass. No acute abnormality. Heart size and vascularity are normal. No pulmonary edema. No pulmonary congestion. Emily and mediastinum are negative. No interval change since 03/31/2017 IMPRESSION: Negative AP portable chest x-ray Interpreted and Authenticated by: Jey Manning 04/03/17
--- NOTE | 2017-04-03 06:03 | Cat Scan Report ---
CLINICAL INFORMATION: Code stroke COMPARISON: Previous brain CT scan dated 11/04/2016 TECHNIQUE: Axial noncontrast-enhanced images through the brain. FINDINGS: No acute intracranial hemorrhage. No subdural hematoma. No subarachnoid hemorrhage. No acute intra-axial hemorrhage. There is cerebral atrophy. There is white matter abnormality consistent with small vessel ischemic change. There is an old left thalamic lacunar infarction. There is focal low density in the right land radiata and right external capsule. These findings are stable. No localized mass effect. No midline shift. Basilar cisterns remain normal. Brainstem and cerebellum are negative. No calvarial lesions. Skull base is negative. No significant interval change. This examination was initially interpreted by [facility] IMPRESSION: No acute abnormality. No interval change since 11/04/2016 Interpreted and Authenticated by: Jey Manning 04/03/17
--- NOTE | 2017-04-03 06:10 | Cat Scan Report ---
CLINICAL INFORMATION: Code stroke TECHNIQUE: Axial images through the upper chest and neck. Intravenous contrast material was administered and scanning was performed during arterial phase. Sagittally and coronally reformatted images. MIP reformatted images COMPARISON: None. FINDINGS: Calcified atherosclerotic disease in the aortic arch. There is a trifurcation origin of the left common carotid artery. No stenosis. Origin of the innominate artery and right common carotid artery are normal. No stenosis. There is mild calcified plaque at the origin of the right common carotid artery. Origins of the subclavian arteries are negative. Normal origin of the right vertebral artery. No stenosis. Left vertebral artery is a small caliber vessel but otherwise normal. Calcified plaque at the origin of the right internal carotid artery. This is circumferential but without significant stenosis. No evidence for ulceration. No intraluminal thrombus. Origin of the left internal carotid artery is negative. No stenosis. Cervical internal carotid arteries are negative bilaterally. Vertebral arteries are patent and normal. Left vertebral artery is a small caliber vessel but is patent throughout its cervical course. Lung apices are abnormal. There is centrilobular emphysema. No parenchymal mass. No focal consolidation. Cervical soft tissues are negative. No solid or cystic mass. The right internal jugular vein is large. The left internal jugular vein is not opacified and is a small caliber vessel. There are changes of multilevel degenerative disc disease throughout the cervical spine. Examination was initially interpreted by [facility] IMPRESSION: 1. Calcified atherosclerotic disease as above 2. No carotid stenosis. No intraluminal thrombus or detectable ulceration. Internal carotid arteries are patent bilaterally. Interpreted and Authenticated by: Jey Manning 04/03/17
--- NOTE | 2017-04-03 06:20 | Cat Scan Report ---
CLINICAL INFORMATION: Code stroke TECHNIQUE: Axial images through the brain. Contrast material was administered and scanning was performed during arterial phase. Sagittally and coronally reformatted images. MIP reformatted images. COMPARISON: MRA dated 11/04/2016 FINDINGS: Left vertebral artery is a small caliber vessel. Left vertebral artery appears to proximal to the vertebrobasilar junction. Approximately 50% stenosis at the junction of the right vertebral artery and basilar artery. This was demonstrated on prior examination. Calcified plaque in the cavernous segments of the internal carotid arteries bilaterally. There is at least high-grade stenosis in the cavernous segment of the right internal carotid artery. Short segment occlusion is possible but the distal cavernous right internal carotid artery and supraclinoid right internal carotid artery are patent. There is calcified atherosclerotic plaque in the cavernous segment of the left internal carotid artery and probable hemodynamically significant stenosis. Supraclinoid segments of the internal carotid arteries are patent bilaterally. Middle cerebral arteries and anterior cerebral arteries are patent and normal. No stenosis. No occlusion. No intracranial small vessel occlusion identified. No intracranial aneurysm. No arteriovenous malformation. Examination was additionally interpreted by [facility]. IMPRESSION: 1. Small caliber left vertebral artery appears to and proximal to the vertebral basilar junction. Findings consistent with 50% diameter stenosis at the right vertebral basilar junction 2. Extensive calcified plaque in the cavernous segments of the internal carotid arteries bilaterally. Findings consistent with bilateral stenosis, right worse than left. Short segment occlusion in the cavernous segment of the right internal carotid artery is possible but this is probably high-grade stenosis with preserved patency. 3. Anterior cerebral arteries and middle cerebral arteries are negative. Interpreted and Authenticated by: Jey Manning 04/03/17
[2017-04-03] MEDS: LEVOTHYROXINE 125 MCG TABLET PO SCH (08:01)
[2017-04-03] MEDS: PANTOPRAZOLE 40 MG TABLET PO SCH (08:01)
[2017-04-03] MEDS: INSULIN LISPRO 1 UNIT/0.01 ML UNIT SQ SCH ×4 (08:02→21:38)
[2017-04-03] MEDS: amLODIPine 5 MG TABLET PO SCH ×2 (10:10→21:38)
[2017-04-03] MEDS: MAGNESIUM OXIDE 400 MG TABLET PO SCH (10:10)
[2017-04-03] MEDS: HYDROCHLOROTHIAZIDE 12.5 MG CAPSULE PO SCH (10:10)
[2017-04-03] MEDS: HEPARIN 5,000 UNIT/ML VIAL SQ SCH ×2 (10:10→21:38)
[2017-04-03] MEDS: METOPROLOL TARTRATE 25 MG TABLET PO SCH ×2 (10:10→21:39)
[2017-04-03] MEDS: CLOPIDOGREL 75 MG TABLET PO SCH (10:11)
[2017-04-03] MEDS: COLLAGENASE TOP OINT TUBE 30GM TOPICAL SCH (10:19)
[2017-04-03] MEDS: LISINOPRIL 20 MG TABLET PO SCH ×2 (10:19→21:39)
[2017-04-03] MEDS: TOLTERODINE 2 MG CAP.XL.24H PO SCH (10:41)
--- NOTE | 2017-04-03 11:10 | Cat Scan Report ---
CLINICAL INFORMATION: Leukocytosis. Abdominal pain. History of previous left breast surgery. COMPARISON: Preoperative evaluation dated 02/24/2017 TECHNIQUE: Axial images were obtained through the abdomen and pelvis. Sagittally and coronally reformatted images. 70 mL nonionic contrast material injected intravenously. Oral contrast material was given FINDINGS: Previous examination demonstrated a 9 cm left adnexal mass consistent with neoplasm. This has been surgically removed. There is a 3 cm fluid density abnormality in the left adnexa. This is a nonspecific appearance. This may represent a small postoperative seroma or residual mass. There are no gas bubbles. No thick enhancing wall. An early abscess is possible. Follow-up examination is recommended. If this enlarges or develops findings typical of abscess percutaneous drainage could be performed. There is trace free fluid within the pelvis. This is nonspecific. There is no pneumoperitoneum. No other evidence for intra-abdominal abscess. Lung bases are negative. No parenchymal infiltrate or mass. No pleural fluid. No pericardial fluid. There is a low-density lesion in the right lobe of liver. This is stable and most consistent with benign cyst. Liver is otherwise negative. Previous cholecystectomy. Common bile duct is dilated to approximately 10 mm. This is unchanged. No intrahepatic bile duct dilatation. Negative spleen. No splenomegaly. Normal enhancement splenic and portal veins. Negative pancreas. No pancreatic mass. No peripancreatic abnormality. Negative adrenal glands. No adrenal mass. No hydronephrosis. There are right renal cysts which are stable. No detectable solid mass. Colon is negative. No significant diverticulosis. No evidence for diverticulitis. There is a lipoma at the ileocecal valve. No lumbar compression fracture. Sacrum and pelvis are negative. No sclerotic or lytic lesions. No retroperitoneal lymphadenopathy. No mesenteric adenopathy. No mechanical small bowel obstruction. No evidence for appendicitis. Incidental note is made of a probable suture line within the distal rectum. This is unchanged. No detectable mass. 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 Status post surgical removal of a left adnexal mass. 3 cm fluid density abnormalities in the left adnexa. Findings may represent residual mass, seroma, or early abscess. No gas bubbles or significant wall thickening or enhancement. 2. Trace free fluid within the pelvis 3. Previous cholecystectomy. Extrahepatic bile duct dilatation, stable Interpreted and Authenticated by: Jey Manning 04/03/17
[2017-04-03] MEDS: HYDROcodone/APAP 5/325MG TABLET PO PRN ×2 (15:33→21:39)
--- NOTE | 2017-04-03 16:33 | Internal Med Progress Note ---
Medical - PN: Subj Patient information: Note initiated : 04/03/17 at 4:29 pm Service Date, if different from initiated Date: [] Patient: Génesis Medina 82 y/o F admitted on 03/30/17 for Post Hysterectomy Pain , Dizziness/Hyponatremia. Chief Complaint: [] Interval history: March 30, 2017: History of present illness: Ms. Medina is a 82 year old female who was diagnosed recently with an adnexal mass. She underwent a complete hysterectomy in [place] less than 2 weeks ago. She says she just got home a few days ago. Today her family insisted that she come to the ER, because she has become more confused, and has been acting erratically. The patient complains that her brain will not work. She says she has been feeling dizzy and off balance. They told her at the hospital that she was dehydrated, so she has been drinking lots of water. In the emergency room she was found to have a very low sodium of 118. Her sodium was normal at 138 in November when she was last here. I do not yet have records from [place]. Otherwise, she denies fever or chills, headaches, new eye or ear symptoms, sore throat or cough. She denies swollen glands, chest pain or palpitations, shortness of breath or wheezing, abdominal pain, nausea or vomiting, diarrhea or constipation, dysuria. She does have some chronic incontinence of both bowel and bladder, since treatment for previous rectal cancer. March 31: Today, the patient says she is feeling definitely better than yesterday. She still is not 100%. Her and I note that her speech still seems a little bit slurred. She is still little wobbly on her feet, but was up with a 4 wheeled walker and 1 person assist in her room today. -Sodium is back to normal today. April 01: Today, physical therapy walks the patient in the gabriel, with a walker, for the first time. The patient says she is stronger than yesterday, but normally can walk at home without a walker. She still feels a little unsteady on her feet. When I entered her room later, she notes she has been having a fair amount of nausea. She does not think she is having increased abdominal pain, but says depending on how they position her in bed, her abdominal soreness from her surgery seems to flare a bit. She otherwise denies fever chills, headaches or dizziness, chest pain or palpitations or shortness of breath. -Blood pressures have been running a little high today. The patient believes her primary care physician had recently added a diuretic, but she did not know the name. April 02: Patient seen examined, seen later today after change of shifts by myself , as the patient was supposedly sleeping in the AM when Dr Pantoja was rounding. The patient notes of nausea no vomiting which is her main complaints, otherwise has some abdominal pain at the incision site. She feels she is back to her baseline. labs reviwed noted low MG, she is on mg supplements. her sodium is normal mild bump in wbc, cxr is neg, will monitor. still very weak April 03: patient seen examined, confused this AM, ovenight events noted, see event note for details, Pt had code stroke called for dyarthria, Pt CT head, CTA neck and head is reproted neg, tele neurologist reported not candidate for tpa, not candidate for interventional procedure. pt this AM was confused but could be awoken, her wbc count is trending up, cxr and ua ordered is negative, procalcitonin is negative. pt has pain in the abdomen, CT abdomen ordered, possible inflammatino vs early infection reported. family updated on the plan of care Pt reported that the patient has transient staring spells where going on for over 30 yrs and they have always thought that those are mini TIA. never been evaluted for possible seizures. Pertinent ROS: unable . - Constitutional Vitals: Vital Signs Temp Pulse Resp BP Pulse Ox 97.6 F 79 16 160/65 99 04/03/17 12:05 04/03/17 08:06 04/03/17 12:05 04/03/17 12:05 04/03/17 12:05 Period Temp Pulse Resp BP Sys/King Pulse Ox Last 24 Hr 97.1 F-98.6 F 71-98 16-18 131-196/64-93 94-100 Intake and Output 04/03/17 04/03/17 04/03/17 05:59 13:59 21:59 Intake Total 250 / 250 960 / 960 Output Total 3 / 3 300 / 300 1 / Balance 247 / 247 660 / 660 -1 / -1 Weight 116 lb Patient Weight 07/04/17 05:59 Weight 116 lb Intake & Output: Intake & Output 04/03/17 04/03/17 04/03/17 05:59 13:59 21:59 Intake Total 250 / 250 960 / 960 Output Total 3 3 300 / 300 Balance 247 / 247 660 / 660 - Weight 116 lb Intake: IV 50 / 50 Oral 200 / 200 960 / 960 Output: Urine Catheter Amount 300 / 300 # of times incontinent of urine Other: # Voids 1 Exam: Constitutional; Afebrile, drowsy, sleepy Eyes- No icterus, , No periorbital swelling Ears- Ext ear normal, hearing normal to conversation. Neck- Midline trachea, supple Respiratory system: Air Entry equal on both sides, No crackles or wheezing, no rhonchi. CVS- Rate reuglar, rrr, GI: diffuse tenderness, bs present, no organomegaly palpable. [employer]- AOOx1, moving all extremities, no gross focal deficit noted. Medical - PN: Obj Da - Labs CBC & Chem 7: 04/03/17 01:55 04/03/17 01:55 Labs: Abnormal Lab Results 04/03/17 04/03/17 04/03/17 04:46 01:55 01:55 WBC 14.8 H RBC Hgb 10.5 L Hct 32.4 L MCV RDW 16.9 H Plt Count 467 H Eos % (Auto) 7.8 H Gran # 9.0 H Eos # (Auto) 1.2 H Potassium Carbon Dioxide BUN 26 H Glucose 59 L Calcium Phosphorus Magnesium Total Protein Albumin Triglycerides Urine Protein 30 A Ur Leukocyte Esterase 25 A Urine WBC 11 H Urine Bacteria Few A 04/02/17 04/02/17 04/01/17 04:40 04:40 04:00 WBC 11.2 H RBC 3.50 L Hgb 9.3 L Hct 28.2 L MCV RDW 16.5 H Plt Count Eos % (Auto) 7.8 H Gran # Eos # (Auto) 0.9 H Potassium 5.6 H Carbon Dioxide 21 L 20 L BUN Glucose 157 H 126 H Calcium 8.0 L Phosphorus 2.4 L 1.8 L Magnesium 1.5 L Total Protein 5.7 L Albumin 2.8 L Triglycerides 196 H 288 H Urine Protein Ur Leukocyte Esterase Urine WBC Urine Bacteria 04/01/17 04:00 WBC RBC 3.38 L Hgb 9.0 L Hct 27.0 L MCV 79.8 L RDW 16.7 H Plt Count Eos % (Auto) Gran # Eos # (Auto) Potassium Carbon Dioxide BUN Glucose Calcium Phosphorus Magnesium Total Protein Albumin Triglycerides Urine Protein Ur Leukocyte Esterase Urine WBC Urine Bacteria Meds: Medications Acetaminophen (Tylenol) 650 mg PO Q6HP PRN PRN Reason: PAIN/FEVER > 101 Hydrocodone Bitart/Acetaminophen ([place] 5/325mg) 1 tab PO Q4HP PRN PRN Reason: Pain Last Admin: 04/03/17 15:33 Dose: 1 tab Amlodipine Besylate (Norvasc) 2.5 mg PO BID [facility] Last Admin: 04/03/17 10:10 Dose: 2.5 mg Clopidogrel Bisulfate (Plavix) 75 mg PO DAILY [facility] Last Admin: 04/03/17 10:11 Dose: 75 mg Collagenase (Santyl Top Oint) 1 dose TOPICAL DAILY [facility] Last Admin: 04/03/17 10:19 Dose: Not Given Dextrose (Dextrose 50%) 0 ml IV UD PRN PRN Reason: Hypoglycemia Diagnostic Test (Pha) (Accu-Chek) 1 each FS ACHS [facility] Last Admin: 04/03/17 12:17 Dose: 1 each Docusate Sodium (Colace) 100 mg PO BID PRN PRN Reason: Constipation Heparin Sodium (Porcine) (Heparin) 5,000 unit SQ Q12 [facility] Last Admin: 04/03/17 10:10 Dose: 5,000 unit Hydrochlorothiazide (Oretic) 12.5 mg PO DAILY [facility] Last Admin: 04/03/17 10:10 Dose: 12.5 mg Insulin Glargine (Lantus) 20 unit SQ HS [facility] Insulin Human Lispro (Humalog) 0 unit SQ ACHS [facility] PRN Reason: Protocol Last Admin: 04/03/17 12:17 Dose: Not Given Levothyroxine Sodium (Synthroid) 125 mcg PO QAMAC [facility] Last Admin: 04/03/17 08:01 Dose: 125 mcg Lisinopril (Zestril) 20 mg PO BID [facility] Last Admin: 04/03/17 10:19 Dose: 20 mg Lorazepam (Ativan) 0.5 mg PO HSP PRN PRN Reason: Sleep Magnesium Hydroxide (Milk Of Magnesia) 30 ml PO DAILYP PRN PRN Reason: Constipation Magnesium Oxide (Magnesium Oxide) 400 mg PO DAILY [facility] Last Admin: 04/03/17 10:10 Dose: 400 mg Metoprolol Tartrate (Lopressor) 25 mg PO BID [facility] Last Admin: 04/03/17 10:10 Dose: 25 mg Naloxone HCl (Narcan) 0.1 mg IV Q2MIN PRN PRN Reason: Opiate Reversal Pantoprazole Sodium (Protonix) 40 mg PO QAMAC [facility] Last Admin: 04/03/17 08:01 Dose: 40 mg Promethazine HCl (Phenergan) 12.5 mg IV Q4-6HP PRN PRN Reason: Nausea And Vomiting Simvastatin (Zocor) 20 mg PO [facility] Tolterodine Tartrate (Detrol La) 4 mg PO DAILY [facility] Last Admin: 04/03/17 10:41 Dose: 4 mg Medical - PN: A/P - Time Spent With Patient Total time spent is greater than 50% in coordination of care (as documented) at patient's floor/unit and/or counseling patient: - Narrative A/P Narrative: A/P Narrative: Altered Mental status: Thought to be due to hyponatremia, which had resolved, pt mental status had improved but now she is back to being altered. Etiology? seizure disorder, TIA/ CVA vs infectious process. workup neg so far will get EEG ordered PT hyponatremia seems to be corrected fast, if no other source noted ,will get MRI head to look for central pontine myelinosis. Na is stable Hyponatremia: could be from post op pain, as well as excess water consumption. Nausea: Post Op, resolved. DM- Glucose was low, dose of metformin and lantus cut back due to npo status. TIA: on plavix and statin, HTN on GENE, continue same, Anxiety and Depression: not on sertraline, ativan prn. Hypomagnesemia, replaced DVT hep sq, DIet NPO till ST clears patient DNR Medical - PN: Qual - VTE Deep Vein Thrombosis/Pulmonary Embolism Present on Admission: No
[2017-04-03] MEDS: DEXTROSE 5%-1/2NS W/20MEQ KCL 1,000 ML IV SCH (18:02)
[2017-04-03] MEDS: SIMVASTATIN 20 MG TABLET PO SCH (21:39)
[2017-04-04 06:01] LABS: Basophils # (Auto) 0 K/mcL (0.0-0.3); Basophils % (Auto) 0.3 % (0.0-2.0); Eosinophils # (Auto) 1.2 K/mcL (0.0-0.7); Granulocytes % (Auto) 66.5 % (38.0-78.0); Lymphocytes # (Auto) 2.7 K/mcL (1.5-4.8); Lymphocytes % (Auto) 20.8 % (15.5-49.0); Mean Corpuscular HGB Conc 32.9 g/dL (31.0-36.0); Mean Corpuscular Hemoglobin 26.3 pg (26.0-34.0); Monocytes # (Auto) 0.4 K/mcL (0.1-0.9); Monocytes % (Auto) 3.4 % (1.0-12.0); Platelet Count 443 K/mcL (140-440); RBC 3.62 M/mcL (4.00-5.20); Red Cell Distribution Width 16.5 % (11.5-14.5)
[2017-04-04 06:23] LABS: ALT/SGPT 9 U/l (0-40); Albumin 3.2 gm/dL (3.2-5.2); Albumin/Globulin Ratio 1.1 (1.0-2.3); Alkaline Phosphatase 85 U/L (39-117); Bilirubin,Direct < 0.2 mg/dL (0.0-0.3); Blood Urea Nitrogen 22 mg/dl (8-23); Gamma Glutamyl Transpeptidase 9 U/L (5-36); Uric Acid 6.1 mg/dL (2.5-8.0)
[2017-04-04] MEDS: METOPROLOL TARTRATE 25 MG TABLET PO SCH ×2 (09:19→20:43)
[2017-04-04] MEDS: amLODIPine 5 MG TABLET PO SCH ×2 (09:19→20:43)
[2017-04-04] MEDS: LISINOPRIL 20 MG TABLET PO SCH ×2 (09:19→20:43)
[2017-04-04] MEDS: CLOPIDOGREL 75 MG TABLET PO SCH (09:20)
[2017-04-04] MEDS: LEVOTHYROXINE 125 MCG TABLET PO SCH (09:20)
[2017-04-04] MEDS: HYDROCHLOROTHIAZIDE 12.5 MG CAPSULE PO SCH (09:20)
[2017-04-04] MEDS: MAGNESIUM OXIDE 400 MG TABLET PO SCH (09:20)
[2017-04-04] MEDS: PANTOPRAZOLE 40 MG TABLET PO SCH (09:20)
[2017-04-04] MEDS: TOLTERODINE 2 MG CAP.XL.24H PO SCH (09:21)
[2017-04-04] MEDS: HEPARIN 5,000 UNIT/ML VIAL SQ SCH ×2 (09:21→20:45)
[2017-04-04] MEDS: INSULIN LISPRO 1 UNIT/0.01 ML UNIT SQ SCH ×4 (09:22→20:55)
[2017-04-04] MEDS: COLLAGENASE TOP OINT TUBE 30GM TOPICAL SCH (09:22)
[2017-04-04] MEDS ORDERED: VANCOMYCIN PER PHARMACY IV SCH (09:35)
[2017-04-04] MEDS ORDERED: VANCOMYCIN 750 MG in 0.9 % SODIUM CHLORIDE 250 ML IV ONE (10:00)
--- NOTE | 2017-04-04 15:37 | Internal Med Progress Note ---
Medical - PN: Subj Patient information: Note initiated : 04/04/17 at 3:34 pm Service Date, if different from initiated Date: [] Patient: Génesis Medina 82 y/o F admitted on 03/30/17 for Post Hysterectomy Pain , Dizziness/Hyponatremia. Chief Complaint: [] Interval history: March 30, 2017: History of present illness: Ms. Medina is a 82 year old female who was diagnosed recently with an adnexal mass. She underwent a complete hysterectomy in [place] less than 2 weeks ago. She says she just got home a few days ago. Today her family insisted that she come to the ER, because she has become more confused, and has been acting erratically. The patient complains that her brain will not work. She says she has been feeling dizzy and off balance. They told her at the hospital that she was dehydrated, so she has been drinking lots of water. In the emergency room she was found to have a very low sodium of 118. Her sodium was normal at 138 in November when she was last here. I do not yet have records from [place]. Otherwise, she denies fever or chills, headaches, new eye or ear symptoms, sore throat or cough. She denies swollen glands, chest pain or palpitations, shortness of breath or wheezing, abdominal pain, nausea or vomiting, diarrhea or constipation, dysuria. She does have some chronic incontinence of both bowel and bladder, since treatment for previous rectal cancer. March 31: Today, the patient says she is feeling definitely better than yesterday. She still is not 100%. Her and I note that her speech still seems a little bit slurred. She is still little wobbly on her feet, but was up with a 4 wheeled walker and 1 person assist in her room today. -Sodium is back to normal today. April 01: Today, physical therapy walks the patient in the [place], with a walker, for the first time. The patient says she is stronger than yesterday, but normally can walk at home without a walker. She still feels a little unsteady on her feet. When I entered her room later, she notes she has been having a fair amount of nausea. She does not think she is having increased abdominal pain, but says depending on how they position her in bed, her abdominal soreness from her surgery seems to flare a bit. She otherwise denies fever chills, headaches or dizziness, chest pain or palpitations or shortness of breath. -Blood pressures have been running a little high today. The patient believes her primary care physician had recently added a diuretic, but she did not know the name. April 02: Patient seen examined, seen later today after change of shifts by myself , as the patient was supposedly sleeping in the AM when Dr Pantoja was rounding. The patient notes of nausea no vomiting which is her main complaints, otherwise has some abdominal pain at the incision site. She feels she is back to her baseline. labs reviwed noted low MG, she is on mg supplements. her sodium is normal mild bump in wbc, cxr is neg, will monitor. still very weak April 03: patient seen examined, confused this AM, ovenight events noted, see event note for details, Pt had code stroke called for dyarthria, Pt CT head, CTA neck and head is reproted neg, tele neurologist reported not candidate for tpa, not candidate for interventional procedure. pt this AM was confused but could be awoken, her wbc count is trending up, cxr and ua ordered is negative, procalcitonin is negative. pt has pain in the abdomen, CT abdomen ordered, possible inflammatino vs early infection reported. family updated on the plan of care Pt reported that the patient has transient staring spells where going on for over 30 yrs and they have always thought that those are mini TIA. never been evaluted for possible seizures. April 04: pt seen examined, seems much better today, sitting in chair and eating breakfast, denies any acute complaints urine cx noted to be growing enterococcus, started on vanco no new issues. no confustion, wbc is tending down. Na is 128, d5/ 0.45 ns stopped as pt is tolerating po well. Pertinent ROS: Denies headache, dizziness Denies chest pain, palpitations Denies cough or shortness of breath Denies abdominal pain, nausea or vomiting. - Constitutional Vitals: Vital Signs Temp Pulse Resp BP Pulse Ox 97.4 F 77 16 142/85 98 04/04/17 04:00 04/04/17 12:13 04/04/17 12:13 04/04/17 12:13 04/04/17 12:13 Period Temp Pulse Resp BP Sys/King Pulse Ox Last 24 Hr 97.4 F-99.9 F 77-104 16-24 128-188/50-85 95-100 Intake and Output 04/04/17 04/04/17 04/04/17 05:59 13:59 21:59 Intake Total 300 / 300 320 / 320 Output Total 3 / 3 Balance 300 / 300 317 / 317 Intake & Output: Intake & Output 04/04/17 04/04/17 04/04/17 05:59 13:59 21:59 Intake Total 300 / 300 320 / 320 Output Total 3 / 3 Balance 300 / 300 317 / 317 Intake: Oral 300 / 300 320 / 320 Output: # of times incontinent of 3 / 3 urine Other: Meal Breakfast Percent of Meal Consumed 90 Feeding Ability Independent # Voids 1 4 # of times incontinent of 1 Bowels Exam: Constitutional; Afebrile, cooperative, alert, not in distress. Eyes- No icterus, , No periorbital swelling Ears- Ext ear normal, hearing normal to conversation. Neck- Midline trachea, supple Respiratory system: Air Entry equal on both sides, No crackles or wheezing, no rhonchi. CVS- Rate rhythm regular, S1,S2 heard, no gallop, no rub. Abdomen- Soft nontender abdomen, no organomegaly, no tenderness, no guarding or rigidity, [employer]- AOOx2, moving all extremities, no gross focal deficit noted. Medical - PN: Obj Da - Labs CBC & Chem 7: 04/04/17 04:50 04/04/17 04:50 Labs: Abnormal Lab Results 04/04/17 04/04/17 04/03/17 04:50 04:50 04:46 WBC 13.0 H RBC 3.62 L Hgb 9.5 L Hct 29.0 L RDW 16.5 H Plt Count 443 H Eos % (Auto) 9.0 H Gran # 8.6 H Eos # (Auto) 1.2 H Sodium 128 L Chloride 94 L Carbon Dioxide BUN Glucose Phosphorus Magnesium Triglycerides 195 H Urine Protein 30 A Ur Leukocyte Esterase 25 A Urine WBC 11 H Urine Bacteria Few A 04/03/17 04/03/17 04/02/17 01:55 01:55 04:40 WBC 14.8 H RBC Hgb 10.5 L Hct 32.4 L RDW 16.9 H Plt Count 467 H Eos % (Auto) 7.8 H Gran # 9.0 H Eos # (Auto) 1.2 H Sodium Chloride Carbon Dioxide 21 L BUN 26 H Glucose 59 L 157 H Phosphorus 2.4 L Magnesium 1.5 L Triglycerides 196 H Urine Protein Ur Leukocyte Esterase Urine WBC Urine Bacteria 04/02/17 04:40 WBC 11.2 H RBC 3.50 L Hgb 9.3 L Hct 28.2 L RDW 16.5 H Plt Count Eos % (Auto) 7.8 H Gran # Eos # (Auto) 0.9 H Sodium Chloride Carbon Dioxide BUN Glucose Phosphorus Magnesium Triglycerides Urine Protein Ur Leukocyte Esterase Urine WBC Urine Bacteria Meds: Medications Acetaminophen (Tylenol) 650 mg PO Q6HP PRN PRN Reason: PAIN/FEVER > 101 Hydrocodone Bitart/Acetaminophen ([place] 5/325mg) 1 tab PO Q4HP PRN PRN Reason: Pain Last Admin: 04/03/17 21:39 Dose: 1 tab Amlodipine Besylate (Norvasc) 2.5 mg PO BID [facility] Last Admin: 04/04/17 09:19 Dose: 2.5 mg Clopidogrel Bisulfate (Plavix) 75 mg PO DAILY [facility] Last Admin: 04/04/17 09:20 Dose: 75 mg Collagenase (Santyl Top Oint) 1 dose TOPICAL DAILY [facility] Last Admin: 04/04/17 09:22 Dose: Not Given Dextrose (Dextrose 50%) 0 ml IV UD PRN PRN Reason: Hypoglycemia Diagnostic Test (Pha) (Accu-Chek) 1 each FS ACHS [facility] Last Admin: 04/04/17 14:42 Dose: 1 each Docusate Sodium (Colace) 100 mg PO BID PRN PRN Reason: Constipation Heparin Sodium (Porcine) (Heparin) 5,000 unit SQ Q12 [facility] Last Admin: 04/04/17 09:21 Dose: 5,000 unit Hydrochlorothiazide (Oretic) 12.5 mg PO DAILY [facility] Last Admin: 04/04/17 09:20 Dose: 12.5 mg Insulin Glargine (Lantus) 20 unit SQ HS [facility] Insulin Human Lispro (Humalog) 0 unit SQ ACHS [facility] PRN Reason: Protocol Last Admin: 04/04/17 14:43 Dose: 4 unit Levothyroxine Sodium (Synthroid) 125 mcg PO QAMAC [facility] Last Admin: 07/04/17 09:20 Dose: 125 mcg Lisinopril (Zestril) 20 mg PO BID [facility] Last Admin: 04/04/17 09:19 Dose: 20 mg Lorazepam (Ativan) 0.5 mg PO HSP PRN PRN Reason: Sleep Last Admin: 04/03/17 18:29 Dose: 0.5 mg Magnesium Hydroxide (Milk Of Magnesia) 30 ml PO DAILYP PRN PRN Reason: Constipation Magnesium Oxide (Magnesium Oxide) 400 mg PO DAILY [facility] Last Admin: 04/04/17 09:20 Dose: 400 mg Metoprolol Tartrate (Lopressor) 25 mg PO BID [facility] Last Admin: 04/04/17 09:19 Dose: 25 mg Naloxone HCl (Narcan) 0.1 mg IV Q2MIN PRN PRN Reason: Opiate Reversal Pantoprazole Sodium (Protonix) 40 mg PO QAMAC [facility] Last Admin: 04/04/17 09:20 Dose: 40 mg Promethazine HCl (Phenergan) 12.5 mg IV Q4-6HP PRN PRN Reason: Nausea And Vomiting Simvastatin (Zocor) 20 mg PO HS [facility] Last Admin: 04/03/17 21:39 Dose: 20 mg Tolterodine Tartrate (Detrol La) 4 mg PO DAILY [facility] Last Admin: 04/04/17 09:21 Dose: 4 mg Vancomycin HCl (Vancomycin Per Pharmacy) 1 order IV UD [facility] Medical - PN: A/P - Time Spent With Patient Total time spent is greater than 50% in coordination of care (as documented) at patient's floor/unit and/or counseling patient: - Narrative A/P Narrative: A/P Narrative: Altered Mental status: Thought to be due to hyponatremia, which had resolved, pt mental status had improved but now she is back to being altered. Etiology? seizure disorder, TIA/ CVA vs infectious process. workup neg so far will get EEG ordered. Patient mental status improved again. Enterococcus UTI. : on vanco for now, till sensitivites are back. Hyponatremia: could be from post op pain, as well as excess water consumption. 128 today due to use of d5 half ns, stopped as pt is toleating po now. Nausea: Post Op, resolved. DM- Glucose was low, dose of metformin and lantus cut back due to npo status. TIA: on plavix and statin, HTN on GENE, continue same, Anxiety and Depression: not on sertraline, ativan prn. Hypomagnesemia, replaced DVT hep sq, Diet dysphagia 2 diet. DNR Medical - PN: Qual - VTE Deep Vein Thrombosis/Pulmonary Embolism Present on Admission: No
[2017-04-04] MEDS: DEXTROSE 5%-1/2NS W/20MEQ KCL 1,000 ML IV SCH (16:36)
[2017-04-04] MEDS: SIMVASTATIN 20 MG TABLET PO SCH (20:43)
[2017-04-04] MEDS ORDERED: INSULIN GLARGINE, HUMAN 1 UNIT/0.01 ML SQ SCH ×2 (21:00)
[2017-04-05 05:58] LABS: Basophils # (Auto) 0.1 K/mcL (0.0-0.3); Basophils % (Auto) 0.7 % (0.0-2.0); Eosinophils # (Auto) 1.3 K/mcL (0.0-0.7); Eosinophils % (Auto) 11.2 % (0.0-7.0); Granulocytes % (Auto) 62.6 % (38.0-78.0); Lymphocytes # (Auto) 2.5 K/mcL (1.5-4.8); Lymphocytes % (Auto) 22.1 % (15.5-49.0); Mean Cell Volume 80.9 fL (80.0-100.0); Mean Corpuscular HGB Conc 32.4 g/dL (31.0-36.0); Mean Corpuscular Hemoglobin 26.2 pg (26.0-34.0); Monocytes # (Auto) 0.4 K/mcL (0.1-0.9); Monocytes % (Auto) 3.4 % (1.0-12.0); Platelet Count 402 K/mcL (140-440); RBC 3.67 M/mcL (4.00-5.20); Red Cell Distribution Width 16.6 % (11.5-14.5)
[2017-04-05 06:42] LABS: ALT/SGPT 10 U/l (0-40); Albumin 3.1 gm/dL (3.2-5.2); Alkaline Phosphatase 93 U/L (39-117); Bilirubin,Direct < 0.2 mg/dL (0.0-0.3); Blood Urea Nitrogen 23 mg/dl (8-23); Gamma Glutamyl Transpeptidase 9 U/L (5-36); Magnesium 1.8 mg/dL (1.6-2.5); Uric Acid 5.6 mg/dL (2.5-8.0)
[2017-04-05 09:14] LABS: Vancomycin,Random 6.7 ug/ml
[2017-04-05] MEDS: LISINOPRIL 20 MG TABLET PO SCH ×2 (10:16→20:24)
[2017-04-05] MEDS: HYDROCHLOROTHIAZIDE 12.5 MG CAPSULE PO SCH (10:16)
[2017-04-05] MEDS: LEVOTHYROXINE 125 MCG TABLET PO SCH (10:17)
[2017-04-05] MEDS: METOPROLOL TARTRATE 25 MG TABLET PO SCH ×2 (10:17→20:23)
[2017-04-05] MEDS: amLODIPine 5 MG TABLET PO SCH ×2 (10:17→20:24)
[2017-04-05] MEDS: CLOPIDOGREL 75 MG TABLET PO SCH (10:18)
[2017-04-05] MEDS: HEPARIN 5,000 UNIT/ML VIAL SQ SCH ×2 (10:18→20:23)
[2017-04-05] MEDS: TOLTERODINE 2 MG CAP.XL.24H PO SCH (10:19)
[2017-04-05] MEDS: PANTOPRAZOLE 40 MG TABLET PO SCH (10:19)
[2017-04-05] MEDS: INSULIN LISPRO 1 UNIT/0.01 ML UNIT SQ SCH ×4 (10:20→20:34)
[2017-04-05] MEDS ORDERED: VANCOMYCIN 750 MG in 0.9 % SODIUM CHLORIDE 250 ML IV SCH (12:00)
[2017-04-05] MEDS: MAGNESIUM OXIDE 400 MG TABLET PO SCH (12:21)
[2017-04-05] MEDS: COLLAGENASE TOP OINT TUBE 30GM TOPICAL SCH (12:22)
--- NOTE | 2017-04-05 14:41 | Internal Med Progress Note ---
Medical - PN: Subj Patient information: Note initiated : 04/05/17 at 2:39 pm Service Date, if different from initiated Date: [] Patient: Génesis Medina 82 y/o F admitted on 03/30/17 for Post Hysterectomy Pain , Dizziness/Hyponatremia. Chief Complaint: [] Interval history: March 30, 2017: History of present illness: Ms. Medina is a 82 year old female who was diagnosed recently with an adnexal mass. She underwent a complete hysterectomy in [place] less than 2 weeks ago. She says she just got home a few days ago. Today her family insisted that she come to the ER, because she has become more confused, and has been acting erratically. The patient complains that her brain will not work. She says she has been feeling dizzy and off balance. They told her at the hospital that she was dehydrated, so she has been drinking lots of water. In the emergency room she was found to have a very low sodium of 118. Her sodium was normal at 138 in November when she was last here. I do not yet have records from [place]. Otherwise, she denies fever or chills, headaches, new eye or ear symptoms, sore throat or cough. She denies swollen glands, chest pain or palpitations, shortness of breath or wheezing, abdominal pain, nausea or vomiting, diarrhea or constipation, dysuria. She does have some chronic incontinence of both bowel and bladder, since treatment for previous rectal cancer. March 31: Today, the patient says she is feeling definitely better than yesterday. She still is not 100%. Her and I note that her speech still seems a little bit slurred. She is still little wobbly on her feet, but was up with a 4 wheeled walker and 1 person assist in her room today. -Sodium is back to normal today. April 01: Today, physical therapy walks the patient in the [place], with a walker, for the first time. The patient says she is stronger than yesterday, but normally can walk at home without a walker. She still feels a little unsteady on her feet. When I entered her room later, she notes she has been having a fair amount of nausea. She does not think she is having increased abdominal pain, but says depending on how they position her in bed, her abdominal soreness from her surgery seems to flare a bit. She otherwise denies fever chills, headaches or dizziness, chest pain or palpitations or shortness of breath. -Blood pressures have been running a little high today. The patient believes her primary care physician had recently added a diuretic, but she did not know the name. April 02: Patient seen examined, seen later today after change of shifts by myself , as the patient was supposedly sleeping in the AM when Dr Pantoja was rounding. The patient notes of nausea no vomiting which is her main complaints, otherwise has some abdominal pain at the incision site. She feels she is back to her baseline. labs reviwed noted low MG, she is on mg supplements. her sodium is normal mild bump in wbc, cxr is neg, will monitor. still very weak April 03: patient seen examined, confused this AM, ovenight events noted, see event note for details, Pt had code stroke called for dyarthria, Pt CT head, CTA neck and head is reproted neg, tele neurologist reported not candidate for tpa, not candidate for interventional procedure. pt this AM was confused but could be awoken, her wbc count is trending up, cxr and ua ordered is negative, procalcitonin is negative. pt has pain in the abdomen, CT abdomen ordered, possible inflammatino vs early infection reported. family updated on the plan of care Pt reported that the patient has transient staring spells where going on for over 30 yrs and they have always thought that those are mini TIA. never been evaluted for possible seizures. April 04: pt seen examined, seems much better today, sitting in chair and eating breakfast, denies any acute complaints urine cx noted to be growing enterococcus, started on vanco no new issues. no confustion, wbc is tending down. Na is 128, d5/ 0.45 ns stopped as pt is tolerating po well. April 05, Pt seen examined, no acute ovenright events, eeg done, this AM awaiting reading, no abnormal episodes, has some confustion intermittnetly but does not seem like seizures. There was some concern yesterday that she may have had a spell again the night before, but on reviewing the notes and talking with the staff, it seems more like confusion likely from delirium than a seziure spell or TIA like spell Na is 132 today Pertinent ROS: Denies headache, dizziness Denies chest pain, palpitations Denies cough or shortness of breath Denies abdominal pain, nausea or vomiting. - Constitutional Vitals: Vital Signs Temp Pulse Resp BP Pulse Ox 97.9 F 78 18 131/49 99 04/05/17 12:00 04/05/17 12:00 04/05/17 12:00 04/05/17 12:00 04/05/17 12:00 Period Temp Pulse Resp BP Sys/King Pulse Ox Last 24 Hr 96.9 F-98.8 F 73-84 16-20 131-168/49-80 96-100 Intake and Output 04/05/17 04/05/17 04/05/17 05:59 13:59 21:59 Intake Total 50 / 50 Balance 50 / 50 Intake & Output: Intake & Output 04/05/17 04/05/17 04/05/17 05:59 13:59 21:59 Intake Total 50 / 50 Balance 50 / 50 Intake: Oral 50 / 50 Other: # Voids 1 1 # Bowel Movements 1 Exam: Constitutional; Afebrile, cooperative, alert, not in distress. Eyes- No icterus, , No periorbital swelling Ears- Ext ear normal, hearing normal to conversation. Neck- Midline trachea, supple Respiratory system: Air Entry equal on both sides, No crackles or wheezing, no rhonchi. CVS- Rate rhythm regular, S1,S2 heard, no gallop, no rub. Abdomen- Soft nontender abdomen, no organomegaly, no tenderness, no guarding or rigidity, ASSEMBLER INSTALLER STRUCTURES- AOOx2, moving all extremities, no gross focal deficit noted. Medical - PN: Obj Da - Labs CBC & Chem 7: 04/05/17 04:10 04/05/17 04:10 Labs: Abnormal Lab Results 04/05/17 04/05/17 04/04/17 04:10 04:10 04:50 WBC 11.3 H RBC 3.67 L Hgb 9.6 L Hct 29.7 L RDW 16.6 H Plt Count Eos % (Auto) 11.2 H Gran # Eos # (Auto) 1.3 H Sodium 132 L 128 L Chloride 94 L BUN Glucose 152 H Albumin 3.1 L Triglycerides 171 H 195 H Urine Protein Ur Leukocyte Esterase Urine WBC Urine Bacteria 04/04/17 04/03/17 04/03/17 04:50 04:46 01:55 WBC 13.0 H RBC 3.62 L Hgb 9.5 L Hct 29.0 L RDW 16.5 H Plt Count 443 H Eos % (Auto) 9.0 H Gran # 8.6 H Eos # (Auto) 1.2 H Sodium Chloride BUN 26 H Glucose 59 L Albumin Triglycerides Urine Protein 30 A Ur Leukocyte Esterase 25 A Urine WBC 11 H Urine Bacteria Few A 04/03/17 01:55 WBC 14.8 H RBC Hgb 10.5 L Hct 32.4 L RDW 16.9 H Plt Count 467 H Eos % (Auto) 7.8 H Gran # 9.0 H Eos # (Auto) 1.2 H Sodium Chloride BUN Glucose Albumin Triglycerides Urine Protein Ur Leukocyte Esterase Urine WBC Urine Bacteria Meds: Medications Acetaminophen (Tylenol) 650 mg PO Q6HP PRN PRN Reason: PAIN/FEVER > 101 Hydrocodone Bitart/Acetaminophen ([place] 5/325mg) 1 tab PO Q4HP PRN PRN Reason: Pain Last Admin: 04/03/17 21:39 Dose: 1 tab Amlodipine Besylate (Norvasc) 2.5 mg PO BID [facility] Last Admin: 04/05/17 10:17 Dose: 2.5 mg Clopidogrel Bisulfate (Plavix) 75 mg PO DAILY [facility] Last Admin: 04/05/17 10:18 Dose: 75 mg Collagenase (Santyl Top Oint) 1 dose TOPICAL DAILY [facility] Last Admin: 04/05/17 12:22 Dose: Not Given Dextrose (Dextrose 50%) 0 ml IV UD PRN PRN Reason: Hypoglycemia Diagnostic Test (Pha) (Accu-Chek) 1 each FS ACHS [facility] Last Admin: 04/05/17 07:30 Dose: 1 each Docusate Sodium (Colace) 100 mg PO BID PRN PRN Reason: Constipation Heparin Sodium (Porcine) (Heparin) 5,000 unit SQ Q12 [facility] Last Admin: 04/05/17 10:18 Dose: 5,000 unit Hydrochlorothiazide (Oretic) 12.5 mg PO DAILY [facility] Last Admin: 04/05/17 10:16 Dose: 12.5 mg Vancomycin HCl 750 mg/ Sodium (Chloride) 250 mls @ 250 mls/hr IV Q24H [facility] Last Admin: 04/05/17 12:22 Dose: 250 mls/hr Insulin Glargine (Lantus) 20 unit SQ [facility] Last Admin: 04/04/17 20:57 Dose: 20 unit Insulin Human Lispro (Humalog) 0 unit SQ [facility] PRN Reason: Protocol Last Admin: 04/05/17 10:20 Dose: Not Given Levothyroxine [facility]throid) [facility] Admin: 04/05/17 10:17 Dose: 125 mcg Lisinopril (Zestril) 20 mg PO BID [facility] Last Admin: 04/05/17 10:16 Dose: 20 mg Lorazepam (Ativan) 0.5 mg PO HSP PRN PRN Reason: Sleep Last Admin: 04/03/17 18:29 Dose: 0.5 mg Magnesium Hydroxide (Milk Of Magnesia) 30 ml PO DAILYP PRN PRN Reason: Constipation Magnesium Oxide (Magnesium Oxide) 400 mg PO DAILY [facility] Last Admin: 04/05/17 12:21 Dose: 400 mg Metoprolol Tartrate (Lopressor) 25 mg PO BID [facility] Last Admin: 04/05/17 10:17 Dose: 25 mg Naloxone HCl (Narcan) 0.1 mg IV Q2MIN PRN PRN Reason: Opiate Reversal Pantoprazole Sodium (Protonix) 40 mg PO [facility] Last Admin: 04/05/17 10:19 Dose: 40 mg Promethazine HCl (Phenergan) 12.5 mg IV Q4-6HP PRN PRN Reason: Nausea And Vomiting Simvastatin (Zocor) 20 mg PO [facility] Last Admin: 04/04/17 20:43 Dose: 20 mg Tolterodine Tartrate (Detrol La) 4 mg PO DAILY [facility] Last Admin: 04/05/17 10:19 Dose: 4 mg Vancomycin HCl (Vancomycin Per Pharmacy) 1 order IV [facility] Medical - PN: A/P - Time Spent With Patient Total time spent is greater than 50% in coordination of care (as documented) at patient's floor/unit and/or counseling patient: - Narrative A/P Narrative: A/P Narrative: Altered Mental status: Thought to be due to hyponatremia, which had resolved, pt mental status had improved but now she is back to being altered. Etiology? seizure disorder, TIA/ CVA vs infectious process. workup neg so far, EEG report pending. Patient mental status improved again and she has had no issues x 2 days except some delirum Enterococcus UTI. : on vanco for now, alfonso sensitive, will d/c on amox tomorrow. Hyponatremia: resolved, today is 132, due to post op pain and excessive consumption of water. Nausea: Post Op, resolved. DM- Glucose high after resumption of diet. on metformin, increase lantus to 25 units and monitor. TIA/ Atherosclerosis: on plavix and statin, HTN on GENE, continue same, Anxiety and Depression: not on sertraline, ativan prn. Hypomagnesemia, replaced DVT hep sq, Diet dysphagia 2 diet. DNR Medical - PN: Qual - VTE Deep Vein Thrombosis/Pulmonary Embolism Present on Admission: No
[2017-04-05] MEDS: SIMVASTATIN 20 MG TABLET PO SCH (20:23)
[2017-04-05] MEDS: HYDROcodone/APAP 5/325MG TABLET PO PRN (20:23)
[2017-04-05] MEDS: LORazepam 0.5 MG TABLET PO PRN (20:24)
[2017-04-05] MEDS ORDERED: INSULIN GLARGINE, HUMAN 1 UNIT/0.01 ML SQ SCH (21:00)
[2017-04-06] MEDS: HYDROcodone/APAP 5/325MG TABLET PO PRN (00:09)
[2017-04-06] MEDS: PANTOPRAZOLE 40 MG TABLET PO SCH (07:32)
[2017-04-06] MEDS: LEVOTHYROXINE 125 MCG TABLET PO SCH (07:32)
[2017-04-06] MEDS: INSULIN LISPRO 1 UNIT/0.01 ML UNIT SQ SCH (07:37)
[2017-04-06] MEDS: TOLTERODINE 2 MG CAP.XL.24H PO SCH (09:23)
[2017-04-06] MEDS: HYDROCHLOROTHIAZIDE 12.5 MG CAPSULE PO SCH (09:23)
[2017-04-06] MEDS: amLODIPine 5 MG TABLET PO SCH (09:24)
[2017-04-06] MEDS: METOPROLOL TARTRATE 25 MG TABLET PO SCH (09:24)
[2017-04-06] MEDS: LISINOPRIL 20 MG TABLET PO SCH (09:24)
[2017-04-06] MEDS: HEPARIN 5,000 UNIT/ML VIAL SQ SCH (09:24)
[2017-04-06] MEDS: CLOPIDOGREL 75 MG TABLET PO SCH (09:24)
[2017-04-06] MEDS: MAGNESIUM OXIDE 400 MG TABLET PO SCH (09:24)
[2017-04-06] MEDS: COLLAGENASE TOP OINT TUBE 30GM TOPICAL SCH (09:25)
--- NOTE | 2017-04-06 09:47 | Discharge Summary ---
Medical - DS: Prov Patient information: Note initiated : 04/06/17 at 9:44 am Service Date, if different from initiated Date: [] Patient: Génesis Medina 82 y/o F admitted on 03/30/17 for Post Hysterectomy Pain , Dizziness/Hyponatremia. Chief Complaint: [] Date of admission: 03/30/17 18:26 Discharge date: 04/06/17 Primary care physician: Nedra Tanner Admitting clinician: Ann Fair Consults: 04/05/17 12:01 Consult to Physician [CONS] Routine Comment: Consulting Provider: [facility] Reason For Exam: Physician to Consult Discharging clinician: Renetta Babcock Medical - DS: Meds - Discharge Medications Prescriptions: Amoxicillin/Potassium Clav [Augmentin] 875 mg PO Q12H #10 tablet HYDROcodone/APAP 5/325MG [[place] 5/325Mg] 1 tab PO Q6 PRN #30 tablet PRN Reason: Pain LORazepam [Ativan] 0.5 mg PO HSP PRN #30 PRN Reason: Sleep Active and Home Medications: Home Medications Clopidogrel Bisulfate [Plavix] 75 mg PO DAILY 10/28/16 [History Confirmed Last Taken 11/07/16] Insulin Glargine, Human [Lantus] 25 unit SQ HS 10/28/16 [History Confirmed 03/30 Last Taken Unknown] Levothyroxine [Synthroid] 125 mcg PO DAILY 10/28/16 [History Confirmed 03/30/17 Last Taken 11/07/16] Metoprolol Tartrate [Lopressor] 25 mg PO BID 10/28/16 [History Confirmed Last Taken 11/07/16] Omeprazole [Prilosec] 20 mg PO DAILY 10/28/16 [History Confirmed 03/30/17 Last Taken Unknown] Simvastatin [Zocor] 40 mg PO HS 10/28/16 [History Confirmed 03/30/17 Last Taken 11/07/16] Tolterodine Tartrate [Detrol LA] 4 mg PO DAILY 10/29/16 [History Confirmed 03/30 Last Taken 11/07/16] Collagenase Top Oint [Santyl Top Oint] 1 dose TOPICAL DAILY tube 11/19/16 [Rx Confirmed 03/30/17 Last Taken Unknown] HYDROcodone/APAP 5/325MG [Fountain 5/325Mg] 1 tab PO Q6 PRN #30 tablet 11/19/16 [ Rx Confirmed 03/30/17 Last Taken Unknown] metFORMIN [Glucophage] 1,000 mg PO BID #120 tablet 11/19/16 [Rx Confirmed Last Taken Unknown] Enalapril Maleate [Vasotec] 20 mg PO BID 03/30/17 [History Confirmed 03/30/17 Last Taken Unknown] LORazepam [Ativan] 0.5 mg PO HSP PRN 03/30/17 [History Confirmed 03/30/17 Last Taken Unknown] Medical - DS: Hosp Hospital course: Mr. Medina is a 82 year old Female with multiple medial issues, presented to the ER with AMS afte a recent Surgery for adenxal mass. The patient initial workup was suggestive of acute hyponatremia with sodium of 118, with no other infectious etiology, the patient as admitted to the hospital for same. The patients AMS resolved after correction of her Hyponatremia. However she had an episode of AMs/ TIA, while in the hospital. Code stroke was activated and the patient was evaluated by teleneurology, not deemed candidate for tpa or intervention. On talking more in detail with the patients , the patient has h/o transient spells which have been going on for nearly 35 yrs. The have not seen a neurologist for same. THe patient aslo had a UTI. AMS: Initial presentation of AMS was secondary to Hyponatremia, which was though to be due to post op pain and excessive consumption of water (as reported by pt and family). The patient sodium was corrected from 118 to normal with saline hydration. Patient mental status improved and she was back to baseline. TIA/ Seizure: The patient during the hospital stay had an episode where she was unable to speak, and then became very drowsy and lethargic, Given that dysarthria was the presenting symptom, code stroke was called, She had an NIH score of 27, but was on hep for dvt prophyalxis therefore tpa was not given. She had CTA of head and neck, which showed no occulsion but showed significant stenosis of ICA, the patients head ct was negative. Not deemed candidate for intervention. On talking with the family it seems that the patient has had intermittent TIA in the past, even during her last stay here [place] she had a similiar episode where stroke code was activated and no cva was noted. and workup then including mri and mra neck was negative. The patient has transient starring spells for a very long time and as per the this has not been completely worked up, We did an EEG which did not show any focal lesions, but showed generalized slowing indicative of mild cerebellar dysfunction. Patient will be referred to neurology as outpatient. Patients and her family agree with the plan. ALso the neurologist will help us determine if the lesions in the neck (ICA stenosis) need to be treated For secondary stroke prophylaxis, she is on plavix, GENE and Statin. UTI: Pt has rising WBC count, with neg cxr, Abdominal CT showed inflammatory changes in abdomen she had positive ua, and urine cx with enterococcus alfonso sensitive, initially treated with vancomycin, and later switched to Augmentin. The rest of the hospital stay was uneventful, no changes in her home med list has been done, with the exception of antibiotic for a short duration. She was weak from her stay in the hospital needing PT, She will be discharged to SNF for rehab with follow to neurology and PCP. Discharge diagnosis: AMS, UTI, Seizure vs TIA. - Time Spent with Patient Total time spent providing and/or coordinating discharge services: Greater than 30 minutes Medical - DS: Exam - Constitutional Vitals: Vital Signs Temp Pulse Resp BP BP Pulse Ox 04/06/17 07:30 97.0 F 16 152/60 98 04/06/17 06:59 94 04/06/17 04:00 98.0 F 82 16 141/58 96 04/06/17 00:07 97.7 F 79 18 147/53 100 04/05/17 20:00 97.9 F 80 18 138/58 98 04/05/17 16:00 98.5 F 83 16 132/58 99 04/05/17 12:00 97.9 F 78 18 131/49 99 Intake and Output 04/05/17 04/06/17 04/06/17 21:59 05:59 13:59 Intake Total 3040 / 3040 360 / 360 Balance 3040 / 3040 360 / 360 Intake: IV 1500 / 1500 Vancomycin 750 mg In 250 / 250 Sodium Chloride 0.9% 250 ml @ 250 mls/hr IV Q24H [facility] Rx#:[id number] Oral 1540 / 1540 360 / 360 Other: Meal Dinner Percent of Meal Consumed 100% # Voids 1 Weight 115 lb 3.2 oz Additional comments: Constitutional; Afebrile, cooperative, alert, not in distress. Eyes- No icterus, , No periorbital swelling Ears- Ext ear normal, hearing normal to conversation. Neck- Midline trachea, supple Respiratory system: Air Entry equal on both sides, No crackles or wheezing, no rhonchi. CVS- Rate rhythm regular, S1,S2 heard, no gallop, no rub. Abdomen- Soft nontender abdomen, no organomegaly, no tenderness, no guarding or rigidity, VASCULAR NURSE- AOOx3, moving all extremities, no gross focal deficit noted. Medical - DS: Data Procedures and tests throughout hospitalization: CXR Chest IMPRESSION: No acute disease - stable Interpreted and Authenticated by: Jey Gottlieb 03/30/17 CT Head IMPRESSION: No acute abnormality. No interval change since 11/04/2016 Interpreted and Authenticated by: Jey Manning 04/03/17 CTA Head IMPRESSION: 1. Small caliber left vertebral artery appears to and proximal to the vertebral basilar junction. Findings consistent with 50% diameter stenosis at the right vertebral basilar junction 2. Extensive calcified plaque in the cavernous segments of the internal carotid arteries bilaterally. Findings consistent with bilateral stenosis, right worse than left. Short segment occlusion in the cavernous segment of the right internal carotid artery is possible but this is probably high-grade stenosis with preserved patency. 3. Anterior cerebral arteries and middle cerebral arteries are negative. Interpreted and Authenticated by: Jey Manning 04/03/17 Neck CTA IMPRESSION: 1. Calcified atherosclerotic disease as above 2. No carotid stenosis. No intraluminal thrombus or detectable ulceration. Internal carotid arteries are patent bilaterally. Interpreted and Authenticated by: Jey Manning 04/03/[address] IMPRESSION: 1. Status post surgical removal of a left adnexal mass. 3 cm fluid density abnormalities in the left adnexa. Findings may represent residual mass, seroma, or early abscess. No gas bubbles or significant wall thickening or enhancement. 2. Trace free fluid within the pelvis 3. Previous cholecystectomy. Extrahepatic bile duct dilatation, stable Interpreted and Authenticated by: Jey Manning 04/03/17 EEG: Abnormal Mild generalized slowing indicative of cerebral dysfunction. Echo : Normal size, normal LVEF. Medical - DS: A/P - Patient/Caregiver Discharge Instructions Activity: as per physical therapy, increase activity as tolerated Diet: Cardiac, Consistent Carbohydrate Additional Instructions: Follow up with Neurology Dr Héctor Saenz in 1 week after discharge. Follow up with PCP in 2 weeks after discharge Follow up with your surgeon in [place] as per your previous schedule Go to the ER if any mental status changes or any new concerns Take medications as prescribed. OT/PT / ST at rehab. Prescriptions: Amoxicillin/Potassium Clav [Augmentin] 875 mg PO Q12H #10 tablet HYDROcodone/APAP 5/325MG [[place] 5/325Mg] 1 tab PO Q6 PRN #30 tablet PRN Reason: Pain LORazepam [Ativan] 0.5 mg PO HSP PRN #30 PRN Reason: Sleep Other Amb Orders: OT Discharge Order Location: Determined By Patient Physical Therapy at Discharge - General Location: Determined By Patient ST Discharge Order Location: Determined By Patient - Follow up Plan Follow up with: Nedra Tanner ARNP [Primary Care Provider] - Héctor Saenz MD [Physician] - Disposition: Xf SNF Prognosis: Fair Rehab Potential: Fair I certify that the patient requires SNF services: Yes Overall status at discharge: patient is progressing back to baseline Medical - DS: Qual - VTE Deep Vein Thrombosis/Pulmonary Embolism Present on Admission: No
== END 2017-04-06 10:50 | DRG 948 ==
LOC: ED 14:50 → ICU 18:26 → MEDSUR 04-01 04:45 → ICU 04-03 03:17
PROVIDERS: ADMIT Internal Medicine; ATTEND Internal Medicine

== ENCOUNTER 2020-01-03 16:55 | Inpatient (IN) ==
[2020-01-03] MEDS ORDERED: 0.9 % SODIUM CHLORIDE 500 ML IV ONE (17:02)
[2020-01-03 17:25] LABS: POC Blood Urea Nitrogen 32 mg/dl (8-23); POC CO2 29 mmol/L (22-30); POC Calcium, Ionized 1.12 mmol/L (1.16-1.32); POC Chloride 100 mmol/L (96-108); POC Creatinine 1.8 mg/dl (0.6-1.1); POC Glucose, Random 153 mg/dL (70-105); POC Potassium 4.9 mmol/L (3.3-5.1); POC Sodium 135 mmol/L (133-145)
--- NOTE | 2020-01-03 17:44 | Emergency Department Note ---
SOB HPI - General Chief Complaint: Shortness of Breath/Dyspnea Stated Complaint: shortness of breath, cough Time Seen by Provider: 01/03/20 17:01 Source: patient, EMS Mode of arrival: EMS Limitations: no limitations - History of Present Illness 84-year-old female comes in from [facility] for shortness of breath. The back story on this is that she has been short of breath for the last couple of months with worsening COPD. She is having trouble breathing now and is requiring 3 L of oxygen via nasal cannula. She is not on oxygen at the nursing facility. She has had several rounds of antibiotics and indeed is on day 3 of a round of azithromycin. She had previously been on doxycycline. No fever nausea vomiting or diarrhea. However there are several cases of COVID at the nursing facility. Her was tested and was negative but she was not tested there. She did have 2 breathing treatments over at [facility] today-she endorses multiple breathing treatments every day but says they are not helping She has gross hearing loss but is able to communicate with you when you come close She is DNR/comfort care. However she does want antibiotics and wants to be able to breathe. She is quite scared - Related Data Home Medications Medication Instructions Recorded Confirmed solifenacin 5 mg tablet 5 mg PO QHS tab 03/05/19 01/03/20 zinc gluconate 50 mg tablet 50 mg PO QDAY tab 03/05/19 01/03/20 Lidocaine [Lidoderm] 1 each TP PRN 07/22/19 01/03/20 Polyethylene Glycol 3350 [Miralax] 17 gm PO HS 07/22/19 01/03/20 acetaminophen 325 mg capsule 650 mg PO Q4H PRN 08/02/19 01/03/20 magnesium hydroxide 400 mg/5 mL 5 ml PO QHS PRN 08/02/19 01/03/20 oral suspension cholecalciferol (vitamin D3) 125 50,000 unit PO .monday cap 08/13/19 01/03/20 mcg (5,000 unit) capsule insulin glargine 100 unit/mL (3 42 unit SUB-Q HS ml 08/13/19 01/03/20 mL) subcutaneous pen prednisolone acetate 1 % eye 1 drp OPHTHALMIC QID 08/13/19 01/03/20 drops,suspension multivitamin 1 tab PO QAM 11/15/19 01/03/20 apixaban 2.5 mg tablet 2.5 mg PO BID 11/29/19 11/29/19 doxycycline hyclate 100 mg tablet 100 mg PO BID 11/29/19 01/03/20 lancets 28 gauge See Rx Instructions .ROUTE 11/29/19 01/03/20 .MEDSUPPLY #25 each levothyroxine 112 mcg capsule 112 mcg PO QAM cap 11/29/19 01/03/20 loperamide 2 mg tablet 2 mg PO Q4H PRN 11/29/19 01/03/20 ondansetron HCl 4 mg tablet 4 mg PO Q6H PRN 11/29/19 01/03/20 Amitiza 24 mcg PO DAILY 01/03/20 01/03/20 Humalog 11 units SQ HS 01/03/20 01/03/20 Lantus 42 units SQ HS 01/03/20 01/03/20 Previous Rx's Medication Instructions Recorded sertraline 50 mg tablet 50 mg PO QDAY #90 tab 09/09/19 gabapentin 100 mg capsule 100 mg PO TID #90 cap 09/10/19 folic acid 1 mg tablet 1 mg PO QDAY #90 tab 09/18/19 lorazepam 1 mg tablet 1 mg PO QHS PRN #90 tab 09/19/19 atorvastatin 20 mg tablet 20 mg PO QHS #90 tab 09/23/19 ferrous sulfate 325 mg (65 mg 325 mg PO BID #60 tab 09/23/19 iron) tablet insulin lispro 200 unit/mL (3 mL) 11 unit SUB-Q .ac #6 ml 10/03/19 subcutaneous pen omeprazole 20 mg capsule,delayed 20 mg PO QDAY #90 cap 10/10/19 release lubiprostone 24 mcg capsule 24 mcg PO ONCE #30 cap 10/11/19 losartan 100 mg tablet 100 mg PO DAILY #90 tab 10/25/19 albuterol sulfate 90 mcg/actuation 2 puff INHALATION Q4H PRN #18 g 11/01/19 aerosol inhaler budesonide 1 mg/2 mL suspension 1 mg INHALATION BID #60 ml 11/01/19 for nebulization ipratropium 0.5 mg-albuterol 3 mg 3 ml INHALATION QID #180 ml 11/01/19 (2.5 mg base)/3 mL nebulization soln benzonatate 200 mg capsule 200 mg PO TID PRN #90 cap 11/06/19 metoprolol tartrate 50 mg tablet 50 mg PO BID #180 tab 11/19/19 dextromethorphan-guaifenesin 30 1 tab PO Q12H #180 tab 11/26/19 mg-600 mg tablet extended fmphgum19 hr furosemide 20 mg tablet 20 mg PO BID #60 tab 12/16/19 diltiazem HCl 120 mg 120 mg PO BID #60 cap 12/23/19 capsule,extended release 12 hr azithromycin 250 mg tablet See Rx Instructions PO .COMPLEX #6 12/30/19 tab pen needle, diabetic 31 gauge x See Rx Instructions .ROUTE 01/01/2016" .COMPLEX #100 unknown measurement unit code: each Allergies Allergy/AdvReac Type Severity Reaction Status Date / Time Tetanus Vaccines and Toxoid Allergy Mild Rash Verified 01/03/20 17:04 Review of Systems All systems ED: reviewed and negative except as stated. Past Medical History - Past Medical History Attestation: Yes: The following information was validated with the patient. [facility] Narrative: Family History (Last Reviewed 11/15/19 @ 08:15 by Charles Joseph MD) Mother Dyslipidemia Hypertension Father Alcoholism Other Type II diabetes mellitus Medical History (Last Updated 11/29/19 @ 10:44 by Carolyn Eric) Disorder of sphincter pupillae muscle (Chronic) Adult onset diabetes mellitus with ketoacidosis (Chronic) History of radiation therapy (Chronic) History of chemotherapy (Chronic) SOB (shortness of breath) (Chronic) Chronic GERD (Chronic) History of colon cancer (Chronic) Memory loss (Chronic) Diverticulosis of large intestine without perforation or abscess without bleeding (Chronic) Type 2 diabetes mellitus with diabetic neuropathy, unspecified (Chronic) Other correction (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 therapy (Chronic) UTI (urinary tract infection) (Chronic) Constipation (Chronic) Left lower quadrant pain (Chronic) Non-nephrotic range proteinuria (Chronic) Diastolic dysfunction (Chronic) Hypertensive nephrosclerosis (Chronic) Skin candidiasis (Chronic) Normal endoscopy (Chronic) Dysuria (Chronic) Nocturia (Chronic) Phlebitis of left lower extremity (Chronic) Dyslipidemia (Chronic) TIA (transient ischemic attack) (Chronic) Fecal incontinence (Chronic) Proteinuria (Chronic) Joint stiffness (Chronic) Joint pain (Chronic) 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 (Chronic) 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) Hypertension (Chronic) Hyperlipidemia, mixed (Chronic) GERD (gastroesophageal reflux disease) (Chronic) Hypothyroid (Chronic) Urge incontinence (Chronic) Chronic pain syndrome (Chronic) Thoracic back pain (Chronic) Compression fracture of spine (Chronic) Encounter for long-term (current) use of medications (Chronic) Insomnia (Chronic) Ovarian mass (Chronic) Benign neoplasm of transverse colon (Chronic) Benign neoplasm of sigmoid colon (Chronic) Diverticulosis of colon without hemorrhage (Chronic) Diabetic peripheral neuropathy (Chronic) Encounter for therapeutic drug level monitoring (Chronic) Neck pain (Chronic) Right knee pain (Chronic) Other abnormalities of gait and mobility (Chronic) Leg pain (Chronic) Paresthesia (Chronic) 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) Left knee pain (Chronic) Corrosion of cornea and conjunctival sac, right eye, initial encounter (Chronic) Sprain of other ligament of left ankle, initial encounter (Chronic) 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) Kidney disease, chronic, stage III (GFR 30-59 ml/min) (Chronic) Memory problem (Chronic) Decubitus ulcer (Chronic) Stroke (Chronic ~2006) Urinary incontinence (Chronic) Arthritis (Chronic) Poor sleep (Chronic) Colon cancer (Chronic ~1996) Hearing loss (Chronic) Urinary frequency (Chronic) Nausea (Chronic) Compression fracture of T12 vertebra (Chronic) Osteoporosis (Chronic) Dehydration (Chronic) Hyperglycemia (Chronic) Decubitus ulcer of sacral region (Chronic) Hyponatremia (Chronic) DM type 2 (diabetes mellitus, type 2) (Chronic) History of CVA (cerebrovascular accident) (Chronic) Depression (Chronic) ERIC (acute kidney injury) (Chronic) Hypoglycemia associated with diabetes (Chronic) Cerumen debris on tympanic membrane of left ear (Chronic) Infected decubitus ulcer (Chronic) Anemia (Chronic) Medication withdrawal (Chronic) Past Surgical History (Last Updated 11/29/19 @ 10:44 by Carolyn Eric) History of carpal tunnel release (Chronic) History of cholecystectomy (Chronic) History of colonoscopy (Chronic 06/01/17) History of rectal surgery (Chronic ~1999) History of total hip arthroplasty (Chronic) S/P carpal tunnel release (Chronic) S/P cataract surgery (Chronic) S/P cholecystectomy (Chronic) S/P tonsillectomy (Chronic) S/P total hip arthroplasty (Chronic) Medical history: Reports: CVA, DVT, DM, other Psychiatric history: Reports: no psych history 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 Normocephalic atraumatic. Conjunctive are clear sclerae white nonicteric. No nasal discharge or congestion. Oropharynx pink and moist. Neck is supple without lymph adenopathy or thyromegaly. Heart is mildly tachycardic no murmurs appreciated. Lungs are very coarse with significant wheezing in all lung erickson. The wheezes are so loud I cannot hear anything else-in fact you can hear them without a stethoscope. Abdomen soft nontender nondistended. No peritoneal signs or guarding. No pedal edema. +2 radial pulse. Alert and oriented On reevaluation after getting magnesium terbutaline she was breathing somewhat less loudly but still with significant wheezing. I ordered Combivent Limitations: no limitations Course Vital Signs Temperature 96.6 F L 01/03/20 16:56 Pulse Rate 109 H 01/03/20 16:56 Respiratory Rate 30 H 01/03/20 16:56 Blood Pressure 166/67 01/03/20 16:56 Pulse Oximetry (%) 88 L 01/03/20 16:56 Temperature 96.6 F L 01/03/20 16:56 Pulse Rate 100 H 01/03/20 18:42 Respiratory Rate 21 01/03/20 18:42 Blood Pressure 155/105 01/03/20 18:31 Pulse Oximetry (%) 94 01/03/20 18:42 Shortness of Breath/Dyspnea - Lab Data Lab results reviewed: Yes I reviewed the patient's lab results. Result diagrams: 01/03/20 17:21 01/03/20 17:20 Lab Results 01/03/20 01/03/20 01/03/20 Range/Units 17:20 17:20 17:20 WBC (4.50-11.00) K/mcL RBC (3.59-5.38) M/mcL Hgb (11.2-15.7) g/dL Hct (34.1-44.9) % POC Hct 36.0 (36.0-48.0) % MCV (80.0-100.0) fL MCH (26.0-34.0) pg MCHC (31.0-36.0) g/dL RDW (11.5-14.5) % Plt Count (140-440) K/mcL MPV (7.4-10.4) fL Gran % (38.0-78.0) % Lymph % (Auto) (15.5-49.0) % [place] % (Auto) (1.0-12.0) % Eos % (Auto) (0.0-7.0) % Baso % (Auto) (0.0-2.0) % Gran # (1.80-8.00) K/mcL Lymph # (Auto) (1.50-4.80) K/mcL [place] # (Auto) (0.10-0.90) K/mcL Eos # (Auto) (0.00-0.70) K/mcL Baso # (Auto) (0.00-0.30) K/mcL PT (11.9-14.5) sec INR (0.9-1.1) VBG Lactic Acid 2.1 H (0.5-2.0) mmol/L POC Sodium 135 (133-145) mmol/L Sodium 134 (133-145) mmol/L POC Potassium 4.9 (3.3-5.1) mmol/L Potassium 4.9 (3.3-5.1) mmol/L POC Chloride 100 (96-108) mmol/L Chloride 94 L (96-108) mmol/L Carbon Dioxide 23 (22-30) mmol/L POC Total CO2 29 (22-30) mmol/L Anion Gap 17.0 H (8-16) POC BUN 32 H (8-23) mg/dl BUN 25 H (8-23) mg/dl Creatinine 1.6 H (0.6-1.1) mg/dl POC Creatinine 1.8 H (0.6-1.1) mg/dl GFR Calculation 29 Glucose 153 H (70-105) mg/dL POC Glucose 153 H (70-105) mg/dL Calcium 9.2 (8.6-10.4) mg/dl POC WB Ioniz Calcium 1.12 L (1.16-1.32) mmol/L Magnesium 1.5 L (1.6-2.5) mg/dL Total Bilirubin < 0.2 (0.0-1.0) mg/dL AST 29 (0-37) U/l ALT 22 (0-40) U/l Alkaline Phosphatase 143 H (39-117) U/L Troponin T < 0.01 (0-0.03) ng/ml NT-Pro-B Natriuret Pep 102.1 (0-450) pg/ml Total Protein 7.5 (5.9-8.4) gm/dL Albumin 3.9 (3.2-5.2) gm/dL Globulin 3.6 (2.2-3.7) gm/dL Albumin/Globulin Ratio 1.1 (1.0-2.3) Lipase 36 (7-60) U/L Procalcitonin (<0.10) ng/mL 01/03/20 01/03/20 01/03/20 Range/Units 17:21 17:21 17:21 WBC 12.9 H (4.50-11.00) K/mcL RBC 4.15 (3.59-5.38) M/mcL Hgb 11.4 (11.2-15.7) g/dL Hct 36.5 (34.1-44.9) % POC Hct (36.0-48.0) % MCV 88.0 (80.0-100.0) fL MCH 27.5 (26.0-34.0) pg MCHC 31.2 (31.0-36.0) g/dL RDW 17.1 H (11.5-14.5) % Plt Count 235 (140-440) K/mcL MPV 11.8 H (7.4-10.4) fL Gran % 79.2 H (38.0-78.0) % Lymph % (Auto) 15.1 L (15.5-49.0) % [place] % (Auto) 4.0 (1.0-12.0) % Eos % (Auto) 1.3 (0.0-7.0) % Baso % (Auto) 0.4 (0.0-2.0) % Gran # 10.25 H (1.80-8.00) K/mcL Lymph # (Auto) 1.95 (1.50-4.80) K/mcL [place] # (Auto) 0.52 (0.10-0.90) K/mcL Eos # (Auto) 0.17 (0.00-0.70) K/mcL Baso # (Auto) 0.05 (0.00-0.30) K/mcL PT 12.9 (11.9-14.5) sec INR 0.9 (0.9-1.1) VBG Lactic Acid (0.5-2.0) mmol/L POC Sodium (133-145) mmol/L Sodium (133-145) mmol/L POC Potassium (3.3-5.1) mmol/L Potassium (3.3-5.1) mmol/L POC Chloride (96-108) mmol/L Chloride (96-108) mmol/L Carbon Dioxide (22-30) mmol/L POC Total CO2 (22-30) mmol/L Anion Gap (8-16) POC BUN (8-23) mg/dl BUN (8-23) mg/dl Creatinine (0.6-1.1) mg/dl POC Creatinine (0.6-1.1) mg/dl GFR Calculation Glucose (70-105) mg/dL POC Glucose (70-105) mg/dL Calcium (8.6-10.4) mg/dl POC WB Ioniz Calcium (1.16-1.32) mmol/L Magnesium (1.6-2.5) mg/dL Total Bilirubin (0.0-1.0) mg/dL AST (0-37) U/l ALT (0-40) U/l Alkaline Phosphatase (39-117) U/L Troponin T (0-0.03) ng/ml NT-Pro-B Natriuret Pep (0-450) pg/ml Total Protein (5.9-8.4) gm/dL Albumin (3.2-5.2) gm/dL Globulin (2.2-3.7) gm/dL Albumin/Globulin Ratio (1.0-2.3) Lipase (7-60) U/L Procalcitonin 0.07 (<0.10) ng/mL Influenza swab was negative - Radiology Data Radiology results reviewed: Yes I reviewed the patient's radiology results. 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 She continues to require nasal cannula oxygen. She was breathing a little bit better after the terbutaline and magnesium but still significant wheezing so I ordered Combivent as we are avoiding aerosols at this time due to the COVID. I also started Solu- Medrol benzonatate and a small amount of IV fluid I discussed the situation with Dr. Dueñas, our hospitalist, who agreed to accept the patient for further care and evaluation in the hospital. He will order further respiratory viral testing Addendum: I was informed that we could not get Combivent in the hospital but that instead we would have to order Spiriva and albuterol MDI combo. As the patient will be admitted, hospitalist can order what he wants instead Disposition: Xfer As Inpt ([facility]) Condition: Fair Referrals: Dina Celestin ARNP [Primary Care Provider] -
[2020-01-03 17:54] LABS: Basophils # (Auto) 0.05 K/mcL (0.00-0.30); Basophils % (Auto) 0.4 % (0.0-2.0); Eosinophils # (Auto) 0.17 K/mcL (0.00-0.70); Eosinophils % (Auto) 1.3 % (0.0-7.0); Granulocytes % (Auto) 79.2 % (38.0-78.0); Hematocrit 36.5 % (34.1-44.9); Hemoglobin 11.4 g/dL (11.2-15.7); Lymphocytes # (Auto) 1.95 K/mcL (1.50-4.80); Lymphocytes % (Auto) 15.1 % (15.5-49.0); Mean Corpuscular HGB Conc 31.2 g/dL (31.0-36.0); Mean Platelet Volume 11.8 fL (7.4-10.4); Monocytes # (Auto) 0.52 K/mcL (0.10-0.90); Platelet Count 235 K/mcL (140-440); RBC 4.15 M/mcL (3.59-5.38); Red Cell Distribution Width 17.1 % (11.5-14.5); WBC 12.9 K/mcL (4.50-11.00)
--- NOTE | 2020-01-03 18:04 | XRay Report ---
CLINICAL INFORMATION: dyspnea COMPARISON: 11/15/2019 FINDINGS: The heart is mildly enlarged but unchanged. Mediastinum and pulmonary vessels are normal. There is minor bibasilar atelectasis - no infiltrates or effusions IMPRESSION: Minor bibasilar atelectasis. Interpreted and Authenticated by: Jey Gottlieb 01/03/20
[2020-01-03] MEDS ORDERED: MAGNESIUM SULFATE 2 GM/50 ML BAG IV ONE (18:12)
[2020-01-03] MEDS ORDERED: TERBUTALINE 1 MG/ML VIAL SQ ONE (18:12)
[2020-01-03] MEDS ORDERED: BENZONATATE 100 MG CAPSULE PO ONE (18:12)
[2020-01-03] MEDS ORDERED: methylPREDNISolone SOD SUCC 125 MG/2 ML VIAL IV ONE (18:13)
[2020-01-03 18:15] LABS: proBNP 102.1 pg/ml (0-450)
[2020-01-03 18:17] LABS: ALT/SGPT 22 U/l (0-40); AST/SGOT 29 U/l (0-37); Albumin 3.9 gm/dL (3.2-5.2); Albumin/Globulin Ratio 1.1 (1.0-2.3); Alkaline Phosphatase 143 U/L (39-117); Bilirubin,Total < 0.2 mg/dL (0.0-1.0); Blood Urea Nitrogen 25 mg/dl (8-23); Calcium 9.2 mg/dl (8.6-10.4); Carbon Dioxide 23 mmol/L (22-30); Chloride 94 mmol/L (96-108); Globulin 3.6 gm/dL (2.2-3.7); Glomerular Filtration Rate 29; Glucose 153 mg/dL (70-105)
[2020-01-03 18:20] LABS: INR 0.9 (0.9-1.1); Prothrombin Time 12.9 sec (11.9-14.5)
--- NOTE | 2020-01-03 20:17 | Internal Med History&Physical ---
Medical - H&P: [facility] Patient information: Note initiated : 01/03/20 at 8:14 pm Service Date, if different from initiated Date: [] Patient: Génesis Medina a 84 y/o F admitted on for shortness of breath, cough. Chief Complaint: [] History of present illness: Ms. Medina is a 84 year old F Presents to the ED with shortness of breath. Sounds like she has been dealing with breathing issues for a month and a half. She has been on multiple rounds of antibiotics. 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 Presentation today in the ED is felt that she has a COPD exacerbation. Of note she is from [facility] who has had confirmed cases of COVID19. She does not have a fever at this time. She does report cough which is nonproductive. Denies myalgias at this time. Chest x-ray report did as minor bibasilar atelectasis otherwise unremarkable. Had reported sats of 88% in the ED And is not on oxygen at home. She is on day 3 of azithromycin. And has been on doxycycline in the past. Flu screen in the ED was negative. She has not been tested for comorbidities. She had multiple breathing treatments throughout the day and reports minimal benefit. Oxygenation improved on 3 L nasal cannula with sats mid to high 90s in the ED. Other symptoms patient says she has occasional diarrhea but none currently. Denies headache. Has some chest wall stomach pain with coughing fits. ABG significant for a PaO2 of only 62 on 3 L oxygen. Review of Systems: Pertinent positives as above. Denies headache/fever/chills/nausea/vomiting. Remaining 10 point review of system reviewed negative Medical - H&P: PMH Medical history: Medical History (Last Updated 11/29/19 @ 10:44 by Carolyn Eric) Disorder of sphincter pupillae muscle (Chronic) Adult onset diabetes mellitus with ketoacidosis (Chronic) History of radiation therapy (Chronic) History of chemotherapy (Chronic) SOB (shortness of breath) (Chronic) Chronic GERD (Chronic) History of colon cancer (Chronic) Memory loss (Chronic) Diverticulosis of large intestine without perforation or abscess without bleeding (Chronic) Type 2 diabetes mellitus with diabetic neuropathy, unspecified (Chronic) Other group home (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 therapy (Chronic) UTI (urinary tract infection) (Chronic) Constipation (Chronic) Left lower quadrant pain (Chronic) Non-nephrotic range proteinuria (Chronic) Diastolic dysfunction (Chronic) Hypertensive nephrosclerosis (Chronic) Skin candidiasis (Chronic) Normal endoscopy (Chronic) Dysuria (Chronic) Nocturia (Chronic) Phlebitis of left lower extremity (Chronic) Dyslipidemia (Chronic) TIA (transient ischemic attack) (Chronic) Fecal incontinence (Chronic) Proteinuria (Chronic) Joint stiffness (Chronic) Joint pain (Chronic) 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 (Chronic) 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) Hypertension (Chronic) Hyperlipidemia, mixed (Chronic) GERD (gastroesophageal reflux disease) (Chronic) Hypothyroid (Chronic) Urge incontinence (Chronic) Chronic pain syndrome (Chronic) Thoracic back pain (Chronic) Compression fracture of spine (Chronic) Encounter for long-term (current) use of medications (Chronic) Insomnia (Chronic) Ovarian mass (Chronic) Benign neoplasm of transverse colon (Chronic) Benign neoplasm of sigmoid colon (Chronic) Diverticulosis of colon without hemorrhage (Chronic) Diabetic peripheral neuropathy (Chronic) Encounter for therapeutic drug level monitoring (Chronic) Neck pain (Chronic) Right knee pain (Chronic) Other abnormalities of gait and mobility (Chronic) Leg pain (Chronic) Paresthesia (Chronic) 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) Left knee pain (Chronic) Corrosion of cornea and conjunctival sac, right eye, initial encounter (Chronic) Sprain of other ligament of left ankle, initial encounter (Chronic) 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) Kidney disease, chronic, stage III (GFR 30-59 ml/min) (Chronic) Memory problem (Chronic) Decubitus ulcer (Chronic) Stroke (Chronic ~2006) Urinary incontinence (Chronic) Arthritis (Chronic) Poor sleep (Chronic) Colon cancer (Chronic ~1996) Hearing loss (Chronic) Urinary frequency (Chronic) Nausea (Chronic) Compression fracture of T12 vertebra (Chronic) Osteoporosis (Chronic) Dehydration (Chronic) Hyperglycemia (Chronic) Decubitus ulcer of sacral region (Chronic) Hyponatremia (Chronic) DM type 2 (diabetes mellitus, type 2) (Chronic) History of CVA (cerebrovascular accident) (Chronic) Depression (Chronic) ERIC (acute kidney injury) (Chronic) Hypoglycemia associated with diabetes (Chronic) Cerumen debris on tympanic membrane of left ear (Chronic) Infected decubitus ulcer (Chronic) Anemia (Chronic) Medication withdrawal (Chronic) Past Surgical History (Last Updated 11/29/19 @ 10:44 by Carolyn Eric) History of carpal tunnel release (Chronic) History of cholecystectomy (Chronic) History of colonoscopy (Chronic 06/01/17) History of rectal surgery (Chronic ~1999) History of total hip arthroplasty (Chronic) S/P carpal tunnel release (Chronic) S/P cataract surgery (Chronic) S/P cholecystectomy (Chronic) S/P tonsillectomy (Chronic) S/P total hip arthroplasty (Chronic) Family History (Last Reviewed 11/15/19 @ 08:15 by Charles Joseph MD) Mother Dyslipidemia Hypertension Father Alcoholism Other Type II diabetes mellitus Social History (Last Updated 11/15/19 @ 16:02 by Kourtney Fernandez DO) Resides at [facility] Quit smoking 1984 Medical - H&P: Meds Home Medications Medication Instructions Recorded Confirmed Type solifenacin 5 mg tablet 5 mg PO QHS tab 03/05/19 01/03/20 History zinc gluconate 50 mg tablet 50 mg PO QDAY tab 03/05/19 01/03/20 History Lidocaine [Lidoderm] 1 each TP PRN 07/22/19 01/03/20 History Polyethylene Glycol 3350 [Miralax] 17 gm PO HS 07/22/19 01/03/20 History acetaminophen 325 mg capsule 650 mg PO Q4H PRN 08/02/19 01/03/20 History magnesium hydroxide 400 mg/5 mL 5 ml PO QHS PRN 08/02/19 01/03/20 History oral suspension cholecalciferol (vitamin D3) 125 50,000 unit PO .monday cap 08/13/19 01/03/20 History mcg (5,000 unit) capsule insulin glargine 100 unit/mL (3 42 unit SUB-Q HS ml 08/13/19 01/03/20 History mL) subcutaneous pen prednisolone acetate 1 % eye 1 drp OPHTHALMIC QID 08/13/19 01/03/20 History drops,suspension sertraline 50 mg tablet 50 mg PO QDAY #90 tab 09/09/19 01/03/20 Rx gabapentin 100 mg capsule 100 mg PO TID #90 cap 09/10/19 01/03/20 Rx folic acid 1 mg tablet 1 mg PO QDAY #90 tab 09/18/19 01/03/20 Rx lorazepam 1 mg tablet 1 mg PO QHS PRN #90 tab 09/19/19 01/03/20 Rx atorvastatin 20 mg tablet 20 mg PO QHS #90 tab 09/23/19 01/03/20 Rx ferrous sulfate 325 mg (65 mg 325 mg PO BID #60 tab 09/23/19 01/03/20 Rx iron) tablet insulin lispro 200 unit/mL (3 mL) 11 unit SUB-Q .ac #6 ml 10/03/19 01/03/20 Rx subcutaneous pen omeprazole 20 mg capsule,delayed 20 mg PO QDAY #90 cap 10/10/19 01/03/20 Rx release lubiprostone 24 mcg capsule 24 mcg PO ONCE #30 cap 10/11/19 01/03/20 Rx losartan 100 mg tablet 100 mg PO DAILY #90 tab 10/25/19 01/03/20 Rx albuterol sulfate 90 mcg/actuation 2 puff INHALATION Q4H PRN #18 g 11/01/19 01/03/20 Rx aerosol inhaler budesonide 1 mg/2 mL suspension 1 mg INHALATION BID #60 ml 11/01/19 01/03/20 Rx for nebulization ipratropium 0.5 mg-albuterol 3 mg 3 ml INHALATION QID #180 ml 11/01/19 01/03/20 Rx (2.5 mg base)/3 mL nebulization soln benzonatate 200 mg capsule 200 mg PO TID PRN #90 cap 11/06/19 01/03/20 Rx multivitamin 1 tab PO QAM 11/15/19 01/03/20 History metoprolol tartrate 50 mg tablet 50 mg PO BID #180 tab 11/19/19 01/03/20 Rx dextromethorphan-guaifenesin 30 1 tab PO Q12H #180 tab 11/26/19 01/03/20 Rx mg-600 mg tablet extended hr apixaban 2.5 mg tablet 2.5 mg PO BID 11/29/19 11/29/19 History doxycycline hyclate 100 mg tablet 100 mg PO BID 11/29/19 01/03/20 History lancets 28 gauge See Rx Instructions .ROUTE 11/29/19 01/03/20 History .MEDSUPPLY #25 each levothyroxine 112 mcg capsule 112 mcg PO QAM cap 11/29/19 01/03/20 History loperamide 2 mg tablet 2 mg PO Q4H PRN 11/29/19 01/03/20 History ondansetron HCl 4 mg tablet 4 mg PO Q6H PRN 11/29/19 01/03/20 History furosemide 20 mg tablet 20 mg PO BID #60 tab 12/16/19 01/03/20 Rx diltiazem HCl 120 mg 120 mg PO BID #60 cap 12/23/19 01/03/20 Rx capsule,extended release 12 hr azithromycin 250 mg tablet See Rx Instructions PO .COMPLEX #6 12/30/19 01/03/20 Rx tab pen needle, diabetic 31 gauge x See Rx Instructions .ROUTE 01/01/20 01/03/20 Rx 12/15" .COMPLEX #100 unknown measurement unit code: each Amitiza 24 mcg PO DAILY 01/03/20 01/03/20 History Humalog 11 units SQ HS 01/03/20 01/03/20 History Lantus 42 units SQ HS 01/03/20 01/03/20 History Allergies Allergy/AdvReac Type Severity Reaction Status Date / Time Tetanus Vaccines and Toxoid Allergy Mild Rash Verified 01/03/20 17:04 Medical - H&P: Exam - Constitutional Vitals: Temp Pulse Resp BP Pulse Ox 96.6 F L 100 H 21 155/105 94 01/03/20 16:56 01/03/20 18:42 01/03/20 18:42 01/03/20 18:31 01/03/20 18:42 Exam: General: Alert, Awake, No acute Distress Eyes/N/T: EOMI, PERRL, dryMM Head/Neck: neck supple, normocephalic atraumatic CV: Tachycardia but regular and occult auscultate over pulmonary sounds, No murmurs Pulm: Diminished b/l, b/l wheezing and mild rhonchi b/l Abd: soft, nontender, +BS x4 Ext: no clubbing/cyanosis/edema Neuro: Alert, chronically weak left arm and leg from previous stroke, moves all extremities, CN 2-12 grossly intact, Skin: warm/dry Medical - H&P: Reslt - Labs CBC & Chem 7: 01/03/20 17:21 01/03/20 17:20 Labs: Short CBC 01/03/20 Range/Units 17:21 WBC 12.9 H (4.50-11.00) K/mcL Hgb 11.4 (11.2-15.7) g/dL Hct 36.5 (34.1-44.9) % Plt Count 235 (140-440) K/mcL BMP 01/03/20 17:20 Sodium 134 Potassium 4.9 Chloride 94 L Carbon Dioxide 23 BUN 25 H Creatinine 1.6 H Glucose 153 H Calcium 9.2 Cardiac Enzymes 01/03/20 Range/Units 17:20 Troponin T < 0.01 (0-0.03) ng/ml Liver Function 01/03/20 Range/Units 17:20 Total Bilirubin < 0.2 (0.0-1.0) mg/dL AST 29 (0-37) U/l ALT 22 (0-40) U/l Alkaline Phosphatase 143 H (39-117) U/L Albumin 3.9 (3.2-5.2) gm/dL Medical - H&P: A/P - Narrative A/P Narrative: A: *Acute hypoxic respiratory failure: 2/2 AECOPD, r/o covid -cxr unremarkable at this time *AECOPD (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
[2020-01-03] MEDS ORDERED: IPRATROPIUM/ALBUTEROL SULFATE 1 PUFF INHALER INH SCH (21:00)
[2020-01-03] MEDS ORDERED: SENNOSIDES 1 TABLET PO PRN (21:30)
[2020-01-03] MEDS ORDERED: POTASSIUM CHLORIDE 40 MEQ in DEXTROSE 5% IN WATER 500 ML IV PRN (21:30)
[2020-01-03] MEDS ORDERED: POLYETHYLENE GLYCOL 3350 17 GM PACKET PO PRN (21:30)
[2020-01-03] MEDS ORDERED: MAGNESIUM SULFATE 2 GM/50 ML BAG IV PRN (21:30)
[2020-01-03] MEDS ORDERED: LOPERAMIDE 2 MG CAPSULE PO PRN (21:30)
[2020-01-03] MEDS ORDERED: DEXTROSE 31 GM ORAL.SUSP PO PRN (21:30)
[2020-01-03] MEDS ORDERED: DEXTROSE 50% 50 ML VIAL IV PRN (21:30)
[2020-01-03] MEDS ORDERED: prednisoLONE 1% OPHTH DROPS 1ML BOTTLE OU SCH (21:30)
[2020-01-03] MEDS ORDERED: POTASSIUM CHLORIDE 20 MEQ TABLET PO PRN ×2 (21:30)
[2020-01-03] MEDS ORDERED: cefTRIAXone 1 GM in DEXTROSE 5% IN WATER 50 ML IV SCH (21:30)
[2020-01-03] MEDS ORDERED: ONDANSETRON 4 MG/2 ML VIAL IV PRN (21:30)
[2020-01-03] MEDS ORDERED: IPRATROPIUM/ALBUTEROL 3 ML AMPUL.NEB NEB PRN (21:30)
[2020-01-03] MEDS ORDERED: BENZONATATE 100 MG CAPSULE PO PRN (21:40)
[2020-01-03 22:02] LABS: C-Reactive Protein 1.4 mg/dl (0.0-0.8)
[2020-01-03 22:07] LABS: Ferritin 69.4 ng/ml (30-400)
[2020-01-03] MEDS: ATORVASTATIN 20 MG TABLET PO SCH (22:17)
[2020-01-03] MEDS: cefTRIAXone 1 GM VIAL IV SCH (22:17)
[2020-01-03] MEDS: METOPROLOL TARTRATE 50 MG TABLET PO SCH (22:17)
[2020-01-03] MEDS: GABAPENTIN 100 MG CAPSULE PO SCH (22:17)
[2020-01-03] MEDS: FUROSEMIDE 20 MG TABLET PO SCH (22:17)
[2020-01-03] MEDS: LORazepam 1 MG TABLET PO PRN (22:17)
[2020-01-03] MEDS: DILTIAZEM 120 MG CAP.XL.24H PO SCH (22:17)
[2020-01-03] MEDS: INSULIN LISPRO 1 UNIT/0.01 ML UNIT SQ SCH (22:18)
[2020-01-03] MEDS: Solifenacin Succinate [Vesicare] 5 MG Tablet PO SCH (22:19)
[2020-01-03] MEDS: prednisoLONE 1% OPHTH DROPS 1ML BOTTLE OD SCH (22:19)
[2020-01-03] MEDS: GUAIFENESIN PO SCH (22:19)
[2020-01-03] MEDS: HEPARIN 5,000 UNIT/ML VIAL SQ SCH (22:19)
[2020-01-03] MEDS: DEXTROMETHORPHAN PO SCH (22:19)
[2020-01-03] MEDS: [UNRECOGNIZED DRUG - OTHER] PO SCH (22:19)
[2020-01-03] MEDS: 0.9 % SODIUM CHLORIDE 10 ML SYRINGE IV SCH (22:20)
[2020-01-03 22:37] LABS: Basophils % (Manual) 1 % (0-2); Eosinophils % (Manual) 2 % (0-7); Lymphocytes % 23 % (15-49); Platelet Estimate NORMAL (NORMAL); RBC Morphology NORMAL (NORMAL); Segmented Neutrophils % 74 % (38-78)
[2020-01-04] MEDS: methylPREDNISolone SOD SUCC 40 MG/ML VIAL IV SCH ×4 (00:22→21:02)
[2020-01-04] MEDS: 0.9 % SODIUM CHLORIDE 10 ML SYRINGE IV SCH ×5 (05:44→21:02)
[2020-01-04 06:53] LABS: Basophils # (Auto) 0.04 K/mcL (0.00-0.30); Basophils % (Auto) 0.3 % (0.0-2.0); Eosinophils # (Auto) 0 K/mcL (0.00-0.70); Eosinophils % (Auto) 0 % (0.0-7.0); Granulocytes % (Auto) 92.6 % (38.0-78.0); Hematocrit 40.2 % (34.1-44.9); Hemoglobin 12.8 g/dL (11.2-15.7); Lymphocytes # (Auto) 0.95 K/mcL (1.50-4.80); Lymphocytes % (Auto) 6.7 % (15.5-49.0); Mean Cell Volume 86.3 fL (80.0-100.0); Mean Corpuscular HGB Conc 31.8 g/dL (31.0-36.0); Mean Platelet Volume 11.6 fL (7.4-10.4); Monocytes # (Auto) 0.05 K/mcL (0.10-0.90); Monocytes % (Auto) 0.4 % (1.0-12.0); Platelet Count 257 K/mcL (140-440); RBC 4.66 M/mcL (3.59-5.38); Red Cell Distribution Width 16.9 % (11.5-14.5); WBC 14.1 K/mcL (4.50-11.00)
[2020-01-04 07:07] LABS: INR 0.9 (0.9-1.1); Prothrombin Time 12.6 sec (11.9-14.5)
[2020-01-04 07:12] LABS: ALT/SGPT 22 U/l (0-40); AST/SGOT 23 U/l (0-37); Alkaline Phosphatase 159 U/L (39-117); Bilirubin,Direct < 0.2 mg/dL (0.0-0.3); Bilirubin,Total 0.2 mg/dL (0.0-1.0); Blood Urea Nitrogen 27 mg/dl (8-23); C-Reactive Protein 1.8 mg/dl (0.0-0.8); Calcium 9.8 mg/dl (8.6-10.4); Carbon Dioxide 23 mmol/L (22-30); Creatine Kinase 307 IU/L (24-170); Glomerular Filtration Rate 29; Glucose 282 mg/dL (70-105); Lactate Dehydrogenase 235 U/L (94-250); Phosphorous 3.9 mg/dL (2.7-4.5); Triglycerides 83 mg/dl (<150); Uric Acid 8.3 mg/dL (2.5-8.0)
[2020-01-04 07:22] LABS: Chloride 94 mmol/L (96-108)
[2020-01-04] MEDS: LEVOTHYROXINE SODIUM 112 MCG TABLET PO SCH (08:15)
--- NOTE | 2020-01-04 08:21 | Internal Med Progress Note ---
Medical - PN: Subj Patient information: Note initiated : 01/04/20 at 8:16 am Service Date, if different from initiated Date: [] Patient: Génesis Medina a 84 y/o F admitted on 01/03/20 for shortness of breath, cough. Chief Complaint: [] Interval history: Ms. Medina is a 84 year old F Presents to the ED with shortness of breath. Sounds like she has been dealing with breathing issues for a month and a half. She has been on multiple rounds of antibiotics. 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 Presentation today in the ED is felt that she has a COPD exacerbation. Of note she is from [facility] who has had confirmed cases of COVID19. She does not have a fever at this time. She does report cough which is nonproductive. Denies myalgias at this time. Chest x-ray report did as minor bibasilar atelectasis otherwise unremarkable. Had reported sats of 88% in the ED And is not on oxygen at home. She is on day 3 of azithromycin. And has been on doxycycline in the past. Flu screen in the ED was negative. She has not been tested for comorbidities. She had multiple breathing treatments throughout the day and reports minimal benefit. Oxygenation improved on 3 L nasal cannula with sats mid to high 90s in the ED. Other symptoms patient says she has occasional diarrhea but none currently. Denies headache. Has some chest wall stomach pain with coughing fits. ABG significant for a PaO2 of only 62 on 3 L oxygen. 4/ Patient feels like she is breathing little better today. She does have a cough which is nonproductive. Denies diarrhea fever chills this morning. Was on 4 L of oxygen since the ED and is currently on 2 and will titrate down to 1.5. Review of Systems: denies headache/fever/chills/nausea/vomiting/chest or abdominal pain/. Otherwise see above. - Constitutional Vitals: Vital Signs Temp Pulse Resp BP Pulse Ox 98.0 F 82 26 H 140/65 97 01/04/20 04:00 01/04/20 04:00 01/04/20 04:00 01/04/20 04:00 01/04/20 04:00 Period Temp Pulse Resp BP Sys/King Pulse Ox Last 24 Hr 96.6 F-98.8 F 82-114 13-31 105-193/54-148 86-100 Intake and Output 01/03/20 01/04/20 01/04/20 21:59 05:59 13:59 Intake Total 500 170 Output Total 476 1402 Balance 24 -1232 Weight 65.181 kg 65.181 kg Intake & Output: Intake & Output 01/03/20 01/04/20 01/04/20 21:59 05:59 13:59 Intake Total 500 170 Output Total 476 1402 Balance 24 -1232 Weight 65.181 kg 65.181 kg Intake: Nourishment/Supplement quantity 120 (ml) IV 500 50 Sodium Chloride 0.9% 500 ml @ 500 Wide Open IV .Q0M ONE Rx#: [id number] Output: Void Amount 475 1400 # of times incontinent of urine 1 2 Other: Meal Nourishment/Supplement Percent of Meal Consumed 100% Feeding Ability Independent Nourishment/Supplement name jello/applesauce Urine Appearance Clear Clear Urine Color Bright Yellow Bright Yellow Urine Odor Normal Normal Stool Size Moderate Stool Color Brown Stool Consistency Loose # Bowel Movements 1 # of times incontinent of 1 Bowels Exam: General: Alert, Awake, No acute Distress Eyes/N/T: EOMI, Head/Neck: neck supple, c CV: RRR, difficult to auscultate over pulmonary sounds, No murmurs Pulm: b/l rhonchi and wheezing Abd: soft, nontender, +BS x4 Ext: no clubbing/cyanosis/edema Neuro: Alert, chronically weak left arm and leg from previous stroke, moves all extremities, Skin: warm/dry Medical - PN: Obj Da - Labs CBC & Chem 7: 01/04/20 05:15 01/04/20 05:15 Labs: Abnormal Lab Results 01/04/20 01/04/20 01/03/20 05:15 05:15 17:21 WBC 14.1 H 12.9 H RDW 16.9 H 17.1 H MPV 11.6 H 11.8 H Gran % 92.6 H 79.2 H Lymph % (Auto) 6.7 L 15.1 L [place] % (Auto) 0.4 L Gran # 13.07 H 10.25 H Lymph # (Auto) 0.95 L [place] # (Auto) 0.05 L VBG Lactic Acid Chloride 94 L Anion Gap 17.0 H POC BUN BUN 27 H Creatinine 1.6 H POC Creatinine Glucose 282 H POC Glucose Uric Acid 8.3 H POC WB Ioniz Calcium Magnesium Alkaline Phosphatase 159 H Lactate Dehydrogenase Total Creatine Kinase 307 H C-Reactive Protein 1.8 H Globulin 4.0 H 01/03/20 01/03/20 01/03/20 17:20 17:20 17:20 WBC RDW MPV Gran % Lymph % (Auto) [place] % (Auto) Gran # Lymph # (Auto) [place] # (Auto) VBG Lactic Acid 2.1 H Chloride 94 L Anion Gap 17.0 H POC BUN 32 H BUN 25 H Creatinine 1.6 H POC Creatinine 1.8 H Glucose 153 H POC Glucose 153 H Uric Acid POC WB Ioniz Calcium 1.12 L Magnesium 1.5 L Alkaline Phosphatase 143 H Lactate Dehydrogenase 285 H Total Creatine Kinase C-Reactive Protein 1.4 H Globulin Meds: Medications Acetaminophen (Tylenol) 650 mg PO Q6HP PRN PRN Reason: PAIN/FEVER > 101 Albuterol/Ipratropium (Combivent) 2 puff INH QID [facility] Albuterol/Ipratropium (Duoneb) 3 ml NEB Q4HP PRN PRN Reason: Shortness Of Breath Last Admin: 01/03/20 22:17 Dose: 3 ml Documented by: Atorvastatin Calcium (Lipitor) 20 mg PO QHS [facility] Last Admin: 01/03/20 22:17 Dose: 20 mg Documented by: Benzonatate (Tessalon) 200 mg PO TIDP PRN PRN Reason: Cough Ceftriaxone Sodium (Rocephin) 1 gm IV DAILY [facility] Last Admin: 01/03/20 22:17 Dose: 1 gm Documented by: Clonidine HCl (Catapres) 0.1 mg PO Q6HP PRN PRN Reason: Hypertension sbp>150 Dextrose (Dextrose 50%) 0 ml IV UD PRN PRN Reason: Hypoglycemia Diagnostic Test (Pha) (Accu-Chek) 1 each FS ACHS [facility] Last Admin: 01/03/20 22:18 Dose: 1 each Documented by: Diltiazem HCl (Cardizem Sr) 120 mg PO BID [facility] Last Admin: 01/03/20 22:17 Dose: 120 mg Documented by: Famotidine (Pepcid) 20 mg PO HS [facility] Furosemide (Lasix) 20 mg PO BID [facility] Last Admin: 01/03/20 22:17 Dose: 20 mg Documented by: Gabapentin (Neurontin) 100 mg PO TID [facility] Last Admin: 01/03/20 22:17 Dose: 100 mg Documented by: Glucose (Insta-Glucose) 15 gm PO PRN PRN PRN Reason: Hypoglycemia Heparin Sodium (Porcine) (Heparin) 5,000 unit SQ Q12 [facility] Last Admin: 01/03/20 22:19 Dose: 5,000 unit Documented by: Hydralazine HCl (Apresoline) 0 mg IV Q2HP PRN PRN Reason: Hypertension Potassium Chloride 40 meq/ (Dextrose) 520 mls @ 130 mls/hr IV UD PRN PRN Reason: Potassium < 3 Magnesium Sulfate (Magnesium Sulfate) 2 gm in 50 mls @ 50 mls/hr IV UD PRN PRN Reason: Magnesium </= 1.6 Insulin Glargine (Lantus) 42 unit SQ [facility] Insulin Human Lispro (Humalog) 0 unit SQ ACHS [facility]; Protocol Last Admin: 01/03/20 22:18 Dose: 10 unit Documented by: Levothyroxine Sodium (Synthroid) 112 mcg PO QAMAC [facility] Last Admin: 01/04/20 08:15 Dose: 112 mcg Documented by: Loperamide HCl (Imodium) 2 mg PO Q4HP PRN PRN Reason: Diarrhea Lorazepam (Ativan) 1 mg PO HSP PRN PRN Reason: Anxiety Last Admin: 01/03/20 22:17 Dose: 1 mg Documented by: Losartan Potassium (Cozaar) 100 mg PO DAILY [facility] Methylprednisolone Sodium Succinate (Solu-Medrol) 40 mg IV Q8 [facility] Last Admin: 01/04/20 05:44 Dose: 40 mg Documented by: Metoprolol Tartrate (Lopressor) 50 mg PO BID [facility] Last Admin: 01/03/20 22:17 Dose: 50 mg Documented by: Non-Formulary Medication (Guaifenesin/Dextromethorphan [Mucus Rlf Dm Er 600-30 Mg Tab]) 1 tab PO Q12H [facility] Last Admin: 01/03/20 22:19 Dose: Not Given Documented by: Ondansetron HCl (Zofran) 4 mg IV Q4HP PRN PRN Reason: Nausea And Vomiting Solifenacin Succinate [Vesicare] 5 Mg Tablet 1 dose PO HS [facility] Last Admin: 01/03/20 22:19 Dose: Not Given Documented by: Polyethylene Glycol (Miralax) 17 gm PO DAILYP PRN PRN Reason: Constipation Potassium Chloride (Kdur) 40 meq PO UD PRN PRN Reason: Potssium is 3-3.5 Potassium Chloride (Kdur) 40 meq PO UD PRN PRN Reason: Potassium < 3 Prednisolone Acetate (Pred Forte Ophth Drops) 1 gtt OD QID [facility] Last Admin: 01/03/20 22:19 Dose: Not Given Documented by: Senna (Senokot) 2 tab PO DAILYP PRN PRN Reason: Constipation Sertraline HCl (Zoloft) 50 mg PO QDAY [facility] Sodium Chloride (Saline Flush) 10 ml IV Q8 [facility] Last Admin: 01/04/20 05:44 Dose: 10 ml Documented by: Medical - PN: A/P - Time Spent With Patient Total time spent is greater than 50% in coordination of care (as documented) at patient's floor/unit and/or counseling patient: - Narrative A/P Narrative: A: *Acute hypoxic respiratory failure: 2/2 AECOPD, r/o covid -cxr unremarkable at this time; CRP 1.4>1.8, PCT ok, -4L NC yesterday, now 2L *AECOPD (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 *h/o Grade I diastolic dysfxn: *DM w/neuropathy: *HTN: *h/o CVA w/residual left side weakness (has had several strokes) -on statin, ?no ASA, possibly was on eliquis instead, *Hypothyroidism: *GERD: * Anxiety/depression: P: -Supp O2 -f/u CXR -Steroids(wean), IH's, RT -RVP/covid pending, mrsa screen neg -empiric abx -cont home basal insulin and SSI -cont home bp meds (clarify if norvasc/losartan/lopressor changed to losartan/diltiazem.) -clarify if on ASA or eliquis for CVA -ppx: heparin DNR Medical - PN: Qual - Stroke Symptom Onset Unknown: No - VTE Deep Vein Thrombosis/Pulmonary Embolism Present on Admission: No
[2020-01-04] MEDS: INSULIN LISPRO 1 UNIT/0.01 ML UNIT SQ SCH ×5 (08:46→20:57)
[2020-01-04] MEDS: GABAPENTIN 100 MG CAPSULE PO SCH ×3 (08:58→20:41)
[2020-01-04] MEDS: HEPARIN 5,000 UNIT/ML VIAL SQ SCH ×2 (08:58→20:43)
[2020-01-04] MEDS: FUROSEMIDE 20 MG TABLET PO SCH ×2 (08:58→20:42)
[2020-01-04] MEDS: DILTIAZEM 120 MG CAP.XL.24H PO SCH ×2 (08:58→20:43)
[2020-01-04] MEDS: SERTRALINE 50 MG TABLET PO SCH (08:58)
[2020-01-04] MEDS: LOSARTAN 50 MG TABLET PO SCH (08:58)
[2020-01-04] MEDS ORDERED: IPRATROPIUM/ALBUTEROL SULFATE 1 PUFF INHALER INH SCH (09:00)
[2020-01-04] MEDS ORDERED: guaiFENesin/DEXTROMETHORPHAN ORAL SOL PO PRN (09:45)
[2020-01-04] MEDS: hydrALAZINE 20 MG/ML VIAL IV PRN (10:15)
[2020-01-04] MEDS: cloNIDine HCL 0.1 MG TABLET PO PRN (10:50)
[2020-01-04] MEDS: GUAIFENESIN PO SCH (10:55)
[2020-01-04] MEDS: METOPROLOL TARTRATE 50 MG TABLET PO SCH (10:55)
[2020-01-04] MEDS: [UNRECOGNIZED DRUG - OTHER] PO SCH (10:55)
[2020-01-04] MEDS: DEXTROMETHORPHAN PO SCH (10:55)
[2020-01-04] MEDS: ACETAMINOPHEN 325 MG TABLET PO PRN ×2 (10:56→16:55)
[2020-01-04] MEDS: prednisoLONE 1% OPHTH DROPS 1ML BOTTLE OD SCH ×4 (10:58→20:57)
--- NOTE | 2020-01-04 12:09 | XRay Report ---
CLINICAL INFORMATION: dyspnea COMPARISON: 01/03/2020 FINDINGS: Heart is mildly enlarged, but unchanged. Mediastinum and pulmonary vessels are normal. Mild left basilar atelectasis improved. Mild right basilar airspace disease has developed.. No effusion IMPRESSION: Mild right basilar airspace disease - new. As the patient can tolerate, suggest two-view upright chest x-ray in one to two days to exclude a developing infiltrate Interpreted and Authenticated by: Jey Gottlieb 01/04/20
[2020-01-04] MEDS: cefTRIAXone 1 GM VIAL IV SCH (13:52)
[2020-01-04] MEDS: INSULIN GLARGINE, HUMAN 1 UNIT/0.01 ML SQ SCH (20:56)
[2020-01-04] MEDS: FAMOTIDINE 20 MG TABLET PO SCH (20:56)
[2020-01-04] MEDS: ATORVASTATIN 20 MG TABLET PO SCH (20:56)
[2020-01-04] MEDS: Solifenacin Succinate [Vesicare] 5 MG Tablet PO SCH (21:02)
[2020-01-04] MEDS: ALBUTEROL SULFATE 200 PUFF INHALER INH PRN (22:53)
[2020-01-05] MEDS: 0.9 % SODIUM CHLORIDE 10 ML SYRINGE IV SCH ×5 (05:37→20:55)
[2020-01-05] MEDS: methylPREDNISolone SOD SUCC 40 MG/ML VIAL IV SCH (05:37)
[2020-01-05 06:40] LABS: Basophils # (Auto) 0.01 K/mcL (0.00-0.30); Basophils % (Auto) 0.1 % (0.0-2.0); Eosinophils # (Auto) 0.01 K/mcL (0.00-0.70); Eosinophils % (Auto) 0.1 % (0.0-7.0); Granulocytes % (Auto) 92.1 % (38.0-78.0); Hematocrit 39.3 % (34.1-44.9); Hemoglobin 12.7 g/dL (11.2-15.7); Lymphocytes # (Auto) 0.89 K/mcL (1.50-4.80); Lymphocytes % (Auto) 6.3 % (15.5-49.0); Mean Cell Volume 86.9 fL (80.0-100.0); Mean Corpuscular HGB Conc 32.3 g/dL (31.0-36.0); Mean Platelet Volume 11.5 fL (7.4-10.4); Monocytes % (Auto) 1.4 % (1.0-12.0); Platelet Count 258 K/mcL (140-440); RBC 4.52 M/mcL (3.59-5.38); Red Cell Distribution Width 16.8 % (11.5-14.5); WBC 14.1 K/mcL (4.50-11.00)
[2020-01-05 07:06] LABS: Calcium 10.1 mg/dl (8.6-10.4); Carbon Dioxide 25 mmol/L (22-30); Glomerular Filtration Rate 32; Glucose 281 mg/dL (70-105)
[2020-01-05 07:07] LABS: Blood Urea Nitrogen 35 mg/dl (8-23); Chloride 92 mmol/L (96-108)
[2020-01-05] MEDS: LEVOTHYROXINE SODIUM 112 MCG TABLET PO SCH (07:30)
[2020-01-05] MEDS: hydrALAZINE 20 MG/ML VIAL IV PRN (07:49)
[2020-01-05] MEDS: INSULIN LISPRO 1 UNIT/0.01 ML UNIT SQ SCH ×5 (07:49→20:52)
[2020-01-05] MEDS: ALBUTEROL SULFATE 200 PUFF INHALER INH PRN ×2 (08:05→13:15)
[2020-01-05] MEDS ORDERED: INSULIN GLARGINE, HUMAN 1 UNIT/0.01 ML SQ ONE (08:19)
--- NOTE | 2020-01-05 08:25 | Internal Med Progress Note ---
Medical - PN: Subj Patient information: Note initiated : 01/05/20 at 8:15 am Service Date, if different from initiated Date: [] Patient: Génesis Medina a 84 y/o F admitted on 01/03/20 for shortness of breath, cough. Chief Complaint: [] Interval history: Ms. Medina is a 84 year old F Presents to the ED with shortness of breath. Sounds like she has been dealing with breathing issues for a month and a half. She has been on multiple rounds of antibiotics. 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 Presentation today in the ED is felt that she has a COPD exacerbation. Of note she is from [facility] who has had confirmed cases of COVID19. She does not have a fever at this time. She does report cough which is nonproductive. Denies myalgias at this time. Chest x-ray report did as minor bibasilar atelectasis otherwise unremarkable. Had reported sats of 88% in the ED And is not on oxygen at home. She is on day 3 of azithromycin. And has been on doxycycline in the past. Flu screen in the ED was negative. She has not been tested for comorbidities. She had multiple breathing treatments throughout the day and reports minimal benefit. Oxygenation improved on 3 L nasal cannula with sats mid to high 90s in the ED. Other symptoms patient says she has occasional diarrhea but none currently. Denies headache. Has some chest wall stomach pain with coughing fits. ABG significant for a PaO2 of only 62 on 3 L oxygen. 4/4 Patient feels like she is breathing little better today. She does have a cough which is nonproductive. Denies diarrhea fever chills this morning. Was on 4 L of oxygen since the ED and is currently on 2 and will titrate down to 1.5. Patient was found to have a small subdural hematoma in July last fall. Her Eliquis at that time which was 2.5 twice daily was stopped. Follow-up CT brain in September still showed some hematoma but did improve. Her Eliquis has continued to be held. Patient believes she was on Eliquis for stroke prophylaxis. In July she was transferred to [facility] for the subdural hematoma and was monitored there for 3 days. Also sound like she is been dealing with coughing since last fall. May need to see founder for bronchoscopy and biopsies. 4/5 Doing better. She is on room oxygen. Of note she did desaturate last night while sleeping but good while awake especially currently. Chest x-ray yesterday did show a right base infiltrate. Discussed with her whether she feels like food and liquid on the wrong pipe sometimes and she said yes sometimes. She is never seen a speech therapist that she is aware of. Has a cough which is nonproductive. Review of Systems: denies headache/fever/chills/nausea/vomiting/chest or abdominal pain/. Other trotter see above. - Constitutional Vitals: Vital Signs Temp Pulse Resp BP Pulse Ox 97.8 F 75 23 H 158/76 92 01/05/20 04:02 01/05/20 00:00 01/05/20 04:02 01/05/20 04:02 01/05/20 02:00 Period Temp Pulse Resp BP Sys/King Pulse Ox Last 24 Hr 97.8 F-99.2 F 75-102 14-26 129-200/59-102 89-100 Intake and Output 01/04/20 01/05/20 01/05/20 21:59 05:59 13:59 Intake Total 480 240 Output Total 777 900 Balance -297 -660 Weight 64.818 kg Intake & Output: Intake & Output 01/04/20 01/05/20 01/05/20 21:59 05:59 13:59 Intake Total 480 240 Output Total 777 900 Balance -297 -660 Weight 64.818 kg Intake: Oral 480 240 Output: Void Amount 775 900 # of times incontinent of urine 2 Other: Meal Dinner Percent of Meal Consumed 100% Feeding Ability Independent Urine Appearance Cloudy Urine Color Pale Exam: General: Alert, Awake, No acute Distress Eyes/N/T: EOMI, Head/Neck: neck supple, CV: RRR, difficult to auscultate over pulmonary sounds, No murmurs Pulm: expiratory b/l rhonchi and wheezing Abd: soft, nontender, +BS x4 Ext: no clubbing/cyanosis/edema Neuro: Alert, chronically weak left arm and leg from previous stroke, moves all extremities, Skin: warm/dry Medical - PN: Obj Da - Labs CBC & Chem 7: 01/05/20 05:20 01/05/20 05:20 Labs: Abnormal Lab Results 01/05/20 01/05/20 01/05/20 05:20 05:20 05:20 WBC 14.1 H RDW 16.8 H MPV 11.5 H Gran % 92.1 H Lymph % (Auto) 6.3 L [place] % (Auto) Gran # 13.02 H Lymph # (Auto) 0.89 L [place] # (Auto) VBG Lactic Acid Chloride 92 L Anion Gap 18.0 H POC BUN BUN 35 H Creatinine 1.5 H POC Creatinine Glucose 281 H POC Glucose Uric Acid POC WB Ioniz Calcium Magnesium Alkaline Phosphatase Lactate Dehydrogenase Total Creatine Kinase C-Reactive Protein 1.1 H Globulin 01/04/20 01/04/20 01/03/20 05:15 05:15 17:21 WBC 14.1 H 12.9 H RDW 16.9 H 17.1 H MPV 11.6 H 11.8 H Gran % 92.6 H 79.2 H Lymph % (Auto) 6.7 L 15.1 L [place] % (Auto) 0.4 L Gran # 13.07 H 10.25 H Lymph # (Auto) 0.95 L [place] # (Auto) 0.05 L VBG Lactic Acid Chloride 94 L Anion Gap 17.0 H POC BUN BUN 27 H Creatinine 1.6 H POC Creatinine Glucose 282 H POC Glucose Uric Acid 8.3 H POC WB Ioniz Calcium Magnesium Alkaline Phosphatase 159 H Lactate Dehydrogenase Total Creatine Kinase 307 H C-Reactive Protein 1.8 H Globulin 4.0 H 01/03/20 01/03/20 01/03/20 17:20 17:20 17:20 WBC RDW MPV Gran % Lymph % (Auto) [place] % (Auto) Gran # Lymph # (Auto) [place] # (Auto) VBG Lactic Acid 2.1 H Chloride 94 L Anion Gap 17.0 H POC BUN 32 H BUN 25 H Creatinine 1.6 H POC Creatinine 1.8 H Glucose 153 H POC Glucose 153 H Uric Acid POC WB Ioniz Calcium 1.12 L Magnesium 1.5 L Alkaline Phosphatase 143 H Lactate Dehydrogenase 285 H Total Creatine Kinase C-Reactive Protein 1.4 H Globulin Meds: Medications Acetaminophen (Tylenol) 650 mg PO Q6HP PRN PRN Reason: PAIN/FEVER > 101 Last Admin: 01/04/20 16:55 Dose: 650 mg Documented by: Albuterol Sulfate (Ventolin) 2 puff INH Q4HP PRN PRN Reason: Shortness Of Breath Last Admin: 01/04/20 22:53 Dose: 2 puff Documented by: Atorvastatin Calcium (Lipitor) 20 mg PO QHS [facility] Last Admin: 01/04/20 20:56 Dose: 20 mg Documented by: Benzonatate (Tessalon) 200 mg PO TIDP PRN PRN Reason: Cough Ceftriaxone Sodium (Rocephin) 1 gm IV DAILY [facility] Last Admin: 01/04/20 13:52 Dose: 1 gm Documented by: Clonidine HCl (Catapres) 0.1 mg PO Q6HP PRN PRN Reason: Hypertension sbp>150 Last Admin: 01/04/20 10:50 Dose: 0.1 mg Documented by: Dextrose (Dextrose 50%) 0 ml IV UD PRN PRN Reason: Hypoglycemia Diagnostic Test (Pha) (Accu-Chek) 1 each FS ACHS [facility] Last Admin: 01/05/20 07:49 Dose: 1 each Documented by: Diltiazem HCl (Cardizem Sr) 120 mg PO BID [facility] Last Admin: 01/04/20 20:43 Dose: 120 mg Documented by: Famotidine (Pepcid) 20 mg PO HS [facility] Last Admin: 01/04/20 20:56 Dose: 20 mg Documented by: Furosemide (Lasix) 20 mg PO BID [facility] Last Admin: 01/04/20 20:42 Dose: 20 mg Documented by: Gabapentin (Neurontin) 100 mg PO TID [facility] Last Admin: 01/04/20 20:41 Dose: 100 mg Documented by: Glucose (Insta-Glucose) 15 gm PO PRN PRN PRN Reason: Hypoglycemia Guaifenesin (Robitussin Dm) 0 ml PO Q4-6HP PRN PRN Reason: Cough Heparin Sodium (Porcine) (Heparin) 5,000 unit SQ Q12 [facility] Last Admin: 01/04/20 20:43 Dose: 5,000 unit Documented by: Hydralazine HCl (Apresoline) 0 mg IV Q2HP PRN PRN Reason: Hypertension Last Admin: 01/05/20 07:49 Dose: 20 mg Documented by: Potassium Chloride 40 meq/ (Dextrose) 520 mls @ 130 mls/hr IV UD PRN PRN Reason: Potassium < 3 Magnesium Sulfate (Magnesium Sulfate) 2 gm in 50 mls @ 50 mls/hr IV UD PRN PRN Reason: Magnesium </= 1.6 Insulin Glargine (Lantus) 42 unit SQ [facility] Last Admin: 01/04/20 20:56 Dose: 42 units Documented by: Insulin Human Lispro (Humalog) 0 unit SQ [facility]; Protocol Last Admin: 01/05/20 07:49 Dose: 8 unit Documented by: Levothyroxine Sodium (Synthroid) 112 mcg PO QAMAC [facility] Last Admin: 01/05/20 07:30 Dose: 112 mcg Documented by: Loperamide HCl (Imodium) 2 mg PO Q4HP PRN PRN Reason: Diarrhea Last Admin: 01/04/20 12:10 Dose: 2 mg Documented by: Lorazepam (Ativan) 1 mg PO HSP PRN PRN Reason: Anxiety Last Admin: 01/03/20 22:17 Dose: 1 mg Documented by: Losartan Potassium (Cozaar) 100 mg PO DAILY [facility] Last Admin: 01/04/20 08:58 Dose: 100 mg Documented by: Methylprednisolone Sodium Succinate (Solu-Medrol) 40 mg IV Q8 [facility] Last Admin: 01/05/20 05:37 Dose: 40 mg Documented by: Ondansetron HCl (Zofran) 4 mg IV Q4HP PRN PRN Reason: Nausea And Vomiting Solifenacin Succinate [Vesicare] 5 Mg Tablet 1 dose PO [facility] Last Admin: 01/04/20 21:02 Dose: 1 dose Documented by: Polyethylene Glycol (Miralax) 17 gm PO DAILYP PRN PRN Reason: Constipation Potassium Chloride (Kdur) 40 meq PO UD PRN PRN Reason: Potssium is 3-3.5 Potassium Chloride (Kdur) 40 meq PO UD PRN PRN Reason: Potassium < 3 Prednisolone Acetate (Pred Forte Ophth Drops) 1 gtt OD QID [facility] Last Admin: 01/04/20 20:57 Dose: 1 drop Documented by: Senna (Senokot) 2 tab PO DAILYP PRN PRN Reason: Constipation Sertraline HCl (Zoloft) 50 mg PO QDAY [facility] Last Admin: 01/04/20 08:58 Dose: 50 mg Documented by: Sodium Chloride (Saline Flush) 10 ml IV Q8 [facility] Last Admin: 01/05/20 07:50 Dose: 10 ml Documented by: Medical - PN: A/P - Time Spent With Patient Total time spent is greater than 50% in coordination of care (as documented) at patient's floor/unit and/or counseling patient: - Narrative A/P Narrative: A: *Acute hypoxic respiratory failure: 2/2 AECOPD, r/o covid. vs aspiration -cxr unremarkable at this time; CRP 1.4>1.8>1.1, PCT ok, -4L NC on admit, 2L yesterday, now on room air -CXR right basilar infiltrate *AECOPD (not on oxygen at home): -RVP neg, *Chronic cough: sound like she had EGD last fall. 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) -on statin, ?no ASA, possibly was on eliquis instead, *Hypothyroidism: *GERD: * Anxiety/depression: P: -Supp O2 prn -f/u CXR in AM -Steroids(wean), IH's, IS/Acapella, RT -covid pending, mrsa screen neg -empiric abx -ST eval -cont home basal insulin and SSI change to high, 10unit lantus now -cont home bp meds (clarify if norvasc/losartan/lopressor changed to losartan/d iltiazem.) -clarify if on ASA or eliquis for CVA -f/u with Pulmonology for chronic cough -ppx: heparin DNR Medical - PN: Qual - Stroke Symptom Onset Unknown: No - VTE Deep Vein Thrombosis/Pulmonary Embolism Present on Admission: No
[2020-01-05] MEDS: cefTRIAXone 1 GM VIAL IV SCH (09:04)
[2020-01-05] MEDS: HEPARIN 5,000 UNIT/ML VIAL SQ SCH ×2 (09:04→20:52)
[2020-01-05] MEDS: LOSARTAN 50 MG TABLET PO SCH (09:05)
[2020-01-05] MEDS: SERTRALINE 50 MG TABLET PO SCH (09:05)
[2020-01-05] MEDS: DILTIAZEM 120 MG CAP.XL.24H PO SCH ×2 (09:05→20:52)
[2020-01-05] MEDS: GABAPENTIN 100 MG CAPSULE PO SCH ×3 (09:05→20:53)
[2020-01-05] MEDS: FUROSEMIDE 20 MG TABLET PO SCH ×2 (09:05→20:53)
[2020-01-05] MEDS: prednisoLONE 1% OPHTH DROPS 1ML BOTTLE OD SCH ×4 (09:06→20:54)
[2020-01-05 18:01] LABS: Hemoglobin A1C 7.1 % HGB (4.0-6.0)
[2020-01-05] MEDS: INSULIN GLARGINE, HUMAN 1 UNIT/0.01 ML SQ SCH (20:53)
[2020-01-05] MEDS: ATORVASTATIN 20 MG TABLET PO SCH (20:53)
[2020-01-05] MEDS: predniSONE 20 MG TABLET PO SCH (20:54)
[2020-01-05] MEDS: Solifenacin Succinate [Vesicare] 5 MG Tablet PO SCH (20:54)
[2020-01-05] MEDS: FAMOTIDINE 20 MG TABLET PO SCH (20:54)
[2020-01-05] MEDS: ACETAMINOPHEN 325 MG TABLET PO PRN (21:18)
[2020-01-06] MEDS: ALBUTEROL SULFATE 200 PUFF INHALER INH PRN ×2 (00:10→15:55)
[2020-01-06] MEDS: hydrALAZINE 20 MG/ML VIAL IV PRN ×2 (00:19→20:06)
[2020-01-06] MEDS: 0.9 % SODIUM CHLORIDE 10 ML SYRINGE IV SCH ×3 (05:27→21:20)
[2020-01-06 06:02] LABS: Hematocrit 38.8 % (34.1-44.9); Hemoglobin 12.4 g/dL (11.2-15.7); Mean Cell Volume 86.6 fL (80.0-100.0); Mean Platelet Volume 11.5 fL (7.4-10.4); Platelet Count 230 K/mcL (140-440); RBC 4.48 M/mcL (3.59-5.38); Red Cell Distribution Width 16.9 % (11.5-14.5); WBC 13.7 K/mcL (4.50-11.00)
[2020-01-06 06:35] LABS: Calcium 9.2 mg/dl (8.6-10.4); Carbon Dioxide 24 mmol/L (22-30); Chloride 92 mmol/L (96-108); Glomerular Filtration Rate 24; Glucose 244 mg/dL (70-105)
[2020-01-06 06:40] LABS: Blood Urea Nitrogen 52 mg/dl (8-23)
[2020-01-06 06:58] LABS: Anisocytosis 1+ (NONE SEEN); Band Neutrophils % 2 % (0-10); Lymphocytes % 5 % (15-49); Monocytes % (Manual) 2 % (1-12); Ovalocytes FEW (NONE SEEN); Platelet Estimate NORMAL (NORMAL); RBC Morphology ABNORMAL (NORMAL); Segmented Neutrophils % 91 % (38-78)
[2020-01-06] MEDS ORDERED: 0.9 % SODIUM CHLORIDE 500 ML IV ONE (07:41)
--- NOTE | 2020-01-06 07:44 | Internal Med Progress Note ---
Medical - PN: Subj Patient information: Note initiated : 01/06/20 at 7:36 am Service Date, if different from initiated Date: [] Patient: Génesis Medina a 84 y/o F admitted on 01/03/20 for shortness of breath, cough. Chief Complaint: [] Interval history: Ms. Medina is a 84 year old F Presents to the ED with shortness of breath. Sounds like she has been dealing with breathing issues for a month and a half. She has been on multiple rounds of antibiotics. 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 Presentation today in the ED is felt that she has a COPD exacerbation. Of note she is from [facility] who has had confirmed cases of COVID19. She does not have a fever at this time. She does report cough which is nonproductive. Denies myalgias at this time. Chest x-ray report did as minor bibasilar atelectasis otherwise unremarkable. Had reported sats of 88% in the ED And is not on oxygen at home. She is on day 3 of azithromycin. And has been on doxycycline in the past. Flu screen in the ED was negative. She has not been tested for comorbidities. She had multiple breathing treatments throughout the day and reports minimal benefit. Oxygenation improved on 3 L nasal cannula with sats mid to high 90s in the ED. Other symptoms patient says she has occasional diarrhea but none currently. Denies headache. Has some chest wall stomach pain with coughing fits. ABG significant for a PaO2 of only 62 on 3 L oxygen. 4/4 Patient feels like she is breathing little better today. She does have a cough which is nonproductive. Denies diarrhea fever chills this morning. Was on 4 L of oxygen since the ED and is currently on 2 and will titrate down to 1.5. Patient was found to have a small subdural hematoma in July last fall. Her Eliquis at that time which was 2.5 twice daily was stopped. Follow-up CT brain in September still showed some hematoma but did improve. Her Eliquis has continued to be held. Patient states the Eliquis was for stroke prophylaxis. In July she was transferred to [facility] for the subdural hematoma and was monitored there for 3 days. Also sound like she is been dealing with coughing since last fall. May need to see spray operator for bronchoscopy and biopsies. 4/5 Doing better. She is on room oxygen. Of note she did desaturate last night while sleeping but good while awake especially currently. Chest x-ray yesterday did show a right base infiltrate. Discussed with her whether she feels like food and liquid on the wrong pipe sometimes and she said yes sometimes. She is never seen a speech therapist that she is aware of. Has a cough which is nonproductive. 4/6 Occasional cough that she feels a little better. Occasional shortness of breath. Chest x-ray no progression. She has been on room air yesterday but at night while she slept she is placed on oxygen. She is on half liter this morning and likely can be discontinued. Awaiting speech therapy evaluation as concern for silent aspiration Review of Systems: denies headache/fever/chills/nausea/vomiting/chest or abdominal pain/. Otherwise see above. - Constitutional Vitals: Vital Signs Temp Pulse Resp BP Pulse Ox 98.6 F 62 12 128/53 93 01/06/20 07:00 01/06/20 04:27 01/06/20 04:27 01/06/20 04:01 01/06/20 04:27 Period Temp Pulse Resp BP Sys/King Pulse Ox Last 24 Hr 97.5 F-99.8 F 62-88 12-27 128-193/51-79 85-100 Intake and Output 01/05/20 01/06/20 01/06/20 21:59 05:59 13:59 Intake Total 840 100 Output Total 426 276 401 Balance 414 -176 -401 Weight 64.002 kg Intake & Output: Intake & Output 01/05/20 01/06/20 01/06/20 21:59 05:59 13:59 Intake Total 840 100 Output Total 426 276 401 Balance 414 -176 -401 Weight 64.002 kg Intake: Oral 840 100 Output: Void Amount 425 275 400 # of times incontinent of urine 1 1 1 Other: Meal Dinner Percent of Meal Consumed 100% Urine Appearance Cloudy Cloudy Urine Color Straw Straw Urine Odor Normal # Bowel Movements 0 0 Exam: General: Alert, Awake, No acute Distress Eyes/N/T: EOMI, Head/Neck: neck supple, CV: RRR, difficult to auscultate over pulmonary sounds, No murmurs Pulm: expiratory b/l rhonchi and wheezing Abd: soft, nontender, +BS x4 Ext: no clubbing/cyanosis/edema Neuro: Alert, chronically weak left arm and leg from previous stroke, moves all extremities, Skin: warm/dry Medical - PN: Obj Da - Labs CBC & Chem 7: 01/06/20 05:15 01/06/20 05:15 Labs: Abnormal Lab Results 01/06/20 01/06/20 01/05/20 05:15 05:15 05:20 WBC 13.7 H RDW 16.9 H MPV 11.5 H Gran % Lymph % (Auto) [place] % (Auto) Gran # Lymph # (Auto) [place] # (Auto) Seg Neutrophils % 91 H Lymphocytes % 5 L Anisocytosis 1+ A Ovalocytes Few A VBG Lactic Acid Sodium 132 L Chloride 92 L Anion Gap POC BUN BUN 52 H Creatinine 1.9 H POC Creatinine Glucose 244 H POC Glucose Hemoglobin A1c 7.1 H Uric Acid POC WB Ioniz Calcium Magnesium Alkaline Phosphatase Lactate Dehydrogenase Total Creatine Kinase C-Reactive Protein Globulin 01/05/20 01/05/20 01/05/20 05:20 05:20 05:20 WBC 14.1 H RDW 16.8 H MPV 11.5 H Gran % 92.1 H Lymph % (Auto) 6.3 L [place] % (Auto) Gran # 13.02 H Lymph # (Auto) 0.89 L [place] # (Auto) Seg Neutrophils % Lymphocytes % Anisocytosis Ovalocytes VBG Lactic Acid Sodium Chloride 92 L Anion Gap 18.0 H POC BUN BUN 35 H Creatinine 1.5 H POC Creatinine Glucose 281 H POC Glucose Hemoglobin A1c Uric Acid POC WB Ioniz Calcium Magnesium Alkaline Phosphatase Lactate Dehydrogenase Total Creatine Kinase C-Reactive Protein 1.1 H Globulin 01/04/20 01/04/20 01/03/20 05:15 05:15 17:21 WBC 14.1 H 12.9 H RDW 16.9 H 17.1 H MPV 11.6 H 11.8 H Gran % 92.6 H 79.2 H Lymph % (Auto) 6.7 L 15.1 L [place] % (Auto) 0.4 L Gran # 13.07 H 10.25 H Lymph # (Auto) 0.95 L [place] # (Auto) 0.05 L Seg Neutrophils % Lymphocytes % Anisocytosis Ovalocytes VBG Lactic Acid Sodium Chloride 94 L Anion Gap 17.0 H POC BUN BUN 27 H Creatinine 1.6 H POC Creatinine Glucose 282 H POC Glucose Hemoglobin A1c Uric Acid 8.3 H POC WB Ioniz Calcium Magnesium Alkaline Phosphatase 159 H Lactate Dehydrogenase Total Creatine Kinase 307 H C-Reactive Protein 1.8 H Globulin 4.0 H 01/03/20 01/03/20 01/03/20 17:20 17:20 17:20 WBC RDW MPV Gran % Lymph % (Auto) [place] % (Auto) Gran # Lymph # (Auto) [place] # (Auto) Seg Neutrophils % Lymphocytes % Anisocytosis Ovalocytes VBG Lactic Acid 2.1 H Sodium Chloride 94 L Anion Gap 17.0 H POC BUN 32 H BUN 25 H Creatinine 1.6 H POC Creatinine 1.8 H Glucose 153 H POC Glucose 153 H Hemoglobin A1c Uric Acid POC WB Ioniz Calcium 1.12 L Magnesium 1.5 L Alkaline Phosphatase 143 H Lactate Dehydrogenase 285 H Total Creatine Kinase C-Reactive Protein 1.4 H Globulin Meds: Medications Acetaminophen (Tylenol) 650 mg PO Q6HP PRN PRN Reason: PAIN/FEVER > 101 Last Admin: 01/05/20 21:18 Dose: 650 mg Documented by: Albuterol Sulfate (Ventolin) 2 puff INH Q4HP PRN PRN Reason: Shortness Of Breath Last Admin: 01/06/20 00:10 Dose: 2 puff Documented by: Atorvastatin Calcium (Lipitor) 20 mg PO QHS [facility] Last Admin: 01/05/20 20:53 Dose: 20 mg Documented by: Benzonatate (Tessalon) 200 mg PO TIDP PRN PRN Reason: Cough Ceftriaxone Sodium (Rocephin) 1 gm IV DAILY [facility] Last Admin: 01/05/20 09:04 Dose: 1 gm Documented by: Clonidine HCl (Catapres) 0.1 mg PO Q6HP PRN PRN Reason: Hypertension sbp>150 Last Admin: 01/04/20 10:50 Dose: 0.1 mg Documented by: Dextrose (Dextrose 50%) 0 ml IV UD PRN PRN Reason: Hypoglycemia Diagnostic Test (Pha) (Accu-Chek) 1 each FS ACHS [facility] Last Admin: 01/05/20 20:51 Dose: 1 each Documented by: Diltiazem HCl (Cardizem Sr) 120 mg PO BID [facility] Last Admin: 01/05/20 20:52 Dose: 120 mg Documented by: Famotidine (Pepcid) 20 mg PO [facility] Last Admin: 01/05/20 20:54 Dose: 20 mg Documented by: Furosemide (Lasix) 20 mg PO BID [facility] Last Admin: 01/05/20 20:53 Dose: 20 mg Documented by: Gabapentin (Neurontin) 100 mg PO TID [facility] Last Admin: 01/05/20 20:53 Dose: 100 mg Documented by: Glucose (Insta-Glucose) 15 gm PO PRN PRN PRN Reason: Hypoglycemia Guaifenesin (Robitussin Dm) 0 ml PO Q4-6HP PRN PRN Reason: Cough Last Admin: 01/05/20 21:39 Dose: 5 ml Documented by: Heparin Sodium (Porcine) (Heparin) 5,000 unit SQ Q12 [facility] Last Admin: 01/05/20 20:52 Dose: 5,000 unit Documented by: Hydralazine HCl (Apresoline) 0 mg IV Q2HP PRN PRN Reason: Hypertension Last Admin: 01/06/20 00:19 Dose: 20 mg Documented by: Potassium Chloride 40 meq/ (Dextrose) 520 mls @ 130 mls/hr IV UD PRN PRN Reason: Potassium < 3 Magnesium Sulfate (Magnesium Sulfate) 2 gm in 50 mls @ 50 mls/hr IV UD PRN PRN Reason: Magnesium </= 1.6 Insulin Glargine (Lantus) 42 unit SQ [facility] Last Admin: 01/05/20 20:53 Dose: 42 units Documented by: Insulin Human Lispro (Humalog) 0 unit SQ [facility]; Protocol Last Admin: 01/05/20 20:52 Dose: 6 unit Documented by: Levothyroxine Sodium (Synthroid) 112 mcg PO QAMAC [facility] Last Admin: 01/05/20 07:30 Dose: 112 mcg Documented by: Loperamide HCl (Imodium) 2 mg PO Q4HP PRN PRN Reason: Diarrhea Last Admin: 01/04/20 12:10 Dose: 2 mg Documented by: Lorazepam (Ativan) 1 mg PO HSP PRN PRN Reason: Anxiety Last Admin: 01/03/20 22:17 Dose: 1 mg Documented by: Losartan Potassium (Cozaar) 100 mg PO DAILY [facility] Last Admin: 01/05/20 09:05 Dose: 100 mg Documented by: Ondansetron HCl (Zofran) 4 mg IV Q4HP PRN PRN Reason: Nausea And Vomiting Solifenacin Succinate [Vesicare] 5 Mg Tablet 1 dose PO HS [facility] Last Admin: 01/05/20 20:54 Dose: 1 dose Documented by: Polyethylene Glycol (Miralax) 17 gm PO DAILYP PRN PRN Reason: Constipation Potassium Chloride (Kdur) 40 meq PO UD PRN PRN Reason: Potssium is 3-3.5 Potassium Chloride (Kdur) 40 meq PO UD PRN PRN Reason: Potassium < 3 Prednisolone Acetate (Pred Forte Ophth Drops) 1 gtt OD QID [facility] Last Admin: 01/05/20 20:54 Dose: 1 drop Documented by: Prednisone (Prednisone) 40 mg PO BID [facility] Last Admin: 01/05/20 20:54 Dose: 40 mg Documented by: Senna (Senokot) 2 tab PO DAILYP PRN PRN Reason: Constipation Sertraline HCl (Zoloft) 50 mg PO QDAY [facility] Last Admin: 01/05/20 09:05 Dose: 50 mg Documented by: Sodium Chloride (Saline Flush) 10 ml IV Q8 [facility] Last Admin: 01/06/20 05:27 Dose: 10 ml Documented by: Medical - PN: A/P - Time Spent With Patient Total time spent is greater than 50% in coordination of care (as documented) at patient's floor/unit and/or counseling patient: - Narrative A/P Narrative: A: *Acute hypoxic respiratory failure: 2/2 AECOPD, r/o covid. vs aspiration -cxr unremarkable at this time; CRP 1.4>1.8>1.1, PCT ok, -4L NC on admit, room air yesterday but placed on 2L last night. seems to mildly desat while sleeping -CXR right basilar infiltrate *AECOPD (not on oxygen at home): -RVP neg, *Chronic cough: sound like she had EGD last fall. may need to see Pulmonology -?aspiration *CKD IIIb-IV: follows with dr. Jake can in cr, likely prerenal *h/o Grade I diastolic dysfxn: *DM w/neuropathy: A1c 7.1 *HTN: home med diltiazem/losartan *h/o CVA w/residual left side weakness (has had several strokes) -on statin, was on eliquis but this was stopped last fall for SDH *Hypothyroidism: *GERD: *Anxiety/depression: P: -Supp O2 prn -Steroids(wean), IH's, IS/Acapella, RT -covid pending, mrsa screen neg -empiric abx -ST eval -hold home lasix today, gentle fluids today -cont home basal insulin and high SSI, BG elevated while on steroids, lantus 20units this morning -cont home bp meds (losartan/diltiazem.) -f/u with Pulmonology for chronic cough -home eliquis stopped last Fall/Winter for SDH, not on ASA - consider starting for CVA prevention if unable to take anticoagulation, f/u outpt -ppx: heparin DNR Medical - PN: Qual - Stroke Symptom Onset Unknown: No - VTE Deep Vein Thrombosis/Pulmonary Embolism Present on Admission: No
--- NOTE | 2020-01-06 08:04 | XRay Report ---
CLINICAL INFORMATION: f/u right infiltrate COMPARISON: 01/04/2020 FINDINGS: Mild cardiomegaly is unchanged. Mediastinum and pulmonary vessels are normal. Small infiltrate in the right base is improved. Minimal infiltrate or atelectasis in the left base is probably unchanged given differences in technique. Tiny bilateral pleural effusions are likely unchanged IMPRESSION: Patchy right basilar infiltrate improving. Minor infiltrate or atelectasis left base unchanged. Interpreted and Authenticated by: Jey Gottlieb 01/06/20
[2020-01-06] MEDS: cefTRIAXone 1 GM VIAL IV SCH (09:00)
[2020-01-06] MEDS: HEPARIN 5,000 UNIT/ML VIAL SQ SCH ×2 (09:00→21:18)
[2020-01-06] MEDS: LEVOTHYROXINE SODIUM 112 MCG TABLET PO SCH (09:01)
[2020-01-06] MEDS: LOSARTAN 50 MG TABLET PO SCH (09:01)
[2020-01-06] MEDS: DILTIAZEM 120 MG CAP.XL.24H PO SCH ×2 (09:01→21:19)
[2020-01-06] MEDS: INSULIN LISPRO 1 UNIT/0.01 ML UNIT SQ SCH ×4 (09:01→22:07)
[2020-01-06] MEDS: GABAPENTIN 100 MG CAPSULE PO SCH ×3 (09:01→21:19)
[2020-01-06] MEDS: SERTRALINE 50 MG TABLET PO SCH (09:02)
[2020-01-06] MEDS ORDERED: INSULIN GLARGINE, HUMAN 1 UNIT/0.01 ML SQ ONE (09:06)
[2020-01-06] MEDS: prednisoLONE 1% OPHTH DROPS 1ML BOTTLE OD SCH ×4 (09:38→21:20)
[2020-01-06] MEDS: predniSONE 20 MG TABLET PO SCH ×2 (09:38→15:25)
[2020-01-06] MEDS: cloNIDine HCL 0.1 MG TABLET PO PRN (12:05)
[2020-01-06] MEDS: LORazepam 1 MG TABLET PO PRN (16:32)
[2020-01-06] MEDS: FAMOTIDINE 20 MG TABLET PO SCH (21:19)
[2020-01-06] MEDS: diphenhydrAMINE 25 MG CAPSULE PO PRN (21:19)
[2020-01-06] MEDS: ACETAMINOPHEN 325 MG TABLET PO PRN (21:19)
[2020-01-06] MEDS: ATORVASTATIN 20 MG TABLET PO SCH (21:19)
[2020-01-06] MEDS: MELATONIN 3 MG TABLET PO SCH (21:20)
[2020-01-06] MEDS: Solifenacin Succinate [Vesicare] 5 MG Tablet PO SCH (21:20)
[2020-01-06] MEDS: INSULIN GLARGINE, HUMAN 1 UNIT/0.01 ML SQ SCH (22:08)
[2020-01-07] MEDS: 0.9 % SODIUM CHLORIDE 10 ML SYRINGE IV SCH ×3 (05:42→20:22)
[2020-01-07 06:11] LABS: Basophils # (Auto) 0.01 K/mcL (0.00-0.30); Basophils % (Auto) 0.1 % (0.0-2.0); Eosinophils # (Auto) 0 K/mcL (0.00-0.70); Eosinophils % (Auto) 0 % (0.0-7.0); Granulocytes % (Auto) 84.7 % (38.0-78.0); Hematocrit 37.1 % (34.1-44.9); Hemoglobin 11.5 g/dL (11.2-15.7); Lymphocytes # (Auto) 0.96 K/mcL (1.50-4.80); Lymphocytes % (Auto) 9.4 % (15.5-49.0); Mean Cell Volume 87.3 fL (80.0-100.0); Mean Platelet Volume 11.3 fL (7.4-10.4); Monocytes # (Auto) 0.59 K/mcL (0.10-0.90); Monocytes % (Auto) 5.8 % (1.0-12.0); Platelet Count 223 K/mcL (140-440); RBC 4.25 M/mcL (3.59-5.38); Red Cell Distribution Width 17.2 % (11.5-14.5); WBC 10.2 K/mcL (4.50-11.00)
[2020-01-07 06:31] LABS: ALT/SGPT 16 U/l (0-40); AST/SGOT 16 U/l (0-37); Albumin 3.1 gm/dL (3.2-5.2); Alkaline Phosphatase 101 U/L (39-117); Bilirubin,Direct < 0.2 mg/dL (0.0-0.3); Bilirubin,Total < 0.2 mg/dL (0.0-1.0); Blood Urea Nitrogen 55 mg/dl (8-23); Calcium 8.7 mg/dl (8.6-10.4); Carbon Dioxide 24 mmol/L (22-30); Chloride 95 mmol/L (96-108); Globulin 3.2 gm/dL (2.2-3.7); Glomerular Filtration Rate 23; Glucose 156 mg/dL (70-105); Lactate Dehydrogenase 179 U/L (94-250); Phosphorous 4.7 mg/dL (2.7-4.5); Triglycerides 116 mg/dl (<150); Uric Acid 9.7 mg/dL (2.5-8.0)
[2020-01-07] MEDS: INSULIN LISPRO 1 UNIT/0.01 ML UNIT SQ SCH ×4 (07:13→20:21)
[2020-01-07] MEDS: predniSONE 20 MG TABLET PO SCH (07:47)
[2020-01-07] MEDS: LEVOTHYROXINE SODIUM 112 MCG TABLET PO SCH (07:47)
[2020-01-07] MEDS: LOSARTAN 50 MG TABLET PO SCH (08:11)
[2020-01-07] MEDS: GABAPENTIN 100 MG CAPSULE PO SCH ×3 (08:11→20:21)
[2020-01-07] MEDS: cefTRIAXone 1 GM VIAL IV SCH (08:11)
[2020-01-07] MEDS: HEPARIN 5,000 UNIT/ML VIAL SQ SCH ×2 (08:12→20:22)
[2020-01-07] MEDS: DILTIAZEM 120 MG CAP.XL.24H PO SCH ×2 (08:12→20:22)
[2020-01-07] MEDS: SERTRALINE 50 MG TABLET PO SCH (08:20)
[2020-01-07] MEDS: prednisoLONE 1% OPHTH DROPS 1ML BOTTLE OD SCH ×4 (08:21→20:22)
[2020-01-07] MEDS: ACETAMINOPHEN 325 MG TABLET PO PRN ×2 (08:56→18:54)
[2020-01-07] MEDS: ALBUTEROL SULFATE 200 PUFF INHALER INH PRN ×4 (09:16→20:49)
--- NOTE | 2020-01-07 09:51 | Internal Med Progress Note ---
Medical - PN: Subj Patient information: Note initiated : 01/07/20 at 9:47 am Service Date, if different from initiated Date: [] Patient: Génesis Medina a 84 y/o F admitted on 01/03/20 for shortness of breath, cough. Chief Complaint: [] Interval history: Ms. Medina is a 84 year old F Presents to the ED with shortness of breath. Sounds like she has been dealing with breathing issues for a month and a half. She has been on multiple rounds of antibiotics. 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 Presentation today in the ED is felt that she has a COPD exacerbation. Of note she is from [facility] who has had confirmed cases of COVID19. She does not have a fever at this time. She does report cough which is nonproductive. Denies myalgias at this time. Chest x-ray report did as minor bibasilar atelectasis otherwise unremarkable. Had reported sats of 88% in the ED And is not on oxygen at home. She is on day 3 of azithromycin. And has been on doxycycline in the past. Flu screen in the ED was negative. She has not been tested for comorbidities. She had multiple breathing treatments throughout the day and reports minimal benefit. Oxygenation improved on 3 L nasal cannula with sats mid to high 90s in the ED. Other symptoms patient says she has occasional diarrhea but none currently. Denies headache. Has some chest wall stomach pain with coughing fits. ABG significant for a PaO2 of only 62 on 3 L oxygen. 4/4 Patient feels like she is breathing little better today. She does have a cough which is nonproductive. Denies diarrhea fever chills this morning. Was on 4 L of oxygen since the ED and is currently on 2 and will titrate down to 1.5. Patient was found to have a small subdural hematoma in July last fall. Her Eliquis at that time which was 2.5 twice daily was stopped. Follow-up CT brain in September still showed some hematoma but did improve. Her Eliquis has continued to be held. Patient states the Eliquis was for stroke prophylaxis. In July she was transferred to [facility] for the subdural hematoma and was monitored there for 3 days. Also sound like she is been dealing with coughing since last fall. May need to see accounts collector for bronchoscopy and biopsies. 01/04 Doing better. She is on room oxygen. Of note she did desaturate last night while sleeping but good while awake especially currently. Chest x-ray yesterday did show a right base infiltrate. Discussed with her whether she feels like food and liquid on the wrong pipe sometimes and she said yes sometimes. She is never seen a speech therapist that she is aware of. Has a cough which is nonproductive. 4/6 Occasional cough that she feels a little better. Occasional shortness of breath. Chest x-ray no progression. She has been on room air yesterday but at night while she slept she is placed on oxygen. She is on half liter this morning and likely can be discontinued. Awaiting speech therapy evaluation as concern for silent aspiration 01/06-patient doing well. No overnight events. No concerns per staff. Denies fever chills. Remains anxious. On 3 L oxygen. Interval chest imaging improved . Repeat chest imaging 24 hours. - Constitutional Vitals: Vital Signs Temp Pulse Resp BP Pulse Ox 98.0 F 74 12 143/71 96 01/07/20 08:01 01/07/20 08:01 01/07/20 08:01 01/07/20 08:01 01/07/20 08:01 Period Temp Pulse Resp BP Sys/King Pulse Ox Last 24 Hr 97.8 F-98.7 F 63-85 12-22 104-168/48-108 85-100 Intake and Output 01/06/20 01/07/20 01/07/20 21:59 05:59 13:59 Intake Total 400 240 Output Total 51 0 Balance 349 240 Weight 144 lb 8 oz Intake & Output: Intake & Output 01/06/20 01/07/20 01/07/20 21:59 05:59 13:59 Intake Total 400 240 Output Total 51 0 Balance 349 240 Weight 144 lb 8 oz Intake: Oral 400 240 Output: Void Amount 50 0 # of times incontinent of urine 1 Other: Meal Lunch Percent of Meal Consumed 80 Feeding Ability Independent Urine Appearance Clear Urine Color Pale General appearance: no acute distress Exam: Anxious Short of breath No telemetry events Maintaining droplet precautions Medical - PN: Obj Da - Labs CBC & Chem 7: 01/08/20 08:29 01/08/20 08:29 Labs: Abnormal Lab Results 01/07/20 01/07/20 01/06/20 05:05 05:05 05:15 WBC RDW 17.2 H MPV 11.3 H Gran % 84.7 H Lymph % (Auto) 9.4 L Gran # 8.63 H Lymph # (Auto) 0.96 L Seg Neutrophils % Lymphocytes % Anisocytosis Ovalocytes Sodium 132 L Chloride 95 L 92 L Anion Gap BUN 55 H 52 H Creatinine 2.0 H 1.9 H Glucose 156 H 244 H Hemoglobin A1c Uric Acid 9.7 H Phosphorus 4.7 H C-Reactive Protein Albumin 3.1 L 01/06/20 01/05/20 01/05/20 05:15 05:20 05:20 WBC 13.7 H RDW 16.9 H MPV 11.5 H Gran % Lymph % (Auto) Gran # Lymph # (Auto) Seg Neutrophils % 91 H Lymphocytes % 5 L Anisocytosis 1+ A Ovalocytes Few A Sodium Chloride 92 L Anion Gap 18.0 H BUN 35 H Creatinine 1.5 H Glucose 281 H Hemoglobin A1c 7.1 H Uric Acid Phosphorus C-Reactive Protein Albumin 01/05/20 01/05/20 05:20 05:20 WBC 14.1 H RDW 16.8 H MPV 11.5 H Gran % 92.1 H Lymph % (Auto) 6.3 L Gran # 13.02 H Lymph # (Auto) 0.89 L Seg Neutrophils % Lymphocytes % Anisocytosis Ovalocytes Sodium Chloride Anion Gap BUN Creatinine Glucose Hemoglobin A1c Uric Acid Phosphorus C-Reactive Protein 1.1 H Albumin Meds: Medications Acetaminophen (Tylenol) 650 mg PO Q6HP PRN PRN Reason: PAIN/FEVER > 101 Last Admin: 01/07/20 08:56 Dose: 650 mg Documented by: Albuterol Sulfate (Ventolin) 2 puff INH Q4HP PRN PRN Reason: Shortness Of Breath Last Admin: 01/07/20 09:16 Dose: 2 puff Documented by: Atorvastatin Calcium (Lipitor) 20 mg PO QHS EPI Last Admin: 01/06/20 21:19 Dose: 20 mg Documented by: Benzonatate (Tessalon) 200 mg PO TIDP PRN PRN Reason: Cough Ceftriaxone Sodium (Rocephin) 1 gm IV DAILY [facility] Last Admin: 01/07/20 08:11 Dose: 1 gm Documented by: Clonidine HCl (Catapres) 0.1 mg PO Q6HP PRN PRN Reason: Hypertension sbp>150 Last Admin: 01/06/20 12:05 Dose: 0.1 mg Documented by: Dextrose (Dextrose 50%) 0 ml IV UD PRN PRN Reason: Hypoglycemia Diagnostic Test (Pha) (Accu-Chek) 1 each FS ACHS [facility] Last Admin: 01/07/20 07:12 Dose: 1 each Documented by: Diltiazem HCl (Cardizem Sr) 120 mg PO BID [facility] Last Admin: 01/07/20 08:12 Dose: 120 mg Documented by: Diphenhydramine HCl (Benadryl) 25 mg PO HSP PRN PRN Reason: Insomnia Last Admin: 01/06/20 21:19 Dose: 25 mg Documented by: Famotidine (Pepcid) 20 mg PO HS [facility] Last Admin: 01/06/20 21:19 Dose: 20 mg Documented by: Gabapentin (Neurontin) 100 mg PO TID [facility] Last Admin: 01/07/20 08:11 Dose: 100 mg Documented by: Glucose (Insta-Glucose) 15 gm PO PRN PRN PRN Reason: Hypoglycemia Guaifenesin (Robitussin Dm (Pp)) 0 ml PO Q4-6HP PRN PRN Reason: Cough Heparin Sodium (Porcine) (Heparin) 5,000 unit SQ Q12 [facility] Last Admin: 01/07/20 08:12 Dose: 5,000 unit Documented by: Hydralazine HCl (Apresoline) 0 mg IV Q2HP PRN PRN Reason: Hypertension Last Admin: 01/06/20 20:06 Dose: 10 mg Documented by: Potassium Chloride 40 meq/ (Dextrose) 520 mls @ 130 mls/hr IV UD PRN PRN Reason: Potassium < 3 Magnesium Sulfate (Magnesium Sulfate) 2 gm in 50 mls @ 50 mls/hr IV UD PRN PRN Reason: Magnesium </= 1.6 Insulin Glargine (Lantus) 42 unit SQ [facility] Last Admin: 01/06/20 22:08 Dose: 42 units Documented by: Insulin Human Lispro (Humalog) 0 unit SQ [facility]; Protocol Last Admin: 01/07/20 07:13 Dose: Not Given Documented by: Levothyroxine Sodium (Synthroid) 112 mcg PO QAMAC [facility] Last Admin: 01/07/20 07:47 Dose: 112 mcg Documented by: Loperamide HCl (Imodium) 2 mg PO Q4HP PRN PRN Reason: Diarrhea Last Admin: 01/04/20 12:10 Dose: 2 mg Documented by: Lorazepam (Ativan) 1 mg PO HSP PRN PRN Reason: Anxiety Last Admin: 01/06/20 16:32 Dose: 1 mg Documented by: Losartan Potassium (Cozaar) 100 mg PO DAILY [facility] Last Admin: 01/07/20 08:11 Dose: 100 mg Documented by: Melatonin (Melatonin 3mg Tablet) 3 mg PO [facility] Last Admin: 01/06/20 21:20 Dose: 3 mg Documented by: Ondansetron HCl (Zofran) 4 mg IV Q4HP PRN PRN Reason: Nausea And Vomiting Solifenacin Succinate [Vesicare] 5 Mg Tablet 1 dose PO [facility] Last Admin: 01/06/20 21:20 Dose: 1 dose Documented by: Polyethylene Glycol (Miralax) 17 gm PO DAILYP PRN PRN Reason: Constipation Potassium Chloride (Kdur) 40 meq PO UD PRN PRN Reason: Potssium is 3-3.5 Last Admin: 01/07/20 07:47 Dose: 40 meq Documented by: Potassium Chloride (Kdur) 40 meq PO UD PRN PRN Reason: Potassium < 3 Prednisolone Acetate (Pred Forte Ophth Drops) 1 gtt OD QID [facility] Last Admin: 01/07/20 08:21 Dose: 1 drop Documented by: Prednisone (Prednisone) 40 mg PO [facility] Last Admin: 01/07/20 07:47 Dose: 40 mg Documented by: Senna (Senokot) 2 tab PO DAILYP PRN PRN Reason: Constipation Sertraline HCl (Zoloft) 50 mg PO QDAY [facility] Last Admin: 01/07/20 08:20 Dose: 50 mg Documented by: Sodium Chloride (Saline Flush) 10 ml IV Q8 [facility] Last Admin: 01/07/20 05:42 Dose: 10 ml Documented by: Medical - PN: A/P - Time Spent With Patient Total time spent is greater than 50% in coordination of care (as documented) at patient's floor/unit and/or counseling patient: 25 - 35 minutes - Narrative A/P Narrative: * Acute hypoxic respiratory failure: 2/2 AECOPD, await Covid test. -cxr unremarkable at this time; on 3 L oxygen. Interval improvement in chest imaging. *AECOPD (not on oxygen at home): Continue pulmonary toilet/bronchodilators -RVP neg, *Chronic cough: sound like she had EGD last fall. 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) -on statin, was on eliquis but this was stopped last fall for SDH *Hypothyroidism: *GERD: *Anxiety/depression: P: -Continue Supp O2 prn -Continue oral prednisone, IH's, IS/Acapella, RT -covid pending, mrsa screen neg -empiric abx -ST eval and treatment -cont home basal insulin and high SSI, -cont home bp meds (losartan/diltiazem.) -f/u with Pulmonology for chronic cough -home eliquis stopped last Fall/Winter for SDH, not on ASA - consider starting for CVA prevention if unable to take anticoagulation, f/u outpt -ppx: heparin Medical - PN: Qual - Stroke Symptom Onset Unknown: No - VTE Deep Vein Thrombosis/Pulmonary Embolism Present on Admission: No
[2020-01-07] MEDS: guaiFENesin W/DM (PP) 5 ML ORAL.SOL (#118) PO PRN ×2 (10:37→18:54)
[2020-01-07] MEDS: FAMOTIDINE 20 MG TABLET PO SCH (20:21)
[2020-01-07] MEDS: diphenhydrAMINE 25 MG CAPSULE PO PRN (20:21)
[2020-01-07] MEDS: MELATONIN 3 MG TABLET PO SCH (20:21)
[2020-01-07] MEDS: INSULIN GLARGINE, HUMAN 1 UNIT/0.01 ML SQ SCH (20:21)
[2020-01-07] MEDS: ATORVASTATIN 20 MG TABLET PO SCH (20:22)
[2020-01-07] MEDS: Solifenacin Succinate [Vesicare] 5 MG Tablet PO SCH (20:22)
[2020-01-07] MEDS: PIPERACILLIN SODIUM/TAZOBACTAM 2.25 GM in DEXTROSE 5% IN WATER 50 ML IV SCH ×2 (21:16→21:38)
[2020-01-08] MEDS: PIPERACILLIN SODIUM/TAZOBACTAM 2.25 GM in DEXTROSE 5% IN WATER 50 ML IV SCH ×5 (01:52→23:46)
[2020-01-08] MEDS: 0.9 % SODIUM CHLORIDE 10 ML SYRINGE IV SCH ×3 (05:32→21:10)
[2020-01-08] MEDS ORDERED: guaiFENesin/DEXTROMETHORPHAN ORAL SOL PO PRN ×2 (07:00→12:38)
[2020-01-08] MEDS: INSULIN LISPRO 1 UNIT/0.01 ML UNIT SQ SCH ×4 (08:07→21:08)
[2020-01-08] MEDS: SERTRALINE 50 MG TABLET PO SCH (08:25)
[2020-01-08] MEDS: predniSONE 20 MG TABLET PO SCH (08:26)
[2020-01-08] MEDS: GABAPENTIN 100 MG CAPSULE PO SCH ×3 (08:27→21:10)
[2020-01-08] MEDS: LEVOTHYROXINE SODIUM 112 MCG TABLET PO SCH (08:27)
[2020-01-08] MEDS: LOSARTAN 50 MG TABLET PO SCH (08:28)
[2020-01-08] MEDS: DILTIAZEM 120 MG CAP.XL.24H PO SCH ×2 (08:28→21:10)
[2020-01-08] MEDS: HEPARIN 5,000 UNIT/ML VIAL SQ SCH ×2 (08:29→21:09)
--- NOTE | 2020-01-08 08:53 | XRay Report ---
CLINICAL INFORMATION: pna COMPARISON: 01/06/2020 FINDINGS: Cardiomegaly is unchanged. Mediastinum and pulmonary vasculature normal. Small right basilar infiltrate or atelectasis has improved. Left basilar atelectasis has resolved from yesterday Mild elevation left diaphragm noted IMPRESSION: Small right basilar infiltrate or atelectasis improving. Complete interval resolution of left basilar infiltrate or atelectasis Interpreted and Authenticated by: Jey Gottlieb 01/08/20
[2020-01-08] MEDS: prednisoLONE 1% OPHTH DROPS 1ML BOTTLE OD SCH ×5 (08:58→21:09)
[2020-01-08 09:13] LABS: Hematocrit 37.5 % (34.1-44.9); Hemoglobin 11.8 g/dL (11.2-15.7); Mean Cell Volume 88.4 fL (80.0-100.0); Mean Corpuscular HGB Conc 31.5 g/dL (31.0-36.0); Mean Platelet Volume 11.4 fL (7.4-10.4); Platelet Count 226 K/mcL (140-440); RBC 4.24 M/mcL (3.59-5.38); Red Cell Distribution Width 17.2 % (11.5-14.5); WBC 10.5 K/mcL (4.50-11.00)
[2020-01-08 09:32] LABS: ALT/SGPT 16 U/l (0-40); AST/SGOT 16 U/l (0-37); Albumin 3.2 gm/dL (3.2-5.2); Albumin/Globulin Ratio 1.1 (1.0-2.3); Alkaline Phosphatase 95 U/L (39-117); Anisocytosis 1+ (NONE SEEN); Bilirubin,Direct < 0.2 mg/dL (0.0-0.3); Bilirubin,Total 0.2 mg/dL (0.0-1.0); Blood Urea Nitrogen 48 mg/dl (8-23); Calcium 8.6 mg/dl (8.6-10.4); Carbon Dioxide 26 mmol/L (22-30); Chloride 100 mmol/L (96-108); Globulin 2.9 gm/dL (2.2-3.7); Glomerular Filtration Rate 27; Glucose 101 mg/dL (70-105); Lactate Dehydrogenase 208 U/L (94-250); Lymphocytes % 16 % (15-49); Monocytes % (Manual) 5 % (1-12); Platelet Estimate NORMAL (NORMAL); RBC Morphology ABNORM (NORMAL); Segmented Neutrophils % 79 % (38-78); Triglycerides 88 mg/dl (<150); Uric Acid 8.2 mg/dL (2.5-8.0)
[2020-01-08 09:33] LABS: Phosphorous 3.7 mg/dL (2.7-4.5)
[2020-01-08] MEDS ORDERED: ASPIRIN 81 MG TAB.CHEW CHEWED ONE (10:47)
--- NOTE | 2020-01-08 10:47 | Internal Med Progress Note ---
Medical - PN: Subj Patient information: Note initiated : 01/08/20 at 10:43 am Service Date, if different from initiated Date: [] Patient: Génesis Medina a 84 y/o F admitted on 01/03/20 for shortness of breath, cough. Chief Complaint: [] Interval history: Ms. Medina is a 84 year old F Presents to the ED with shortness of breath. Sounds like she has been dealing with breathing issues for a month and a half. She has been on multiple rounds of antibiotics. 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 Presentation today in the ED is felt that she has a COPD exacerbation. Of note she is from [facility] who has had confirmed cases of COVID19. She does not have a fever at this time. She does report cough which is nonproductive. Denies myalgias at this time. Chest x-ray report did as minor bibasilar atelectasis otherwise unremarkable. Had reported sats of 88% in the ED And is not on oxygen at home. She is on day 3 of azithromycin. And has been on doxycycline in the past. Flu screen in the ED was negative. She has not been tested for comorbidities. She had multiple breathing treatments throughout the day and reports minimal benefit. Oxygenation improved on 3 L nasal cannula with sats mid to high 90s in the ED. Other symptoms patient says she has occasional diarrhea but none currently. Denies headache. Has some chest wall stomach pain with coughing fits. ABG significant for a PaO2 of only 62 on 3 L oxygen. 4/4 Patient feels like she is breathing little better today. She does have a cough which is nonproductive. Denies diarrhea fever chills this morning. Was on 4 L of oxygen since the ED and is currently on 2 and will titrate down to 1.5. Patient was found to have a small subdural hematoma in July last fall. Her Eliquis at that time which was 2.5 twice daily was stopped. Follow-up CT brain in September still showed some hematoma but did improve. Her Eliquis has continued to be held. Patient states the Eliquis was for stroke prophylaxis. In July she was transferred to [facility] for the subdural hematoma and was monitored there for 3 days. Also sound like she is been dealing with coughing since last fall. May need to see consumer sales representative for bronchoscopy and biopsies. 01/04 Doing better. She is on room oxygen. Of note she did desaturate last night while sleeping but good while awake especially currently. Chest x-ray yesterday did show a right base infiltrate. Discussed with her whether she feels like food and liquid on the wrong pipe sometimes and she said yes sometimes. She is never seen a speech therapist that she is aware of. Has a cough which is nonproductive. 4/ Occasional cough that she feels a little better. Occasional shortness of breath. Chest x-ray no progression. She has been on room air yesterday but at night while she slept she is placed on oxygen. She is on half liter this morning and likely can be discontinued. Awaiting speech therapy evaluation as concern for silent aspiration 01/06-patient doing well. No overnight events. No concerns per staff. Denies fever chills. Remains anxious. On 3 L oxygen. Interval chest imaging improve d. Repeat chest imaging 24 hours. 01/07-patient clinically improving. Improvement in chest infiltrates. Now on 3 days oxygen. Improving creatinine down from 2-1.7. Transfer to medical floor. No other concerns per staff. Coronavirus negative. - Constitutional Vitals: Vital Signs Temp Pulse Resp BP Pulse Ox 97.6 F 70 24 H 130/63 94 01/08/20 08:00 01/08/20 08:00 01/08/20 08:00 01/08/20 08:00 01/08/20 08:00 Period Temp Pulse Resp BP Sys/King Pulse Ox Last 24 Hr 97.6 F-98.6 F 69-81 13-24 117-156/51-82 90-100 Intake and Output 01/07/20 01/08/20 01/08/20 21:59 05:59 13:59 Intake Total 600 300 Output Total 301 476 Balance 299 300 -476 Weight 143 lb 11.2 oz Intake & Output: Intake & Output 01/07/20 01/08/20 01/08/20 21:59 05:59 13:59 Intake Total 600 300 Output Total 301 476 Balance 299 300 -476 Weight 143 lb 11.2 oz Intake: IV 100 Zosyn 2.25 gm In Dextrose 5% in 100 Water 50 ml @ 100 mls/hr IV Q6H [facility] Rx#:[id number] Oral 600 200 Output: Void Amount 300 475 # of times incontinent of urine 1 1 Other: Meal Dinner Percent of Meal Consumed 100% Feeding Ability Assist with Tray Set Up Urine Color Straw Urine Odor Normal General appearance: no acute distress Exam: Alert oriented Hard of hearing Nonlabored breathing No anxiety Medical - PN: Obj Da - Labs CBC & Chem 7: 01/08/20 08:29 01/08/20 08:29 Labs: Abnormal Lab Results 01/08/20 01/08/20 01/07/20 08:29 08:29 05:05 WBC RDW 17.2 H MPV 11.4 H Gran % Lymph % (Auto) Gran # Lymph # (Auto) Seg Neutrophils % 79 H Lymphocytes % RBC Morphology Abnorm A Anisocytosis 1+ A Ovalocytes Sodium Chloride 95 L BUN 48 H 55 H Creatinine 1.7 H 2.0 H Glucose 156 H Hemoglobin A1c Uric Acid 8.2 H 9.7 H Phosphorus 4.7 H Albumin 3.1 L 01/07/20 01/06/20 01/06/20 05:05 05:15 05:15 WBC 13.7 H RDW 17.2 H 16.9 H MPV 11.3 H 11.5 H Gran % 84.7 H Lymph % (Auto) 9.4 L Gran # 8.63 H Lymph # (Auto) 0.96 L Seg Neutrophils % 91 H Lymphocytes % 5 L RBC Morphology Anisocytosis 1+ A Ovalocytes Few A Sodium 132 L Chloride 92 L BUN 52 H Creatinine 1.9 H Glucose 244 H Hemoglobin A1c Uric Acid Phosphorus Albumin 01/05/20 05:20 WBC RDW MPV Gran % Lymph % (Auto) Gran # Lymph # (Auto) Seg Neutrophils % Lymphocytes % RBC Morphology Anisocytosis Ovalocytes Sodium Chloride BUN Creatinine Glucose Hemoglobin A1c 7.1 H Uric Acid Phosphorus Albumin Meds: Medications Acetaminophen (Tylenol) 650 mg PO Q6HP PRN PRN Reason: PAIN/FEVER > 101 Last Admin: 01/07/20 18:54 Dose: 650 mg Documented by: Albuterol Sulfate (Ventolin) 2 puff INH Q2HP PRN PRN Reason: Shortness Of Breath Last Admin: 01/07/20 20:49 Dose: 2 puff Documented by: Atorvastatin Calcium (Lipitor) 20 mg PO QHS [facility] Last Admin: 01/07/20 20:22 Dose: 20 mg Documented by: Benzonatate (Tessalon) 200 mg PO TIDP PRN PRN Reason: Cough Clonidine HCl (Catapres) 0.1 mg PO Q6HP PRN PRN Reason: Hypertension sbp>150 Last Admin: 01/06/20 12:05 Dose: 0.1 mg Documented by: Dextrose (Dextrose 50%) 0 ml IV UD PRN PRN Reason: Hypoglycemia Diagnostic Test (Pha) (Accu-Chek) 1 each FS ACHS [facility] Last Admin: 01/08/20 08:06 Dose: 1 each Documented by: Diltiazem HCl (Cardizem Sr) 120 mg PO BID [facility] Last Admin: 01/08/20 08:28 Dose: 120 mg Documented by: Diphenhydramine HCl (Benadryl) 25 mg PO HSP PRN PRN Reason: Insomnia Last Admin: 01/07/20 20:21 Dose: 25 mg Documented by: Famotidine (Pepcid) 20 mg PO HS [facility] Last Admin: 01/07/20 20:21 Dose: 20 mg Documented by: Gabapentin (Neurontin) 100 mg PO TID [facility] Last Admin: 01/08/20 08:27 Dose: 100 mg Documented by: Glucose (Insta-Glucose) 15 gm PO PRN PRN PRN Reason: Hypoglycemia Guaifenesin (Robitussin Dm) 0 ml PO Q4-6HP PRN PRN Reason: Cough Heparin Sodium (Porcine) (Heparin) 5,000 unit SQ Q12 [facility] Last Admin: 01/08/20 08:29 Dose: 5,000 unit Documented by: Hydralazine HCl (Apresoline) 0 mg IV Q2HP PRN PRN Reason: Hypertension Last Admin: 01/06/20 20:06 Dose: 10 mg Documented by: Potassium Chloride 40 meq/ (Dextrose) 520 mls @ 130 mls/hr IV UD PRN PRN Reason: Potassium < 3 Magnesium Sulfate (Magnesium Sulfate) 2 gm in 50 mls @ 50 mls/hr IV UD PRN PRN Reason: Magnesium </= 1.6 Piperacillin Sod/Tazobactam (Sod 2.25 gm/ Dextrose) 50 mls @ 100 mls/hr IV Q6H [facility]; Protocol Last Admin: 01/08/20 05:31 Dose: 100 mls/hr Documented by: Insulin Glargine (Lantus) 42 unit SQ [facility] Last Admin: 01/07/20 20:21 Dose: 42 units Documented by: Insulin Human Lispro (Humalog) 0 unit SQ [facility]; Protocol Last Admin: 01/08/20 08:07 Dose: Not Given Documented by: [facility]) [facility] Last Admin: 01/08/20 08:27 Dose: 112 mcg Documented by: Loperamide HCl (Imodium) 2 mg PO Q4HP PRN PRN Reason: Diarrhea Last Admin: 01/04/20 12:10 Dose: 2 mg Documented by: Lorazepam (Ativan) 1 mg PO HSP PRN PRN Reason: Anxiety Last Admin: 01/06/20 16:32 Dose: 1 mg Documented by: Losartan Potassium (Cozaar) 100 mg PO DAILY [facility] Last Admin: 01/08/20 08:28 Dose: 100 mg Documented by: Melatonin (Melatonin 3mg Tablet) 3 mg PO [facility] Last Admin: 01/07/20 20:21 Dose: 3 mg Documented by: Ondansetron HCl (Zofran) 4 mg IV Q4HP PRN PRN Reason: Nausea And Vomiting Solifenacin Succinate [Vesicare] 5 Mg Tablet 1 dose PO [facility] Last Admin: 01/07/20 20:22 Dose: 1 dose Documented by: Polyethylene Glycol (Miralax) 17 gm PO DAILYP PRN PRN Reason: Constipation Potassium Chloride (Kdur) 40 meq PO UD PRN PRN Reason: Potssium is 3-3.5 Last Admin: 01/07/20 07:47 Dose: 40 meq Documented by: Potassium Chloride (Kdur) 40 meq PO UD PRN PRN Reason: Potassium < 3 Prednisolone Acetate (Pred Forte Ophth Drops) 1 gtt OD QID [facility] Last Admin: 01/08/20 08:58 Dose: 1 gtt Documented by: Pred[facility]one (Pred[facility]) [facility] Last Admin: 01/08/20 08:26 Dose: 40 mg Documented by: Senna (Senokot) 2 tab PO DAILYP PRN PRN Reason: Constipation Sertraline HCl (Zoloft) 50 mg PO QDAY [facility] Last Admin: 01/08/20 08:25 Dose: 50 mg Documented by: Sodium Chloride (Saline Flush) 10 ml IV Q8 EPI Last Admin: 01/08/20 05:32 Dose: 10 ml Documented by: Medical - PN: A/P - Time Spent With Patient Total time spent is greater than 50% in coordination of care (as documented) at patient's floor/unit and/or counseling patient: Greater than 35 minutes - Narrative A/P Narrative: * Acute hypoxic respiratory failure: 2/2 AECOPD, negative Covid test. on 3 L oxygen. Interval improvement in chest imaging. 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
[2020-01-08] MEDS ORDERED: MAGNESIUM SULFATE 2 GM/50 ML BAG IV PRN (12:38)
[2020-01-08] MEDS ORDERED: ONDANSETRON 4 MG/2 ML VIAL IV PRN (12:38)
[2020-01-08] MEDS ORDERED: diphenhydrAMINE 25 MG CAPSULE PO PRN (12:38)
[2020-01-08] MEDS ORDERED: SENNOSIDES 1 TABLET PO PRN (12:38)
[2020-01-08] MEDS ORDERED: LOPERAMIDE 2 MG CAPSULE PO PRN (12:38)
[2020-01-08] MEDS ORDERED: POLYETHYLENE GLYCOL 3350 17 GM PACKET PO PRN (12:38)
[2020-01-08] MEDS ORDERED: cloNIDine HCL 0.1 MG TABLET PO PRN (12:38)
[2020-01-08] MEDS ORDERED: ACETAMINOPHEN 325 MG TABLET PO PRN (12:38)
[2020-01-08] MEDS ORDERED: BENZONATATE 100 MG CAPSULE PO PRN (12:38)
[2020-01-08] MEDS ORDERED: POTASSIUM CHLORIDE 20 MEQ TABLET PO PRN ×2 (12:38)
[2020-01-08] MEDS ORDERED: POTASSIUM CHLORIDE 40 MEQ in DEXTROSE 5% IN WATER 500 ML IV PRN (12:38)
[2020-01-08] MEDS ORDERED: LORazepam 1 MG TABLET PO PRN (12:38)
[2020-01-08] MEDS ORDERED: DEXTROSE 31 GM ORAL.SUSP PO PRN (12:38)
[2020-01-08] MEDS ORDERED: hydrALAZINE 20 MG/ML VIAL IV PRN (12:38)
[2020-01-08] MEDS ORDERED: DEXTROSE 50% 50 ML VIAL IV PRN (12:38)
[2020-01-08] MEDS ORDERED: ALBUTEROL SULFATE 200 PUFF INHALER INH PRN (12:38)
[2020-01-08] MEDS ORDERED: ATORVASTATIN 20 MG TABLET PO SCH (21:00)
[2020-01-08] MEDS ORDERED: FAMOTIDINE 20 MG TABLET PO SCH (21:00)
[2020-01-08] MEDS ORDERED: MELATONIN 3 MG TABLET PO SCH (21:00)
[2020-01-08] MEDS ORDERED: SOLIFENACIN SUCCINATE 5 MG PO SCH (21:00)
[2020-01-08] MEDS ORDERED: INSULIN GLARGINE, HUMAN 1 UNIT/0.01 ML SQ SCH (21:00)
[2020-01-09] MEDS: 0.9 % SODIUM CHLORIDE 10 ML SYRINGE IV SCH (05:34)
[2020-01-09] MEDS: PIPERACILLIN SODIUM/TAZOBACTAM 2.25 GM in DEXTROSE 5% IN WATER 50 ML IV SCH ×2 (05:34→11:51)
[2020-01-09 05:56] LABS: Hemoglobin 11.2 g/dL (11.2-15.7); Mean Cell Volume 87.3 fL (80.0-100.0); Mean Platelet Volume 11.3 fL (7.4-10.4); Platelet Count 191 K/mcL (140-440); RBC 4.01 M/mcL (3.59-5.38); Red Cell Distribution Width 16.8 % (11.5-14.5); WBC 10.5 K/mcL (4.50-11.00)
[2020-01-09 06:31] LABS: ALT/SGPT 14 U/l (0-40); AST/SGOT 14 U/l (0-37); Albumin 3.1 gm/dL (3.2-5.2); Albumin/Globulin Ratio 1.1 (1.0-2.3); Alkaline Phosphatase 88 U/L (39-117); Bilirubin,Direct < 0.2 mg/dL (0.0-0.3); Bilirubin,Total 0.2 mg/dL (0.0-1.0); Blood Urea Nitrogen 45 mg/dl (8-23); Calcium 8.7 mg/dl (8.6-10.4); Carbon Dioxide 26 mmol/L (22-30); Chloride 103 mmol/L (96-108); Globulin 2.8 gm/dL (2.2-3.7); Glomerular Filtration Rate 27; Glucose 63 mg/dL (70-105); Lactate Dehydrogenase 173 U/L (94-250); Phosphorous 3.5 mg/dL (2.7-4.5); Triglycerides 73 mg/dl (<150)
[2020-01-09 06:36] LABS: Uric Acid 6.2 mg/dL (2.5-8.0)
[2020-01-09] MEDS ORDERED: LEVOTHYROXINE SODIUM 112 MCG TABLET PO SCH (07:30)
[2020-01-09 07:33] LABS: Anisocytosis 1+ (NONE SEEN); Band Neutrophils % 1 % (0-10); Lymphocytes % 19 % (15-49); Monocytes % (Manual) 5 % (1-12); Platelet Estimate NORMAL (NORMAL); RBC Morphology ABNORMAL (NORMAL); Segmented Neutrophils % 75 % (38-78)
[2020-01-09] MEDS ORDERED: predniSONE 20 MG TABLET PO SCH (08:00)
[2020-01-09] MEDS: INSULIN LISPRO 1 UNIT/0.01 ML UNIT SQ SCH ×2 (08:13→11:43)
[2020-01-09] MEDS ORDERED: ASPIRIN 81 MG TAB.CHEW CHEWED SCH ×2 (09:00)
[2020-01-09] MEDS ORDERED: LOSARTAN 50 MG TABLET PO SCH (09:00)
[2020-01-09] MEDS ORDERED: SERTRALINE 50 MG TABLET PO SCH (09:00)
[2020-01-09] MEDS: HEPARIN 5,000 UNIT/ML VIAL SQ SCH (09:24)
[2020-01-09] MEDS: GABAPENTIN 100 MG CAPSULE PO SCH (09:25)
[2020-01-09] MEDS: DILTIAZEM 120 MG CAP.XL.24H PO SCH (09:25)
[2020-01-09] MEDS: prednisoLONE 1% OPHTH DROPS 1ML BOTTLE OD SCH (09:26)
--- NOTE | 2020-01-09 10:27 | Discharge Summary ---
Medical - DS: Prov Patient information: Note initiated : 01/09/20 at 10:24 am Service Date, if different from initiated Date: [] Patient: Génesis Medina 84 y/o F admitted on 01/03/20 for shortness of breath, cough. Chief Complaint: [] Date of admission: 01/03/20 21:20 Discharge date: 01/09/20 Primary care physician: Dina Celestin Consults: 01/03/20 Consult to Physician [CONS] Stat Comment: Consulting Provider: Marquis Dueñas Reason For Exam: Physician to Consult 01/08/20 15:54 Consult to Physician [CONS] Routine Comment: Consulting Provider: Jey Silva Reason For Exam: Physician to Consult Medical - DS: Meds - Discharge Medications Prescriptions: Aspirin 81 mg CHEWED DAILY #30 tab.chew Transmission Status: Pending to [facility] predniSONE [Deltasone] 20 mg PO DAILY #5 tab Transmission Status: Pending to [facility] Active and Home Medications: Home Medications solifenacin 5 mg tablet 5 mg PO QHS tab 03/05/19 [History Confirmed 01/04/20 Last Taken 01/01/20 21:00] zinc gluconate 50 mg tablet 50 mg PO QDAY tab 03/05/19 [History Confirmed 01/04/20 Last Taken 01/03/20 08:00] Lidocaine [Lidoderm] 1 each TP PRN 07/22/19 [History Confirmed 01/04/20 Last Taken Unknown] Polyethylene Glycol 3350 [Miralax] 17 gm PO HS 07/22/19 [History Confirmed 01/04/20 Last Taken 01/01/20 21:00] acetaminophen 325 mg capsule 1 - 2 tablet PO Q8H PRN 08/02/19 [History Confirmed 01/04/20 Last Taken 01/01/20 20:45] magnesium hydroxide 400 mg/5 mL oral suspension 5 ml PO QHS PRN 08/02/19 [History Confirmed 01/04/20 Last Taken Unknown] cholecalciferol (vitamin D3) 125 mcg (5,000 unit) capsule 50,000 unit PO .monday cap 08/13/19 [History Confirmed 01/04/20 Last Taken 12/28/19] insulin glargine 100 unit/mL (3 mL) subcutaneous pen 42 unit SUB-Q HS ml 08/13/19 [History Confirmed 01/04/20 Last Taken 01/01/20 21:00] prednisolone acetate 1 % eye drops,suspension 1 drp OPHTHALMIC QID 08/13/19 [History Confirmed 01/04/20 Last Taken Unknown] sertraline 50 mg tablet 50 mg PO QDAY #90 tab 09/09/19 [Rx Confirmed 01/04/20 Last Taken 01/03/20 08:00] gabapentin 100 mg capsule 100 mg PO TID #90 cap 09/10/19 [Rx Confirmed 01/04/20 Last Taken 01/03/20 12:00] folic acid 1 mg tablet 1 mg PO QDAY #90 tab 09/18/19 [Rx Confirmed 01/04/20 Last Taken 01/03/20 08:00] lorazepam 1 mg tablet 1 mg PO QHS PRN #90 tab 09/19/19 [Rx Confirmed 01/04/20 Last Taken 01/03/20 21:00] atorvastatin 20 mg tablet 20 mg PO QHS #90 tab 09/23/19 [Rx Confirmed 01/04/20 Last Taken 01/01/20 21:00] ferrous sulfate 325 mg (65 mg iron) tablet 325 mg PO BID #60 tab 09/23/19 [Rx Confirmed 01/04/20 Last Taken 01/03/20 08:00] insulin lispro 200 unit/mL (3 mL) subcutaneous pen 11 unit SUB-Q .ac #6 ml 10/03/19 [Rx Confirmed 01/04/20 Last Taken 01/03/20 12:00] omeprazole 20 mg capsule,delayed release 20 mg PO QDAY #90 cap 10/10/19 [Rx Confirmed 01/04/20 Last Taken 01/03/20 05:00] lubiprostone 24 mcg capsule 24 mcg PO ONCE #30 cap 10/11/19 [Rx Confirmed 01/04/20 Last Taken Unknown] losartan 100 mg tablet 100 mg PO DAILY #90 tab 10/25/19 [Rx Confirmed 01/04/20 Last Taken 01/03/20 08:00] albuterol sulfate 90 mcg/actuation aerosol inhaler 2 puff INHALATION Q4H PRN #18 g 11/01/19 [Rx Confirmed 01/04/20 Last Taken Unknown] budesonide 1 mg/2 mL suspension for nebulization 1 mg INHALATION BID #60 ml 11/01/19 [Rx Confirmed 01/04/20 Last Taken 01/03/20 08:00] ipratropium 0.5 mg-albuterol 3 mg (2.5 mg base)/3 mL nebulization soln 3 ml INHALATION QID #180 ml 11/01/19 [Rx Confirmed 01/04/20 Last Taken 01/03/20 12:00] benzonatate 200 mg capsule 200 mg PO TID PRN #90 cap 11/06/19 [Rx Confirmed 01/04/20 Last Taken 01/03/20 12:00] multivitamin 1 tab PO QAM 11/15/19 [History Confirmed 01/04/20 Last Taken 01/03/20 08:00] dextromethorphan-guaifenesin 30 mg-600 mg tablet extended [id number] hr 1 tab PO Q12H #180 tab 11/26/19 [Rx Confirmed 01/04/20 Last Taken 01/03/20 08:00] doxycycline hyclate 100 mg tablet 100 mg PO BID 11/29/19 [History Confirmed 01/04/20 Last Taken 01/03/20 08:00] lancets 28 gauge See Rx Instructions .ROUTE .MEDSUPPLY #25 each 11/29/19 [History Confirmed 01/04/20 Last Taken Unknown] levothyroxine 112 mcg capsule 112 mcg PO QAM cap 11/29/19 [History Confirmed 01/04/20 Last Taken 01/03/20 05:00] loperamide 2 mg tablet 2 mg PO Q4H PRN 11/29/19 [History Confirmed 01/04/20 Last Taken Unknown] ondansetron HCl 4 mg tablet 4 mg PO Q6H PRN 11/29/19 [History Confirmed 01/04/20 Last Taken Unknown] furosemide 20 mg tablet 20 mg PO BID #60 tab 12/16/19 [Rx Confirmed 01/04/20 Last Taken 01/03/20 12:00] diltiazem HCl 120 mg capsule,extended release 12 hr 120 mg PO BID #60 cap 12/23/19 [Rx Confirmed 01/04/20 Last Taken 01/03/20 08:00] azithromycin 250 mg tablet See Rx Instructions PO .COMPLEX #6 tab 12/30/19 [Rx Confirmed 01/04/20 Last Taken 01/03/20 08:00] pen needle, diabetic 31 gauge x 3/16" See Rx Instructions .ROUTE .COMPLEX #100 unknown measurement unit code: each 01/01/20 [Rx Confirmed 01/04/20 Last Taken Unknown] Amitiza 24 mcg PO DAILY 01/03/20 [History Confirmed 01/04/20 Last Taken 01/03/20 08:00] Accu-Chek 1 each FS ACHS 01/04/20 [History Confirmed 01/04/20 Last Taken 01/03/20 11:00] Acetaminophen/Diphenhydramine [Tylenol Pm Ex-Strength Caplet] 2 each PO HSP PRN 01/04/20 [History Confirmed 01/04/20 Last Taken Unknown] Bisacodyl [Dulcolax] 10 mg ND DAILYP PRN 01/04/20 [History Confirmed 01/04/20 Last Taken Unknown] Carboxymethylcellulose Sodium [Refresh Plus] 1 each OP TID 01/04/20 [History Confirmed 01/04/20 Last Taken 01/03/20 12:00] Trolamine Salicylate/Aloe Vera [Aspercreme 10% Cream] 1 dose TP QIDP PRN 01/04/20 [History Confirmed 01/04/20 Last Taken Unknown] Aspirin 81 mg CHEWED DAILY #30 tab.chew 01/09/20 [Rx Last Taken Unknown] predniSONE [Deltasone] 20 mg PO DAILY #5 tab 01/09/20 [Rx Last Taken Unknown] Medical - DS: Hosp Hospital Course: Discharge diagnosis * Acute hypoxic respiratory failure: 2/2 AECOPD, negative Covid test. on 3 L oxygen. Interval improvement in chest imaging. 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 Medina is a 84 year old F Presents to the ED with shortness of breath. Sounds like she has been dealing with breathing issues for a month and a half. She has been on multiple rounds of antibiotics. 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 Presentation today in the ED is felt that she has a COPD exacerbation. Of note she is from [facility] who has had confirmed cases of COVID19. She does not have a fever at this time. She does report cough which is nonproductive. Denies myalgias at this time. Chest x-ray report did as minor bibasilar atelectasis otherwise unremarkable. Had reported sats of 88% in the ED And is not on oxygen at home. She is on day 3 of azithromycin. And has been on doxycycline in the past. Flu screen in the ED was negative. She has not been tested for comorbidities. She had multiple breathing treatments throughout the day and reports minimal benefit. Oxygenation improved on 3 L nasal cannula with sats mid to high 90s in the ED. Other symptoms patient says she has occasional diarrhea but none currently. Denies headache. Has some chest wall stomach pain with coughing fits. ABG significant for a PaO2 of only 62 on 3 L oxygen. 01/03 Patient feels like she is breathing little better today. She does have a cough which is nonproductive. Denies diarrhea fever chills this morning. Was on 4 L of oxygen since the ED and is currently on 2 and will titrate down to 1.5. Patient was found to have a small subdural hematoma in July last fall. Her Eliquis at that time which was 2.5 twice daily was stopped. Follow-up CT brain in September still showed some hematoma but did improve. Her Eliquis has continued to be held. Patient states the Eliquis was for stroke prophylaxis. In July she was transferred to [facility] for the subdural hematoma and was monitored there for 3 days. Also sound like she is been dealing with coughing since last fall. 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 01/04 Doing better. She is on room oxygen. Of note she did desaturate last night while sleeping but good while awake especially currently. Chest x-ray yesterday did show a right base infiltrate. Discussed with her whether she feels like food and liquid on the wrong pipe sometimes and she said yes sometimes. She is never seen a speech therapist that she is aware of. Has a cough which is nonproductive. 01/05 Occasional cough that she feels a little better. Occasional shortness of breath. Chest x-ray no progression. She has been on room air yesterday but at night while she slept she is placed on oxygen. She is on half liter this morning and likely can be discontinued. Awaiting speech therapy evaluation as concern for silent aspiration 01/06-patient doing well. No overnight events. No concerns per staff. Denies fever chills. Remains anxious. On 3 L oxygen. Interval chest imaging improved. Repeat chest imaging 24 hours. 01/07-patient clinically improving. Improvement in chest infiltrates. Now on 3 days oxygen. Improving creatinine down from 2-1.7. Transfer to medical floor. No other concerns per staff. Coronavirus negative. 01/08-patient doing well. Currently on 2 L to room air. Discharging to SNF with advice to continue aggressive posthospitalization rehab. Discharge instructions as below. Discharge diagnosis: . - Time Spent with Patient Total time spent providing and/or coordinating discharge services: Greater than 30 minutes Medical - DS: Exam - Constitutional Vitals: Vital Signs Temp Pulse Resp BP BP Pulse Ox 01/09/20 08:00 98.2 F 65 20 149/77 96 01/09/20 05:34 69 136/60 01/09/20 04:22 98.0 F 67 20 169/70 96 01/08/20 23:45 98.7 F 77 22 179/71 97 01/08/20 18:48 97.8 F 87 22 161/68 95 01/08/20 16:00 97.7 F 74 22 153/70 95 01/08/20 12:00 98.0 F 73 22 156/73 96 Intake and Output 01/08/20 01/09/20 01/09/20 21:59 05:59 13:59 Intake Total 630 650 50 Output Total 577 402 Balance 53 248 50 Intake: IV 50 50 50 Zosyn 2.25 gm In Dextrose 5% in 50 50 50 Water 50 ml @ 100 mls/hr IV Q6H EPI Rx#:[id number] Oral 580 600 Output: Void Amount 575 400 # of times incontinent of urine 2 2 Other: Meal Dinner Percent of Meal Consumed 95% Feeding Ability Independent Urine Appearance Clear Clear Clear Urine Color Bright Yellow Bright Yellow Bright Yellow Urine Odor Normal Normal Stool Size Small Stool Color Brown Stool Consistency Soft # Bowel Movements 1 Weight 145 lb 8 oz Medical - DS: Data Labs on day of discharge: Labs from last 24 hours 01/09/20 01/09/20 05:14 05:14 WBC 10.5 RBC 4.01 Hgb 11.2 Hct 35.0 MCV 87.3 MCH 27.9 MCHC 32.0 RDW 16.8 H Plt Count 191 MPV 11.3 H Total Counted 100 Seg Neutrophils % 75 Band Neutrophils % 1 Lymphocytes % 19 Monocytes % (Manual) 5 Platelet Estimate Normal RBC Morphology Abnormal Anisocytosis 1+ A Sodium 140 Potassium 4.0 Chloride 103 Carbon Dioxide 26 Anion Gap 11.0 BUN 45 H Creatinine 1.7 H GFR Calculation 27 Glucose 63 L Uric Acid 6.2 Calcium 8.7 Phosphorus 3.5 Magnesium 2.2 Total Bilirubin 0.2 Direct Bilirubin < 0.2 GGT 12 AST 14 ALT 14 Alkaline Phosphatase 88 Lactate Dehydrogenase 173 Total Protein 5.9 Albumin 3.1 L Globulin 2.8 Albumin/Globulin Ratio 1.1 Triglycerides 73 Medical - DS: A/P - Patient/Caregiver Discharge Instructions Activity: as per physical therapy, increase activity as tolerated Diet: Renal/Consistent Carbs Additional Instructions: Follow-up PCP in 5 days I recommend SNF physician to check CBC BMP UA as a posthospital follow-up in 1 week. Oxygen as needed for maintaining sats 95% Continue aggressive bowel regimen to prevent constipation Continue fall precautions Continue aggressive PT OT evaluation and treatment at SNF. ST eval and treatment if indicated High protein calorie supplements All meals on chair sitting upright at 90 degrees to prevent aspiration Return to ER if worsening fever chills shortness of breath, diarrhea, bleeding Continue diet and activity as advised Discussed importance of medication adherence Please review medication list with patient prior to discharge Please schedule follow-up with PCP/Providers prior to discharge and provide printouts Prescriptions: Aspirin 81 mg CHEWED DAILY #30 tab.chew Transmission Status: Pending to [facility] predniSONE [Deltasone] 20 mg PO DAILY #5 tab Transmission Status: Pending to [facility] - Follow up Plan Follow up with: Dina Celestin ARNP [Primary Care Provider] - Disposition: [facility] Prognosis: Fair Rehab Potential: Fair I certify that the patient requires SNF services: Yes Overall status at discharge: patient is progressing back to baseline Medical - DS: Qual - VTE Deep Vein Thrombosis/Pulmonary Embolism Present on Admission: No
== END 2020-01-09 13:00 | DRG 189 ==
LOC: ED 16:55 → ICU 21:20 → MEDSUR 01-07 20:58
PROVIDERS: ADMIT Internal Medicine; ATTEND Internal Medicine

== ENCOUNTER 2020-10-05 06:36 | Inpatient (IN) ==
--- NOTE | 2020-10-05 06:53 | Emergency Department Note ---
SOB HPI General Chief Complaint: Shortness of Breath/Dyspnea Stated Complaint: sob Time Seen by Provider: 10/05/20 06:42 Source: patient and family Mode of arrival: EMS Limitations: physical limitation History of Present Illness HPI Narrative: Narrative: EMS reported to me that patient is coming from [facility], assisted there by staff and attended to due to shortness of breath and dyspnea. EMS heard some rhonchi and mild expiratory wheezes and gave a nebulizer which which was very mild. Saturations remained 97 or above on room air. Patient received a Covid vaccine last week. She is on chronic prednisone 10 mg daily. She is very difficult to communicate with due to hardness of hearing and severe half coughing half dyspnea, acting hard to catch her breath, rattley sounds in her airway, states that it is hard to get phlegm up. She reports that her daughter, Sierra Das, from [place], will be here shortly. Related Data Home Medications Medication Instructions Recorded Confirmed zinc gluconate 50 mg tablet 50 mg PO QDAY tab 03/05/19 10/05/20 polyethylene glycol 3350 17 gm PO HS 07/22/19 09/17/20 acetaminophen 325 mg capsule 1 - 2 tab PO Q8H PRN 08/02/19 09/17/20 multivitamin 1 tab PO QAM 11/15/19 10/05/20 lancets 28 gauge #25 each 11/29/19 09/17/20 loperamide 2 mg tablet 2 mg PO Q4H PRN 11/29/19 10/05/20 ondansetron HCl 4 mg tablet 4 mg PO Q6H PRN 11/29/19 09/17/20 Accu-Chek 1 each FS ACHS 01/04/20 09/17/20 trolamine salicylate-aloe vera 1 dose TP QIDP PRN 01/04/20 09/17/20 nystatin 100,000 unit/gram topical 1 applic TOPICAL QHS PRN g 03/24/20 07/15/20 ointment Pred Forte 1 drp OPHTHALMIC (EYE) QID 10/05/20 10/05/20 guaifenesin 600 mg PO BID 10/05/20 10/05/20 Previous Rx's Medication Instructions Recorded sertraline 50 mg tablet 50 mg PO QDAY #90 tab 09/09/19 folic acid 1 mg tablet 1 mg PO QDAY #90 tab 09/18/19 omeprazole 20 mg capsule,delayed 20 mg PO QDAY #90 cap 10/10/19 release losartan 100 mg tablet 100 mg PO DAILY #90 tab 10/25/19 albuterol sulfate 90 mcg/actuation 2 puff INHALATION Q4H PRN #18 g 11/01/19 aerosol inhaler furosemide 20 mg tablet 20 mg PO BID #60 tab 12/16/19 aspirin 81 mg CHEWED DAILY #30 tab.chew 01/09/20 lorazepam 1 mg PO HSP PRN #7 tab 01/09/20 carboxymethylcellulose sodium 0.5 0.5 % OPHTHALMIC TID #70 each 03/04/20 % eye drops in a dropperette insulin lispro 200 unit/mL (3 mL) 2 - 6 unit SUB-Q .sliding scale #6 03/18/20 subcutaneous pen ml budesonide 1 mg/2 mL suspension 1 mg INHALATION BID #60 ml 06/29/20 for nebulization lancets #100 each 06/29/20 benzonatate 200 mg capsule 200 mg PO TID PRN #90 cap 07/06/20 cholecalciferol (vitamin D3) 1,250 1,250 mcg PO .QSATURDAY #12 tab 07/27/20 mcg (50,000 unit) tablet ipratropium 0.5 mg-albuterol 3 mg See Rx Instructions .ROUTE 07/29/20 (2.5 mg base)/3 mL nebulization .COMPLEX #30 ml soln dextromethorphan-guaifenesin 30 1 tab PO Q12H #180 tab 08/04/20 mg-600 mg tablet extended hr ferrous sulfate 325 mg (65 mg See Rx Instructions .ROUTE 08/06/20 iron) tablet .COMPLEX #60 tablet insulin glargine 100 unit/mL (3 38 unit SUB-Q QDAY #15 ml 08/07/20 mL) subcutaneous pen pen needle, diabetic 31 gauge x See Rx Instructions .ROUTE 08/25/2012/15" .COMPLEX #100 unknown measurement unit code: each diltiazem HCl 120 mg 120 mg PO BID #60 cap 08/31/20 capsule,extended release 12 hr solifenacin 5 mg tablet 5 mg PO QHS #90 tab 09/02/20 levothyroxine 112 mcg capsule 112 mcg PO QAM #90 cap 09/03/20 atorvastatin 20 mg tablet 20 mg PO QHS #90 tab 09/17/20 hydrocortisone 1 %-pramoxine 1 % 1 applic DC BID #10 g 09/17/20 rectal foam montelukast 10 mg tablet 10 mg PO QHS #90 tab 09/17/20 lubiprostone 24 mcg capsule 24 mcg PO ONCE #30 cap 09/24/20 gabapentin 100 mg capsule 100 mg PO TID #270 cap 09/30/20 prednisone 10 mg tablet 10 mg PO QDAY #30 tab 09/30/20 Allergies Allergy/AdvReac Type Severity Reaction Status Date / Time Tetanus Vaccines and Toxoid Allergy Mild Rash Verified 10/05/20 06:43 Review of Systems ROS ROS Narrative: Narrative: Review of systems gathered from patient's daughter. No fevers chills sweats. No chest pain Has chronic cough but has worsened the past few days. She refers to patient's primary caregiver, Dr. Dina Celestin, who has referred her to a conference planner, because she had done about all that she could do to help her. No abdominal pain, nausea, vomiting, diarrhea. Does have some stool incontinence chronically. She has a history of colon cancer with radiation and this kind of messed things up. Incontinence can be worsened by coughing. When she gets short of breath or coughing she does get lightheaded. Has probable chronic anxiety and possibly depression. The daughter is fairly certain about the anxiety. I briefly discussed with the daughter, Sierra, patient's preferences regarding resuscitation status and she believes that DNR is what she has indicated and would not want to be intubated. This was confirmed by previous records, dated 02/02/2020. [facility] Narrative Patient History Narrative: Narrative: Medical/Surgical/Family History All Active Problems (Updated 10/05/20 @ 09:16 by Rambo Nix DO) Hypothyroidism, acquired (Acute) Cystocele (Acute) Rectal bleed (Acute) Acute exacerbation of chronic obstructive airways disease (Acute) Disorder of sphincter pupillae muscle (Chronic) Adult onset diabetes mellitus with ketoacidosis (Chronic) History of radiation therapy (Chronic) History of chemotherapy (Chronic) SOB (shortness of breath) (Chronic) Chronic GERD (Chronic) History of colon cancer (Chronic) Memory loss (Chronic) Diverticulosis of large intestine without perforation or abscess without bleeding (Chronic) Type 2 diabetes mellitus with diabetic neuropathy, unspecified (Chronic) Other care home (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 therapy (Chronic) Non-nephrotic range proteinuria (Chronic) Diastolic dysfunction (Chronic) Chronic obstructive pulmonary disease (Chronic) Hypertensive nephrosclerosis (Chronic) Dyspnea (Acute) Generalized weakness (Acute) History of CVA (cerebrovascular accident) (Acute) Dysuria (Chronic) Nocturia (Chronic) Dyslipidemia (Chronic) TIA (transient ischemic attack) (Chronic) Fecal incontinence (Chronic) Proteinuria (Chronic) Joint stiffness (Chronic) Joint pain (Chronic) 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 (Chronic) MCC (current) use of antithrombotics/antiplatelets (Chronic) Hypertension (Chronic) Hyperlipidemia, mixed (Chronic) GERD (gastroesophageal reflux disease) (Chronic) Hypothyroid (Chronic) Urge incontinence (Chronic) Chronic pain syndrome (Chronic) Thoracic back pain (Chronic) Compression fracture of spine (Chronic) Encounter for long-term (current) use of medications (Chronic) Insomnia (Chronic) Ovarian mass (Chronic) Benign neoplasm of transverse colon (Chronic) Benign neoplasm of sigmoid colon (Chronic) Diabetic peripheral neuropathy (Chronic) Neck pain (Chronic) Right knee pain (Chronic) Other abnormalities of gait and mobility (Chronic) Leg pain (Chronic) Paresthesia (Chronic) 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) Left knee pain (Chronic) 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) Kidney disease, chronic, stage III (GFR 30-59 ml/min) (Chronic) Memory problem (Chronic) Decubitus ulcer (Chronic) Stroke (Chronic ~2006) Urinary incontinence (Chronic) Arthritis (Chronic) Poor sleep (Chronic) Colon cancer (Chronic ~1996) Hearing loss (Chronic) Urinary frequency (Chronic) Compression fracture of T12 vertebra (Chronic) Osteoporosis (Chronic) DM type 2 (diabetes mellitus, type 2) (Chronic) History of CVA (cerebrovascular accident) (Chronic) Depression (Chronic) Anemia (Chronic) Altered mental state (Chronic) Hyperglycemia due to type 2 diabetes mellitus (Chronic) Medical History (Updated 10/05/20 @ 09:16 by Rambo Nix DO) Adult onset diabetes mellitus with ketoacidosis (Chronic) ERIC (acute kidney injury) (Inactive) Anemia (Chronic) Arthritis (Chronic) Benign neoplasm of sigmoid colon (Chronic) Benign neoplasm of transverse colon (Chronic) Cerumen debris on tympanic membrane of left ear (Resolved) Chronic GERD (Chronic) Chronic pain syndrome (Chronic) Colon cancer (Chronic ~1996) Compression fracture of spine (Chronic) Compression fracture of T12 vertebra (Chronic) Constipation (Resolved) Corrosion of cornea and conjunctival sac, right eye, initial encounter (Resolved) Decubitus ulcer (Chronic) Decubitus ulcer of sacral region (Resolved) Dehydration (Resolved) Depression (Chronic) Diabetic peripheral neuropathy (Chronic) Diastolic dysfunction (Chronic) Add diltiazem and stop BB and amlodipine for diltiazems renoprotective and antiproteinuric effecs Add low dose furosemide BID due to weight gain Disorder of sphincter pupillae muscle (Chronic) WEAK Diverticulosis of colon without hemorrhage (Inactive) Diverticulosis of large intestine without perforation or abscess without bleeding (Chronic) DM type 2 (diabetes mellitus, type 2) (Chronic) Dyslipidemia (Chronic) Dysuria (Chronic) Encounter for long-term (current) use of medications (Chronic) Encounter for therapeutic drug level monitoring (Inactive) Fecal incontinence (Chronic) GERD (gastroesophageal reflux disease) (Chronic) Hearing loss (Chronic) History of chemotherapy (Chronic) History of colon cancer (Chronic) History of CVA (cerebrovascular accident) (Chronic) History of radiation therapy (Chronic) Hyperglycemia (Inactive) Hyperlipidemia, mixed (Chronic) Hypertension (Chronic) Well-controlled but need to confirm the current medication list Hypertensive nephrosclerosis (Chronic) In the absence of heavy proteinuria to suggest diabetic nephropathy this is my leading diagnosis Hypoglycemia associated with diabetes (Resolved) Hyponatremia (Resolved) Hyponatremia (Inactive) Hypothyroid (Chronic) Hypothyroidism, acquired (Acute) Infected decubitus ulcer (Resolved) Insomnia (Chronic) Joint pain (Chronic) Joint stiffness (Chronic) Kidney disease, chronic, stage III (GFR 30-59 ml/min) (Chronic) Differential diagnosis includes hypertensive nephrosclerosis, renovascular disease, diabetic nephropathy but this is less likely as she has low amounts of proteinuria, and finally 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 (Chronic) Left knee pain (Chronic) Left lower quadrant pain (Resolved) Leg pain (Chronic) roasterman (current) use of antithrombotics/antiplatelets (Chronic) LRTI (lower respiratory tract infection) (Resolved) Medication withdrawal (Resolved) Memory loss (Chronic) Memory problem (Chronic) Nausea (Inactive) Neck pain (Chronic) Nocturia (Chronic) Non-nephrotic range proteinuria (Chronic) Max 1.4 mg/mg by urine protein/creatininee ratio Add diltiazem to losartan Normal endoscopy (Inactive) Oral candidiasis (Inactive) May be causing some of the loss of taste Osteoporosis (Chronic) Other abnormalities of gait and mobility (Chronic) 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) Other care home (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 therapy (Chronic) Ovarian mass (Chronic) Paresthesia (Chronic) Phlebitis of left lower extremity (Resolved) Poor sleep (Chronic) Proteinuria (Chronic) Right knee pain (Chronic) Skin candidiasis (Resolved) SOB (shortness of breath) (Chronic) Sprain of other ligament of left ankle, initial encounter (Resolved) Strain of left hip (Inactive) Stroke (Chronic ~2006) 2004 & 2006 Subdural hematoma (Inactive) Thoracic back pain (Chronic) TIA (transient ischemic attack) (Chronic) 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, unspecified (Chronic) Urge incontinence (Chronic) Urinary frequency (Chronic) Urinary incontinence (Chronic) UTI (urinary tract infection) (Resolved) On first generation cephalosporin with improved symptoms Surgical History History of carpal tunnel release (Chronic) History of cholecystectomy (Chronic) History of colonoscopy (Chronic 06/01/17) History of rectal surgery (Chronic ~1999) "Surgical Resection of Rectal Cancer" History of total hip arthroplasty (Chronic) S/P carpal tunnel release (Chronic) S/P cataract surgery (Chronic) S/P cholecystectomy (Chronic) S/P tonsillectomy (Chronic) S/P total hip arthroplasty (Chronic) Family History Type II diabetes mellitus Dyslipidemia Mother Alcoholism Father Hypertension Mother Social History Smoking Status: Former smoker (quit in ) Alcohol Intake Frequency: does not drink Substance Use: does not use Exam Narrative Narrative: Narrative: General Limitations: physical limitation General appearance: Present alert, nontoxic and other (Coughing almost incessantly making it difficult to communicate.) Head Head: Present atraumatic and normocephalic Eye Eye: Present EOMI Neck Neck: Present trachea midline; Absent lymphadenopathy and thyromegaly Chest Chest: Present symmetric chest wall rise Respiratory Respiratory: Present respiratory distress, wheezes and other (Saturations doing well. On room air.); Absent stridor, accessory muscle use and prolonged expiratory phase Cardiovascular Cardiovascular: Present regular rate and normal rhythm; Absent systolic murmur and diastolic murmur Extremities Extremities: Absent tenderness, pedal edema and pretibial edema Neurological Neurological: Present alert and oriented X3 (although limited ability to evaluate fully.) Psychiatric Psychiatric: Present serious; Absent depressed, agitated, anxious and poor eye contact Skin Skin: Present warm (WNL) and dry Course Vital Signs Vital signs: Vital Signs Temperature 97.0 F 10/05/20 06:37 Pulse Rate 116 H 10/05/20 06:37 Respiratory Rate 30 H 10/05/20 06:37 Blood Pressure 210/85 10/05/20 06:37 Pulse Oximetry (%) 93 10/05/20 06:37 Temperature 97.0 F 10/05/20 06:37 Pulse Rate 116 H 10/05/20 06:37 Respiratory Rate 30 H 10/05/20 06:37 Blood Pressure 210/85 10/05/20 06:37 Pulse Oximetry (%) 93 10/05/20 06:37 MDM MDM Narrative Medical decision making narrative: Narrative: 2-3-day history of cough and shortness of breath with exacerbating/worsening symptoms. Probable COPD exacerbation. Must do ACS and pulmonary work-up. See labs and imaging, chest x-ray ordered. Note the patient had Covid testing negative on 09/28/2020 and also received the first dose of one of the vaccines for Covid on 09/29/2020. We will give a DuoNeb. Is on chronic steroids; will give larger dose Solu-Medrol and check an Accu-Chek. After the DuoNeb patient still having significant coughing. Albuterol heart neb, 10 mg ordered. 9:00 AM due to change in shift patient's care transferred to Dr. Morrison. Discharge Plan Patient/Caregiver Discharge Instructions Pt seen by APPLICATIONS SYSTEMS ANALYST/PA only: No Patient Disposition: Still a Patient Follow up with: Dina Celestin ARNP [Primary Care Provider] - Prescriptions: No Action acetaminophen [Tylenol] 325 mg capsule 1 - 2 tab PO Q8H PRN (Reason: Pain) RF: 0 albuterol sulfate [ProAir HFA] 90 mcg/actuation HFA aerosol inhaler 2 puff INHALATION Q4H PRN (Reason: shortness of breath) Qty: 18 RF: 5 loperamide 2 mg tablet 2 mg PO Q4H PRN (Reason: Diarrhea) RF: 0 (DME) lancets [TRUEplus Lancets] 28 gauge misc See Rx Instructions .ROUTE .MEDSUPPLY Qty: 25 RF: 0 ondansetron HCl [Zofran] 4 mg tablet 4 mg PO Q6H PRN (Reason: Nausea) RF: 0 nystatin 100,000 unit/gram ointment 1 applic TOPICAL QHS PRNRF: 0 Proctofoam HC 1-1 % foam 1 applic DC BID Qty: 10 RF: 0 montelukast 10 mg tablet 10 mg PO QHS Qty: 90 RF: 3 sertraline 50 mg tablet 50 mg PO QDAY Qty: 90 RF: 4 folic acid 1 mg tablet 1 mg PO QDAY Qty: 90 RF: 4 omeprazole 20 mg capsule,delayed release(DR/EC) 20 mg PO QDAY Qty: 90 RF: 4 losartan 100 mg tablet 100 mg PO DAILY Qty: 90 RF: 3 furosemide 20 mg tablet 20 mg PO BID Qty: 60 RF: 12 carboxymethylcellulose sodium 0.5 % dropperette 0.5 % OPHTHALMIC TID Qty: 70 RF: 0 Humalog KwikPen Insulin 200 unit/mL (3 mL) insulin pen 2 - 6 unit SUB-Q .sliding scale Qty: 6 RF: 6 budesonide 1 mg/2 mL suspension for nebulization 1 mg INHALATION BID Qty: 60 RF: 8 (DME) lancets [Comfort Lancets] Misc See Rx Instructions .ROUTE .MEDSUPPLY Qty: 100 RF: 10 benzonatate 200 mg capsule 200 mg PO TID PRN (Reason: cough) Qty: 90 RF: 6 cholecalciferol (vitamin D3) 1,250 mcg (50,000 unit) tablet 1,250 mcg PO .QSATURDAY Qty: 12 RF: 3 ipratropium-albuterol 0.5 mg-3 mg(2.5 mg base)/3 mL solution for nebulization See Rx Instructions .ROUTE .COMPLEX Qty: 30 RF: 12 dextromethorphan-guaifenesin 30-600 mg tablet extended release 12 hr 1 tab PO Q12H Qty: 180 RF: 3 ferrous sulfate 325 mg (65 mg iron) tablet See Rx Instructions .ROUTE .COMPLEX Qty: 60 RF: 3 Lantus Solostar U-100 Insulin 100 unit/mL (3 mL) insulin pen 38 unit SUB-Q QDAY Qty: 15 RF: 6 pen needle, diabetic [Easy Comfort Pen [place]] 31 gauge x 3/16" needle See Rx Instructions .ROUTE .COMPLEX Qty: 100 RF: 6 diltiazem HCl 120 mg capsule,extended release 12 hr 120 mg capsule,extended release 12 hr 120 mg PO BID Qty: 60 RF: 3 Vesicare 5 mg tablet 5 mg PO QHS Qty: 90 RF: 0 levothyroxine 112 mcg capsule 112 mcg PO QAM Qty: 90 RF: 0 atorvastatin 20 mg tablet 20 mg PO QHS Qty: 90 RF: 3 Amitiza 24 mcg capsule 24 mcg PO ONCE Qty: 30 RF: 3 prednisone 10 mg tablet 10 mg PO QDAY Qty: 30 RF: 0 gabapentin 100 mg capsule 100 mg PO TID Qty: 270 RF: 3 zinc gluconate 50 mg tablet 50 mg tablet 50 mg PO QDAY RF: 0 multivitamin Tablet 1 tab PO QAM RF: 0 polyethylene glycol 3350 17 GM packet 17 gm PO HS RF: 0 Accu-Chek 1 EACH strip 1 each FS ACHS RF: 0 trolamine salicylate-aloe vera 35.4 GM cream 1 dose TP QIDP PRN (Reason: Pain) RF: 0 aspirin 81 MG tablet,chewable 81 mg CHEWED DAILY Qty: 30 RF: 0 lorazepam 1 mg tablet 1 mg PO HSP PRN (Reason: Anxiety) Qty: 7 RF: 1 guaifenesin 600 mg PO BID RF: 0 Pred Forte 1 drp ophthalmic (eye) QID RF: 0
[2020-10-05] MEDS ORDERED: methylPREDNISolone SOD SUCC 125 MG/2 ML VIAL IV ONE (07:13)
[2020-10-05] MEDS ORDERED: IPRATROPIUM/ALBUTEROL 3 ML AMPUL.NEB NEB ONE (07:13)
[2020-10-05 08:19] LABS: Basophils # (Auto) 0.04 K/mcL (0.00-0.20); Basophils % (Auto) 0.4 % (0.0-2.0); Eosinophils % (Auto) 0.9 % (0.0-7.0); Hematocrit 34.2 % (36.0-48.0); Hemoglobin 10.7 g/dL (12.0-15.0); Lymphocytes # (Auto) 2.03 K/mcL (1.50-4.80); Lymphocytes % (Auto) 18.6 % (15.0-49.0); Mean Cell Volume 95.8 fL (80.0-100.0); Mean Corpuscular HGB Conc 31.3 g/dL (31.0-36.0); Mean Platelet Volume 10.7 fL (7.4-10.4); Monocytes # (Auto) 0.42 K/mcL (0.10-0.90); Monocytes % (Auto) 3.8 % (1.0-12.0); Neutrophils % (Auto) 76.3 % (38.0-78.0); Platelet Count 213 K/mcL (140-440); RBC 3.57 M/mcL (4.00-5.20); Red Cell Distribution Width 15.5 % (11.5-14.5); WBC 10.9 K/mcL (4.5-11.0)
[2020-10-05] MEDS ORDERED: ALBUTEROL SULFATE 5 MG/ML NEB SOLUTION BOTTLE NEB ONE (08:25)
[2020-10-05 08:42] LABS: proBNP 87.4 pg/mL (<450.0)
[2020-10-05 08:44] LABS: ALT/SGPT 23 U/L (<40); AST/SGOT 20 U/L (<32); Albumin 3.7 gm/dL (3.2-5.2); Albumin/Globulin Ratio 1.5 (1.0-2.3); Alkaline Phosphatase 101 U/L (39-117); Bilirubin,Total < 0.2 mg/dL (0.1-1.0); Blood Urea Nitrogen 40 mg/dL (8-23); Carbon Dioxide 26 mmol/L (22-30); Chloride 94 mmol/L (96-108); Globulin 2.5 gm/dL (2.2-3.7); Glomerular Filtration Rate 25; Glucose 226 mg/dL (70-105)
--- NOTE | 2020-10-05 09:07 | XRay Report ---
CLINICAL INFORMATION: Dyspnea COMPARISON: 07/15/2020 TECHNIQUE: Portable FINDINGS: The heart size, mediastinum and pulmonary vessels are unremarkable. The lungs are clear. There are no effusions. The bones and soft tissues are within normal limits. IMPRESSION: Normal chest. Interpreted and Authenticated by: Jey Gottlieb 10/05/20
[2020-10-05] MEDS ORDERED: AZITHROMYCIN 500 MG in DEXTROSE 5% IN WATER 250 ML IV ONE (09:39)
--- NOTE | 2020-10-05 10:45 | Emergency Department Note ---
SOB HPI General Chief Complaint: Shortness of Breath/Dyspnea Stated Complaint: sob Time Seen by Provider: 10/05/20 06:42 Source: patient and family Mode of arrival: EMS Limitations: physical limitation History of Present Illness HPI Narrative: Narrative: 85-year-old female comes in complaining of shortness of breath from [facility]. She is not on oxygen there. Dr. Nix saw her initially and then handed off to me at shift change. I reviewed his note It is noted she tested negative for Covid 1 week ago and got the Covid vaccine Related Data Home Medications Medication Instructions Recorded Confirmed zinc gluconate 50 mg tablet 50 mg PO QDAY tab 03/05/19 10/05/20 polyethylene glycol 3350 17 gm PO HS 07/22/19 09/17/20 acetaminophen 325 mg capsule 1 - 2 tab PO Q8H PRN 08/02/19 09/17/20 multivitamin 1 tab PO QAM 11/15/19 10/05/20 lancets 28 gauge #25 each 11/29/19 09/17/20 loperamide 2 mg tablet 2 mg PO Q4H PRN 11/29/19 10/05/20 ondansetron HCl 4 mg tablet 4 mg PO Q6H PRN 11/29/19 09/17/20 Accu-Chek 1 each FS ACHS 01/04/20 09/17/20 trolamine salicylate-aloe vera 1 dose TP QIDP PRN 01/04/20 09/17/20 nystatin 100,000 unit/gram topical 1 applic TOPICAL QHS PRN g 03/24/20 07/15/20 ointment Pred Forte 1 drp OPHTHALMIC (EYE) QID 10/05/20 10/05/20 guaifenesin 600 mg PO BID 10/05/20 10/05/20 Previous Rx's Medication Instructions Recorded sertraline 50 mg tablet 50 mg PO QDAY #90 tab 09/09/19 folic acid 1 mg tablet 1 mg PO QDAY #90 tab 09/18/19 omeprazole 20 mg capsule,delayed 20 mg PO QDAY #90 cap 10/10/19 release losartan 100 mg tablet 100 mg PO DAILY #90 tab 10/25/19 albuterol sulfate 90 mcg/actuation 2 puff INHALATION Q4H PRN #18 g 11/01/19 aerosol inhaler furosemide 20 mg tablet 20 mg PO BID #60 tab 12/16/19 aspirin 81 mg CHEWED DAILY #30 tab.chew 01/09/20 lorazepam 1 mg PO HSP PRN #7 tab 01/09/20 carboxymethylcellulose sodium 0.5 0.5 % OPHTHALMIC TID #70 each 03/04/20 % eye drops in a dropperette insulin lispro 200 unit/mL (3 mL) 2 - 6 unit SUB-Q .sliding scale #6 03/18/20 subcutaneous pen ml budesonide 1 mg/2 mL suspension 1 mg INHALATION BID #60 ml 06/29/20 for nebulization lancets #100 each 06/29/20 benzonatate 200 mg capsule 200 mg PO TID PRN #90 cap 07/06/20 cholecalciferol (vitamin D3) 1,250 1,250 mcg PO .QSATURDAY #12 tab 07/27/20 mcg (50,000 unit) tablet ipratropium 0.5 mg-albuterol 3 mg See Rx Instructions .ROUTE 07/29/20 (2.5 mg base)/3 mL nebulization .COMPLEX #30 ml soln dextromethorphan-guaifenesin 30 1 tab PO Q12H #180 tab 08/04/20 mg-600 mg tablet extended [id number] hr ferrous sulfate 325 mg (65 mg See Rx Instructions .ROUTE 08/06/20 iron) tablet .COMPLEX #60 tablet insulin glargine 100 unit/mL (3 38 unit SUB-Q QDAY #15 ml 08/07/20 mL) subcutaneous pen pen needle, diabetic 31 gauge x See Rx Instructions .ROUTE 08/25/2012/15" .COMPLEX #100 unknown measurement unit code: each diltiazem HCl 120 mg 120 mg PO BID #60 cap 08/31/20 capsule,extended release 12 hr solifenacin 5 mg tablet 5 mg PO QHS #90 tab 09/02/20 levothyroxine 112 mcg capsule 112 mcg PO QAM #90 cap 09/03/20 atorvastatin 20 mg tablet 20 mg PO QHS #90 tab 09/17/20 hydrocortisone 1 %-pramoxine 1 % 1 applic OK BID #10 g 09/17/20 rectal foam montelukast 10 mg tablet 10 mg PO QHS #90 tab 09/17/20 lubiprostone 24 mcg capsule 24 mcg PO ONCE #30 cap 09/24/20 gabapentin 100 mg capsule 100 mg PO TID #270 cap 09/30/20 prednisone 10 mg tablet 10 mg PO QDAY #30 tab 09/30/20 Allergies Allergy/AdvReac Type Severity Reaction Status Date / Time Tetanus Vaccines and Toxoid Allergy Mild Rash Verified 10/05/20 06:43 Review of Systems ROS ROS Narrative: Narrative: PFSH Narrative Patient History Narrative: Narrative: Medical/Surgical/Family History All Active Problems Acute exacerbation of chronic obstructive pulmonary disease (Acute) Hypothyroidism, acquired (Acute) Cystocele (Acute) Rectal bleed (Acute) Acute exacerbation of chronic obstructive airways disease (Acute) Disorder of sphincter pupillae muscle (Chronic) Adult onset diabetes mellitus with ketoacidosis (Chronic) History of radiation therapy (Chronic) History of chemotherapy (Chronic) SOB (shortness of breath) (Chronic) Chronic GERD (Chronic) History of colon cancer (Chronic) Memory loss (Chronic) Diverticulosis of large intestine without perforation or abscess without bleeding (Chronic) Type 2 diabetes mellitus with diabetic neuropathy, unspecified (Chronic) 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 computer terminal operator (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 therapy (Chronic) Non-nephrotic range proteinuria (Chronic) Diastolic dysfunction (Chronic) Chronic obstructive pulmonary disease (Chronic) Hypertensive nephrosclerosis (Chronic) Dyspnea (Acute) Generalized weakness (Acute) History of CVA (cerebrovascular accident) (Acute) Dysuria (Chronic) Nocturia (Chronic) Dyslipidemia (Chronic) TIA (transient ischemic attack) (Chronic) Fecal incontinence (Chronic) Proteinuria (Chronic) Joint stiffness (Chronic) Joint pain (Chronic) 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 (Chronic) group home (current) use of antithrombotics/antiplatelets (Chronic) Hypertension (Chronic) Hyperlipidemia, mixed (Chronic) GERD (gastroesophageal reflux disease) (Chronic) Hypothyroid (Chronic) Urge incontinence (Chronic) Chronic pain syndrome (Chronic) Thoracic back pain (Chronic) Compression fracture of spine (Chronic) Encounter for long-term (current) use of medications (Chronic) Insomnia (Chronic) Ovarian mass (Chronic) Benign neoplasm of transverse colon (Chronic) Benign neoplasm of sigmoid colon (Chronic) Diabetic peripheral neuropathy (Chronic) Neck pain (Chronic) Right knee pain (Chronic) Other abnormalities of gait and mobility (Chronic) Leg pain (Chronic) Paresthesia (Chronic) 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) Left knee pain (Chronic) 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) Kidney disease, chronic, stage III (GFR 30-59 ml/min) (Chronic) Memory problem (Chronic) Decubitus ulcer (Chronic) Stroke (Chronic ~2006) Urinary incontinence (Chronic) Arthritis (Chronic) Poor sleep (Chronic) Colon cancer (Chronic ~1996) Hearing loss (Chronic) Urinary frequency (Chronic) Compression fracture of T12 vertebra (Chronic) Osteoporosis (Chronic) DM type 2 (diabetes mellitus, type 2) (Chronic) History of CVA (cerebrovascular accident) (Chronic) Depression (Chronic) Anemia (Chronic) Altered mental state (Chronic) Hyperglycemia due to type 2 diabetes mellitus (Chronic) Medical History Adult onset diabetes mellitus with ketoacidosis (Chronic) ERIC (acute kidney injury) (Inactive) Anemia (Chronic) Arthritis (Chronic) Benign neoplasm of sigmoid colon (Chronic) Benign neoplasm of transverse colon (Chronic) Cerumen debris on tympanic membrane of left ear (Resolved) Chronic GERD (Chronic) Chronic pain syndrome (Chronic) Colon cancer (Chronic ~1996) Compression fracture of spine (Chronic) Compression fracture of T12 vertebra (Chronic) Constipation (Resolved) Corrosion of cornea and conjunctival sac, right eye, initial encounter (Resolved) Decubitus ulcer (Chronic) Decubitus ulcer of sacral region (Resolved) Dehydration (Resolved) Depression (Chronic) Diabetic peripheral neuropathy (Chronic) Diastolic dysfunction (Chronic) Add diltiazem and stop BB and amlodipine for diltiazems renoprotective and antiproteinuric effecs Add low dose furosemide BID due to weight gain Disorder of sphincter pupillae muscle (Chronic) WEAK Diverticulosis of colon without hemorrhage (Inactive) Diverticulosis of large intestine without perforation or abscess without bleeding (Chronic) DM type 2 (diabetes mellitus, type 2) (Chronic) Dyslipidemia (Chronic) Dysuria (Chronic) Encounter for long-term (current) use of medications (Chronic) Encounter for therapeutic drug level monitoring (Inactive) Fecal incontinence (Chronic) GERD (gastroesophageal reflux disease) (Chronic) Hearing loss (Chronic) History of chemotherapy (Chronic) History of colon cancer (Chronic) History of CVA (cerebrovascular accident) (Chronic) History of radiation therapy (Chronic) Hyperglycemia (Inactive) Hyperlipidemia, mixed (Chronic) Hypertension (Chronic) Well-controlled but need to confirm the current medication list Hypertensive nephrosclerosis (Chronic) In the absence of heavy proteinuria to suggest diabetic nephropathy this is my leading diagnosis Hypoglycemia associated with diabetes (Resolved) Hyponatremia (Resolved) Hyponatremia (Inactive) Hypothyroid (Chronic) Hypothyroidism, acquired (Acute) Infected decubitus ulcer (Resolved) Insomnia (Chronic) Joint pain (Chronic) Joint stiffness (Chronic) Kidney disease, chronic, stage III (GFR 30-59 ml/min) (Chronic) Differential diagnosis includes hypertensive nephrosclerosis, renovascular disease, diabetic nephropathy but this is less likely as she has low amounts of proteinuria, and finally given her age a paraproteinemia related renal dis ease 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 (Chronic) Left knee pain (Chronic) Left lower quadrant pain (Resolved) Leg pain (Chronic) 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) use of antithrombotics/antiplatelets (Chronic) LRTI (lower respiratory tract infection) (Resolved) Medication withdrawal (Resolved) Memory loss (Chronic) Memory problem (Chronic) Nausea (Inactive) Neck pain (Chronic) Nocturia (Chronic) Non-nephrotic range proteinuria (Chronic) Max 1.4 mg/mg by urine protein/creatininee ratio Add diltiazem to losartan Normal endoscopy (Inactive) Oral candidiasis (Inactive) May be causing some of the loss of taste Osteoporosis (Chronic) Other abnormalities of gait and mobility (Chronic) 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) Other correction (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 therapy (Chronic) Ovarian mass (Chronic) Paresthesia (Chronic) Phlebitis of left lower extremity (Resolved) Poor sleep (Chronic) Proteinuria (Chronic) Right knee pain (Chronic) Skin candidiasis (Resolved) SOB (shortness of breath) (Chronic) Sprain of other ligament of left ankle, initial encounter (Resolved) Strain of left hip (Inactive) Stroke (Chronic ~2007) 2004 & 2007 Subdural hematoma (Inactive) Thoracic back pain (Chronic) TIA (transient ischemic attack) (Chronic) 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, unspecified (Chronic) Urge incontinence (Chronic) Urinary frequency (Chronic) Urinary incontinence (Chronic) UTI (urinary tract infection) (Resolved) On first generation cephalosporin with improved symptoms Surgical History History of carpal tunnel release (Chronic) History of cholecystectomy (Chronic) History of colonoscopy (Chronic 06/01/17) History of rectal surgery (Chronic ~1999) "Surgical Resection of Rectal Cancer" History of total hip arthroplasty (Chronic) S/P carpal tunnel release (Chronic) S/P cataract surgery (Chronic) S/P cholecystectomy (Chronic) S/P tonsillectomy (Chronic) S/P total hip arthroplasty (Chronic) Family History Mother Dyslipidemia Hypertension Father Alcoholism Other Type II diabetes mellitus Social History Smoking Status: Former smoker (quit in ) Alcohol Intake Frequency: does not drink Substance Use: does not use Exam Narrative Narrative: Narrative: After 2 breathing treatments and a heart neb she is still struggling to breathe. Wheezes and rhonchi in all lung erickson and she cannot speak in full sentences General Limitations: physical limitation Course Vital Signs Vital signs: Vital Signs Temperature 97.0 F 10/05/20 06:37 Pulse Rate 116 H 10/05/20 06:37 Respiratory Rate 30 H 10/05/20 06:37 Blood Pressure 210/85 10/05/20 06:37 Pulse Oximetry (%) 93 10/05/20 06:37 Temperature 97.0 F 10/05/20 06:37 Pulse Rate 120 H 10/05/20 09:59 Respiratory Rate 18 10/05/20 09:59 Blood Pressure 173/59 10/05/20 09:31 Pulse Oximetry (%) 93 10/05/20 09:59 MDM MDM Narrative Medical decision making narrative: Narrative: Arterial blood gases shows compensated pH but her PO2 was 37 so she is now requiring oxygen. Anemia and creatinine stable. Kareen Covid test is negative Patient will require admission as she is working very hard to breathe and is now requiring oxygen. Patient received Solu-Medrol and azithromycin. Discussed with Dr. Dueñas, our hospitalist, he agreed to accept the patient for further care and evaluation in the hospital Lab Data Lab results reviewed: Yes I reviewed the patient's lab results. Result diagrams: 10/05/20 07:37 10/05/20 07:37 Labs: Lab Results 10/05/20 10/05/20 10/05/20 Range/Units 07:14 07:37 07:37 WBC 10.9 (4.5-11.0) K/mcL RBC 3.57 L (4.00-5.20) M/mcL Hgb 10.7 L (12.0-15.0) g/dL Hct 34.2 L (36.0-48.0) % MCV 95.8 (80.0-100.0) fL MCH 30.0 (26.0-34.0) pg MCHC 31.3 (31.0-36.0) g/dL RDW 15.5 H (11.5-14.5) % Plt Count 213 (140-440) K/mcL MPV 10.7 H (7.4-10.4) fL Neut % (Auto) 76.3 (38.0-78.0) % Lymph % (Auto) 18.6 (15.0-49.0) % [place] % (Auto) 3.8 (1.0-12.0) % Eos % (Auto) 0.9 (0.0-7.0) % Baso % (Auto) 0.4 (0.0-2.0) % Lymph # (Auto) 2.03 (1.50-4.80) K/mcL [place] # (Auto) 0.42 (0.10-0.90) K/mcL Eos # (Auto) 0.10 (0.00-0.70) K/mcL Baso # (Auto) 0.04 (0.00-0.20) K/mcL Absolute Neutrophils 8.35 H (1.80-8.00) K/mcL Sodium 136 (133-145) mmol/L Potassium 3.7 (3.3-5.1) mmol/L Chloride 94 L (96-108) mmol/L Carbon Dioxide 26 (22-30) mmol/L Anion Gap 16.0 (8.0-16.0) BUN 40 H (8-23) mg/dL Creatinine 1.8 H (0.6-1.1) mg/dL GFR Calculation 25 Glucose 226 H (70-105) mg/dL Calcium 10.0 (8.6-10.4) mg/dL Total Bilirubin < 0.2 (0.1-1.0) mg/dL AST 20 (<32) U/L ALT 23 (<40) U/L Alkaline Phosphatase 101 (39-117) U/L Troponin T 0.02 (<0.03) ng/mL NT-Pro-B Natriuret Pep 87.4 (<450.0) pg/mL Total Protein 6.2 (5.9-8.4) gm/dL Albumin 3.7 (3.2-5.2) gm/dL Globulin 2.5 (2.2-3.7) gm/dL Albumin/Globulin Ratio 1.5 (1.0-2.3) Procalcitonin (<0.10) ng/mL 10/05/20 Range/Units 07:38 WBC (4.5-11.0) K/mcL RBC (4.00-5.20) M/mcL Hgb (12.0-15.0) g/dL Hct (36.0-48.0) % MCV (80.0-100.0) fL MCH (26.0-34.0) pg MCHC (31.0-36.0) g/dL RDW (11.5-14.5) % Plt Count (140-440) K/mcL MPV (7.4-10.4) fL Neut % (Auto) (38.0-78.0) % Lymph % (Auto) (15.0-49.0) % [place] % (Auto) (1.0-12.0) % Eos % (Auto) (0.0-7.0) % Baso % (Auto) (0.0-2.0) % Lymph # (Auto) (1.50-4.80) K/mcL [place] # (Auto) (0.10-0.90) K/mcL Eos # (Auto) (0.00-0.70) K/mcL Baso # (Auto) (0.00-0.20) K/mcL Absolute Neutrophils (1.80-8.00) K/mcL Sodium (133-145) mmol/L Potassium (3.3-5.1) mmol/L Chloride (96-108) mmol/L Carbon Dioxide (22-30) mmol/L Anion Gap (8.0-16.0) BUN (8-23) mg/dL Creatinine (0.6-1.1) mg/dL GFR Calculation Glucose (70-105) mg/dL Calcium (8.6-10.4) mg/dL Total Bilirubin (0.1-1.0) mg/dL AST (<32) U/L ALT (<40) U/L Alkaline Phosphatase (39-117) U/L Troponin T (<0.03) ng/mL NT-Pro-B Natriuret Pep (<450.0) pg/mL Total Protein (5.9-8.4) gm/dL Albumin (3.2-5.2) gm/dL Globulin (2.2-3.7) gm/dL Albumin/Globulin Ratio (1.0-2.3) Procalcitonin 0.11 H (<0.10) ng/mL Radiology Data Radiology results reviewed: Yes I reviewed the patient's radiology results. Radiology results narrative: Chest x-rays negative for acute infiltrate but she does have stigmata of COPD EKG Data EKG #1: EKG attestation: Yes I reviewed and interpreted this EKG. 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/PA only: No Clinical Impression: Acute exacerbation of chronic obstructive pulmonary disease Patient Disposition: Xfer As Inpt ([facility]) Condition: Fair Follow up with: Dina Celestin ARNP [Primary Care Provider] - Prescriptions: No Action acetaminophen [Tylenol] 325 mg capsule 1 - 2 tab PO Q8H PRN (Reason: Pain) RF: 0 albuterol sulfate [ProAir HFA] 90 mcg/actuation HFA aerosol inhaler 2 puff INHALATION Q4H PRN (Reason: shortness of breath) Qty: 18 RF: 5 loperamide 2 mg tablet 2 mg PO Q4H PRN (Reason: Diarrhea) RF: 0 (DME) lancets [TRUEplus Lancets] 28 gauge misc See Rx Instructions .ROUTE .MEDSUPPLY Qty: 25 RF: 0 ondansetron HCl [Zofran] 4 mg tablet 4 mg PO Q6H PRN (Reason: Nausea) RF: 0 nystatin 100,000 unit/gram ointment 1 applic TOPICAL QHS PRNRF: 0 Proctofoam HC 1-1 % foam 1 applic OK BID Qty: 10 RF: 0 montelukast 10 mg tablet 10 mg PO QHS Qty: 90 RF: 3 sertraline 50 mg tablet 50 mg PO QDAY Qty: 90 RF: 4 folic acid 1 mg tablet 1 mg PO QDAY Qty: 90 RF: 4 omeprazole 20 mg capsule,delayed release(DR/EC) 20 mg PO QDAY Qty: 90 RF: 4 losartan 100 mg tablet 100 mg PO DAILY Qty: 90 RF: 3 furosemide 20 mg tablet 20 mg PO BID Qty: 60 RF: 12 carboxymethylcellulose sodium 0.5 % dropperette 0.5 % OPHTHALMIC TID Qty: 70 RF: 0 Humalog KwikPen Insulin 200 unit/mL (3 mL) insulin pen 2 - 6 unit SUB-Q .sliding scale Qty: 6 RF: 6 budesonide 1 mg/2 mL suspension for nebulization 1 mg INHALATION BID Qty: 60 RF: 8 (DME) lancets [Comfort Lancets] Misc See Rx Instructions .ROUTE .MEDSUPPLY Qty: 100 RF: 10 benzonatate 200 mg capsule 200 mg PO TID PRN (Reason: cough) Qty: 90 RF: 6 cholecalciferol (vitamin D3) 1,250 mcg (50,000 unit) tablet 1,250 mcg PO .QSATUR Qty: 12 RF: 3 ipratropium-albuterol 0.5 mg-3 mg(2.5 mg base)/3 mL solution for nebulization See Rx Instructions .ROUTE .COMPLEX Qty: 30 RF: 12 dextromethorphan-guaifenesin 30-600 mg tablet extended release 12 hr 1 tab PO Q12H Qty: 180 RF: 3 ferrous sulfate 325 mg (65 mg iron) tablet See Rx Instructions .ROUTE .COMPLEX Qty: 60 RF: 3 Lantus Solostar U-100 Insulin 100 unit/mL (3 mL) insulin pen 38 unit SUB-Q QDAY Qty: 15 RF: 6 pen needle, diabetic [Easy Comfort Pen Bessie] 31 gauge x 3/16" needle See Rx Instructions .ROUTE .COMPLEX Qty: 100 RF: 6 diltiazem HCl 120 mg capsule,extended release 12 hr 120 mg capsule,extended release 12 hr 120 mg PO BID Qty: 60 RF: 3 Vesicare 5 mg tablet 5 mg PO QHS Qty: 90 RF: 0 levothyroxine 112 mcg capsule 112 mcg PO QAM Qty: 90 RF: 0 atorvastatin 20 mg tablet 20 mg PO QHS Qty: 90 RF: 3 Amitiza 24 mcg capsule 24 mcg PO ONCE Qty: 30 RF: 3 prednisone 10 mg tablet 10 mg PO QDAY Qty: 30 RF: 0 gabapentin 100 mg capsule 100 mg PO TID Qty: 270 RF: 3 zinc gluconate 50 mg tablet 50 mg tablet 50 mg PO QDAY RF: 0 multivitamin Tablet 1 tab PO QAM RF: 0 polyethylene glycol 3350 17 GM packet 17 gm PO HS RF: 0 Accu-Chek 1 EACH strip 1 each FS ACHS RF: 0 trolamine salicylate-aloe vera 35.4 GM cream 1 dose TP QIDP PRN (Reason: Pain) RF: 0 aspirin 81 MG tablet,chewable 81 mg CHEWED DAILY Qty: 30 RF: 0 lorazepam 1 mg tablet 1 mg PO HSP PRN (Reason: Anxiety) Qty: 7 RF: 1 guaifenesin 600 mg PO BID RF: 0 Pred Forte 1 drp ophthalmic (eye) QID RF: 0
--- NOTE | 2020-10-05 11:30 | Internal Med History&Physical ---
HPI History of Present Illness Patient information: Note initiated : 10/05/20 at 11:19 am Service Date, if different from initiated Date: [] Patient: Génesis Medina 85 y/o F admitted on for sob. Chief Complaint: [] History of present illness: Ms. Medina is a 85 year old F Patient presents from [facility] for shortness of breath. Patient states she has a chronic shortness of breath with her COPD but that her latest symptoms have worsened over the past week. She is unable to cough up phlegm but feels like she has stuff to cough up. She denies fevers chills. In the ED she was found to be hypoxic on ABG and started on oxygen. 2 L. She had a chest x-ray which was done which was unremarkable. She was wheezy and rhonchorous and given 3 nebulizers with brief improvement. He was tested for Covid on the which is negative. Repeat pending. Review of Systems: Pertinent positives as above. Denies headache/fever/chills/nausea/vomiting/chest or abdominal pain/diarrhea. Remaining 10 point review of system reviewed negative PFSH PFSH All Active Problems Acute exacerbation of chronic obstructive pulmonary disease (Acute) Hypothyroidism, acquired (Acute) Cystocele (Acute) Rectal bleed (Acute) Acute exacerbation of chronic obstructive airways disease (Acute) Disorder of sphincter pupillae muscle (Chronic) Adult onset diabetes mellitus with ketoacidosis (Chronic) History of radiation therapy (Chronic) History of chemotherapy (Chronic) SOB (shortness of breath) (Chronic) Chronic GERD (Chronic) History of colon cancer (Chronic) Memory loss (Chronic) Diverticulosis of large intestine without perforation or abscess without bleeding (Chronic) Type 2 diabetes mellitus with diabetic neuropathy, unspecified (Chronic) Other termite helper (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 therapy (Chronic) Non-nephrotic range proteinuria (Chronic) Diastolic dysfunction (Chronic) Chronic obstructive pulmonary disease (Chronic) Hypertensive nephrosclerosis (Chronic) Dyspnea (Acute) Generalized weakness (Acute) History of CVA (cerebrovascular accident) (Acute) Dysuria (Chronic) Nocturia (Chronic) Dyslipidemia (Chronic) TIA (transient ischemic attack) (Chronic) Fecal incontinence (Chronic) Proteinuria (Chronic) Joint stiffness (Chronic) Joint pain (Chronic) 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 (Chronic) shelter (current) use of antithrombotics/antiplatelets (Chronic) Hypertension (Chronic) Hyperlipidemia, mixed (Chronic) GERD (gastroesophageal reflux disease) (Chronic) Hypothyroid (Chronic) Urge incontinence (Chronic) Chronic pain syndrome (Chronic) Thoracic back pain (Chronic) Compression fracture of spine (Chronic) Encounter for long-term (current) use of medications (Chronic) Insomnia (Chronic) Ovarian mass (Chronic) Benign neoplasm of transverse colon (Chronic) Benign neoplasm of sigmoid colon (Chronic) Diabetic peripheral neuropathy (Chronic) Neck pain (Chronic) Right knee pain (Chronic) Other abnormalities of gait and mobility (Chronic) Leg pain (Chronic) Paresthesia (Chronic) 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) Left knee pain (Chronic) 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) Kidney disease, chronic, stage III (GFR 30-59 ml/min) (Chronic) Memory problem (Chronic) Decubitus ulcer (Chronic) Stroke (Chronic ~2006) Urinary incontinence (Chronic) Arthritis (Chronic) Poor sleep (Chronic) Colon cancer (Chronic ~1996) Hearing loss (Chronic) Urinary frequency (Chronic) Compression fracture of T12 vertebra (Chronic) Osteoporosis (Chronic) DM type 2 (diabetes mellitus, type 2) (Chronic) History of CVA (cerebrovascular accident) (Chronic) Depression (Chronic) Anemia (Chronic) Altered mental state (Chronic) Hyperglycemia due to type 2 diabetes mellitus (Chronic) Medical History Adult onset diabetes mellitus with ketoacidosis (Chronic) ERIC (acute kidney injury) (Inactive) Anemia (Chronic) Arthritis (Chronic) Benign neoplasm of sigmoid colon (Chronic) Benign neoplasm of transverse colon (Chronic) Cerumen debris on tympanic membrane of left ear (Resolved) Chronic GERD (Chronic) Chronic pain syndrome (Chronic) Colon cancer (Chronic ~1996) Compression fracture of spine (Chronic) Compression fracture of T12 vertebra (Chronic) Constipation (Resolved) Corrosion of cornea and conjunctival sac, right eye, initial encounter (Resolved) Decubitus ulcer (Chronic) Decubitus ulcer of sacral region (Resolved) Dehydration (Resolved) Depression (Chronic) Diabetic peripheral neuropathy (Chronic) Diastolic dysfunction (Chronic) Add diltiazem and stop BB and amlodipine for diltiazems renoprotective and antiproteinuric effecs Add low dose furosemide BID due to weight gain Disorder of sphincter pupillae muscle (Chronic) WEAK Diverticulosis of colon without hemorrhage (Inactive) Diverticulosis of large intestine without perforation or abscess without bleedin g (Chronic) DM type 2 (diabetes mellitus, type 2) (Chronic) Dyslipidemia (Chronic) Dysuria (Chronic) Encounter for long-term (current) use of medications (Chronic) Encounter for therapeutic drug level monitoring (Inactive) Fecal incontinence (Chronic) GERD (gastroesophageal reflux disease) (Chronic) Hearing loss (Chronic) History of chemotherapy (Chronic) History of colon cancer (Chronic) History of CVA (cerebrovascular accident) (Chronic) History of radiation therapy (Chronic) Hyperglycemia (Inactive) Hyperlipidemia, mixed (Chronic) Hypertension (Chronic) Well-controlled but need to confirm the current medication list Hypertensive nephrosclerosis (Chronic) In the absence of heavy proteinuria to suggest diabetic nephropathy this is my leading diagnosis Hypoglycemia associated with diabetes (Resolved) Hyponatremia (Resolved) Hyponatremia (Inactive) Hypothyroid (Chronic) Hypothyroidism, acquired (Acute) Infected decubitus ulcer (Resolved) Insomnia (Chronic) Joint pain (Chronic) Joint stiffness (Chronic) Kidney disease, chronic, stage III (GFR 30-59 ml/min) (Chronic) Differential diagnosis includes hypertensive nephrosclerosis, renovascular disease, diabetic nephropathy but this is less likely as she has low amounts of proteinuria, and finally 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 (Chronic) Left knee pain (Chronic) Left lower quadrant pain (Resolved) Leg pain (Chronic) shelter (current) use of antithrombotics/antiplatelets (Chronic) LRTI (lower respiratory tract infection) (Resolved) Medication withdrawal (Resolved) Memory loss (Chronic) Memory problem (Chronic) Nausea (Inactive) Neck pain (Chronic) Nocturia (Chronic) Non-nephrotic range proteinuria (Chronic) Max 1.4 mg/mg by urine protein/creatininee ratio Add diltiazem to losartan Normal endoscopy (Inactive) Oral candidiasis (Inactive) May be causing some of the loss of taste Osteoporosis (Chronic) Other abnormalities of gait and mobility (Chronic) 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) Other [facility] (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 therapy (Chronic) Ovarian mass (Chronic) Paresthesia (Chronic) Phlebitis of left lower extremity (Resolved) Poor sleep (Chronic) Proteinuria (Chronic) Right knee pain (Chronic) Skin candidiasis (Resolved) SOB (shortness of breath) (Chronic) Sprain of other ligament of left ankle, initial encounter (Resolved) Strain of left hip (Inactive) Stroke (Chronic ~2006) 2004 & 2006 Subdural hematoma (Inactive) Thoracic back pain (Chronic) TIA (transient ischemic attack) (Chronic) 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, unspecified (Chronic) Urge incontinence (Chronic) Urinary frequency (Chronic) Urinary incontinence (Chronic) UTI (urinary tract infection) (Resolved) On first generation cephalosporin with improved symptoms Surgical History History of carpal tunnel release (Chronic) History of cholecystectomy (Chronic) History of colonoscopy (Chronic 06/01/17) History of rectal surgery (Chronic ~1999) "Surgical Resection of Rectal Cancer" History of total hip arthroplasty (Chronic) S/P carpal tunnel release (Chronic) S/P cataract surgery (Chronic) S/P cholecystectomy (Chronic) S/P tonsillectomy (Chronic) S/P total hip arthroplasty (Chronic) Family History Mother Dyslipidemia Hypertension Father Alcoholism Other Type II diabetes mellitus Social History marital status: smoking status: Former smoker (quit in ) quit date: 02/05/95 alcohol intake frequency: does not drink substance use type: does not use seatbelt use: always MEDS/ALLERGIES Home Medications and Allergies Home Medications Medication Instructions Recorded Confirmed Type zinc gluconate 50 mg tablet 50 mg PO QDAY tab 03/05/19 10/05/20 History polyethylene glycol 3350 17 gm PO HS 07/22/19 09/17/20 History acetaminophen 325 mg capsule 1 - 2 tab PO Q8H PRN 08/02/19 09/17/20 History sertraline 50 mg tablet 50 mg PO QDAY #90 tab 09/09/19 10/05/20 Rx folic acid 1 mg tablet 1 mg PO QDAY #90 tab 09/18/19 10/05/20 Rx omeprazole 20 mg capsule,delayed 20 mg PO QDAY #90 cap 10/10/19 10/05/20 Rx release losartan 100 mg tablet 100 mg PO DAILY #90 tab 10/25/19 10/05/20 Rx albuterol sulfate 90 mcg/actuation 2 puff INHALATION Q4H PRN #18 g 11/01/19 10/05/20 Rx aerosol inhaler multivitamin 1 tab PO QAM 11/15/19 10/05/20 History lancets 28 gauge #25 each 11/29/19 09/17/20 History loperamide 2 mg tablet 2 mg PO Q4H PRN 11/29/19 10/05/20 History ondansetron HCl 4 mg tablet 4 mg PO Q6H PRN 11/29/19 09/17/20 History furosemide 20 mg tablet 20 mg PO BID #60 tab 12/16/19 10/05/20 Rx Accu-Chek 1 each FS ACHS 01/04/20 09/17/20 History trolamine salicylate-aloe vera 1 dose TP QIDP PRN 01/04/20 09/17/20 History aspirin 81 mg CHEWED DAILY #30 tab.chew 01/09/20 10/05/20 Rx lorazepam 1 mg PO HSP PRN #7 tab 01/09/20 09/17/20 Rx carboxymethylcellulose sodium 0.5 0.5 % OPHTHALMIC TID #70 each 03/04/20 10/05/20 Rx % eye drops in a dropperette insulin lispro 200 unit/mL (3 mL) 2 - 6 unit SUB-Q .sliding scale #6 03/18/20 10/05/20 Rx subcutaneous pen ml nystatin 100,000 unit/gram topical 1 applic TOPICAL QHS PRN g 03/24/20 07/15/20 History ointment budesonide 1 mg/2 mL suspension 1 mg INHALATION BID #60 ml 06/29/20 10/05/20 Rx for nebulization lancets #100 each 06/29/20 09/17/20 Rx benzonatate 200 mg capsule 200 mg PO TID PRN #90 cap 07/06/20 10/05/20 Rx cholecalciferol (vitamin D3) 1,250 1,250 mcg PO .QSATURDAY #12 tab 07/27/20 10/05/20 Rx mcg (50,000 unit) tablet ipratropium 0.5 mg-albuterol 3 mg See Rx Instructions .ROUTE 07/29/20 10/05/20 Rx (2.5 mg base)/3 mL nebulization .COMPLEX #30 ml soln dextromethorphan-guaifenesin 30 1 tab PO Q12H #180 tab 08/04/20 09/17/20 Rx mg-600 mg tablet extended [id number] hr ferrous sulfate 325 mg (65 mg See Rx Instructions .ROUTE 08/06/20 10/05/20 Rx iron) tablet .COMPLEX #60 tablet insulin glargine 100 unit/mL (3 38 unit SUB-Q QDAY #15 ml 08/07/20 10/05/20 Rx mL) subcutaneous pen pen needle, diabetic 31 gauge x See Rx Instructions .ROUTE 08/25/20 10/05/20 Rx 3/16" .COMPLEX #100 unknown measurement unit code: each diltiazem HCl 120 mg 120 mg PO BID #60 cap 08/31/20 10/05/20 Rx capsule,extended release 12 hr solifenacin 5 mg tablet 5 mg PO QHS #90 tab 09/02/20 10/05/20 Rx levothyroxine 112 mcg capsule 112 mcg PO QAM #90 cap 09/03/20 10/05/20 Rx atorvastatin 20 mg tablet 20 mg PO QHS #90 tab 09/17/20 10/05/20 Rx hydrocortisone 1 %-pramoxine 1 % 1 applic MS BID #10 g 09/17/20 09/17/20 Rx rectal foam montelukast 10 mg tablet 10 mg PO QHS #90 tab 09/17/20 10/05/20 Rx lubiprostone 24 mcg capsule 24 mcg PO ONCE #30 cap 09/24/20 10/05/20 Rx gabapentin 100 mg capsule 100 mg PO TID #270 cap 09/30/20 10/05/20 Rx prednisone 10 mg tablet 10 mg PO QDAY #30 tab 09/30/20 10/05/20 Rx Pred Forte 1 drp OPHTHALMIC (EYE) QID 10/05/20 10/05/20 History guaifenesin 600 mg PO BID 10/05/20 10/05/20 History Allergies Allergy/AdvReac Type Severity Reaction Status Date / Time Tetanus Vaccines and Toxoid Allergy Mild Rash Verified 10/05/20 06:43 EXAM Constitutional Vitals: Temp Pulse Resp BP Pulse Ox 97.0 F 112 H 18 131/82 94 10/05/20 06:37 10/05/20 11:06 10/05/20 11:06 10/05/20 11:01 10/05/20 11:06 Exam: General: Alert, Awake, mild respiratory distress Eyes/N/T: EOMI, PERRL, dry MM Head/Neck: neck supple, normocephalic atraumatic CV: RRR, No murmurs, normal s1/s2, conversational dyspnea Pulm: Rhonchi and wheezing b/l Abd: soft, nontender, +BS x4 Ext: no clubbing/cyanosis/edema Neuro: Alert, chronic left side weakness from prior CVA, moves all extremities, CN 2-12 grossly intact, sensations intact b/l upper/lower Skin: warm/dry DATA Data Completed and Pending Labs: Labs from last 24 hours 10/05/20 10/05/20 10/05/20 07:38 07:37 07:37 WBC 10.9 RBC 3.57 L Hgb 10.7 L Hct 34.2 L MCV 95.8 MCH 30.0 MCHC 31.3 RDW 15.5 H Plt Count 213 MPV 10.7 H Neut % (Auto) 76.3 Lymph % (Auto) 18.6 [place] % (Auto) 3.8 Eos % (Auto) 0.9 Baso % (Auto) 0.4 Lymph # (Auto) 2.03 [place] # (Auto) 0.42 Eos # (Auto) 0.10 Baso # (Auto) 0.04 Absolute Neutrophils 8.35 H Sodium 136 Potassium 3.7 Chloride 94 L Carbon Dioxide 26 Anion Gap 16.0 BUN 40 H Creatinine 1.8 H GFR Calculation 25 Glucose 226 H Calcium 10.0 Total Bilirubin < 0.2 AST 20 ALT 23 Alkaline Phosphatase 101 Troponin T NT-Pro-B Natriuret Pep 87.4 Total Protein 6.2 Albumin 3.7 Globulin 2.5 Albumin/Globulin Ratio 1.5 Procalcitonin 0.11 H 10/05/20 07:14 WBC RBC Hgb Hct MCV MCH MCHC RDW Plt Count MPV Neut % (Auto) Lymph % (Auto) [place] % (Auto) Eos % (Auto) Baso % (Auto) Lymph # (Auto) [place] # (Auto) Eos # (Auto) Baso # (Auto) Absolute Neutrophils Sodium Potassium Chloride Carbon Dioxide Anion Gap BUN Creatinine GFR Calculation Glucose Calcium Total Bilirubin AST ALT Alkaline Phosphatase Troponin T 0.02 NT-Pro-B Natriuret Pep Total Protein Albumin Globulin Albumin/Globulin Ratio Procalcitonin A/P Narrative A/P Narrative: A: *AECOPD(not on home O2): -covid/rvp -Chest x-ray unremarkable *Acute hypoxic respiratory failure:/2 above *Hypertensive urgency: home med diltiazem/losartan *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 *Anemia, chronic *h/o Grade I diastolic dysfxn: *DM w/neuropathy: A1c 7.7 *h/o CVA w/residual left side weakness (has had several strokes) -on statin, was on eliquis in past but was stopped for SDH *Hypothyroidism: *GERD: *Anxiety/depression: *Chr pain: P: -Supp O2 prn, f/u ABG -Steroids(wean), IH's, IS/Acapella, RT -covid/rvp -empiric abx -hold home lasix today, f/u renal fxn -cont home basal insulin and SSI -cont home bp meds (losartan/diltiazem) -cont asa/statin -f/u with pulmonology outpt -ppx: heparin DNR Time Spent With Patient Time: Total time spent is greater than 50% in coordination of care (as documented) at patient's floor/unit and/or counseling patient: QUALITY Stroke Symptom Onset Unknown: No
[2020-10-05] MEDS ORDERED: PRED FORTE OPHTHALMIC SCH (13:49)
[2020-10-05] MEDS ORDERED: SENNOSIDES 1 TABLET PO PRN (13:49)
[2020-10-05] MEDS ORDERED: MAGNESIUM SULFATE 2 GM/50 ML BAG IV PRN (13:49)
[2020-10-05] MEDS ORDERED: hydrALAZINE 20 MG/ML VIAL IV PRN (13:49)
[2020-10-05] MEDS ORDERED: DEXTROSE 31 GM ORAL.SUSP PO PRN (13:49)
[2020-10-05] MEDS ORDERED: LORazepam 2 MG/ML VIAL IV PRN (13:49)
[2020-10-05] MEDS ORDERED: DEXTROSE 50% 50 ML VIAL IV PRN (13:49)
[2020-10-05] MEDS ORDERED: LABETALOL 5 MG/ML ML IV PRN (13:49)
[2020-10-05] MEDS ORDERED: POTASSIUM CHLORIDE 40 MEQ in DEXTROSE 5% IN WATER 500 ML IV PRN (13:49)
[2020-10-05] MEDS ORDERED: LACTULOSE 20 GM/30 ML ORAL.SOL PO PRN (13:49)
[2020-10-05] MEDS ORDERED: POTASSIUM CHLORIDE 20 MEQ TABLET PO PRN ×2 (13:49)
[2020-10-05] MEDS ORDERED: ONDANSETRON 4 MG/2 ML VIAL IV PRN (13:49)
[2020-10-05] MEDS ORDERED: IPRATROPIUM/ALBUTEROL 3 ML AMPUL.NEB NEB PRN (13:49)
[2020-10-05] MEDS ORDERED: ALBUTEROL SULFATE 200 PUFF INHALER INH PRN (13:49)
[2020-10-05] MEDS ORDERED: ACETAMINOPHEN 325 MG TABLET PO PRN (13:49)
[2020-10-05] MEDS ORDERED: LOPERAMIDE 2 MG CAPSULE PO PRN (14:05)
[2020-10-05 14:49] LABS: Appearance,Urine CLOUDY (Clear); Bacteria,Urine FEW /hpf (0); Bilirubin,Urine Negative (Negative); Color,Urine YELLOW; Culture Indicated,Urine yes; Glucose,Urine (UA) >=500 mg/dL (Negative); Ketones,Urine Negative (Negative); Leukocyte Esterase,Urine 500 /ug (Negative); Nitrate,Urine Negative (Negative); Protein,Urine 30 mg/dL (Negative); Specific Gravity,Urine 1.012 (1.000-1.035); Urine Blood Negative (Negative); Urine RBC 5 /hpf (0-3); Urine Squamous Epithelial Cell 4 /hpf (0-4); Urine Transitional Epi Cells < 1 /hpf (0-2); Urine WBC > 182 /hpf (0-4); Urobilinogen,Urine Negative
[2020-10-05] MEDS: IPRATROPIUM/ALBUTEROL 3 ML AMPUL.NEB NEB SCH ×3 (15:07→22:50)
[2020-10-05] MEDS: 0.9 % SODIUM CHLORIDE 10 ML SYRINGE IV SCH ×2 (16:20→21:39)
[2020-10-05] MEDS: GABAPENTIN 100 MG CAPSULE PO SCH ×2 (16:20→21:37)
[2020-10-05] MEDS: CARBOXYMETHYLCELLULOSE SODIUM 1 EACH DROPER.GEL OU SCH ×2 (16:21→21:43)
[2020-10-05] MEDS: methylPREDNISolone SOD SUCC 125 MG/2 ML VIAL IV SCH ×2 (16:21→21:39)
[2020-10-05] MEDS: cefTRIAXone 1 GM VIAL IV SCH (16:22)
[2020-10-05] MEDS: INSULIN LISPRO 1 UNIT/0.01 ML UNIT SQ SCH ×3 (17:45→21:40)
[2020-10-05] MEDS: prednisoLONE 1% OPHTH DROPS 1ML BOTTLE OU SCH ×2 (18:02→21:44)
[2020-10-05] MEDS: BUDESONIDE 0.5 MG/2 ML AMPUL.NEB NEB SCH (18:41)
[2020-10-05] MEDS ORDERED: INSULIN GLARGINE, HUMAN 1 UNIT/0.01 ML SQ ONE (19:01)
[2020-10-05] MEDS: guaiFENesin 600 MG TAB.SR.12H PO SCH (21:37)
[2020-10-05] MEDS: MONTELUKAST 10 MG TABLET PO SCH (21:37)
[2020-10-05] MEDS: HEPARIN 5,000 UNIT/ML VIAL SQ SCH (21:38)
[2020-10-05] MEDS: DOCUSATE SODIUM 100 MG CAPSULE PO SCH (21:38)
[2020-10-05] MEDS: DILTIAZEM HCL 120 MG PO SCH (21:38)
[2020-10-05] MEDS: SOLIFENACIN 5 MG PO SCH (21:38)
[2020-10-05] MEDS: ATORVASTATIN 20 MG TABLET PO SCH (21:44)
[2020-10-06] MEDS: IPRATROPIUM/ALBUTEROL 3 ML AMPUL.NEB NEB SCH ×6 (03:03→22:52)
[2020-10-06] MEDS: methylPREDNISolone SOD SUCC 125 MG/2 ML VIAL IV SCH ×3 (05:38→21:43)
[2020-10-06] MEDS: 0.9 % SODIUM CHLORIDE 10 ML SYRINGE IV SCH ×3 (05:38→21:45)
[2020-10-06 06:16] LABS: Basophils # (Auto) 0.01 K/mcL (0.00-0.20); Basophils % (Auto) 0.1 % (0.0-2.0); Eosinophils # (Auto) 0 K/mcL (0.00-0.70); Eosinophils % (Auto) 0 % (0.0-7.0); Hematocrit 34.2 % (36.0-48.0); Hemoglobin 10.8 g/dL (12.0-15.0); Lymphocytes # (Auto) 0.74 K/mcL (1.50-4.80); Lymphocytes % (Auto) 5.1 % (15.0-49.0); Mean Cell Volume 95.8 fL (80.0-100.0); Mean Corpuscular HGB Conc 31.6 g/dL (31.0-36.0); Mean Platelet Volume 10.8 fL (7.4-10.4); Monocytes # (Auto) 0.24 K/mcL (0.10-0.90); Monocytes % (Auto) 1.7 % (1.0-12.0); Neutrophils % (Auto) 93.1 % (38.0-78.0); Platelet Count 233 K/mcL (140-440); RBC 3.57 M/mcL (4.00-5.20); Red Cell Distribution Width 15.2 % (11.5-14.5); WBC 14.5 K/mcL (4.5-11.0)
[2020-10-06 06:48] LABS: ALT/SGPT 22 U/L (<40); AST/SGOT 22 U/L (<32); Albumin 3.7 gm/dL (3.2-5.2); Albumin/Globulin Ratio 1.4 (1.0-2.3); Alkaline Phosphatase 90 U/L (39-117); Bilirubin,Direct < 0.2 mg/dL (<0.3); Bilirubin,Total < 0.2 mg/dL (0.1-1.0); Blood Urea Nitrogen 40 mg/dL (8-23); Calcium 9.8 mg/dL (8.6-10.4); Carbon Dioxide 27 mmol/L (22-30); Chloride 98 mmol/L (96-108); Globulin 2.6 gm/dL (2.2-3.7); Glomerular Filtration Rate 32; Glucose 135 mg/dL (70-105); Lactate Dehydrogenase 261 U/L (135-225); Phosphorous 2.8 mg/dL (2.5-4.5); Triglycerides 92 mg/dL (<150); Uric Acid 9.9 mg/dL (2.5-8.0)
[2020-10-06] MEDS: BUDESONIDE 0.5 MG/2 ML AMPUL.NEB NEB SCH ×3 (06:49→19:10)
--- NOTE | 2020-10-06 07:18 | Internal Med Progress Note ---
SUBJECTIVE Subjective Patient information: Note initiated : 10/06/20 at 7:13 am Service Date, if different from initiated Date: [] Patient: Génesis Medina 85 y/o F admitted on 10/05/20 for sob. Chief Complaint: [] Interval history: History of present illness: Ms. Medina is a 85 year old F Patient presents from [facility] for shortness of breath. Patient states she has a chronic shortness of breath with her COPD but that her latest symptoms have worsened over the past week. She is unable to cough up phlegm but feels like she has stuff to cough up. She denies fevers chills. In the ED she was found to be hypoxic on ABG and started on oxygen. 2 L. She had a chest x-ray which was done which was unremarkable. She was wheezy and rhonchorous and given 3 nebulizers with brief improvement. He was tested for Covid on the which is negative. Repeat pending. 10/06 Feeling much better. Minimal cough. Shortness of breath is present but much improved. No other pains or complaints Review of Systems: denies headache/fever/chills/nausea/vomiting/chest or abdominal pain/diarrhea. Otherwise see above. Constitutional Vitals: Vital Signs Temp Pulse Resp BP Pulse Ox 97.6 F 94 H 16 139/63 96 10/06/20 04:01 10/06/20 06:50 10/06/20 06:50 10/06/20 04:01 10/06/20 04:01 Period Temp Pulse Resp BP Sys/King Pulse Ox Last 24 Hr 97.6 F-98.4 F 88-120 12-28 131-205/53-125 90-100 Intake and Output 10/05/20 10/06/20 10/06/20 21:59 05:59 13:59 Intake Total 240 420 Output Total 525 Balance -285 420 Weight 65.68 kg Intake & Output: Intake & Output 10/05/20 10/06/20 10/06/20 21:59 05:59 13:59 Intake Total 240 420 Output Total 525 Balance -285 420 Weight 65.68 kg Intake: Oral 240 420 Output: Void Amount 525 Other: Urine Appearance Clear Urine Color Bright Yellow Exam: General: Alert, Awake, mild respiratory distress Eyes/N/T: EOMI, Head/Neck: neck supple, CV: RRR, No murmurs Pulm: Rhonchi and wheezing b/l Abd: soft, nontender, +BS x4 Ext: no clubbing/cyanosis/edema Neuro: Alert, chronic left side mild weakness from prior CVA, moves all extremities, Skin: warm/dry OBJ DATA Labs CBC & Chem 7: 10/06/20 04:44 10/06/20 04:44 Labs: Abnormal Lab Results 10/06/20 10/06/20 10/05/20 04:44 04:44 13:52 WBC 14.5 H RBC 3.57 L Hgb 10.8 L Hct 34.2 L RDW 15.2 H MPV 10.8 H Neut % (Auto) 93.1 H Lymph % (Auto) 5.1 L Lymph # (Auto) 0.74 L Absolute Neutrophils 13.46 H Chloride BUN 40 H Creatinine 1.5 H Glucose 135 H Uric Acid 9.9 H Lactate Dehydrogenase 261 H Procalcitonin Urine Appearance Cloudy A Urine Protein 30 A Urine Glucose (UA) >=500 A Ur Leukocyte Esterase 500 A Urine RBC 5 H Urine WBC > 182 H Urine Bacteria Few A 10/05/20 10/05/20 10/05/20 07:38 07:37 07:37 WBC RBC 3.57 L Hgb 10.7 L Hct 34.2 L RDW 15.5 H MPV 10.7 H Neut % (Auto) Lymph % (Auto) Lymph # (Auto) Absolute Neutrophils 8.35 H Chloride 94 L BUN 40 H Creatinine 1.8 H Glucose 226 H Uric Acid Lactate Dehydrogenase Procalcitonin 0.11 H Urine Appearance Urine Protein Urine Glucose (UA) Ur Leukocyte Esterase Urine RBC Urine WBC Urine Bacteria Meds: Medications Acetaminophen (Tylenol) 650 mg PO Q6HP PRN PRN Reason: PAIN/FEVER > 101 Albuterol Sulfate (Ventolin) 2 puff INH Q4HP PRN PRN Reason: shortness of breath Albuterol/Ipratropium (Duoneb) 3 ml NEB Q4HRT [facility] Last Admin: 10/06/20 06:50 Dose: 3 ml Documented by: Albuterol/Ipratropium (Duoneb) 3 ml NEB Q4HP PRN PRN Reason: Shortness Of Breath Artificial Tears (Refresh Celluvisc) 1 each OU TID [facility] Last Admin: 10/05/20 21:43 Dose: 1 each Documented by: Aspirin (Aspirin) 81 mg CHEWED DAILY [facility] Atorvastatin Calcium (Lipitor) 20 mg PO QHS [facility] Last Admin: 10/05/20 21:44 Dose: 20 mg Documented by: Budesonide (Pulmicort) 0.5 mg NEB Q12 [facility] Last Admin: 10/06/20 06:49 Dose: 0.5 mg Documented by: Ceftriaxone Sodium (Rocephin) 1 gm IV DAILY [facility]; Protocol Last Admin: 10/05/20 16:22 Dose: 1 gm Documented by: Dextrose (Dextrose 50%) 0 ml IV UD PRN PRN Reason: Hypoglycemia Diagnostic Test (Pha) (Accu-Chek) 1 each FS ACHS [facility] Last Admin: 10/05/20 23:18 Dose: 1 each Documented by: Docusate Sodium (Colace) 100 mg PO BID [facility] Last Admin: 10/05/20 21:38 Dose: Not Given Documented by: Gabapentin (Neurontin) 100 mg PO TID [facility] Last Admin: 10/05/20 21:37 Dose: 100 mg Documented by: Glucose (Insta-Glucose) 15 gm PO PRN PRN PRN Reason: Hypoglycemia Guaifenesin (Mucinex) 600 mg PO BID [facility] Last Admin: 10/05/20 21:37 Dose: 600 mg Documented by: Heparin Sodium (Porcine) (Heparin) 5,000 unit SQ Q12 [facility] Last Admin: 10/05/20 21:38 Dose: 5,000 unit Documented by: Hydralazine HCl (Apresoline) 0 mg IV Q2HP PRN PRN Reason: Hypertension Potassium Chloride 40 meq/ (Dextrose) 520 mls @ 130 mls/hr IV UD PRN PRN Reason: Potassium < 3 Azithromycin 500 mg/ Dextrose 250 mls @ 250 mls/hr IV DAILY [facility]; Protocol Stop: 10/07/20 09:59 Magnesium Sulfate (Magnesium Sulfate) 2 gm in 50 mls @ 50 mls/hr IV UD PRN PRN Reason: Magnesium </= 1.6 Insulin Glargine (Lantus) 38 unit SQ QDAY [facility] Insulin Human Lispro (Humalog) 0 unit SQ ACHS [facility]; Protocol Last Admin: 10/05/20 21:40 Dose: 20 units Documented by: Labetalol HCl (Trandate) 0 mg IV Q2HP PRN PRN Reason: Hypertension Lactulose (Cephulac) 20 gm PO DAILYP PRN PRN Reason: Constipation Levothyroxine Sodium (Synthroid) 112 mcg PO QAMAC [facility] Loperamide HCl (Imodium) 2 mg PO Q4HP PRN PRN Reason: Diarrhea Lorazepam (Ativan) 0.5 mg IV Q6HP PRN PRN Reason: ANXIETY/SEDATION Losartan Potassium (Cozaar) 100 mg PO DAILY [facility] Methylprednisolone Sodium Succinate (Solu-Medrol) 80 mg IV Q8 [facility] Last Admin: 10/06/20 05:38 Dose: 80 mg Documented by: Montelukast Sodium (Singular) 10 mg PO QHS [facility] Last Admin: 10/05/20 21:37 Dose: 10 mg Documented by: Omeprazole (Prilosec) 20 mg PO ACB [facility] Ondansetron HCl (Zofran) 4 mg IV Q4HP PRN PRN Reason: Nausea And Vomiting Diltiazem Hcl 120 Mg (Er 12 Hr Capsule) 1 dose PO BID [facility] Last Admin: 10/05/20 21:38 Dose: 1 dose Documented by: Solifenacin [ Vesicare] 5 Mg Tablet 1 dose PO HS [facility] Last Admin: 10/05/20 21:38 Dose: 1 dose Documented by: Potassium Chloride (Kdur) 40 meq PO UD PRN PRN Reason: Potssium is 3-3.5 Potassium Chloride (Kdur) 40 meq PO UD PRN PRN Reason: Potassium < 3 Prednisolone Acetate (Pred Forte Ophth Drops) 1 gtt OU QID [facility] Last Admin: 10/05/20 21:44 Dose: Not Given Documented by: Senna (Senokot) 2 tab PO DAILYP PRN PRN Reason: Constipation Sertraline HCl (Zoloft) 50 mg PO QDAY [facility] Sodium Chloride (Saline Flush) 10 ml IV Q8 [facility] Last Admin: 10/06/20 05:38 Dose: 10 ml Documented by: Zinc Sulfate (Zinc) 50 mg PO DAILY [facility] A/P Narrative A/P Narrative: A: *AECOPD(not on home O2): -covid/rvp neg -Chest x-ray unremarkable *Acute hypoxic respiratory failure: 2/2 above -now on 1L NC but still labored *Hypertensive urgency: home med diltiazem/losartan -improved *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) -on statin, was on eliquis in past but was stopped for SDH *Hypothyroidism: *GERD: *Anxiety/depression: *Chr pain: P: -Supp O2 prn -Steroids(wean), IH's, IS/Acapella, RT -abx empiric for pulm and pending UC -hold home lasix today, f/u renal fxn -cont home basal insulin and SSI -cont home bp meds (losartan/diltiazem) -cont asa/statin -f/u with pulmonology outpt -ppx: heparin DNR Time Spent With Patient Time: Total time spent is greater than 50% in coordination of care (as documented) at patient's floor/unit and/or counseling patient: QUALITY Stroke Symptom Onset Unknown: No VTE Deep Vein Thrombosis/Pulmonary Embolism Present on Admission: No
[2020-10-06] MEDS ORDERED: LEVOTHYROXINE SODIUM 112 MCG TABLET PO SCH (07:30)
[2020-10-06] MEDS: LEVOTHYROXINE SODIUM 112 MCG TABLET PO SCH (08:00)
[2020-10-06] MEDS: OMEPRAZOLE 20 MG CAPSULE PO SCH (08:00)
[2020-10-06] MEDS: INSULIN LISPRO 1 UNIT/0.01 ML UNIT SQ SCH ×6 (08:47→23:46)
[2020-10-06] MEDS: DILTIAZEM HCL 120 MG PO SCH ×2 (08:48→20:44)
[2020-10-06] MEDS: LOSARTAN 50 MG TABLET PO SCH (08:50)
[2020-10-06] MEDS: cefTRIAXone 1 GM VIAL IV SCH (08:50)
[2020-10-06] MEDS: guaiFENesin 600 MG TAB.SR.12H PO SCH ×2 (08:50→20:44)
[2020-10-06] MEDS: ASPIRIN 81 MG TAB.CHEW CHEWED SCH (08:50)
[2020-10-06] MEDS: SERTRALINE 50 MG TABLET PO SCH (08:50)
[2020-10-06] MEDS: GABAPENTIN 100 MG CAPSULE PO SCH ×3 (08:50→20:49)
[2020-10-06] MEDS: ZINC SULFATE 50 MG CAPSULE PO SCH (08:50)
[2020-10-06] MEDS: HEPARIN 5,000 UNIT/ML VIAL SQ SCH ×2 (08:51→20:44)
[2020-10-06] MEDS: DOCUSATE SODIUM 100 MG CAPSULE PO SCH ×2 (08:51→20:28)
[2020-10-06] MEDS: AZITHROMYCIN 500 MG in DEXTROSE 5% IN WATER 250 ML IV SCH ×2 (08:51→09:58)
[2020-10-06] MEDS: CARBOXYMETHYLCELLULOSE SODIUM 1 EACH DROPER.GEL OU SCH ×3 (08:52→20:45)
[2020-10-06] MEDS: prednisoLONE 1% OPHTH DROPS 1ML BOTTLE OU SCH ×4 (08:52→20:45)
[2020-10-06] MEDS ORDERED: INSULIN GLARGINE, HUMAN 1 UNIT/0.01 ML SQ SCH (09:00)
[2020-10-06] MEDS ORDERED: predniSONE 10 MG TABLET PO SCH (09:00)
--- NOTE | 2020-10-06 09:58 | Discharge Summary ---
Discharge Provider Provider Patient information: Note initiated : 10/06/20 at 9:56 am Service Date, if different from initiated Date: [] Patient: Génesis Medina 85 y/o F admitted on 10/05/20 for sob. Chief Complaint: [] Date of admission: 10/05/20 13:38 Discharge date: 10/07/20 Primary care physician: Dina Celestin Consults: 10/05/20 Consult to Physician [CONS] Stat Comment: Consulting Provider: Marquis Dueñas Reason For Exam: Physician to Consult Discharge Meds Discharge Medications Home Medications zinc gluconate 50 mg tablet 50 mg PO QDAY tab 03/05/19 [History Confirmed 10/05/20 Last Taken 01/03/20 08:00] polyethylene glycol 3350 17 gm PO HS 07/22/19 [History Confirmed 10/05/20 Last Taken 01/01/20 21:00] acetaminophen 325 mg capsule 1 - 2 tab PO Q8H PRN 08/02/19 [History Confirmed 10/05/20 Last Taken 01/01/20 20:45] sertraline 50 mg tablet 50 mg PO QDAY #90 tab 09/09/19 [Rx Confirmed 10/05/20 Last Taken 01/03/20 08:00] folic acid 1 mg tablet 1 mg PO QDAY #90 tab 09/18/19 [Rx Confirmed 10/05/20 Last Taken 01/03/20 08:00] omeprazole 20 mg capsule,delayed release 20 mg PO QDAY #90 cap 10/10/19 [Rx Confirmed 10/05/20 Last Taken 01/03/20 05:00] losartan 100 mg tablet 100 mg PO DAILY #90 tab 10/25/19 [Rx Confirmed 10/05/20 Last Taken 01/03/20 08:00] albuterol sulfate 90 mcg/actuation aerosol inhaler 2 puff INHALATION Q4H PRN #18 g 11/01/19 [Rx Confirmed 10/05/20 Last Taken Unknown] multivitamin 1 tab PO QAM 11/15/19 [History Confirmed 10/05/20 Last Taken 01/03/20 08:00] lancets 28 gauge #25 each 11/29/19 [History Confirmed 10/05/20 Last Taken Unknown] loperamide 2 mg tablet 2 mg PO Q4H PRN 11/29/19 [History Confirmed 10/05/20 Last Taken Unknown] furosemide 20 mg tablet 20 mg PO BID #60 tab 12/16/19 [Rx Confirmed 10/05/20 Last Taken 01/03/20 12:00] Accu-Chek 1 each FS ACHS 01/04/20 [History Confirmed 10/05/20 Last Taken 01/03/20 11:00] Aspercreme with Aloe 1 dose TP QIDP PRN 01/04/20 [History Confirmed 10/05/20 Last Taken Unknown] aspirin 81 mg CHEWED DAILY #30 tab.chew 01/09/20 [Rx Confirmed 10/05/20 Last Taken Unknown] carboxymethylcellulose sodium 0.5 % eye drops in a dropperette 0.5 % OPHTHALMIC TID #70 each 03/04/20 [Rx Confirmed 10/05/20 Last Taken Unknown] insulin lispro 200 unit/mL (3 mL) subcutaneous pen 2 - 6 unit SUB-Q .sliding scale #6 ml 03/18/20 [Rx Confirmed 10/05/20 Last Taken Unknown] nystatin 100,000 unit/gram topical ointment 1 applic TOPICAL QHS PRN g 03/24/20 [History Confirmed 10/05/20 Last Taken Unknown] budesonide 1 mg/2 mL suspension for nebulization 1 mg INHALATION BID #60 ml 06/29/20 [Rx Confirmed 10/05/20 Last Taken Unknown] lancets #100 each 06/29/20 [Rx Confirmed 10/05/20 Last Taken Unknown] benzonatate 200 mg capsule 200 mg PO TID PRN #90 cap 07/06/20 [Rx Confirmed 10/05/20 Last Taken Unknown] cholecalciferol (vitamin D3) 1,250 mcg (50,000 unit) tablet 1,250 mcg PO .QSATURDAY #12 tab 07/27/20 [Rx Confirmed 10/05/20 Last Taken Unknown] ipratropium 0.5 mg-albuterol 3 mg (2.5 mg base)/3 mL nebulization soln See Rx Instructions .ROUTE .COMPLEX #30 ml 07/29/20 [Rx Confirmed 10/05/20 Last Taken Unknown] ferrous sulfate 325 mg (65 mg iron) tablet See Rx Instructions .ROUTE .COMPLEX #60 tablet 08/06/20 [Rx Confirmed 10/05/20 Last Taken Unknown] insulin glargine 100 unit/mL (3 mL) subcutaneous pen 38 unit SUB-Q QDAY #15 ml 08/07/20 [Rx Confirmed 10/05/20 Last Taken Unknown] pen needle, diabetic 31 gauge x 3/16" See Rx Instructions .ROUTE .COMPLEX #100 unknown measurement unit code: each 08/25/20 [Rx Confirmed 10/05/20 Last Taken Unknown] diltiazem HCl 120 mg capsule,extended release 12 hr 120 mg PO BID #60 cap 08/31/20 [Rx Confirmed 10/05/20 Last Taken Unknown] solifenacin 5 mg tablet 5 mg PO QHS #90 tab 09/02/20 [Rx Confirmed 10/05/20 Last Taken Unknown] levothyroxine 112 mcg capsule 112 mcg PO QAM #90 cap 09/03/20 [Rx Confirmed 10/05/20 Last Taken Unknown] atorvastatin 20 mg tablet 20 mg PO QHS #90 tab 09/17/20 [Rx Confirmed 10/05/20 Last Taken Unknown] montelukast 10 mg tablet 10 mg PO QHS #90 tab 09/17/20 [Rx Confirmed 10/05/20 Last Taken Unknown] lubiprostone 24 mcg capsule 24 mcg PO ONCE #30 cap 09/24/20 [Rx Confirmed 10/05/20 Last Taken Unknown] gabapentin 100 mg capsule 100 mg PO TID #270 cap 09/30/20 [Rx Confirmed 10/05/20 Last Taken Unknown] prednisone 10 mg tablet 10 mg PO QDAY #30 tab 09/30/20 [Rx Confirmed 10/05/20 Last Taken Unknown] Mucinex DM 1 tab PO Q12H 10/05/20 [History Confirmed 10/05/20 Last Taken Unknown] Pred Forte 1 drp OPHTHALMIC (EYE) QID 10/05/20 [History Confirmed 10/05/20 Last Taken Unknown] guaifenesin 600 mg PO BID 10/05/20 [History Confirmed 10/05/20 Last Taken Unknown] COURSE Hospital Course Hospital course: History of present illness: Ms. Medina is a 85 year old F Patient presents from [facility] for shortness of breath. Patient states she has a chronic shortness of breath with her COPD but that her latest symptoms have worsened over the past week. She is unable to cough up phlegm but feels like she has stuff to cough up. She denies fevers chills. In the ED she was found to be hypoxic on ABG and started on oxygen. 2 L. She had a chest x-ray which was done which was unremarkable. She was wheezy and rhonchorous and given 3 nebulizers with brief improvement. He was tested for Covid on the which is negative. Repeat pending. 10/06 Feeling much better. Minimal cough. Shortness of breath is present but much improved. No other pains or complaints 10/07 Patient doing well. On room air. Stable for discharge. 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) -on statin, was on eliquis in past but was stopped for SDH *Hypothyroidism: *GERD: *Anxiety/depression: *Chr pain: Discharge diagnosis: COPD hypoxic respite failure hyper tensive urgency Secondary discharge diagnosis: Chronic kidney disease 3B chronic anemia UTI diabetes history of stroke hypothyroidism GERD anxiety depression chronic pain Time Spent with Patient Time attestation: Total time spent providing and/or coordinating discharge services: EXAM Constitutional Vitals: Temp Pulse Resp BP Pulse Ox 98.4 F 92 H 17 151/69 98 10/06/20 08:20 10/06/20 08:20 10/06/20 08:20 10/06/20 08:20 10/06/20 08:20 Discharge Data Data Completed and Pending Labs on day of discharge: Labs from last 24 hours 10/06/20 10/06/20 10/05/20 04:44 04:44 13:52 WBC 14.5 H RBC 3.57 L Hgb 10.8 L Hct 34.2 L MCV 95.8 MCH 30.3 MCHC 31.6 RDW 15.2 H Plt Count 233 MPV 10.8 H Neut % (Auto) 93.1 H Lymph % (Auto) 5.1 L [place] % (Auto) 1.7 Eos % (Auto) 0 Baso % (Auto) 0.1 Lymph # (Auto) 0.74 L [place] # (Auto) 0.24 Eos # (Auto) 0 Baso # (Auto) 0.01 Absolute Neutrophils 13.46 H Sodium 138 Potassium 3.9 Chloride 98 Carbon Dioxide 27 Anion Gap 13.0 BUN 40 H Creatinine 1.5 H GFR Calculation 32 Glucose 135 H Uric Acid 9.9 H Calcium 9.8 Phosphorus 2.8 Magnesium 2.0 Total Bilirubin < 0.2 Direct Bilirubin < 0.2 GGT 20 AST 22 ALT 22 Alkaline Phosphatase 90 Lactate Dehydrogenase 261 H Total Protein 6.3 Albumin 3.7 Globulin 2.6 Albumin/Globulin Ratio 1.4 Triglycerides 92 Urine Color Yellow Urine Appearance Cloudy A Urine pH 6.0 Ur Specific [place] 1.012 Urine Protein 30 A Urine Glucose (UA) >=500 A Urine Ketones Negative Urine Occult Blood Negative Urine Nitrate Negative Urine Bilirubin Negative Urine Urobilinogen Negative Ur Leukocyte Esterase 500 A Urine RBC 5 H Urine WBC > 182 H Ur Squamous Epith Cells 4 Ur Transition Epith Cell < 1 Urine Bacteria Few A Ur Culture Indicated? yes Preliminary micro results at discharge 10/05/20 13:52 Urine Culture - Preliminary Urine - Clean Void Mid-Stream Gram negative bacillus Discharge Plan Patient/Caregiver Discharge Instructions Activity: increase activity as tolerated Diet: Consistent Carbohydrate Activity Restrictions/Additional Instructions: Referral to see pulmonology in 1 to 2 weeks for COPD Prescriptions: Continued acetaminophen [Tylenol] 325 mg capsule 1 - 2 tab PO Q8H PRN (Reason: Pain) RF: 0 albuterol sulfate [ProAir HFA] 90 mcg/actuation HFA aerosol inhaler 2 puff INHALATION Q4H PRN (Reason: shortness of breath) Qty: 18 RF: 5 loperamide 2 mg tablet 2 mg PO Q4H PRN (Reason: Diarrhea) RF: 0 (DME) lancets [TRUEplus Lancets] 28 gauge misc See Rx Instructions .ROUTE .MEDSUPPLY Qty: 25 RF: 0 nystatin 100,000 unit/gram ointment 1 applic TOPICAL QHS PRN (Reason: Skin Irritation) RF: 0 montelukast 10 mg tablet 10 mg PO QHS Qty: 90 RF: 3 sertraline 50 mg tablet 50 mg PO QDAY Qty: 90 RF: 4 folic acid 1 mg tablet 1 mg PO QDAY Qty: 90 RF: 4 omeprazole 20 mg capsule,delayed release(DR/EC) 20 mg PO QDAY Qty: 90 RF: 4 losartan 100 mg tablet 100 mg PO DAILY Qty: 90 RF: 3 furosemide 20 mg tablet 20 mg PO BID Qty: 60 RF: 12 carboxymethylcellulose sodium 0.5 % dropperette 0.5 % OPHTHALMIC TID Qty: 70 RF: 0 Humalog KwikPen Insulin 200 unit/mL (3 mL) insulin pen 2 - 6 unit SUB-Q .sliding scale Qty: 6 RF: 6 budesonide 1 mg/2 mL suspension for nebulization 1 mg INHALATION BID Qty: 60 RF: 8 (DME) lancets [Comfort Lancets] Misc See Rx Instructions .ROUTE .MEDSUPPLY Qty: 100 RF: 10 benzonatate 200 mg capsule 200 mg PO TID PRN (Reason: cough) Qty: 90 RF: 6 cholecalciferol (vitamin D3) 1,250 mcg (50,000 unit) tablet 1,250 mcg PO .QSATURDAY Qty: 12 RF: 3 ipratropium-albuterol 0.5 mg-3 mg(2.5 mg base)/3 mL solution for nebulization See Rx Instructions .ROUTE .COMPLEX Qty: 30 RF: 12 ferrous sulfate 325 mg (65 mg iron) tablet See Rx Instructions .ROUTE .COMPLEX Qty: 60 RF: 3 Lantus Solostar U-100 Insulin 100 unit/mL (3 mL) insulin pen 38 unit SUB-Q QDAY Qty: 15 RF: 6 pen needle, diabetic [Easy Comfort Pen [place]] 31 gauge x 3/16" needle See Rx Instructions .ROUTE .COMPLEX Qty: 100 RF: 6 diltiazem HCl 120 mg capsule,extended release 12 hr 120 mg capsule,extended release 12 hr 120 mg PO BID Qty: 60 RF: 3 Vesicare 5 mg tablet 5 mg PO QHS Qty: 90 RF: 0 levothyroxine 112 mcg capsule 112 mcg PO QAM Qty: 90 RF: 0 atorvastatin 20 mg tablet 20 mg PO QHS Qty: 90 RF: 3 Amitiza 24 mcg capsule 24 mcg PO ONCE Qty: 30 RF: 3 prednisone 10 mg tablet 10 mg PO QDAY Qty: 30 RF: 0 gabapentin 100 mg capsule 100 mg PO TID Qty: 270 RF: 3 zinc gluconate 50 mg tablet 50 mg tablet 50 mg PO QDAY RF: 0 multivitamin Tablet 1 tab PO QAM RF: 0 polyethylene glycol 3350 17 GM packet 17 gm PO HS RF: 0 Accu-Chek 1 EACH strip 1 each FS ACHS RF: 0 Aspercreme with Aloe 35.4 GM cream 1 dose TP QIDP PRN (Reason: Pain) RF: 0 aspirin 81 MG tablet,chewable 81 mg CHEWED DAILY Qty: 30 RF: 0 guaifenesin 600 mg PO BID RF: 0 Pred Forte 1 drp ophthalmic (eye) QID RF: 0 Mucinex DM 30-600 mg tablet extended release 12 hr 1 tab PO Q12H RF: 0 Follow Up Plan Follow up with: Dina Celestin ARNP [Primary Care Provider] - Patient Disposition: er Assisted Living Facility Prognosis: Fair Overall status at discharge: patient is progressing back to baseline Discharge Orders: Discharge Order (Routine); Ordered 10/07/20 Ordered By: Marquis Dueñas [facility] Deep Vein Thrombosis/Pulmonary Embolism Present on Admission: No
[2020-10-06] MEDS: AZITHROMYCIN 250 MG TABLET PO SCH (11:17)
[2020-10-06] MEDS: SOLIFENACIN 5 MG PO SCH (20:44)
[2020-10-06] MEDS: MONTELUKAST 10 MG TABLET PO SCH (20:45)
[2020-10-06] MEDS: ATORVASTATIN 20 MG TABLET PO SCH (20:49)
[2020-10-07] MEDS: IPRATROPIUM/ALBUTEROL 3 ML AMPUL.NEB NEB SCH ×4 (03:32→14:46)
[2020-10-07] MEDS: INSULIN LISPRO 1 UNIT/0.01 ML UNIT SQ SCH ×3 (04:23→12:05)
[2020-10-07] MEDS: methylPREDNISolone SOD SUCC 125 MG/2 ML VIAL IV SCH (05:49)
[2020-10-07] MEDS: 0.9 % SODIUM CHLORIDE 10 ML SYRINGE IV SCH (05:50)
[2020-10-07] MEDS: BUDESONIDE 0.5 MG/2 ML AMPUL.NEB NEB SCH ×2 (06:48→08:10)
[2020-10-07] MEDS: OMEPRAZOLE 20 MG CAPSULE PO SCH (07:26)
[2020-10-07] MEDS: LEVOTHYROXINE SODIUM 112 MCG TABLET PO SCH (07:26)
[2020-10-07] MEDS ORDERED: INSULIN GLARGINE, HUMAN 1 UNIT/0.01 ML SQ SCH (09:00)
[2020-10-07] MEDS: cefTRIAXone 1 GM VIAL IV SCH (09:10)
[2020-10-07] MEDS: ZINC SULFATE 50 MG CAPSULE PO SCH (09:10)
[2020-10-07] MEDS: guaiFENesin 600 MG TAB.SR.12H PO SCH (09:10)
[2020-10-07] MEDS: LOSARTAN 50 MG TABLET PO SCH (09:10)
[2020-10-07] MEDS: ASPIRIN 81 MG TAB.CHEW CHEWED SCH (09:10)
[2020-10-07] MEDS: AZITHROMYCIN 250 MG TABLET PO SCH (09:11)
[2020-10-07] MEDS: SERTRALINE 50 MG TABLET PO SCH (09:11)
[2020-10-07] MEDS: GABAPENTIN 100 MG CAPSULE PO SCH ×2 (09:11→13:56)
[2020-10-07] MEDS: HEPARIN 5,000 UNIT/ML VIAL SQ SCH (09:11)
[2020-10-07] MEDS: DOCUSATE SODIUM 100 MG CAPSULE PO SCH (09:12)
[2020-10-07] MEDS: prednisoLONE 1% OPHTH DROPS 1ML BOTTLE OU SCH ×2 (09:12→12:06)
[2020-10-07] MEDS: DILTIAZEM HCL 120 MG PO SCH (09:13)
[2020-10-07] MEDS: CARBOXYMETHYLCELLULOSE SODIUM 1 EACH DROPER.GEL OU SCH (09:13)
[2020-10-07] MEDS ORDERED: SOLIFENACIN 10 MG PO SCH (21:00)
== END 2020-10-07 15:25 | DRG 190 ==
LOC: ED 06:36 → ICU 13:38
PROVIDERS: ADMIT Internal Medicine; ATTEND Internal Medicine